=== PATIENT | female | born 1975 | race Two or more races ===

== ENCOUNTER 2020-01-15 12:47 | Outpatient (REF) | payer OTHER, SELFPAY ==
--- NOTE | 2020-01-15 | MM_ITS ---
EXAMINATION: MM SCREENING DIGITAL BREAST TOMOSYNTHESIS, BILATERAL CLINICAL INFORMATION: Screening. Asymptomatic. The lifetime risk of breast cancer based on the Tyrer-Cuzick Model is 7%. COMPARISON: Mammography: 09/22/2018, 09/16/2017 TECHNIQUE: Digital breast tomosynthesis is performed in both the craniocaudal and mediolateral oblique views along with computer-aided detection (CAD). Synthesized 2D images are generated from the tomosynthesis. FINDINGS: There are scattered areas of fibroglandular density (ACR BI-RADS breast composition Category b). There are no significant masses, abnormal calcifications, or other abnormalities. Parenchymal pattern is similar to prior studies. The axilla and skin contours are unremarkable. IMPRESSION: No mammographic evidence of malignancy. ASSESSMENT: BI-RADS 1: Negative RECOMMENDATION: Routine annual mammography screening. This patient's information was entered into a reminder system with a target due date for their next mammogram.
== END 2020-01-15 12:48 | disposition home or self-care (01) ==
LOC: HO.MAMMO 12:47
PROVIDERS: Visit Provider Internal Medicine
DX: Z12.31 Encounter for screening mammogram for malignant neoplasm of breast (principal)
CPT/HCPCS: 77063; 77067; 78014

== ENCOUNTER → 2020-01-19 08:45 | Outpatient (BNVA) | payer OTHER, SELFPAY | PROVIDERS: PCP Internal Medicine; Visit Provider Orthopaedic Surgery | DX: M25.551 Pain in right hip (principal); M54.40 Lumbago with sciatica, unspecified side | CPT/HCPCS: 99213 ==

== ENCOUNTER 2020-04-27 15:41 | Outpatient (REF) | payer OTHER, SELFPAY ==
[2020-04-27 16:11] LABS: MANUAL DIFF FLAG NO
[2020-04-27 16:31] LABS: Basophils Percent Auto 0.2 % (0-2); Eosinophils Absolute Auto 0.1 X10*3/uL (0.0-0.4); Eosinophils Percent Auto 0.7 % (0-4); Hematocrit 34.4 % (37-47); Hemoglobin 11.1 g/dl (12.0-16.0); Imm Gran Abs Auto 0.04 X10*3/uL (0.00-0.03); Imm Gran Pct Auto 0.4 % (0.0-0.4); Lymphocytes Absolute Auto 2.6 X10*3/uL (1.2-4.9); Lymphocytes Percent Auto 25.4 % (20-40); Mean Corpuscular HGB Conc 32.3 g/dl (31.0-35.0); Mean Corpuscular Hemoglobin 30.2 pg (27.0-33.0); Mean Corpuscular Volume 93.5 fL (80-98); Mean Platelet Volume 11.3 fL (9.4-12.3); Monocytes Absolute Auto 0.7 X10*3/uL (0.1-1.2); Monocytes Percent Auto 6.5 % (2-11); Neutrophils Absolute Auto 6.8 X10*3/uL (2.0-8.3); Neutrophils Percent Auto 66.8 % (45-73); Platelet Count 241 X10*3/uL (160-400); Red Blood Count 3.68 X10*6/uL (4.20-5.50); Red Cell Distribution Width 13.3 % (11.0-16.0); White Blood Count 10.1 X10*3/uL (4.8-10.8)
[2020-04-27 16:55] LABS: Alanine Aminotransferase 24 U/L (0-31); Albumin Level 3.8 g/dL (3.5-5.0); Alkaline Phosphatase 72 U/L (39-117); Anion Gap 12 (12-20); Aspartate Amino Transferase 23 U/L (5-31); Bilirubin Total 0.2 mg/dL (0.0-1.0); Blood Urea Nitrogen 12 mg/dL (9-16); Calcium 8.9 mg/dL (8.4-10.2); Carbon Dioxide 28 mmol/L (22-29); Chloride 100 mmol/L (96-108); Estimated Glomerular Filt Rate > 60; Glucose Random 112 mg/dL (60-115); Potassium 4.3 mmol/l (3.3-5.1); Sodium 136 mmol/L (135-145); Total Protein 7.2 g/dL (6.5-8.0)
== END 2020-04-27 15:42 | disposition home or self-care (01) ==
LOC: HO.LAB 15:41
PROVIDERS: PCP Internal Medicine; Visit Provider Internal Medicine
DX: R42 Dizziness and giddiness (principal); R53.83 Other fatigue
CPT/HCPCS: 36415; 80053; 84443; 85025

== ENCOUNTER 2020-08-19 08:28 | Emergency (ER) | payer OTHER, SELFPAY ==
--- NOTE | ~2020-08-19 | US_ITS ---
EXAMINATION: US DIAGNOSTIC ULTRASOUND BREAST, RIGHT US DIAGNOSTIC ULTRASOUND BREAST, LEFT CLINICAL INFORMATION: 45-year-old, emergency room visit for bilateral breast symptoms. Patient status post bilateral mastopexy with fat insertion approximately 3 months ago. COMPARISON: Bilateral digital breast tomosynthesis 01/15/2020, targeted right breast ultrasound 09/19/2017. TECHNIQUE: Ultrasound is performed using grayscale imaging and color Doppler without and with harmonics. Exam is tailored to the areas of patient concern. Exam is performed emergently, at the hospital department. Ultrasound left breast is targeted to the inner breast, ultrasound right breast is targeted to the inferior breast. FINDINGS: Right: There is an oval heterogeneous predominantly hyperechoic mass 6:00 position 2 cm from nipple measuring 2.6 x 1.5 x 1.6 cm. The caudal aspect of the lesion shows some linear internal hypoechogenicity. There is no increased or decreased through transmission of sound. The superficial side shows probable claw sign with the deep dermis. There is no skin thickening or edema tracking in the soft tissue planes There is no local or surrounding or internal hyperemia. There is a smaller lesion mildly hypoechoic with central hypoechogenicity 5:00 position 3 cm from nipple measuring 1.0 x 0.8 x 0.8 cm. There is no associated color flow. No increased or decreased through transmission of sound. Left: There is an oval predominantly hypoechoic lesion superficial 9:00 position 4 cm from nipple measuring 1.7 x 0.9 x 1.5 cm. There is some scattered borderline internal hypoechogenicity. The lesion contacts the deep dermis without corresponding. There are some scattered adjacent color flow. No definite hyperemia. There is a hypoechoic lesion 8:00 position 4 cm from nipple measuring 1.0 x 0.9 x 0.9 cm. There is some mild internal decreased echogenicity No associated color flow. At the 8:00 position 2 cm from nipple, there is a hypoechoic area under 5 mm possibly fat lobule or small intramammary node. US/US breast RT limited IMPRESSION: 1. Bilateral similar appearing predominantly hypoechoic heterogeneous lesions as detailed above likely combination of postoperative change and fat necrosis. 2. No edema tracking in soft tissue planes. No focal abscess. No focal hyperemia. ASSESSMENT: BI-RADS 3: Probably Benign RECOMMENDATION: 1. Patient should be managed based on the clinical impression. 2. Recommend clinical follow-up. If symptoms are persistent, further evaluation of the breasts may be performed with diagnostic digital breast tomosynthesis and follow-up ultrasound if warranted. This patient's information was entered into a reminder system with a target due date for their next mammogram.
[2020-08-19 08:58] VITALS: BP 134/77; PULSE 83; RESP 18; TEMP 36.7; O2SAT 99; BMI 25.7
--- NOTE | 2020-08-19 09:33 | ED_ITS ---
HPI - General Adult General Chief complaint: General Medical Stated complaint: BREAST ISSUE Time Seen by Provider: 08/19/20 08:58 Source: patient Mode of arrival: ambulatory Limitations: no limitations History of Present Illness HPI narrative: 45-year-old female who is status post breast augmentation with the lift with fat insertion no implants approximately in May 2020 in [place] presenting to the ED with complaints of hard lumps to each breast approximately 1 on each side. She said that this has been present since her surgery and has not worsened. She denies any fevers or any drainage. Denies any other symptoms complaints or concerns at this time. She reports she is currently not on any antibiotics or any blood thinners. Related Data Home Medications Medication Instructions Recorded Confirmed baclofen 10 mg tablet 10 mg PO TID 01/13/20 01/16/20 clindamycin HCl 300 mg capsule 300 mg PO Q6H 01/13/20 01/16/20 fluoxetine 20 mg capsule 20 mg PO DAILY 01/13/20 01/16/20 gabapentin 100 mg capsule 100 mg PO TID 01/13/20 01/16/20 midodrine 5 mg tablet 5 mg PO TID 01/13/20 01/16/20 mirtazapine 15 mg tablet 15 mg PO BEDTIME 01/13/20 01/16/20 naproxen 500 mg tablet 500 mg PO BID 01/13/20 01/16/20 tramadol 50 mg tablet 50 mg PO DAILY 01/13/20 01/16/20 Previous Rx's Medication Instructions Recorded lorazepam 1 mg tablet 1 mg PO BEDTIME PRN 30 Days #30 tab 04/20/20 levothyroxine 25 mcg tablet 25 mcg PO QAM #90 tab 05/23/20 Allergies Allergy/AdvReac Type Severity Reaction Status Date / Time Penicillins [PENICILLINS] Allergy Unknown RASH Verified 08/19/20 09:00 Review of Systems Review of Systems: Constitutional : No Fever, No Chills, Cardiovascular : No Chest Pain, No SOB Respiratory : No Dyspnea Gastrointestinal : No abdominal pain Musculoskeletal : No Joint Swelling Skin : Positive lungs to bilateral breasts, no drainage, No skin laceration, No Foreign bodies, No rash, No surrounding erythema Neuro : No Weakness, No Numbness/tingling Psych : No SI/HI/thoughts of self injury Yes all other systems are reviewed and are negative PMFSH Past Medical History Attestation statement: The following information was validated with the patient. Medical History Coccydynia Surgical History History of appendectomy History of arthroplasty of right knee History of bladder suspension procedure History of delivery History of tonsillectomy Family History Family History Father No problems noted. Mother Myocardial infarction CVD (cardiovascular disease) Social History Social History Advance Directives: Yes Advance Directives Information Provided: Yes Advance Directives on File: No Patient : No Current occupation: Unemployed Physical Exam Vital Signs: Vital Signs: Last Vital Signs Temp 98.1 F 08/19/20 08:58 Pulse 83 08/19/20 08:58 Resp 18 08/19/20 08:58 BP 134/77 08/19/20 08:58 Pulse Ox 99 08/19/20 08:58 Body Mass Index 25.7 vital signs have been reviewed as normal and appeared to be correct. Blood pressure normal. Heart rate normal. Respiration rate normal. Temperature normal. Oxygen saturation normal. Appearance: Alert. Oriented X3. No acute distress. Head: Normal external exam. Normocephalic. Eyes: PERRLA. EOMI. Conjunctiva and sclera normal. Eyelids normal. ENT: Pharynx normal. Uvula midline. Moist mucous membranes. Neck: Normal inspection. Neck supple. FROM. No adenopathy. No meningeal signs. CVS: Normal heart rate and rhythm. Heart sound normal. No murmurs noted. Pulses normal throughout. Chest/Breast: To right breast patient has augmentation surgical scars which appear well healing no erythema or signs of infection/fluctuance or drainage noted at this time. At the 06:00 o'clock aspect patient has induration. The left breast augmentations surgical scars appear well healing no erythema/signs of infection/drainage or fluctuance at this time. At the 09:00 o'clock aspect patient has induration. Respiratory: No respiratory distress. Painless inspiration. Breath sounds normal. No wheezes/rales/rhonchi noted. Chest nontender. No accessory muscle usage noted or decreased air movement noted. Back: Full range of motion noted. Skin: Skin warm and dry. Normal skin color. Normal skin turgor. No rashes/lesions/lacerations noted. Extremities: Extremities exhibit normal range of motion. Extremities nontender. Neuro: Oriented X 3. No motor deficit. No sensory deficit. Reflexes normal. Normal steady gait. Course Course Course Narrative: Ultrasound returned at this time and patient with fat necrosis no signs of abscess or infection will print out a copy of her ultrasound results and instructed patient [facility] or her PCP for an outpatient mammogram or further evaluation treatment although no antibiotics indicated at this time. Patient understands agrees with this plan. Medical Decision Making MDM Narrative Medical decision making narrative: 9:10am - 45-year-old female who is status post breast augmentation with the lift with fat insertion no implants approximately in May 2020 in [place] presenting to the ED with complaints of hard lumps to each breast approximately 1 on each side. - on exam patient's breast augmentations surgical scars appear to be well- healing no signs of infection. Although on the right breast at the 06:00 o'clock aspect patient has induration and at the left breast 09:00 o'clock aspect patient has induration. - Concern for Fat necrosis vs abscess vs normal healing - Plan: Limited ultrasound of right and left breast then I will recommend the patient to have an outpatient mammogram. Will re-evaluate. Medical Records Medical records reviewed: Yes I reviewed the patient's medical records. Imaging Data Bilateral breast ultrasound: Attestation: I personally reviewed and interpreted this imaging study as follows: Radiologist's impression: [address] [id number] ReportSigned Patient: Michelle Clarke JMR#: [id number]: [id number]:[id number]/Sex: 45 / FADM Date: 08/19/20Loc: [address]: Ordering Physician: NICHOLAS RODARTE Date of Service: 08/19/20 Procedure(s): US breast LT limited Accession Number(s): [id number] cc: NICHOLAS RODARTE~ EXAMINATION: US DIAGNOSTIC ULTRASOUND BREAST, RIGHT US DIAGNOSTIC ULTRASOUND BREAST, LEFT CLINICAL INFORMATION: 45-year-old, emergency room visit for bilateral breast symptoms. Patient status post bilateral mastopexy with fat insertion approximately 3 months ago. COMPARISON: Bilateral digital breast tomosynthesis 01/15/2020, targeted right breast ultrasound 09/19/2017. TECHNIQUE: Ultrasound is performed using grayscale imaging and color Doppler without and with harmonics. Exam is tailored to the areas of patient concern. Exam is performed emergently, at the hospital department. Ultrasound left breast is targeted to the inner breast, ultrasound right breast is targeted to the inferior breast. FINDINGS: Right: There is an oval heterogeneous predominantly hyperechoic mass 6:00 position 2 cm from nipple measuring 2.6 x 1.5 x 1.6 cm. The caudal aspect of the lesion shows some linear internal hypoechogenicity. There is no increased or decreased through transmission of sound. The superficial side shows probable claw sign with the deep dermis. There is no skin thickening or edema tracking in the soft tissue planes There is no local or surrounding or internal hyperemia. There is a smaller lesion mildly hypoechoic with central hypoechogenicity 5:00 position 3 cm from nipple measuring 1.0 x 0.8 x 0.8 cm. There is no associated color flow. No increased or decreased through transmission of sound. Left: There is an oval predominantly hypoechoic lesion superficial 9:00 position 4 cm from nipple measuring 1.7 x 0.9 x 1.5 cm. There is some scattered borderline internal hypoechogenicity. The lesion contacts the deep dermis without corresponding. There are some scattered adjacent color flow. No definite hyperemia. There is a hypoechoic lesion 8:00 position 4 cm from nipple measuring 1.0 x 0.9 x 0.9 cm. There is some mild internal decreased echogenicity No associated color flow. At the 8:00 position 2 cm from nipple, there is a hypoechoic area under 5 mm possibly fat lobule or small intramammary node. US/US breast LT limited IMPRESSION: 1. Bilateral similar appearing predominantly hypoechoic heterogeneous lesions as detailed above likely combination of postoperative change and fat necrosis. 2. No edema tracking in soft tissue planes. No focal abscess. No focal hyperemia. ASSESSMENT: BI-RADS 3: Probably Benign RECOMMENDATION: 1. Patient should be managed based on the clinical impression. 2. Recommend clinical follow-up. If symptoms are persistent, further evaluation of the breasts may be performed with diagnostic digital breast tomosynthesis and follow-up ultrasound if warranted. This patient's information was entered into a reminder system with a target due date for their next mammogram. Discharge Plan Discharge Clinical Impression: Breast, fat necrosis, H/O breast augmentation Patient Disposition: Home, Self-Care Additional Instructions: You will need a mammogram outpatient. Return if any new or worsening symptoms. Follow up with her primary care provider. Prescriptions: No Action lorazepam 1 mg tablet 1 mg PO BEDTIME PRN (Reason: anxiety) 30 Days Qty: 30 RF: 0 levothyroxine 25 mcg tablet 25 mcg PO QAM Qty: 90 RF: 0 mirtazapine 15 mg tablet 15 mg PO BEDTIME RF: 0 fluoxetine 20 mg capsule 20 mg PO DAILY RF: 0 clindamycin HCl 300 mg capsule 300 mg PO Q6H RF: 0 tramadol 50 mg tablet 50 mg PO DAILY RF: 0 baclofen 10 mg tablet 10 mg PO TID RF: 0 gabapentin 100 mg capsule 100 mg PO TID RF: 0 naproxen [Naprosyn] 500 mg tablet 500 mg PO BID RF: 0 midodrine 5 mg tablet 5 mg PO TID RF: 0 Referrals: Chandu Ruvalcaba MD [Primary Care Provider] - 2 days Print Language: Marshallese
[2020-08-19 12:03] VITALS: PULSE 87; RESP 18
== END 2020-08-19 12:04 | disposition home or self-care (01) ==
PROVIDERS: Emergency Provider Emergency Medicine; PCP Internal Medicine
DX: T85.898A Other specified complication of other internal prosthetic devices, implants and grafts, initial encounter (principal); N64.1 Fat necrosis of breast; Z98.82 Breast implant status; Y92.9 Unspecified place or not applicable
CPT/HCPCS: 76642; 99283; 99284

== ENCOUNTER 2020-09-28 07:54 | Outpatient (REF) | payer OTHER, SELFPAY ==
[2020-09-28 08:32] LABS: MANUAL DIFF FLAG NO
[2020-09-28 08:33] LABS: Basophils Percent Auto 0.5 % (0-2); Eosinophils Absolute Auto 0.1 X10*3/uL (0.0-0.4); Eosinophils Percent Auto 2.4 % (0-4); Hematocrit 34.6 % (37-47); Hemoglobin 11.3 g/dl (12.0-16.0); Imm Gran Abs Auto 0.01 X10*3/uL (0.00-0.03); Imm Gran Pct Auto 0.2 % (0.0-0.4); Lymphocytes Absolute Auto 2.2 X10*3/uL (1.2-4.9); Lymphocytes Percent Auto 36.3 % (20-40); Mean Corpuscular HGB Conc 32.7 g/dl (31.0-35.0); Mean Corpuscular Hemoglobin 30.1 pg (27.0-33.0); Mean Platelet Volume 11.3 fL (9.4-12.3); Monocytes Absolute Auto 0.5 X10*3/uL (0.1-1.2); Monocytes Percent Auto 8.4 % (2-11); Neutrophils Absolute Auto 3.1 X10*3/uL (2.0-8.3); Neutrophils Percent Auto 52.2 % (45-73); Platelet Count 195 X10*3/uL (160-400); Red Blood Count 3.76 X10*6/uL (4.20-5.50); Red Cell Distribution Width 13.8 % (11.0-16.0); White Blood Count 5.9 X10*3/uL (4.8-10.8)
[2020-09-28 08:56] LABS: Alanine Aminotransferase 28 U/L (0-31); Albumin Level 3.8 g/dL (3.5-5.0); Alkaline Phosphatase 83 U/L (39-117); Anion Gap 11 (12-20); Aspartate Amino Transferase 26 U/L (5-31); Bilirubin Total 0.7 mg/dL (0.0-1.0); Blood Urea Nitrogen 16 mg/dL (9-16); Calcium 8.9 mg/dL (8.4-10.2); Carbon Dioxide 26 mmol/L (22-29); Chloride 107 mmol/L (96-108); Cholesterol 153 mg/dL; Estimated Glomerular Filt Rate > 60; Glucose Fasting 90 mg/dL (60-99); HDL Cholesterol 56 mg/dL; LDL Cholesterol Calculated 89 mg/dl; Potassium 4.5 mmol/L (3.3-5.1); Sodium 139 mmol/L (135-145); Total Protein 6.9 g/dL (6.5-8.0); Triglycerides 41 mg/dL
[2020-09-28 09:28] LABS: Folate 19.9 ng/mL (> or = 4.0); Vitamin B12 561 pg/mL (200-900)
[2020-09-28 09:35] LABS: TSH reflex Free T4 1.94 uIU/mL (0.32-4.0); Vitamin D 25-OH Total 22.9 ng/mL (>30)
[2020-09-28 10:01] LABS: Glucose Urine UA NEG (NEG); Leukocyte Esterase Urine NEG (NEG); Nitrite Urine NEG (NEG); PH 6.5 (5.0-8.0); Specific Gravity - Urine <= 1.005 (1.005-1.025); Urine Blood 3+ (NEG); Urine Ketones NEG (NEG); Urine Protein NEG (NEG-TRACE)
[2020-09-28 10:06] LABS: Appearance Urine HAZY; Color Urine YELLOW
[2020-09-28 11:08] LABS: Squamous Epithelial Cell Urine 2+ /LPF; WBC Urine 0 /HPF (0-4)
== END 2020-09-28 07:55 | disposition home or self-care (01) ==
LOC: HO.LAB 07:54
PROVIDERS: PCP Internal Medicine; Visit Provider Internal Medicine
DX: E53.8 Deficiency of other specified B group vitamins (principal); E78.00 Pure hypercholesterolemia, unspecified; E55.9 Vitamin D deficiency, unspecified; I10 Essential (primary) hypertension
CPT/HCPCS: 36415; 80053; 80061; 81001; 81003; 82306; 82607; 82746; 84443; 85025

== ENCOUNTER 2020-11-04 12:29 | Emergency (ER) | payer OTHER, SELFPAY | END 2020-11-04 14:13 | disposition left against medical advice (07) | PROVIDERS: Emergency Provider Emergency Medicine; PCP Internal Medicine | DX: Z04.9 Encounter for examination and observation for unspecified reason (principal) ==

== ENCOUNTER 2021-05-15 08:03 | Outpatient (REF) | payer OTHER, SELFPAY ==
[2021-05-15 08:20] LABS: MANUAL DIFF FLAG NO
[2021-05-15 08:51] LABS: Basophils Percent Auto 0.7 % (0-2); Eosinophils Absolute Auto 0.2 X10*3/uL (0.0-0.4); Eosinophils Percent Auto 2.8 % (0-4); Hematocrit 36.5 % (37.0-47.0); Hemoglobin 11.9 g/dl (12.0-16.0); Imm Gran Abs Auto 0.02 X10*3/uL (0.00-0.03); Imm Gran Pct Auto 0.3 % (0.0-0.4); Lymphocytes Percent Auto 33.4 % (20-40); Mean Corpuscular HGB Conc 32.6 g/dl (31.0-35.0); Mean Corpuscular Hemoglobin 30.5 pg (27.0-33.0); Mean Corpuscular Volume 93.6 fL (80.0-98.0); Mean Platelet Volume 11.6 fL (9.4-12.3); Monocytes Absolute Auto 0.4 X10*3/uL (0.1-1.2); Monocytes Percent Auto 6.8 % (2-11); Neutrophils Absolute Auto 3.4 x10*3/uL (2.0-8.3); Platelet Count 234 X10*3/uL (160-400); Red Cell Distribution Width 13.1 % (11.0-16.0)
[2021-05-15 09:11] LABS: Alanine Aminotransferase 14 U/L (0-31); Albumin Level 3.9 g/dL (3.5-5.0); Alkaline Phosphatase 60 U/L (39-117); Anion Gap 11 (12-20); Aspartate Amino Transferase 18 U/L (5-31); Bilirubin Total 0.5 mg/dL (0.0-1.0); Blood Urea Nitrogen 11 mg/dL (9-16); Calcium 9.3 mg/dL (8.4-10.2); Carbon Dioxide 28 mmol/L (22-29); Chloride 107 mmol/L (96-108); Cholesterol 163 mg/dL; Estimated Glomerular Filt Rate > 60; Glucose Fasting 99 mg/dL (60-99); HDL Cholesterol 52 mg/dL; LDL Cholesterol Calculated 102 mg/dl; Potassium 4.5 mmol/L (3.3-5.1); Sodium 141 mmol/L (135-145); Total Protein 7.3 g/dL (6.5-8.0); Triglycerides 47 mg/dL
[2021-05-15 09:33] LABS: Free T4 (Free Thyroxine) 1.13 ng/dL (0.71-1.85); Thyroid Stimulating Hormone 2.33 uIU/mL (0.32-4.0); Vitamin D 25-OH Total 36.3 ng/mL (>30)
[2021-05-15 09:39] LABS: Appearance Urine CLOUDY; Glucose Urine UA NEG (NEG); Leukocyte Esterase Urine TRACE (NEG); Nitrite Urine NEG (NEG); PH 8.5 (5.0-8.0); Urine Blood 3+ (NEG); Urine Ketones NEG (NEG)
[2021-05-15 09:42] LABS: Urine Protein 2+ MG/DL (NEG-TRACE)
[2021-05-15 09:43] LABS: Color Urine RED
[2021-05-15 09:48] LABS: RBC Urine TNTC /HPF (0); Squamous Epithelial Cell Urine TRACE /LPF; WBC Urine 0-2 /HPF (0-4)
== END 2021-05-15 08:04 | disposition home or self-care (01) ==
LOC: HO.LAB 08:03
PROVIDERS: PCP Internal Medicine; Visit Provider Internal Medicine
DX: Z00.00 Encounter for general adult medical examination without abnormal findings (principal); E55.9 Vitamin D deficiency, unspecified; I10 Essential (primary) hypertension; E03.9 Hypothyroidism, unspecified; E78.00 Pure hypercholesterolemia, unspecified
CPT/HCPCS: 36415; 80053; 80061; 81001; 82306; 84439; 84443; 85025

== ENCOUNTER 2021-11-24 09:24 | Outpatient (REF) | payer OTHER, SELFPAY ==
[2021-11-24 10:33] LABS: Alanine Aminotransferase 12 U/L (0-31); Alkaline Phosphatase 55 U/L (39-117); Anion Gap 13 (12-20); Aspartate Amino Transferase 16 U/L (5-31); Bilirubin Total 0.6 mg/dL (0.0-1.0); Blood Urea Nitrogen 13 mg/dL (9-16); Calcium 8.9 mg/dL (8.4-10.2); Carbon Dioxide 25 mmol/L (22-29); Chloride 106 mmol/L (96-108); Cholesterol 171 mg/dL; Estimated Glomerular Filt Rate > 60; Glucose Fasting 92 mg/dL (60-99); HDL Cholesterol 58 mg/dL; LDL Cholesterol Calculated 105 mg/dl; Potassium 4.3 mmol/L (3.3-5.1); Sodium 140 mmol/L (135-145); Total Protein 7.3 g/dL (6.5-8.0); Triglycerides 43 mg/dL
[2021-11-24 10:56] LABS: Erythrocyte Sedimentation Rate 20 MM/HR (0-20)
[2021-11-24 10:59] LABS: Free T4 (Free Thyroxine) 1.12 ng/dL (0.71-1.85); Thyroid Stimulating Hormone 2.06 uIU/mL (0.32-4.0); Vitamin D 25-OH Total 34.4 ng/mL (>30)
[2021-11-24 11:21] LABS: Appearance Urine HAZY; Color Urine YELLOW; Glucose Urine UA NEG (NEG); Leukocyte Esterase Urine NEG (NEG); Nitrite Urine NEG (NEG); Specific Gravity - Urine 1.015 (1.005-1.025); Urine Blood NEG (NEG); Urine Ketones NEG (NEG); Urine Protein NEG (NEG-TRACE)
== END 2021-11-24 09:25 | disposition home or self-care (01) ==
LOC: HO.LAB 09:24
PROVIDERS: PCP Internal Medicine; Visit Provider Internal Medicine
DX: E78.00 Pure hypercholesterolemia, unspecified (principal); E03.9 Hypothyroidism, unspecified; E55.9 Vitamin D deficiency, unspecified; M79.7 Fibromyalgia; I10 Essential (primary) hypertension
CPT/HCPCS: 36415; 80053; 80061; 81003; 82306; 84439; 84443; 85652

== ENCOUNTER 2021-12-03 12:19 | Emergency (ER) | payer OTHER, SELFPAY | END 2021-12-03 14:30 | disposition left against medical advice (07) | PROVIDERS: Emergency Provider Emergency Medicine; PCP Internal Medicine | DX: M54.50 Low back pain, unspecified (principal) ==

== ENCOUNTER 2022-03-07 15:54 | Emergency (ER) | payer OTHER, SELFPAY ==
--- NOTE | ~2022-03-07 | US_ITS ---
EXAMINATION: US ABDOMEN LIMITED CLINICAL INFORMATION: Gallbladder pain. COMPARISON: None TECHNIQUE: Real-time imaging of the gallbladder. FINDINGS: GALLBLADDER: The gallbladder is physiologically distended without evidence of stones, sludge, polyps, wall thickening or pericholecystic fluid. COMMON BILE DUCT: Normal in caliber measuring 0.4 cm in diameter. US/US abdomen limited IMPRESSION: Normal-appearing gallbladder.
[2022-03-07 15:57] VITALS: BP 134/80; PULSE 88; RESP 20; TEMP 36.5; O2SAT 100; BMI 27.1
--- NOTE | 2022-03-07 18:08 | ED.ABDPAIN ---
HPI - Abdominal Pain General Chief Complaint: Abdominal Pain Stated Complaint: Hemorrhoids, abdominal pain Time Seen by Provider: 03/07/22 16:06 Source: patient Mode of arrival: ambulatory History of Present Illness HPI narrative: 46-year-old female who presents with right upper quadrant pain since yesterday that began after having a ?fatty meal? and is not been associated with any fever, chills, nausea, vomiting and pain has somewhat decreased after taking ibuprofen. Patient states she is never had an ultrasound previously for her gallbladder. Patient also complaint of external hemorrhoids that are itchy and burning in nature. She than provides a picture which shows dilated hemorrhoids. Related Data Previous Rx's Medication Instructions Recorded loratadine 10 mg tablet 10 mg PO DAILY PRN allergy 10/20/21 symptoms 90 days #90 tabs cholecalciferol (vitamin D3) 50 50 mcg PO DAILY 90 days #90 caps 01/05/22 mcg (2,000 unit) capsule albendazole 200 mg tablet 200 mg PO BID 3 days #6 tabs 03/07/22 baclofen 10 mg tablet 10 mg PO TID PRN muscle spasms 30 03/07/22 days #90 tabs fluoxetine 20 mg capsule 20 mg PO DAILY 90 days #90 caps 03/07/22 gabapentin 300 mg capsule 300 mg PO TID 30 days #90 caps 03/07/22 ibuprofen 600 mg tablet 600 mg PO TID PRN pain 30 days #90 03/07/22 tabs levothyroxine 25 mcg tablet 25 mcg PO QAM 90 days #90 tabs 03/07/22 lorazepam 1 mg tablet 1 mg PO BEDTIME PRN anxiety 30 03/07/22 days #30 tabs mecobalamin (vitamin B12) 1,000 1,000 mcg PO DAILY 90 days #90 tabs 03/07/22 mcg chewable tablet midodrine 5 mg tablet 5 mg PO TID 30 days #90 tabs 03/07/22 mirtazapine 30 mg tablet 30 mg PO BEDTIME 90 days #90 tabs 03/07/22 naproxen 500 mg tablet (Naprosyn) 500 mg PO BID PRN pain 30 days #60 03/07/22 tabs pramoxine 1 % topical foam 1 appl CA BID #15 grams 03/07/22 (Proctofoam) tramadol 50 mg tablet 50 mg PO DAILY PRN pain 30 days 03/07/22 #30 tabs Allergies Allergy/AdvReac Type Severity Reaction Status Date / Time Penicillins [PENICILLINS] Allergy Unknown RASH Verified 03/07/22 14:08 Review of Systems Review of Systems Pertinent positives and negatives as stated in HPI 10 point review of systems is otherwise negative. [facility] Past Medical History Source: nursing notes reviewed Medical History Acquired hypothyroidism Allergic rhinitis Anxiety Chronic right sacroiliac joint pain Coccydynia Colonoscopy refused Depression Fibromyalgia Lumbar degenerative disc disease Orthostatic hypotension Overweight (BMI 25.0-29.9) Palpitations Varicose veins of bilateral lower extremities with pain Vitamin D deficiency Surgical History History of appendectomy History of arthroplasty of right knee History of bladder suspension procedure History of delivery History of tonsillectomy Family History Family History Father No problems noted. Mother Myocardial infarction CVD (cardiovascular disease) Social History Social History Housing: House Alcohol intake: never Patient Tobacco Use Status: Never used Tobacco Second Hand Smoke Exposure: No Advance Directives: No Advance Directives Information Provided: Yes service: No Current occupational status: disabled Current occupation: Unemployed Cognitive needs: No Hearing needs: No Vision needs: Yes Physical Exam ED Vital Signs: Vital Signs - 24 hr 03/07/22 15:57 03/07/22 18:10 Temperature 97.7 F 98.4 F Pulse Rate 88 82 Respiratory Rate 20 20 Blood Pressure 134/80 107/61 Pulse Oximetry 100 97 Oxygen Delivery Method Room Air Room Air BMI result Body Mass Index 27.1 VITAL SIGNS: Reviewed. GENERAL: Well developed, well nourished, in no acute distress. HEAD: Normocephalic/atraumatic EYES: PERRLA, EOMI EARS: Ext canals without abnormality OROPHARYNX: no oral lesions noted, posterior pharynx clear LUNGS: Normal breath sounds. No adventitious sounds or accessory muscle use. SpO2<100> CARDIOVASCULAR: Regular rate and rhythm without noted murmurs ABDOMEN: Soft, right upper quadrant pain on palpation without rebound, non-distended with bowel sounds. MARILOU: No tags, no dilated/inflamed external hemorrhoids, irritated appearance with redness and no fissures noted MUSCULOSKELETAL: No tenderness, deformities, or effusions noted on gross inspection. EXTREMITIES: No cyanosis, clubbing or edema. SKIN: Inspection of the skin reveals no rashes NEUROLOGIC: Alert and oriented x 4. Course Course Course Narrative: 46-year-old female with history and clinical presentation consistent with noninflamed external hemorrhoids and suspect patient may be experiencing biliary colic, basic labs and ultrasound ordered. Review of all investigations negative for acute findings and patient was discharged home in stable condition. MDM - Abdominal Pain Lab Data Result diagrams: 03/07/22 18:09 03/07/22 18:09 Labs: Lab Results 03/07/22 03/07/22 Range/Units 18:09 18:09 WBC 9.9 (4.8-10.8) X10*3/uL RBC 3.74 L (4.20-5.50) X10*6/uL Hgb 11.3 L (12.0-16.0) g/dl Hct 34.4 L (37.0-47.0) % MCV 92.0 (80.0-98.0) fL MCH 30.2 (27.0-33.0) pg MCHC 32.8 (31.0-35.0) g/dl RDW 13.1 (11.0-16.0) % Plt Count 235 (160-400) X10*3/uL MPV 10.8 (9.4-12.3) fL Immature Gran % (Auto) 0.3 (0.0-0.4) % Neut % (Auto) 81.2 H (45-73) % Lymph % (Auto) 13.6 L (20-40) % [place] % (Auto) 4.0 (2-11) % Eos % (Auto) 0.4 (0-4) % Baso % (Auto) 0.5 (0-2) % Lymph # (Auto) 1.4 (1.2-4.9) X10*3/uL [place] # (Auto) 0.4 (0.1-1.2) X10*3/uL Eos # (Auto) 0.0 (0.0-0.4) X10*3/uL Baso # (Auto) 0.1 (0.0-0.2) X10*3/uL Abs Immat Gran (auto) 0.03 (0.00-0.03) X10*3/uL Absolute Neuts (auto) 8.1 (2.0-8.3) x10*3/uL Absolute Nucleated RBC 0.000 (0.0-0.012) X10*3/uL Nucleated RBC % (auto) 0.0 (0.0-0.2) /100WBC Sodium 138 (135-145) mmol/L Potassium 4.0 (3.3-5.1) mmol/L Chloride 104 (96-108) mmol/L Carbon Dioxide 25 (22-29) mmol/L Anion Gap 13 (12-20) BUN 9 (9-16) mg/dL Creatinine 0.76 (0.5-1.4) mg/dL Estim Creat Clear Calc 92.1 Estimated GFR > 60 Random Glucose 120 H (60-115) mg/dL Calcium 9.2 (8.4-10.2) mg/dL Total Bilirubin 0.3 (0.0-1.0) mg/dL AST 17 (5-31) U/L ALT 14 (0-31) U/L Alkaline Phosphatase 68 D (39-117) U/L Total Protein 7.2 (6.5-8.0) g/dL Albumin 4.0 (3.5-5.0) g/dL Discharge Plan Discharge Clinical Impression: External hemorrhoids, Gastritis Patient Disposition: Home, Self-Care Instructions: Gastritis (ED), Hemorrhoids (ED), Diet for Stomach Ulcers and Gastritis (ED) Additional Instructions: 1. Resume all home medications as prescribed. 2. Stop taking ibuprofen, it may be contributing to your symptoms. 3. Follow-up with your primary care provider in the next 1-2 days for re-evaluation. 4. You have been provided with a referral to see Gastroenterology, who will further evaluate your hemorrhoids. You will need to call the office when they are next open which may be 03/08. Return to the ER for worsening symptoms. Prescriptions: New pramoxine [Proctofoam] 1 % foam 1 appl CA BID Qty: 15 0RF No Action cholecalciferol (vitamin D3) 50 mcg (2,000 unit) capsule 50 mcg PO DAILY 90 Days Qty: 90 3RF loratadine 10 mg tablet 10 mg PO DAILY PRN (Reason: allergy symptoms) 90 Days Qty: 90 1RF gabapentin 300 mg capsule 300 mg PO TID 30 Days Qty: 90 3RF ibuprofen 600 mg tablet 600 mg PO TID PRN (Reason: pain) 30 Days Qty: 90 2RF Rx Instructions: Take with food mirtazapine 30 mg tablet 30 mg PO BEDTIME 90 Days Qty: 90 1RF naproxen [Naprosyn] 500 mg tablet 500 mg PO BID PRN (Reason: pain) 30 Days Qty: 60 0RF Rx Instructions: Take with food albendazole 200 mg tablet 200 mg PO BID 3 Days Qty: 6 0RF Rx Instructions: must administer with food, preferably a high-fat meal lorazepam 1 mg tablet 1 mg PO BEDTIME PRN (Reason: anxiety) 30 Days Qty: 30 0RF baclofen 10 mg tablet 10 mg PO TID PRN (Reason: muscle spasms) 30 Days Qty: 90 2RF fluoxetine 20 mg capsule 20 mg PO DAILY 90 Days Qty: 90 1RF levothyroxine 25 mcg tablet 25 mcg PO QAM 90 Days Qty: 90 1RF mecobalamin (vitamin B12) 1,000 mcg tablet,chewable 1,000 mcg PO DAILY 90 Days Qty: 90 3RF midodrine 5 mg tablet 5 mg PO TID 30 Days Qty: 90 2RF Rx Instructions: do not give last dose of day after 6PM or within 4 hrs of bedtime tramadol 50 mg tablet 50 mg PO DAILY PRN (Reason: pain) 30 Days Qty: 30 1RF Referrals: Chandu Ruvalcaba MD [Primary Care Provider] - Galen Bunn [Physician] - (Patient has external hemorrhoids, although not inflamed when evaluated in the emergency room patient provides pictures which clearly show significant dilation and inflammation of external hemorrhoids.)
[2022-03-07 18:10] VITALS: BP 107/61; PULSE 82; RESP 20; TEMP 36.9; O2SAT 97
[2022-03-07 18:20] LABS: MANUAL DIFF FLAG NO
[2022-03-07 18:21] LABS: Basophils Absolute Auto 0.1 X10*3/uL (0.0-0.2); Basophils Percent Auto 0.5 % (0-2); Eosinophils Percent Auto 0.4 % (0-4); Hematocrit 34.4 % (37.0-47.0); Hemoglobin 11.3 g/dl (12.0-16.0); Imm Gran Abs Auto 0.03 X10*3/uL (0.00-0.03); Imm Gran Pct Auto 0.3 % (0.0-0.4); Lymphocytes Absolute Auto 1.4 X10*3/uL (1.2-4.9); Lymphocytes Percent Auto 13.6 % (20-40); Mean Corpuscular HGB Conc 32.8 g/dl (31.0-35.0); Mean Corpuscular Hemoglobin 30.2 pg (27.0-33.0); Mean Platelet Volume 10.8 fL (9.4-12.3); Monocytes Absolute Auto 0.4 X10*3/uL (0.1-1.2); Neutrophils Absolute Auto 8.1 x10*3/uL (2.0-8.3); Neutrophils Percent Auto 81.2 % (45-73); Platelet Count 235 X10*3/uL (160-400); Red Blood Count 3.74 X10*6/uL (4.20-5.50); Red Cell Distribution Width 13.1 % (11.0-16.0); White Blood Count 9.9 X10*3/uL (4.8-10.8)
[2022-03-07 18:38] LABS: Alanine Aminotransferase 14 U/L (0-31); Alkaline Phosphatase 68 U/L (39-117); Anion Gap 13 (12-20); Aspartate Amino Transferase 17 U/L (5-31); Bilirubin Total 0.3 mg/dL (0.0-1.0); Blood Urea Nitrogen 9 mg/dL (9-16); Calcium 9.2 mg/dL (8.4-10.2); Carbon Dioxide 25 mmol/L (22-29); Chloride 104 mmol/L (96-108); Creatinine Clr Calc Pharmacy 92.1; Estimated Glomerular Filt Rate > 60; Glucose Random 120 mg/dL (60-115); Sodium 138 mmol/L (135-145); Total Protein 7.2 g/dL (6.5-8.0)
== END 2022-03-07 20:11 | disposition home or self-care (01) ==
PROVIDERS: Emergency Provider Student in an Organized Health Care Education/Training Program; PCP Internal Medicine
DX: K64.4 Residual hemorrhoidal skin tags (principal); K29.70 Gastritis, unspecified, without bleeding; Z79.899 Other long term (current) drug therapy
CPT/HCPCS: 36415; 76705; 80053; 85025; 99283; 99284

== ENCOUNTER 2022-06-12 08:17 | Outpatient (REF) | payer OTHER, SELFPAY ==
[2022-06-12 11:04] LABS: MANUAL DIFF FLAG NO
[2022-06-12 11:11] LABS: Basophils Percent Auto 0.6 % (0-2); Eosinophils Absolute Auto 0.2 X10*3/uL (0.0-0.4); Eosinophils Percent Auto 2.4 % (0-4); Hemoglobin 12.3 g/dl (12.0-16.0); Imm Gran Abs Auto 0.03 X10*3/uL (0.00-0.03); Imm Gran Pct Auto 0.4 % (0.0-0.4); Lymphocytes Absolute Auto 2.1 X10*3/uL (1.2-4.9); Lymphocytes Percent Auto 28.8 % (20-40); Mean Corpuscular HGB Conc 32.4 g/dl (31.0-35.0); Mean Corpuscular Hemoglobin 30.1 pg (27.0-33.0); Mean Corpuscular Volume 92.9 fL (80.0-98.0); Monocytes Absolute Auto 0.6 X10*3/uL (0.1-1.2); Monocytes Percent Auto 7.8 % (2-11); Neutrophils Absolute Auto 4.3 x10*3/uL (2.0-8.3); Platelet Count 249 X10*3/uL (160-400); Red Blood Count 4.09 X10*6/uL (4.20-5.50); Red Cell Distribution Width 13.7 % (11.0-16.0); White Blood Count 7.2 X10*3/uL (4.8-10.8)
[2022-06-12 11:30] LABS: Alanine Aminotransferase 16 U/L (0-31); Albumin Level 3.5 g/dL (3.5-5.0); Alkaline Phosphatase 60 U/L (39-117); Anion Gap 11 (12-20); Appearance Urine Clear; Aspartate Amino Transferase 16 U/L (5-31); Bilirubin Total 0.5 mg/dL (0.0-1.0); Blood Urea Nitrogen 9 mg/dL (9-16); Calcium 8.5 mg/dL (8.4-10.2); Carbon Dioxide 26 mmol/L (22-29); Chloride 105 mmol/L (96-108); Cholesterol 155 mg/dL; Color Urine Yellow; Estimated Glomerular Filt Rate > 60; Glucose Fasting 98 mg/dL (60-99); Glucose Urine UA Negative (Negative); HDL Cholesterol 51 mg/dL; Iron 58 mcg/dL (30-160); LDL Cholesterol Calculated 92 mg/dl; Leukocyte Esterase Urine Negative (Negative); Nitrite Urine Negative (Negative); Percent Iron Saturation 20 % (15-50); Potassium 4.1 mmol/L (3.3-5.1); Sodium 138 mmol/L (135-145); Specific Gravity - Urine 1.015 (1.005-1.025); Total Iron Binding Capacity 284 mcg/dL (228-428); Total Protein 6.5 g/dL (6.5-8.0); Triglycerides 62 mg/dL; Unsaturated Iron Binding 226 ug/dL; Urine Blood Negative (Negative); Urine Ketones Negative (Negative); Urine Protein Negative (Neg-Trace)
[2022-06-12 12:00] LABS: Folate 11.8 ng/mL (> or = 4.0); Free T4 (Free Thyroxine) 0.89 ng/dL (0.71-1.85); Thyroid Stimulating Hormone 2.12 uIU/mL (0.32-4.0); Vitamin B12 576 pg/mL (200-900)
[2022-06-12 12:03] LABS: Erythrocyte Sedimentation Rate 20 MM/HR (0-20)
== END 2022-06-12 08:18 | disposition home or self-care (01) ==
LOC: HO.HMGCLDS 08:17
PROVIDERS: PCP Internal Medicine; Visit Provider Internal Medicine
DX: Z00.00 Encounter for general adult medical examination without abnormal findings (principal); E55.9 Vitamin D deficiency, unspecified; E53.8 Deficiency of other specified B group vitamins; R30.0 Dysuria; E03.9 Hypothyroidism, unspecified; E78.00 Pure hypercholesterolemia, unspecified; D50.9 Iron deficiency anemia, unspecified; M79.7 Fibromyalgia; I10 Essential (primary) hypertension
CPT/HCPCS: 36415; 80053; 80061; 81003; 82306; 82607; 82746; 83540; 84439; 84443; 85025; 85652

== ENCOUNTER 2022-06-17 20:53 | Emergency (ER) | payer OTHER, SELFPAY ==
[2022-06-17 20:59] VITALS: BP 127/76; PULSE 80; RESP 16; TEMP 36.7; O2SAT 98; BMI 27.5
[2022-06-17 21:31] LABS: Hematocrit 36.3 % (37.0-47.0); Mean Corpuscular HGB Conc 33.1 g/dl (31.0-35.0); Mean Corpuscular Hemoglobin 30.2 pg (27.0-33.0); Mean Corpuscular Volume 91.2 fL (80.0-98.0); Platelet Count 240 X10*3/uL (160-400); Red Blood Count 3.98 X10*6/uL (4.20-5.50); Red Cell Distribution Width 13.5 % (11.0-16.0); White Blood Count 6.7 X10*3/uL (4.8-10.8)
[2022-06-17 21:43] LABS: D Dimer High Sensitivity 207 NG/ML
[2022-06-17 21:53] LABS: Alanine Aminotransferase 15 U/L (0-31); Alkaline Phosphatase 63 U/L (39-117); Anion Gap 12 (12-20); Aspartate Amino Transferase 17 U/L (5-31); Bilirubin Total 0.3 mg/dL (0.0-1.0); Blood Urea Nitrogen 13 mg/dL (9-16); Carbon Dioxide 25 mmol/L (22-29); Chloride 105 mmol/L (96-108); Estimated Glomerular Filt Rate > 60; Glucose Random 117 mg/dL (60-115); Potassium 4.2 mmol/L (3.3-5.1); Sodium 138 mmol/L (135-145); Total Protein 7.3 g/dL (6.5-8.0)
--- NOTE | 2022-06-17 23:21 | ED_ITS ---
HPI - General Adult General Chief complaint: General Medical Stated complaint: ear pain, swollen leg DVT, ultrasound Time Seen by Provider: 06/17/22 23:21 Source: patient and family (Daughter) Mode of arrival: ambulatory Limitations: no limitations History of Present Illness HPI narrative: 47-year-old female sent to the emergency department for evaluation possible right lower extremity DVT. The patient had a varicose vein surgery 2 weeks prior to her right lower extremity. Patient also traveled from [facility] [facility] 4 weeks prior by jet which is a 12 hour flight. The patient states that since she had a varicose vein procedure she is having pain in her right upper thigh and in a very localized area and her right medial calf. The patient states that she has been feeling lightheaded, dizzy and been having palpitations. Patient has also been having difficulty with her left ear. The patient was diagnosed with a left ear infection and took a 10 day course of doxycycline. At the urgent care clinic today she was told that she had an external ear infection on the left and was started on ear drops. The family states that the patient stool that she had low blood pressures well and that she should go to the emergency department for evaluation for possible DVT. Patient states that she has been having intermittent palpitations mainly in the morning. She states that her heart races and she feels lightheaded and dizzy. She denied chest pain. Related Data Home Medications Medication Instructions Recorded Confirmed lidocaine 5 % topical ointment 1 appl topical .four time a day 06/05/22 06/05/22 Previous Rx's Medication Instructions Recorded albendazole 200 mg tablet 200 mg PO BID 3 days #6 tabs 03/07/22 naproxen 500 mg tablet (Naprosyn) 500 mg PO BID PRN pain 30 days #60 03/07/22 tabs pramoxine 1 % topical foam 1 appl NM BID #15 grams 03/07/22 (Proctofoam) baclofen 10 mg tablet 10 mg PO TID PRN muscle spasms 30 06/05/22 days #90 tabs cholecalciferol (vitamin D3) 50 50 mcg PO DAILY 90 days #90 caps 06/05/22 mcg (2,000 unit) capsule ferrous sulfate 325 mg (65 mg 325 mg PO DAILY 30 days #30 tabs 06/05/22 iron) tablet (Feosol) fluoxetine 20 mg capsule 20 mg PO DAILY 90 days #90 caps 06/05/22 fluticasone propionate 50 2 spray intranasal DAILY PRN 06/05/22 mcg/actuation nasal allergy symptoms 30 days #16 grams spray,suspension gabapentin 300 mg capsule 300 mg PO TID 30 days #90 caps 06/05/22 ibuprofen 800 mg tablet 800 mg PO TID PRN pain 30 days #90 06/05/22 tabs levothyroxine 25 mcg tablet 25 mcg PO QAM 90 days #90 tabs 06/05/22 loratadine 10 mg tablet 10 mg PO DAILY PRN allergy 06/05/22 symptoms 90 days #90 tabs lorazepam 1 mg tablet 1 mg PO BEDTIME PRN anxiety 30 06/05/22 days #30 tabs mecobalamin (vitamin B12) 1,000 1,000 mcg PO DAILY 90 days #90 tabs 06/05/22 mcg chewable tablet midodrine 5 mg tablet 5 mg PO TID 30 days #90 tabs 06/05/22 mirtazapine 30 mg tablet 30 mg PO BEDTIME 90 days #90 tabs 06/05/22 tramadol 50 mg tablet 50 mg PO DAILY PRN pain 30 days 06/05/22 #30 tabs Allergies Allergy/AdvReac Type Severity Reaction Status Date / Time Penicillins [PENICILLINS] Allergy Unknown RASH Verified 06/05/22 17:12 Review of Systems Review of Systems: Yes all other systems are reviewed and are negative [facility] Past Medical History [facility] Narrative: Social history: The patient denies tobacco, alcohol and drug use. Medical History Acquired hypothyroidism Allergic rhinitis Anxiety Chronic right sacroiliac joint pain Coccydynia Colonoscopy refused Depression Fibromyalgia Lumbar degenerative disc disease Orthostatic hypotension Overweight (BMI 25.0-29.9) Palpitations Varicose veins of bilateral lower extremities with pain Vitamin D deficiency Surgical History History of appendectomy History of arthroplasty of right knee History of bladder suspension procedure History of delivery History of tonsillectomy Family History Family History Father No problems noted. Mother Myocardial infarction CVD (cardiovascular disease) Social History Social History Housing: House Alcohol intake: never Patient Tobacco Use Status: Never used Tobacco Second Hand Smoke Exposure: No Advance Directives: No Advance Directives Information Provided: No service: No Current occupational status: disabled Current occupation: Unemployed Cognitive needs: No Hearing needs: No Vision needs: Yes Physical Exam ED Vital Signs: Vital Signs - 24 hr 06/17/22 20:59 Temperature 98.0 F Pulse Rate 80 Respiratory Rate 16 Blood Pressure 127/76 Pulse Oximetry 98 Oxygen Delivery Method Room Air BMI result Body Mass Index 27.5 Const Other: Awake, alert, female patient, very pleasant cooperative, does not appear to be in distress HENMT Head: Yes normal to inspection, Yes normocephalic and Yes atraumatic Ears: external ears normal, TM's normal bilaterally, EAC's normal and other (No mastoid tenderness) General nose exam: Normal external nose present Face and sinus: Yes normal facial exam Mouth: Normal oral and palatal mucosa present Throat: Yes posterior oropharynx normal Eyes General: appearance normal, both eyes and all related structures Neck Neck: Yes normal visual inspection, Yes no lymphadenopathy, Yes trachea midline and Yes supple Chest Chest palpation & inspection: normal inspection of the chest and normal palpation of entire chest wall Resp Effort & Inspection: normal respiratory effort and able to speak in complete sentences Auscultation: clear to auscultation bilaterally Cardio Rate: regular rate Rhythm: regular rhythm Heart sounds: S1 normal heart sound present, S2 normal heart sound present and no murmurs GI Inspection: Yes normal to inspection Palpation (GI): Soft to palpation, nontender and no guarding Auscultation: normal bowel sounds General: Yes no CVA tenderness Back/Spine/Pelvis Back: no CVA tenderness Neuro Cognition (Neuro): normal cognition Motor exam (neuro): 5/5 motor strength present throughout Extrem Other: Patient has a linear area of ecchymosis to her right medial thigh which is tender to palpation consistent with a varicose vein procedure. She also has a oval circular patch to her right medial which is ecchymotic, slightly rage tender to palpation again consistent with her varicose vein procedure. General: Yes normal to inspection Psych Appearance: grossly normal Speech and movement: Normal speech and movement present Attitude: cooperative Medical Decision Making Medical Decision Making MDM Narrative: 47-year-old female referred to the emergency department from an urgent care clinic for evaluation possible low blood pressure, palpitations, right lower extremity pain after having a varicose vein surgery 2 weeks prior and having tr aveled from [place] 4 weeks prior which was a 12 [address] plane ride. Patient's vital signs were normal with normal blood pressure of 127/76. The patient's right lower extremity exam did reveal an area of linear ecchymosis to the right medial thigh which is consistent with her varicose vein procedure, she also has a circular area on the right medial calf which is slightly ecchymotic slightly raised and tender to palpation, there is no erythema or exudates to this area. 2357: My interpretation of patient's laboratory evaluation is as follows: CBC was normal. CMP was normal. D-dimer was normal at 207. Twelve EKG was unremarkable. At this time I do not see any significant abnormality of the patient's left ear, the patient was started on ear drops by the urgent care clinic and I advised the patient to finish the prescription as prescribed. The patient does have areas of ecchymosis to her right medial thigh and left medial calf which I think are consistent with her varicose vein procedure. Given the normal D-dimer I think DVT is less likely however I will obtain a duplex ultrasound on the patient which will be done tomorrow since we do not have ultrasound at this time. Differential Diagnosis Differential diagnosis includes but is not limited to postsurgical bruising, cellulitis, DVT, otitis externa, otitis media, mastoiditis Lab Data [facility] Lab Attestation statement: I reviewed the patient's lab results. please see [facility] for discussion 06/17/22 21:26 06/17/22 21:26 Labs: Lab Results 06/17/22 06/17/22 06/17/22 Range/Units 21:26 21:26 21:26 WBC 6.7 (4.8-10.8) X10*3/uL RBC 3.98 L (4.20-5.50) X10*6/uL Hgb 12.0 (12.0-16.0) g/dl Hct 36.3 L (37.0-47.0) % MCV 91.2 (80.0-98.0) fL MCH 30.2 (27.0-33.0) pg MCHC 33.1 (31.0-35.0) g/dl RDW 13.5 (11.0-16.0) % Plt Count 240 (160-400) X10*3/uL MPV 11.0 (9.4-12.3) fL Absolute Nucleated RBC 0.000 (0.0-0.012) X10*3/uL Nucleated RBC % (auto) 0.0 (0.0-0.2) /100WBC D-Dimer High Sensitivty 207 NG/ML Sodium 138 (135-145) mmol/L Potassium 4.2 (3.3-5.1) mmol/L Chloride 105 (96-108) mmol/L Carbon Dioxide 25 (22-29) mmol/L Anion Gap 12 (12-20) BUN 13 (9-16) mg/dL Creatinine 0.69 (0.5-1.4) mg/dL Estim Creat Clear Calc 101.0 Estimated GFR > 60 Random Glucose 117 H (60-115) mg/dL Calcium 9.0 (8.4-10.2) mg/dL Total Bilirubin 0.3 (0.0-1.0) mg/dL AST 17 (5-31) U/L ALT 15 (0-31) U/L Alkaline Phosphatase 63 (39-117) U/L Total Protein 7.3 (6.5-8.0) g/dL Albumin 4.0 (3.5-5.0) g/dL Independent Interpretation I performed an independent interpretation of an: EKG Interpretation: My independent interpretation of the patient's 12 EKG done here in the emergency department at 05:19 hours is as follows: Normal sinus rhythm with a rate of 69, normal NM interval, QRS duration QTC interval, no ST segment elevation, no ST segment depression, no PACs, no PVCs. This is a normal EKG. Discharge Plan Discharge Clinical Impression: Acute pain of left ear, Localized swelling of right lower extremity Patient Disposition: Home, Self-Care Additional Instructions: At this time, I do not see any abnormality of your left ear drum ( tympanic membrane) or the external auditory canal. Take the medication as prescribed by the urgent care clinic for your ear pain. Your right leg looks bruise to me and I think that this is expected after you have had a varicose vein laser procedure. Call the ultrasound number at 08:00 o'clock in the morning to see when you can come in tomorrow morning to get the ultrasound of your right lower leg to make sure there was no blood clot in your leg. Your blood work was all normal which is reassuring. Your EKG was normal as well. I think that some of your symptoms that your experiencing in the morning may be caused by anxiety. You should talk to your provider about getting treatment therapy for your anxiety. Prescriptions: No Action pramoxine [Proctofoam] 1 % foam 1 appl NM BID Qty: 15 0RF naproxen [Naprosyn] 500 mg tablet 500 mg PO BID PRN (Reason: pain) 30 Days Qty: 60 0RF Rx Instructions: Take with food albendazole 200 mg tablet 200 mg PO BID 3 Days Qty: 6 0RF Rx Instructions: must administer with food, preferably a high-fat meal lidocaine 5 % ointment 1 appl topical .four time a day Rx Instructions: apply pea size amount 3 to 4 times a day ibuprofen 800 mg tablet 800 mg PO TID PRN (Reason: pain) 30 Days Qty: 90 2RF Rx Instructions: Take with food baclofen 10 mg tablet 10 mg PO TID PRN (Reason: muscle spasms) 30 Days Qty: 90 2RF cholecalciferol (vitamin D3) 50 mcg (2,000 unit) capsule 50 mcg PO DAILY 90 Days Qty: 90 3RF fluoxetine 20 mg capsule 20 mg PO DAILY 90 Days Qty: 90 1RF gabapentin 300 mg capsule 300 mg PO TID 30 Days Qty: 90 3RF levothyroxine 25 mcg tablet 25 mcg PO QAM 90 Days Qty: 90 1RF loratadine 10 mg tablet 10 mg PO DAILY PRN (Reason: allergy symptoms) 90 Days Qty: 90 1RF lorazepam 1 mg tablet 1 mg PO BEDTIME PRN (Reason: anxiety) 30 Days Qty: 30 0RF midodrine 5 mg tablet 5 mg PO TID 30 Days Qty: 90 2RF Rx Instructions: do not give last dose of day after 6PM or within 4 hrs of bedtime mirtazapine 30 mg tablet 30 mg PO BEDTIME 90 Days Qty: 90 1RF tramadol 50 mg tablet 50 mg PO DAILY PRN (Reason: pain) 30 Days Qty: 30 1RF mecobalamin (vitamin B12) 1,000 mcg tablet,chewable 1,000 mcg PO DAILY 90 Days Qty: 90 3RF fluticasone propionate 50 mcg/actuation spray,suspension 2 spray intranasal DAILY PRN (Reason: allergy symptoms) 30 Days Qty: 16 5RF Rx Instructions: administer into each nostril ferrous sulfate [Feosol] 325 mg (65 mg iron) tablet 325 mg PO DAILY 30 Days Qty: 30 5RF
--- NOTE | 2022-06-17 23:49 | ECG_ITS ---
Test Reason : PALPATATIONS Blood Pressure : / mmHG Vent. Rate : 069 BPM Atrial Rate : 069 BPM P-R Int : 118 ms QRS Dur : 078 ms QT Int : 394 ms P-R-T Axes : 040 079 035 degrees QTc Int : 422 ms Normal sinus rhythm Normal ECG When compared with ECG of 30-OCT-2018 19:47, No significant change was found Referred By: Antoine Metcalf Electronically Signed By:JOHN CURTIS
[2022-06-18 00:13] VITALS: BP 103/66; PULSE 64; RESP 17; TEMP 36.4; O2SAT 100
[2022-06-18 00:37] VITALS: BP 107/62; PULSE 63; RESP 16; O2SAT 96
--- NOTE | 2022-06-18 00:41 | PC.NURSE ---
pt daughter at bedside. vss. US order form and discharge packet provided to pt. pt verbalized understanding of discharge plan
== END 2022-06-18 00:46 | disposition home or self-care (01) ==
PROVIDERS: Emergency Provider Emergency Medicine Emergency Medical Services; PCP Internal Medicine
DX: H92.02 Otalgia, left ear (principal); R60.0 Localized edema; R00.2 Palpitations; Z79.899 Other long term (current) drug therapy
CPT/HCPCS: 36415; 80053; 85027; 85379; 93005; 99284

== ENCOUNTER 2022-08-24 17:16 | Emergency (ER) | payer OTHER, SELFPAY ==
--- NOTE | ~2022-08-24 | US_ITS ---
EXAMINATION: US VENOUS ULTRASOUND WITH DOPPLER LOWER EXTREMITY, LEFT CLINICAL INFORMATION: Edema, pain COMPARISON: None available. TECHNIQUE: Ultrasound of the deep veins is performed from the hip to the calf with compression sonography and color and pulse Doppler assessment. Spectral analysis with color-flow imaging is performed. FINDINGS: There is normal venous compression and respiratory variation and augmented flow. The visualized common femoral vein, superficial femoral vein, profunda femoral vein, popliteal vein, and the trifurcation region shows no evidence of deep venous thrombosis. There is no significant popliteal fossa cyst. Additional findings suggest thrombus in the greater saphenous vein in the mid thigh extending to the calf If the patient's symptoms persist, followup ultrasound in 5 days 7 days might be of value to exclude proximal propagation from a non-visualized calf vein. US/US venous duplex LE IMPRESSION: No DVT demonstrated in the left lower extremity. There is however felt to be thrombus within the greater saphenous vein from the mid thigh into the calf region
[2022-08-24 17:25] VITALS: BP 115/71; PULSE 64; RESP 18; TEMP 36.4; O2SAT 100; BMI 27.5
--- NOTE | 2022-08-24 17:30 | ED.GENADULT ---
HPI - General Adult General Chief complaint: General Medical Stated complaint: Post 1 mon sx on thrombus having complicantion Time Seen by Provider: 08/24/22 19:33 Source: patient Mode of arrival: ambulatory Limitations: no limitations History of Present Illness HPI narrative: Prelim patient had varicose surgery the left leg a month ago since then noticed left leg pain for last 5 days no significant shortness of breath saturating 98% room air no chest pain no history of PE or DVT patient has been ambulatory otherwise patient had venous Doppler done prior to my evaluation which showed great saphenous vein thrombosis Related Data Home Medications Medication Instructions Recorded Confirmed lidocaine 5 % topical ointment 1 appl topical .four time a day 06/05/22 12/25/22 Previous Rx's Medication Instructions Recorded baclofen 10 mg tablet 10 mg PO TID PRN muscle spasms 30 06/05/22 days #90 tabs cholecalciferol (vitamin D3) 50 50 mcg PO DAILY 90 days #90 caps 06/05/22 mcg (2,000 unit) capsule fluoxetine 20 mg capsule 20 mg PO DAILY 90 days #90 caps 06/05/22 fluticasone propionate 50 2 spray intranasal DAILY PRN 06/05/22 mcg/actuation nasal allergy symptoms 30 days #16 grams spray,suspension gabapentin 300 mg capsule 300 mg PO TID 30 days #90 caps 06/05/22 loratadine 10 mg tablet 10 mg PO DAILY PRN allergy 06/05/22 symptoms 90 days #90 tabs lorazepam 1 mg tablet 1 mg PO BEDTIME PRN anxiety 30 06/05/22 days #30 tabs mecobalamin (vitamin B12) 1,000 1,000 mcg PO DAILY 90 days #90 tabs 06/05/22 mcg chewable tablet midodrine 5 mg tablet 5 mg PO TID 30 days #90 tabs 06/05/22 mirtazapine 30 mg tablet 30 mg PO BEDTIME 90 days #90 tabs 06/05/22 tramadol 50 mg tablet 50 mg PO DAILY PRN pain 30 days 06/05/22 #30 tabs ferrous sulfate 325 mg (65 mg 325 mg PO DAILY 30 days #30 tabs 09/11/22 iron) tablet (Feosol) ibuprofen 800 mg tablet 800 mg PO TID PRN pain 30 days #90 09/11/22 tabs levothyroxine 25 mcg tablet 25 mcg PO QAM 90 days #90 tabs 09/17/22 meloxicam 15 mg tablet 15 mg PO DAILY #14 tabs 10/02/22 Allergies Allergy/AdvReac Type Severity Reaction Status Date / Time Penicillins [PENICILLINS] Allergy Unknown RASH Verified 12/26/22 17:30 Review of Systems Review of Systems: Yes all other systems are reviewed and are negative [facility] Past Medical History Medical History Palpitations Colonoscopy refused Overweight (BMI 25.0-29.9) Depression Anxiety Chronic right sacroiliac joint pain Lumbar degenerative disc disease Orthostatic hypotension Allergic rhinitis Fibromyalgia Acquired hypothyroidism Vitamin D deficiency Varicose veins of bilateral lower extremities with pain Coccydynia Surgical History History of appendectomy History of arthroplasty of right knee History of tonsillectomy History of bladder suspension procedure History of delivery Family History Family History Father No problems noted. Mother Myocardial infarction CVD (cardiovascular disease) Social History Social History Housing: House Alcohol intake: never Patient Tobacco Use Status: Never used Tobacco Second Hand Smoke Exposure: No Advance Directives: No Advance Directives Information Provided: Yes service: No Current occupational status: disabled Current occupation: Unemployed Cognitive needs: No Hearing needs: No Vision needs: Yes Physical Exam ED Vital Signs: Vital Signs - 24 hr 08/24/22 17:25 08/24/22 17:43 Temperature 97.6 F 98.4 F Pulse Rate 64 67 Respiratory Rate 18 18 Blood Pressure 115/71 110/45 L Pulse Oximetry 100 100 Oxygen Delivery Method Room Air Room Air BMI result Body Mass Index 27.5 Appearance: Alert. Oriented X3. No acute distress. ENT: Pharynx normal. Oral Mucosa moist Neck: Normal inspection. Neck supple. CVS: Normal heart rate and rhythm. Pulses normal. Respiratory: No respiratory distress. Equal air entry bilateral, no wheezing/rales/rhonchi Abdomen: Soft and nontender. Bowel sounds are present, Skin: Skin warm and dry. Normal skin color. Normal skin turgor. Extremities: No lower extremity edema. No calf tenderness mild tenderness left mid thigh Neuro: Oriented X 3. Course Course Course Narrative: RME 47-year-old female with past medical history of palpitations, overweight, depression, anxiety, lumbar degenerative disc disease, fibromyalgia, hypothyroidism, varicose veins of bilateral lower extremity with surgery to left lower extremity month ago is here today for increased pain and swelling to her left lower extremity. Patient reports that she had varicose vein surgery at [facility] in [place]. Patient has positive pedal pulses, there is no actual swelling to her left lower extremity that was noted. However patient reports pain. States that the pain is from her knee to her toes. Patient will be sent for ultrasound to rule out DVT. Patient is hemodynamically stable and can go back to the waiting room Medications Administered Discontinued Medications Generic Name Dose Route Start Last Admin Trade Name Freq PRN Reason Stop Dose Admin Apixaban 10 mg 08/24/22 20:02 08/24/22 20:10 Apixaban 5 Mg Tablet PO 08/24/22 20:03 10 mg ONCE ONE Administration Medical Decision Making Medical Decision Making [facility] Narrative: Patient with left leg great saphenous vein thrombosis extending from mid thigh to calf region which is significant amount and is in a bigger vein although not DVT will start patient on Eliquis advised to follow with hematology patient denies significant shortness of breath saturating 98% at room air Radiology Impression Discussion of test interpretation with radiology: I have reviewed the radiologist's reading. Radiologist Impression: [address] [id number] ReportSigned Patient: Michelle Clarke JMR#: [id number]: 1975Acct:[id number]/Sex: 47 / FADM Date: 08/24/22Loc: [email or web address] Dr: Ordering Physician: Leena Nicole Date of Service: 08/24/22 Procedure(s): US venous duplex LE Accession Number(s): [id number] cc: Leena Nicole~ EXAMINATION: US VENOUS ULTRASOUND WITH DOPPLER LOWER EXTREMITY, LEFT CLINICAL INFORMATION: Edema, pain COMPARISON: None available. TECHNIQUE: Ultrasound of the deep veins is performed from the hip to the calf with compression sonography and color and pulse Doppler assessment. Spectral analysis with color-flow imaging is performed. FINDINGS: There is normal venous compression and respiratory variation and augmented flow. The visualized common femoral vein, superficial femoral vein, profunda femoral vein, popliteal vein, and the trifurcation region shows no evidence of deep venous thrombosis. There is no significant popliteal fossa cyst. Additional findings suggest thrombus in the greater saphenous vein in the mid thigh extending to the calf If the patient's symptoms persist, followup ultrasound in 5 days 7 days might be of value to exclude proximal propagation from a non-visualized calf vein. US/US venous duplex LE LT IMPRESSION: No DVT demonstrated in the left lower extremity. There is however felt to be thrombus within the greater saphenous vein from the mid thigh into the calf region Discharge Plan Discharge Clinical Impression: Venous thrombosis of leg Patient Disposition: Home, Self-Care Instructions: Deep Vein Thrombosis (ED) Additional Instructions: Take medication as prescribed Rest, avoid exertion Report to the ER if increased shortness of breath or worsening of pain in the L leg Prescriptions: No Action ibuprofen 800 mg tablet 800 mg PO TID PRN (Reason: pain) 30 Days Qty: 90 2RF Rx Instructions: Take with food ferrous sulfate [Feosol] 325 mg (65 mg iron) tablet 325 mg PO DAILY 30 Days Qty: 30 5RF meloxicam 15 mg tablet 15 mg PO DAILY Qty: 14 0RF lidocaine 5 % ointment 1 appl topical .four time a day Rx Instructions: apply pea size amount 3 to 4 times a day baclofen 10 mg tablet 10 mg PO TID PRN (Reason: muscle spasms) 30 Days Qty: 90 2RF cholecalciferol (vitamin D3) 50 mcg (2,000 unit) capsule 50 mcg PO DAILY 90 Days Qty: 90 3RF fluoxetine 20 mg capsule 20 mg PO DAILY 90 Days Qty: 90 1RF gabapentin 300 mg capsule 300 mg PO TID 30 Days Qty: 90 3RF loratadine 10 mg tablet 10 mg PO DAILY PRN (Reason: allergy symptoms) 90 Days Qty: 90 1RF lorazepam 1 mg tablet 1 mg PO BEDTIME PRN (Reason: anxiety) 30 Days Qty: 30 0RF midodrine 5 mg tablet 5 mg PO TID 30 Days Qty: 90 2RF Rx Instructions: do not give last dose of day after 6PM or within 4 hrs of bedtime mirtazapine 30 mg tablet 30 mg PO BEDTIME 90 Days Qty: 90 1RF tramadol 50 mg tablet 50 mg PO DAILY PRN (Reason: pain) 30 Days Qty: 30 1RF mecobalamin (vitamin B12) 1,000 mcg tablet,chewable 1,000 mcg PO DAILY 90 Days Qty: 90 3RF fluticasone propionate 50 mcg/actuation spray,suspension 2 spray intranasal DAILY PRN (Reason: allergy symptoms) 30 Days Qty: 16 5RF Rx Instructions: administer into each nostril levothyroxine 25 mcg tablet 25 mcg PO QAM 90 Days Qty: 90 1RF Interventions: ED Discharge Assessment Last Done: 08/24/22 20:19 Discharge Date/Time: 08/24/22 20:20
[2022-08-24 17:43] VITALS: BP 110/45; PULSE 67; RESP 18; TEMP 36.9; O2SAT 100
--- NOTE | 2022-08-24 17:46 | PC.NURSE ---
Pt reporting she had varicose vein surgery one month ago, pt reporting Left leg swelling and pain when walking. U/S at bedside currently
[2022-08-24] MEDS: Apixaban 5 MG TABLET 10 MG PO (20:10)
--- NOTE | 2022-08-24 20:12 | PC.NURSE ---
Medicated pt per Jun, Notified J CARLOS Ross
== END 2022-08-24 20:20 | disposition home or self-care (01) ==
PROVIDERS: Emergency Provider Internal Medicine; PCP Internal Medicine
DX: I82.812 Embolism and thrombosis of superficial veins of left lower extremity (principal); Z79.899 Other long term (current) drug therapy; Z79.01 Long term (current) use of anticoagulants
CPT/HCPCS: 93971; 99284

== ENCOUNTER 2022-09-17 15:16 | Outpatient (AMB) | payer OTHER, SELFPAY ==
--- NOTE | 2022-09-17 15:16 | MHC.PC.OV ---
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: No Allergies Penicillins [PENICILLINS] Allergy (Unknown, Verified 02/01/23 17:13) RASH Medication List - Last Reconciled 09/17/22 by Chandu Ruvalcaba MD albendazole 200 mg PO BID 3 days apixaban (Eliquis DVT-PE Treat 30D Start) 5 mg PO BID baclofen 10 mg PO TID PRN 30 days cholecalciferol (vitamin D3) 50 mcg PO DAILY 90 days ferrous sulfate (Feosol) 325 mg PO DAILY 30 days fluoxetine 20 mg PO DAILY 90 days fluticasone propionate 50 mcg/actuation 2 sprays intranasal DAILY PRN 30 days gabapentin 300 mg PO TID 30 days ibuprofen 800 mg PO TID PRN 30 days levothyroxine 25 mcg PO QAM 90 days lidocaine 5% 1 appl topical .four time a day loratadine 10 mg PO DAILY PRN 90 days lorazepam 1 mg PO BEDTIME PRN 30 days mecobalamin (vitamin B12) 1,000 mcg PO DAILY 90 days midodrine 5 mg PO TID 30 days mirtazapine 30 mg PO BEDTIME 90 days naproxen (Naprosyn) 500 mg PO BID PRN 30 days pramoxine 1% (Proctofoam) 1 appl [place] BID tramadol 50 mg PO DAILY PRN 30 days Tobacco use date assessed: 09/17/22 HPI 2M f/u fibromyalgia, hypothyroidism and anemia HPI Details Patient's follow up visit / consultation today is done over video conference (iPhone/iPad/Google Meets/Doximity) - this is a TELEHEALTH visit Patient's current medications have been reviewed and verified with patient and/or caregiver/proxy and have been updated accordingly in the medication list Patient states that she went to the ER a few weeks ago on 08/24/22 for increasing left leg pain following her recent varicose vein surgery / procedure on her leg by vascular surgeon (Dr. Peter) about a month ago She had a venous doppler done which came out as NO DVT demonstrated in the left lower extremity; however, radiology felt that there is a thrombus within the greater saphenous vein from the mid thigh into the calf region, and she was started on Eliquis She had a follow up appt with Dr. Peter a week later on 08/31/22 and had a venous doppler redone in the office, which showed NO DVT She was then advised by Dr. Peter to stop taking her Eliquis - recalls that she was on the Rx for only about 3 days total States that her left leg still feels sore and is still somewhat swollen but her symptoms are slowly subsiding States that she currently feels okay otherwise She denies any fever, headaches or dizziness Denies any chest pains, no increased SOB No nausea/vomiting, no abdominal pain No change in bowel habits noted Needs her Levothyroxine Rx refilled Would also like to know how she did on her labs done back in May 2022 [facility] Medical History Palpitations Colonoscopy refused Overweight (BMI 25.0-29.9) Depression Anxiety Chronic right sacroiliac joint pain Lumbar degenerative disc disease Orthostatic hypotension Allergic rhinitis Fibromyalgia Acquired hypothyroidism Vitamin D deficiency Varicose veins of bilateral lower extremities with pain Coccydynia Surgical History History of appendectomy History of arthroplasty of right knee History of tonsillectomy History of bladder suspension procedure History of delivery Family History Father No problems noted. Mother Myocardial infarction CVD (cardiovascular disease) Social History Housing: House Alcohol intake: never Patient Tobacco Use Status: Never used Tobacco Second Hand Smoke Exposure: No service: No Current occupational status: disabled Current occupation: Unemployed Cognitive needs: No Hearing needs: No Vision needs: Yes Questionnaire Thrive Questionnaire Date Thrive assessed: 06/05/22 AUDIT C Alcohol Use Questionnaire (AUDIT-C) 1. How often do you have a drink containing alcohol?: Never 3. How often do you have six or more drinks on one occasion?: Never Total Score: 0 Score Reviewed/Action Taken: Yes HERLINDA-7 AMB Questionnaire HERLINDA-7 Date HERLINDA - 7 assessed: 06/05/22 Source: Developed by Drs. Burt Martines, Lili Peguero, Mike Khan and colleagues, with an educational claudine from [employer] Review of Systems Const Reports body aches (diffuse), Reports fatigue, Denies fever(s) and Denies headache(s) ENT Denies dysphagia, Denies dizziness, Denies headache(s), Reports neck pain and Denies sore throat Card Denies chest pain, Denies palpitations and Reports dyspnea on exertion (mild) Resp Denies chest congestion, Denies cough and Reports dyspnea on exertion (mild) GI Denies abdominal pain, Denies constipation, Denies dysphagia, Denies diarrhea, Denies nausea and Denies vomiting Denies difficulty voiding and Denies dysuria Musc Reports back pain (over the right lower back), Reports myalgias (diffuse), Reports arthralgias (multiple joints), Reports neck pain and Reports stiffness Neuro Denies dizziness and Denies headache(s) Psych Denies anxiety and Denies depression Endo Reports fatigue and Denies palpitations Neal/Lymph Denies easy bruising Aller/Immun Reports seasonal rhinorrhea Physical exam (Primary Care) Vital Signs: Physical examination is not performed as visit / consultation today is done over videoconference - Telehealth visit All physical findings indicated here, if present, are as per patient's and / or caregivers / proxy's report and visual inspection over videoconference, if appropriate or applicable Tobacco/Smoking Status: Tobacco use Status Tobacco use date assessed 09/17/22 09/17/22 15:19 Patient Tobacco Use Status Never used Tobacco 09/17/22 15:19 Thrive Assessment: Date of Thrive Assessment Date Thrive assessed 06/05/22 09/17/22 15:19 Telehealth Telehealth Location of provider rendering services: practice address Location of patient: address on file Patient Identification confirmed using: Name, : Yes Telehealth method: video ([employer]//[phone] ([employer])) Patient verbally consented to treatment: Yes Patient verbally consented to billing insurance company: Yes Patient informed of any privacy concerns related to visit: Yes Minutes spent on Phone/Video with Pt.: 22 Results Reviewed Results Reviewed: Laboratory Tests 06/12/22 08:25 WBC 7.2 Hgb 12.3 Hct 38.0 Plt Count 249 Sodium 138 Potassium 4.1 Creatinine 0.71 Estimated GFR > 60 Fasting Glucose 98 Calcium 8.5 D Iron 58 TIBC 284 % Saturation 20 Unsat Iron Binding 226 Total Bilirubin 0.5 AST 16 ALT 16 Triglycerides 62 Cholesterol 155 LDL Cholesterol, Calc 92 HDL Cholesterol 51 Vitamin B12 576 25-OH Vitamin D Total 30.0 TSH 2.12 Free T4 0.89 Ur Specific Justice 1.015 Urine Protein Negative Urine Glucose (UA) Negative Urine Blood Negative Assessment and Plan Assessment & Plan (1) Varicose veins of bilateral lower extremities with pain: Code(s): I83.813 - Varicose veins of bilateral lower extremities with pain Plan: S/P EVLT and sclerotherapy with Dr. Imani Peter last month Currently still has some pain and swelling in the left lower extremity but states that her symptoms are gradually subsiding Follow up with vascular surgery as scheduled (2) Acquired hypothyroidism: Code(s): E03.9 - Hypothyroidism, unspecified Plan: Results of her labs done back in May 2022 reviewed and discussed with patient Continue Levothyroxine 25 mcg QD - Rx refilled Will recheck her TFTs in 4 months for follow up (3) Palpitations: Code(s): R00.2 - Palpitations Plan: Stable lately; were most likely related to her anxiety Echocardiogram done in November 2017 came out completely normal; Holter monitor done in September 2018 also came back normal with normal sinus rhythm, no significant arrhythmia noted and patient's symptom diary showed no associations of her symptoms with arrhythmia (4) Vitamin D deficiency: Code(s): E55.9 - Vitamin D deficiency, unspecified Plan: Continue Vitamin D3 2000 units QD (5) Fibromyalgia: Code(s): M79.7 - Fibromyalgia Plan: Patient is again encouraged on regular exercise and physical activity to help manage her fibromyalgia symptoms Patient is mostly sedentary and has orthostatic hypotension, which makes it difficult to motivate her to increase her physical activity Have advised her to try gradually increasing her daily activity level as tolerated Because of her physical symptoms, she continues to require assistance with ADLs that involve increased exertion 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 but she is somewhat independent with some routine ADLs including those that involve self hygiene and toileting Continue Baclofen 10 mg TID PRN and Gabapentin 300 mg TID - symptoms appear better controlled since her dose was raised to 300 mg 3 times a day a while back (6) Orthostatic hypotension: Code(s): I95.1 - Orthostatic hypotension Plan: Continue Midodrine 5 mg TID (7) Allergic rhinitis: Code(s): J30.9 - Allergic rhinitis, unspecified Qualifiers: Allergic rhinitis trigger: unspecified Allergic rhinitis seasonality: unspecified Qualified Code(s): J30.9 - Allergic rhinitis, unspecified Plan: Continue Loratadine 10 mg QD PRN (8) Anemia: Code(s): D64.9 - Anemia, unspecified Qualifiers: Anemia type: unspecified type Qualified Code(s): D64.9 - Anemia, unspecified Plan: Improved on her recent labs done a few months ago Iron studies done back in May 2022 all came out normal Continue Ferrous Sulfate 325 mg QD (9) Lumbar degenerative disc disease: Code(s): M51.36 - Other intervertebral disc degeneration, lumbar region Plan: Reinforced activity and weight lifting restrictions Lumbar spine MRI done in January 2020 revealed degenerative changes and facet arthritis with an L4-L5 disc bulge with small lateral recess stenosis Was evaluated by Neurosurgery and was referred for physical therapy and to pain management - advised that she had no surgical indication then Follow up with [facility] as scheduled (10) Chronic right sacroiliac joint pain: Code(s): M53.3 - Sacrococcygeal disorders, not elsewhere classified; G89.29 - Other chronic pain Plan: Patient states that her low back pain and right sacroiliac pain has improved significantly with physical therapy and injection treatment from pain management Continue Naproxen 500 mg BID PRN and Tramadol 50 mg PRN Follow-up with [facility] as scheduled (11) Anxiety: Code(s): F41.9 - Anxiety disorder, unspecified Plan: Continue Lorazepam 1 mg Q HS PRN (12) Depression: Code(s): F32.9 - Major depressive disorder, single episode, unspecified Qualifiers: Depression Type: major depressive disorder Major depression recurrence: recurrent Active/Remission status: currently active Major depression episode severity: unspecified Qualified Code(s): F33.9 - Major depressive disorder, recurrent, unspecified Plan: Continue Fluoxetine 20 mg QD and Mirtazapine 15 mg Q HS Follow-up with Psychiatry as scheduled (13) Overweight (BMI 25.0-29.9): Code(s): E66.3 - Overweight Plan: Reinforced diet; exercise and weight are not realistic given patient's multiple comorbidities Plan Follow up in 4 months Orders: Orders Comprehensive Carmen. Panel Fast 4 Months E78.00 - Pure hypercholesterolemia, unspecified Free T4 (Free Thyroxine) 4 Months E03.9 - Hypothyroidism, unspecified Thyroid Stimulating Hormone 4 Months E03.9 - Hypothyroidism, unspecified Complete Blood Count Auto Diff 4 Months I10 - Essential (primary) hypertension Erythrocyte Sedimentation Rate 4 Months M79.7 - Fibromyalgia Lipid Panel 4 Months E78.00 - Pure hypercholesterolemia, unspecified Vitamin D 25-OH Total 4 Months E55.9 - Vitamin D deficiency, unspecified Medications: Refilled levothyroxine 25 mcg PO QAM 90 tabs 1RF 90 days Coding Level of Care Code Tele Est Pt Level 4 (09639) Diagnoses Varicose veins of bilateral lower extremities with pain I83.813 Acquired hypothyroidism E03.9 Palpitations R00.2 Vitamin D deficiency E55.9 Fibromyalgia M79.7 Orthostatic hypotension I95.1 Allergic rhinitis, unspecified seasonality, unspecified trigger J30.9 Allergic rhinitis trigger: unspecified Allergic rhinitis seasonality: unspecified Anemia, unspecified type D64.9 Anemia type: unspecified type Lumbar degenerative disc disease M51.36 Chronic right sacroiliac joint pain M53.3; G89.29 Anxiety F41.9 Episode of recurrent major depressive disorder, unspecified depression episode severity F33.9 Depression Type: major depressive disorder Major depression recurrence: recurrent Active/Remission status: currently active Major depression episode severity: unspecified Overweight (BMI 25.0-29.9) E66.3
== END 2022-09-17 18:16 | disposition home or self-care (01) ==
LOC: HO.HMGH 15:16
PROVIDERS: PCP Internal Medicine; Visit Provider Internal Medicine
DX: E03.9 Hypothyroidism, unspecified (principal); F33.9 Major depressive disorder, recurrent, unspecified; I83.813 Varicose veins of bilateral lower extremities with pain; R00.2 Palpitations; E55.9 Vitamin D deficiency, unspecified; M79.7 Fibromyalgia; I95.1 Orthostatic hypotension; J30.9 Allergic rhinitis, unspecified; D64.9 Anemia, unspecified; M51.36 Other intervertebral disc degeneration, lumbar region; M53.3 Sacrococcygeal disorders, not elsewhere classified; I10 Essential (primary) hypertension
CPT/HCPCS: 99214

== ENCOUNTER 2022-12-25 13:47 | Outpatient (AMB) | payer OTHER, SELFPAY ==
--- NOTE | 2022-12-25 13:53 | MHC.PC.OV ---
Vital Signs 12/25/22 13:54 Height 5 ft 5 in Weight 171 lb BMI 28.5 BP 110/70 Blood Pressure Location Lt brachial Position Sitting Intake Visit Reasons: left leg swelling and pain s/p surgery Intake Note: Patient here c/o left leg pain, swelling s/p surgery [employer] Required: No Accompanied by: Self / Same As Patient Allergies Penicillins [PENICILLINS] Allergy (Unknown, Verified 02/01/23 17:13) RASH Medication List - Last Reconciled 12/25/22 by Chandu Ruvalcaba MD baclofen 10 mg PO TID PRN 30 days cholecalciferol (vitamin D3) 50 mcg PO DAILY 90 days ferrous sulfate (Feosol) 325 mg PO DAILY 30 days fluoxetine 20 mg PO DAILY 90 days fluticasone propionate 50 mcg/actuation 2 sprays intranasal DAILY PRN 30 days gabapentin 300 mg PO TID 30 days ibuprofen 800 mg PO TID PRN 30 days levothyroxine 25 mcg PO QAM 90 days lidocaine 5% 1 appl topical .four time a day loratadine 10 mg PO DAILY PRN 90 days lorazepam 1 mg PO BEDTIME PRN 30 days mecobalamin (vitamin B12) 1,000 mcg PO DAILY 90 days meloxicam 15 mg PO DAILY midodrine 5 mg PO TID 30 days mirtazapine 30 mg PO BEDTIME 90 days tramadol 50 mg PO DAILY PRN 30 days Tobacco use date assessed: 09/17/22 Dental Screening Dental Screen Date: 12/25/22 Did you have a dental visit in the last 12 months?: Yes Did you have a dental problem in the last 6 months where you did not have access to dental care?: No Was dental information given to patient?: Patient has dentist HPI left leg swelling and pain s/p surgery HPI Details Patient comes in today complaining of recurrent pain and swelling of her left foot States that her problem started after she had vascular surgery of both her legs with Dr. Peter a few months ago (sometime in July 2022) States that her right leg came out okay after her surgery with no problems but she has noticed a recurrent painful and swollen lump that appears on top of her left foot since her vascular surgery Notes that the lesion would gradually clear up/disappear after 7 to 10 days and would reappear again a week to two later States that the lesion is very painful when it is present but she has no pain or symptoms at all when it is gone Recalls that she was prescribed some blood thinner (Eliquis) back in early August 2022 for some blood clots when she had a venous doppler done there that showed a possible thrombus within the greater saphenous vein from the mid thigh into the calf region and was on it for about [address] Peter told her to stop taking it as her symptoms were supposedly typical for patients who underwent vascular surgery recently Is not sure if her taking Eliquis then has something to do with her current symptoms Relates that she had x-rays of her left foot done in [place] last month when she was experiencing a lot of pain while she was down there - was reportedly told that her x-rays came out normal Relates that she has been experiencing increased fatigue lately and would like to get some labs done to check into this She denies any fever, headaches or dizziness Denies any chest pains, no SOB No nausea/vomiting, no abdominal pain No change in bowel habits noted PFSH Medical History Palpitations Colonoscopy refused Overweight (BMI 25.0-29.9) Depression Anxiety Chronic right sacroiliac joint pain Lumbar degenerative disc disease Orthostatic hypotension Allergic rhinitis Fibromyalgia Acquired hypothyroidism Vitamin D deficiency Varicose veins of bilateral lower extremities with pain Coccydynia Surgical History History of appendectomy History of arthroplasty of right knee History of tonsillectomy History of bladder suspension procedure History of delivery Family History Father No problems noted. Mother Myocardial infarction CVD (cardiovascular disease) Social History Housing: House Alcohol intake: never Patient Tobacco Use Status: Never used Tobacco Second Hand Smoke Exposure: No service: No Current occupational status: disabled Current occupation: Unemployed Cognitive needs: No Hearing needs: No Vision needs: Yes Questionnaire Thrive Questionnaire Date Thrive assessed: 06/05/22 HERLINDA-7 AMB Questionnaire HERLINDA-7 Date HERLINDA - 7 assessed: 06/05/22 Source: Developed by Drs. Burt Martines, Lili B.W. Mike Peguero and colleagues, with an educational claudine from [employer]. Review of Systems Const Denies difficulty sleeping, Reports fatigue (increased), Denies fever(s) and Denies headache(s) ENT Denies dysphagia, Denies dizziness, Denies otalgia, Denies headache(s), Reports neck pain, Denies odynophagia and Denies sore throat Card Denies chest pain, Denies palpitations and Denies dyspnea Resp Denies cough and Denies dyspnea GI Denies abdominal pain, Denies constipation, Denies dysphagia, Denies diarrhea, Denies nausea, Denies odynophagia and Denies vomiting Denies difficulty voiding, Denies dysuria and Denies urinary urgency Musc Details: recurrent pain and swelling over the dorsum of the left foot - see HPI Reports back pain (over the right lower back), Reports myalgias (diffuse), Reports arthralgias (involving multiple joints) and Reports neck pain Neuro Denies dizziness and Denies headache(s) Psych Denies anxiety and Denies depression Endo Reports fatigue (increased) and Denies palpitations Neal/Lymph Denies easy bruising Aller/Immun Reports seasonal rhinorrhea Physical exam (Primary Care) Vital Signs: Last Vital Signs BP 110/70 12/25/22 13:54 BMI result Body Mass Index 28.5 Tobacco/Smoking Status: Tobacco use Status Tobacco use date assessed 09/17/22 12/25/22 14:00 Patient Tobacco Use Status Never used Tobacco 12/25/22 14:00 Thrive Assessment: Date of Thrive Assessment Date Thrive assessed 06/05/22 12/25/22 14:00 Const General: no acute distress and alert HENMT Ears: TM's normal bilaterally and EAC's normal Throat: Yes posterior oropharynx normal and Yes tonsils normal (no TP congestion noted) Neck Neck: Yes no lymphadenopathy and Yes tender (over the cervical spine and paraspinal areas bilaterally) Thyroid: Thyroid normal Lymphatic: no lymphadenopathy noted Resp Auscultation: clear to auscultation bilaterally, no rales and no wheezes Cardio Rate: regular rate Rhythm: regular rhythm Heart sounds: no murmurs GI Palpation (GI): Soft to palpation and nontender Auscultation: normal bowel sounds General: Yes no CVA tenderness Back/Spine/Pelvis Back: no CVA tenderness Thoracic/Lumbar Spine: lumbar spinal tenderness Skin Rashes: no rashes Extrem Other: no tenderness noted on exam of the left calf muscles and left lower leg; (+) mild edema of the left foot, with increased tenderness noted on palpation over the dorsum of the foot; right lower extremity exam was normal General: No clubbing, No cyanosis and Yes edema (mild edema noted over the dorsum of the left foot) Right upper extremity: shoulder/upper arm Details: tenderness (diffusely over the scapular area) Left upper extremity: shoulder/upper arm Details: tenderness (diffusely over the scapular areas) Left lower extremity: foot Details: tenderness Location: of the dorsal foot and edema (mild) Location: of the dorsal foot Assessment and Plan Assessment & Plan (1) Left foot pain: Code(s): M79.672 - Pain in left foot Plan: States that she had left foot x-rays done last month when she was down in [place] - was reportedly told that her x-rays came out normal/negative She continues to complain of increased pain and on and off mild swelling over the dorsum of her foot and feels that her issues started after her vascular procedure with Dr. Gigi Peter a few months ago in July 2022 Will send her for CT of the left foot for further evaluation and to r/o any potential bony involvement (2) Fatigue: Code(s): R53.83 - Other fatigue Qualifiers: Fatigue type: unspecified Qualified Code(s): R53.83 - Other fatigue Plan: Patient reports experiencing increasing fatigue lately and is requesting for some labs to evaluate her symptoms further Will send her for some labs KISHOR for further evaluation (3) Acquired hypothyroidism: Code(s): E03.9 - Hypothyroidism, unspecified Plan: Continue Levothyroxine 25 mcg QD Will recheck her TFTs for follow up (4) Anemia: Code(s): D64.9 - Anemia, unspecified Qualifiers: Anemia type: unspecified type Qualified Code(s): D64.9 - Anemia, unspecified Plan: Continue Ferrous Sulfate 325 mg QD Will recheck her CBC for follow up (5) Fibromyalgia: Code(s): M79.7 - Fibromyalgia Plan: Patient is again encouraged on regular exercise and physical activity to help manage her fibromyalgia symptoms Patient is mostly sedentary and has orthostatic hypotension, which makes it difficult to motivate her to increase her physical activity Have advised her to try gradually increasing her daily activity level as tolerated Because of her physical symptoms, she continues to require assistance with ADLs that involve increased exertion 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 Imani Peter Follow up with vascular surgery as scheduled (8) Palpitations: Code(s): R00.2 - Palpitations Plan: Stable lately; were most likely related to her anxiety Echocardiogram done in November 2017 came out completely normal; Holter monitor done in September 2018 also came back normal with normal sinus rhythm, no significant arrhythmia noted and patient's symptom diary showed no associations of her symptoms with arrhythmia (9) Vitamin D deficiency: Code(s): E55.9 - Vitamin D deficiency, unspecified Plan: Continue Vitamin D3 2000 units QD (10) Allergic rhinitis: Code(s): J30.9 - Allergic rhinitis, unspecified Qualifiers: Allergic rhinitis trigger: unspecified Allergic rhinitis seasonality: unspecified Qualified Code(s): J30.9 - Allergic rhinitis, unspecified Plan: Continue Loratadine 10 mg QD PRN and Fluticasone 50 mcg nasal spray QD PRN (11) Lumbar degenerative disc disease: Code(s): M51.36 - Other intervertebral disc degeneration, lumbar region Plan: Reinforced activity and weight lifting restrictions Lumbar spine MRI done in January 2020 revealed degenerative changes and facet arthritis with an L4-L5 disc bulge with small lateral recess stenosis Was evaluated by Neurosurgery and was referred for physical therapy and to pain management - advised that she had no surgical indication then Follow up with [facility] as scheduled (12) Chronic right sacroiliac joint pain: Code(s): M53.3 - Sacrococcygeal disorders, not elsewhere classified; G89.29 - Other chronic pain Plan: Patient states that her low back pain and right sacroiliac pain has improved significantly with physical therapy and injection treatment from pain management Continue Naproxen 500 mg BID PRN and Tramadol 50 mg PRN Follow-up with [facility] as scheduled (13) Anxiety: Code(s): F41.9 - Anxiety disorder, unspecified Plan: Continue Lorazepam 1 mg Q HS PRN (14) Depression: Code(s): F32.9 - Major depressive disorder, single episode, unspecified Qualifiers: Depression Type: major depressive disorder Major depression recurrence: recurrent Active/Remission status: currently active Major depression episode severity: unspecified Qualified Code(s): F33.9 - Major depressive disorder, recurrent, unspecified Plan: Continue Fluoxetine 20 mg QD and Mirtazapine 30 mg Q HS Follow-up with Psychiatry as scheduled (15) Overweight (BMI 25.0-29.9): Code(s): E66.3 - Overweight Plan: Reinforced diet/exercise as tolerated/lose weight Plan Follow up as scheduled next month Orders: Orders CT foot LT wo IV con 12/25/22 M79.672 - Pain in left foot, R22.42 - Localized swelling, mass and lump, left lower limb Free T4 (Free Thyroxine) 12/25/22 E03.9 - Hypothyroidism, unspecified, R53.83 - Other fatigue, M79.672 - Pain in left foot, R22.42 - Localized swelling, mass and lump, left lower limb Comprehensive Met. Panel 12/25/22 R53.83 - Other fatigue, M79.672 - Pain in left foot, R22.42 - Localized swelling, mass and lump, left lower limb Complete Blood Count Auto Diff 12/25/22 I10 - Essential (primary) hypertension, R53.83 - Other fatigue, M79.672 - Pain in left foot, R22.42 - Localized swelling, mass and lump, left lower limb Thyroid Stimulating Hormone 12/25/22 E03.9 - Hypothyroidism, unspecified, R53.83 - Other fatigue, M79.672 - Pain in left foot, R22.42 - Localized swelling, mass and lump, left lower limb Erythrocyte Sedimentation Rate 12/25/22 R53.83 - Other fatigue, M79.672 - Pain in left foot, R22.42 - Localized swelling, mass and lump, left lower limb C Reactive Protein 12/25/22 R53.83 - Other fatigue, M79.672 - Pain in left foot, R22.42 - Localized swelling, mass and lump, left lower limb Coding Level of Care Code Est Pt Level 4 (72192) Diagnoses Left foot pain M79.672 Fatigue, unspecified type R53.83 Fatigue type: unspecified Acquired hypothyroidism E03.9 Anemia, unspecified type D64.9 Anemia type: unspecified type Fibromyalgia M79.7 Orthostatic hypotension I95.1 Varicose veins of bilateral lower extremities with pain I83.813 Palpitations R00.2 Vitamin D deficiency E55.9 Allergic rhinitis, unspecified seasonality, unspecified trigger J30.9 Allergic rhinitis trigger: unspecified Allergic rhinitis seasonality: unspecified Lumbar degenerative disc disease M51.36 Chronic right sacroiliac joint pain M53.3; G89.29 Anxiety F41.9 Episode of recurrent major depressive disorder, unspecified depression episode severity F33.9 Depression Type: major depressive disorder Major depression recurrence: recurrent Active/Remission status: currently active Major depression episode severity: unspecified Overweight (BMI 25.0-29.9) E66.3
[2022-12-25 13:54] VITALS: BP 110/70; BMI 28.5
== END 2022-12-25 14:25 | disposition home or self-care (01) ==
PROVIDERS: PCP Internal Medicine; Visit Provider Internal Medicine
DX: R53.83 Other fatigue (principal); M79.672 Pain in left foot; F33.9 Major depressive disorder, recurrent, unspecified; E03.9 Hypothyroidism, unspecified; D64.9 Anemia, unspecified; M79.7 Fibromyalgia; I95.1 Orthostatic hypotension; I83.813 Varicose veins of bilateral lower extremities with pain; R00.2 Palpitations; E55.9 Vitamin D deficiency, unspecified; J30.9 Allergic rhinitis, unspecified
CPT/HCPCS: 99214

== ENCOUNTER 2022-12-25 14:36 | Outpatient (REF) | payer OTHER, SELFPAY ==
[2022-12-25 14:57] LABS: MANUAL DIFF FLAG NO
[2022-12-25 15:14] LABS: Basophils Percent Auto 0.6 % (0-2); Eosinophils Absolute Auto 0.1 X10*3/uL (0.0-0.4); Eosinophils Percent Auto 1.7 % (0-4); Hematocrit 36.4 % (37.0-47.0); Hemoglobin 12.1 g/dl (12.0-16.0); Imm Gran Abs Auto 0.03 X10*3/uL (0.00-0.03); Imm Gran Pct Auto 0.4 % (0.0-0.4); Lymphocytes Absolute Auto 2.1 X10*3/uL (1.2-4.9); Lymphocytes Percent Auto 28.8 % (20-40); Mean Corpuscular HGB Conc 33.2 g/dl (31.0-35.0); Mean Corpuscular Hemoglobin 31.2 pg (27.0-33.0); Mean Corpuscular Volume 93.8 fL (80.0-98.0); Mean Platelet Volume 10.9 fL (9.4-12.3); Monocytes Absolute Auto 0.5 X10*3/uL (0.1-1.2); Monocytes Percent Auto 6.7 % (2-11); Neutrophils Absolute Auto 4.5 x10*3/uL (2.0-8.3); Neutrophils Percent Auto 61.8 % (45-73); Platelet Count 258 X10*3/uL (160-400); Red Blood Count 3.88 X10*6/uL (4.20-5.50); White Blood Count 7.2 X10*3/uL (4.8-10.8)
[2022-12-25 15:47] LABS: Alanine Aminotransferase 14 U/L (0-31); Alkaline Phosphatase 77 U/L (39-117); Anion Gap 9 (12-20); Aspartate Amino Transferase 19 U/L (5-31); Bilirubin Total 0.2 mg/dL (0.0-1.0); Blood Urea Nitrogen 12 mg/dL (9-16); C Reactive Protein 1.66 mg/dL (< or = 0.50); Calcium 9.8 mg/dL (8.4-10.2); Carbon Dioxide 28 mmol/L (22-29); Chloride 107 mmol/L (96-108); Estimated Glomerular Filt Rate > 60; Glucose Random 98 mg/dL (60-115); Potassium 4.2 mmol/L (3.3-5.1); Sodium 140 mmol/L (135-145); Total Protein 7.7 g/dL (6.5-8.0)
[2022-12-25 16:01] LABS: Erythrocyte Sedimentation Rate 37 MM/HR (0-20)
[2022-12-25 16:03] LABS: Thyroid Stimulating Hormone 2.88 uIU/mL (0.32-4.0)
== END 2022-12-25 14:37 | disposition home or self-care (01) ==
LOC: HO.LAB 14:36
PROVIDERS: PCP Internal Medicine; Visit Provider Internal Medicine
DX: I10 Essential (primary) hypertension (principal); M79.672 Pain in left foot; R22.42 Localized swelling, mass and lump, left lower limb; R53.83 Other fatigue; E03.9 Hypothyroidism, unspecified
CPT/HCPCS: 36415; 80053; 84439; 84443; 85025; 85652; 86140

== ENCOUNTER 2022-12-26 17:04 | Emergency (ER) | payer OTHER, SELFPAY ==
[2022-12-26 17:24] VITALS: BP 109/71; PULSE 77; RESP 16; TEMP 37; O2SAT 99; BMI 28.8
--- NOTE | 2022-12-26 18:04 | ED.EXTPRO ---
HPI - Extremity Problem General Chief complaint: Extremity Problem Stated complaint: L Leg swollen since september. Dr tomlin here for MRI Time Seen by Provider: 12/26/22 17:39 Source: patient Mode of arrival: ambulatory Limitations: no limitations History of Present Illness HPI Narrative: 47 yo female history of fibromyalgia, anxiety, depression, peripheral vascular disease, varicose veins in bilateral extremities s/p vascular surgery in July of [address] Peter who presents to the ER for evaluation of acute on chronic left foot pain. Reports that the pain came on 10 days after surgery on both legs 3 months ago. She states that the pain is sharp, localized to her dorsal medial foot, pulsating in character, intermittent, worse at night and with walking. Describes numbness and tingling that extends from dorsal foot to knee. Describes intermittent swelling and cyanosis of bilateral lower extremities. Reports she has tried ice, heat, Tylenol, elevation at night but does not have relief. Reports previously taking Eliquis, however Dr. Peter instructed her to stop a few months ago as her symptoms were consistent with somebody who had just undergone vascular surgery. Denies any chest pain, shortness of breath. Denies any smoking or hormone use. Traveled to [place] last week and was given X-ray and ultrasound of leg which she was told are unremarkable. Seen by Dr. Peter this morning who recommended MRI of leg. Complaint: extremity pain and extremity swelling Onset (ago): month(s) Pain Consistency: intermittent and now resolved Location: left Severity scale (1-10): 10 Quality: sharp and other (Pulsating, point tenderness) Radiation: none Relieving factors: elevation, medication and rest Exacerbating factors: weight bearing, walking and palpation Associated symptoms: other (Numbness and tingling in LLE extending up to knee.) Context: recent travel (Recently traveled to [place]. ), recent surgery/procedure and history of peripheral vascular disease Related Data Home Medications Medication Instructions Recorded Confirmed lidocaine 5 % topical ointment 1 appl topical .four time a day 06/05/22 12/25/22 Previous Rx's Medication Instructions Recorded baclofen 10 mg tablet 10 mg PO TID PRN muscle spasms 30 06/05/22 days #90 tabs cholecalciferol (vitamin D3) 50 50 mcg PO DAILY 90 days #90 caps 06/05/22 mcg (2,000 unit) capsule fluoxetine 20 mg capsule 20 mg PO DAILY 90 days #90 caps 06/05/22 fluticasone propionate 50 2 spray intranasal DAILY PRN 06/05/22 mcg/actuation nasal allergy symptoms 30 days #16 grams spray,suspension gabapentin 300 mg capsule 300 mg PO TID 30 days #90 caps 06/05/22 loratadine 10 mg tablet 10 mg PO DAILY PRN allergy 06/05/22 symptoms 90 days #90 tabs lorazepam 1 mg tablet 1 mg PO BEDTIME PRN anxiety 30 06/05/22 days #30 tabs mecobalamin (vitamin B12) 1,000 1,000 mcg PO DAILY 90 days #90 tabs 06/05/22 mcg chewable tablet midodrine 5 mg tablet 5 mg PO TID 30 days #90 tabs 06/05/22 mirtazapine 30 mg tablet 30 mg PO BEDTIME 90 days #90 tabs 06/05/22 tramadol 50 mg tablet 50 mg PO DAILY PRN pain 30 days 06/05/22 #30 tabs ferrous sulfate 325 mg (65 mg 325 mg PO DAILY 30 days #30 tabs 09/11/22 iron) tablet (Feosol) ibuprofen 800 mg tablet 800 mg PO TID PRN pain 30 days #90 09/11/22 tabs levothyroxine 25 mcg tablet 25 mcg PO QAM 90 days #90 tabs 09/17/22 meloxicam 15 mg tablet 15 mg PO DAILY #14 tabs 10/02/22 Allergies Allergy/AdvReac Type Severity Reaction Status Date / Time Penicillins [PENICILLINS] Allergy Unknown RASH Verified 12/26/22 17:30 Review of Systems Review of Systems: Yes all other systems are reviewed and are negative [facility] Past Medical History Medical History Palpitations Colonoscopy refused Overweight (BMI 25.0-29.9) Depression Anxiety Chronic right sacroiliac joint pain Lumbar degenerative disc disease Orthostatic hypotension Allergic rhinitis Fibromyalgia Acquired hypothyroidism Vitamin D deficiency Varicose veins of bilateral lower extremities with pain Coccydynia Surgical History History of appendectomy History of arthroplasty of right knee History of tonsillectomy History of bladder suspension procedure History of delivery Family History Family History Father No problems noted. Mother Myocardial infarction CVD (cardiovascular disease) Social History Social History Housing: House Alcohol intake: never Patient Tobacco Use Status: Never used Tobacco Second Hand Smoke Exposure: No Advance Directives: No Advance Directives Information Provided: Yes service: No Current occupational status: disabled Current occupation: Unemployed Cognitive needs: No Hearing needs: No Vision needs: Yes Physical Exam Vital Signs: Vital Signs: Last Vital Signs Temp 98.6 F 12/26/22 17:24 Pulse 77 12/26/22 17:24 Resp 16 12/26/22 17:24 BP 109/71 12/26/22 17:24 Pulse Ox 99 12/26/22 17:24 O2 Del Method Room Air 12/26/22 17:24 BMI result Body Mass Index 28.8 Const: General: cooperative, healthy appearing, comfortable and no acute distress Nutritional Appearance: average body habitus Orientation/consciousness: patient oriented x3 Limitations: no limitations Resp: Effort & Inspection: normal respiratory effort and able to speak in complete sentences Auscultation: clear to auscultation bilaterally Cardio: Rate: regular rate Rhythm: regular rhythm Neuro: General: patient oriented x3 Extrem: Left lower extremity: normal to inspection, full ROM and foot (Normal to inspection. Capillary refill intact. Pedal pulse intact.) Details: tenderness (Point tenderness to palpation.) Location: of the dorsal foot Location: proximally; no cyanosis and no edema (No unilateral leg edema.) Medical Decision Making Medical Decision Making MDM Narrative: 47-year-old female with history of varicose veins status post vascular surgery 3 months ago presenting for 3 months history of point tenderness to left dorsal foot, with associated numbness and tingling in the left leg, intermittent swelling and cyanosis of both legs. Physical exam reveals no unilateral lower extremity edema, no cyanosis, no cool extremities. Pedal pulse intact, sensation intact, proximal dorsum of foot severely tender to palpation. Lungs are clear to auscultation bilaterally. Vital signs stable. Patient is talking in full sentences and does not appear in respiratory distress. Plan: Will defer to vascular surgeon and PCP for MRI ordering, no emergent need for this test today. foot is warm and well perfused with negative DVT study last week. Differential Diagnosis Differential Diagnoses: The differential diagnosis associated with the presentation includes DVT, PAD, venous insufficiency, arterial insufficiency, varicose veins Admission/Observation Consideration of admission/observation: Escalation of care including admission/observation considered External Record Review External record reviewed: Office record, Outpatient record, Prior outpatient labs and Prior outpatient radiology Prescription Management I considered prescription management with: Pain Medication Chronic Conditions Patient?s care impacted by: Other (PVD) Critical Care Time Critical Care Time Critical Care Time: No Discharge Plan Discharge Clinical Impression: Chronic foot pain Qualifiers: Laterality: left Qualified Code(s): M79.672 - Pain in left foot Patient Disposition: Home, Self-Care Instructions: Metatarsalgia (DC) Prescriptions: No Action ibuprofen 800 mg tablet 800 mg PO TID PRN (Reason: pain) 30 Days Qty: 90 2RF Rx Instructions: Take with food ferrous sulfate [Feosol] 325 mg (65 mg iron) tablet 325 mg PO DAILY 30 Days Qty: 30 5RF meloxicam 15 mg tablet 15 mg PO DAILY Qty: 14 0RF lidocaine 5 % ointment 1 appl topical .four time a day Rx Instructions: apply pea size amount 3 to 4 times a day baclofen 10 mg tablet 10 mg PO TID PRN (Reason: muscle spasms) 30 Days Qty: 90 2RF cholecalciferol (vitamin D3) 50 mcg (2,000 unit) capsule 50 mcg PO DAILY 90 Days Qty: 90 3RF fluoxetine 20 mg capsule 20 mg PO DAILY 90 Days Qty: 90 1RF gabapentin 300 mg capsule 300 mg PO TID 30 Days Qty: 90 3RF loratadine 10 mg tablet 10 mg PO DAILY PRN (Reason: allergy symptoms) 90 Days Qty: 90 1RF lorazepam 1 mg tablet 1 mg PO BEDTIME PRN (Reason: anxiety) 30 Days Qty: 30 0RF midodrine 5 mg tablet 5 mg PO TID 30 Days Qty: 90 2RF Rx Instructions: do not give last dose of day after 6PM or within 4 hrs of bedtime mirtazapine 30 mg tablet 30 mg PO BEDTIME 90 Days Qty: 90 1RF tramadol 50 mg tablet 50 mg PO DAILY PRN (Reason: pain) 30 Days Qty: 30 1RF mecobalamin (vitamin B12) 1,000 mcg tablet,chewable 1,000 mcg PO DAILY 90 Days Qty: 90 3RF fluticasone propionate 50 mcg/actuation spray,suspension 2 spray intranasal DAILY PRN (Reason: allergy symptoms) 30 Days Qty: 16 5RF Rx Instructions: administer into each nostril levothyroxine 25 mcg tablet 25 mcg PO QAM 90 Days Qty: 90 1RF Referrals: Chandu Ruvalcaba MD [Primary Care Provider] - Stand Alone Forms: Work/School Release
== END 2022-12-26 18:55 | disposition home or self-care (01) ==
PROVIDERS: Emergency Provider Internal Medicine; PCP Internal Medicine
DX: M79.672 Pain in left foot (principal); R60.0 Localized edema; Z79.899 Other long term (current) drug therapy
CPT/HCPCS: 99282

== ENCOUNTER 2023-02-01 15:52 | Outpatient (AMB) | payer OTHER, SELFPAY ==
[2023-02-01 16:00] VITALS: BP 124/80; PULSE 74; O2SAT 98; BMI 29.8
--- NOTE | 2023-02-01 16:00 | MHC.PC.OV ---
Vital Signs 02/01/23 16:00 Height 5 ft 5 in Weight 179 lb 2 oz BMI 29.8 BP 124/80 Blood Pressure Location Lt brachial Position Sitting Pulse 74 Pulse Source Pulse Oximeter Pulse Oximetry (%) 98 Oxygen Delivery Method Room Air Intake Visit Reasons: hyperlipidemia Cigar Making Supervisor Required: No Accompanied by: Self / Same As Patient Allergies Penicillins [PENICILLINS] Allergy (Unknown, Verified 02/01/23 17:13) RASH Medication List - Last Reconciled 02/01/23 by Chandu Ruvalcaba MD baclofen 10 mg PO TID PRN 30 days cholecalciferol (vitamin D3) 50 mcg PO DAILY 90 days ferrous sulfate (Feosol) 325 mg PO DAILY 30 days fluoxetine 20 mg PO DAILY 90 days fluticasone propionate 50 mcg/actuation 2 sprays intranasal DAILY PRN 30 days gabapentin 300 mg PO TID 30 days ibuprofen 800 mg PO TID PRN 30 days levothyroxine 25 mcg PO QAM 90 days lidocaine 5% 1 appl topical .four time a day PRN loratadine 10 mg PO DAILY PRN 90 days lorazepam 1 mg PO BEDTIME PRN 30 days mecobalamin (vitamin B12) 1,000 mcg PO DAILY 90 days meloxicam 15 mg PO DAILY midodrine 5 mg PO TID 30 days mirtazapine 30 mg PO BEDTIME 90 days tramadol 50 mg PO DAILY PRN 30 days Tobacco use date assessed: 02/01/23 Dental Screening Dental Screen Date: 02/01/23 Did you have a dental visit in the last 12 months?: No Did you have a dental problem in the last 6 months where you did not have access to dental care?: No Was dental information given to patient?: No HPI hyperlipidemia HPI Details Patient comes in today for a follow up visit, especially for her ongoing left foot issues States that she is still experiencing increased pain over the dorsum of the left foot often and today there is some noticeable swelling actually over one of the visible veins on the top of her foot as well as increased pain around the area of the swelling, which she feels started after her vascular procedure on the left lower extremity with Dr. Peter in July 2022 She denies any recent injury or trauma to her foot Was sent for CT of the left foot last month for further evaluation but insurance is denying coverage of CT Patient comes in today to request an appeal to her CT as she would really like to find out what is wrong with her foot Adds that she has been experiencing increasing dryness inside her nasal areas lately, especially on the left side - states that this started recently when they turned on the heat at home Reports experiencing some discomfort over her left frontal sinus areas but denies any significant nasal or sinus congestion She denies any fever, sore throat or cough Would also like to know how her labs done last month came out No other acute complaints or symptoms are noted [facility] Medical History Palpitations Colonoscopy refused Overweight (BMI 25.0-29.9) Depression Anxiety Chronic right sacroiliac joint pain Lumbar degenerative disc disease Orthostatic hypotension Allergic rhinitis Fibromyalgia Acquired hypothyroidism Vitamin D deficiency Varicose veins of bilateral lower extremities with pain Coccydynia Surgical History History of appendectomy History of arthroplasty of right knee History of tonsillectomy History of bladder suspension procedure History of delivery Family History Father No problems noted. Mother Myocardial infarction CVD (cardiovascular disease) Social History Housing: House Alcohol intake: never Patient Tobacco Use Status: Never used Tobacco Second Hand Smoke Exposure: No service: No Current occupational status: disabled Current occupation: Unemployed Cognitive needs: No Hearing needs: No Vision needs: Yes Questionnaire PHQ-9 Over the last 2 weeks, how often have you been bothered by any of the following problems? 1. Little interest or pleasure in doing things: not at all 2. Feeling down, depressed, or hopeless: nearly every day 3. Trouble falling or staying asleep, or sleeping too much: more than half the days 4. Feeling tired or having little energy: more than half the days 5. Poor appetite or overeating: not at all 6. Feeling bad about yourself - or that you are a failure or have let yourself or your family down: nearly every day 7. Trouble concentrating on things, such as reading the newspaper or watching television: nearly every day 8. Moving or speaking so slowly that other people could have noticed. Or the opposite - being so fidgety or restless that you have been moving around a lot more than usual: nearly every day 9. Thoughts that you would be better off or of hurting yourself in some way: not at all Total score: 16 Depression Screening Interpretation: Positive Depression Screening Follow-up: Existing condition and In treatment Depression Screening Done: Yes 47222 - PHQ-9 Billing: Yes Source: Developed by Drs. Burt Martines, Lili Peguero, Mike Khan and colleagues, with an educational claudine from [employer]. Thrive Questionnaire Date Thrive assessed: 02/01/23 I am a: Patient What is your living situation today?: I have a steady place to live Within the past 12 months, did the food you bought not last and you didn't have the money to get more?: Never true Within the past 12 months, did you worry whether your food would run out before you got money to buy more?: Never true Do you have trouble paying for medicines?: No Do you have trouble getting transportation to medical appointments?: No Do you have trouble paying your heating and electricity bill?: No Do you have trouble taking care of your child, family member or friend?: No Do you have trouble with day-to-day activities such as bathing, preparing meals, shopping, managing finances, etc.?: No Are you currently unemployed and looking for a job?: No Are you interested in more education?: No Please select the resources that you would like help with: None Currently or been in a relationship where the following occur: no concerns reported AUDIT C Alcohol Use Questionnaire (AUDIT-C) 1. How often do you have a drink containing alcohol?: Never 3. How often do you have six or more drinks on one occasion?: Never Total Score: 0 Score Reviewed/Action Taken: Yes HERLINDA-7 AMB Questionnaire HERLINDA-7 Date HERLINDA - 7 assessed: 02/01/23 Feeling nervous, anxious, or on edge: 0 = Not at all Not being able to stop or control worryin = Not at all Worrying too much about different things: 0 = Not at all Trouble relaxin = Not at all Being so restless that it is hard to sit still: 0 = Not at all Becoming easily annoyed or irritable: 0 = Not at all Feeling afraid as if something awful might happen: 0 = Not at all Total HERLINDA-7 score (0-4 normal; 5-9 mild; 10-14 moderate; 15-21 severe): 0 Source: Developed by Drs. Burt Martines, Lili Peguero, Mike Khan and colleagues, with an educational claudine from [employer]. Review of Systems Const Reports fatigue (increased), Denies fever(s) and Denies headache(s) ENT Details: increased dryness and discomfort in the nasal areas, especially on the left side Denies dysphagia, Denies dizziness, Denies headache(s), Denies nasal discharge, Reports neck pain, Denies nose pain, Denies odynophagia, Denies sinus pain and Denies sore throat Card Denies chest pain, Denies palpitations and Denies dyspnea Resp Denies cough and Denies dyspnea GI Denies abdominal pain, Denies change in bowel habits, Denies dysphagia, Denies nausea, Denies odynophagia and Denies vomiting Musc Details: recurrent pain and swelling over the dorsum of the left foot - see HPI Reports back pain (over the right lower back), Reports myalgias (diffuse), Reports arthralgias (involving multiple joints) and Reports neck pain Skin/Breast Denies rash Neuro Denies dizziness and Denies headache(s) Endo Reports fatigue (increased) and Denies palpitations Physical exam (Primary Care) Vital Signs: Last Vital Signs Pulse 74 02/01/23 16:00 BP 124/80 02/01/23 16:00 Pulse Ox 98 02/01/23 16:00 Oxygen Delivery Method Room Air 02/01/23 16:00 BMI result Body Mass Index 29.8 Tobacco/Smoking Status: Tobacco use Status Tobacco use date assessed 02/01/23 02/01/23 16:12 Patient Tobacco Use Status Never used Tobacco 02/01/23 16:12 PHQ-9: PHQ-9 Score PHQ-9: Total score 16 02/01/23 17:00 Depression Screening Interpretation: Positive Depression Screening Follow-up: Existing condition and In treatment Thrive Assessment: Date of Thrive Assessment Date Thrive assessed 02/01/23 02/01/23 16:12 Currently or been in a relationship where the following occur: no concerns reported Const General: no acute distress and alert HENMT Ears: TM's normal bilaterally and EAC's normal General nose exam: No nasal discharge present Face and sinus: No sinus tenderness Throat: Yes posterior oropharynx normal and Yes tonsils normal (no TP congestion noted) Neck Neck: Yes no lymphadenopathy and Yes tender (over the cervical spine and paraspinal areas bilaterally) Thyroid: Thyroid normal Lymphatic: no lymphadenopathy noted Resp Auscultation: clear to auscultation bilaterally, no rales and no wheezes Cardio Rate: regular rate Rhythm: regular rhythm Heart sounds: no murmurs GI Palpation (GI): Soft to palpation and nontender Auscultation: normal bowel sounds General: Yes no CVA tenderness Back/Spine/Pelvis Back: no CVA tenderness Thoracic/Lumbar Spine: lumbar spinal tenderness Extrem Other: no tenderness noted on exam of the left calf muscles and left lower leg; (+) mild edema of the left foot, with increased tenderness noted on palpation over the dorsum of the foot; right lower extremity exam was normal General: No clubbing, No cyanosis and Yes edema (mild edema noted over the dorsum of the left foot) Right upper extremity: shoulder/upper arm Details: tenderness (diffusely over the scapular area) Left upper extremity: shoulder/upper arm Details: tenderness (diffusely over the scapular areas) Left lower extremity: foot Details: tenderness Location: of the dorsal foot and edema (mild) Location: of the dorsal foot Results Reviewed Results Reviewed: Laboratory Tests 12/25/22 14:55 WBC 7.2 Hgb 12.1 Hct 36.4 L Plt Count 258 ESR 37 H Sodium 140 Potassium 4.2 Creatinine 0.77 Estimated GFR > 60 Random Glucose 98 Calcium 9.8 D AST 19 ALT 14 C-Reactive Protein 1.66 H TSH 2.88 Free T4 1.10 Assessment and Plan Assessment & Plan (1) Left foot pain: Code(s): M79.672 - Pain in left foot Plan: Patient is advised that we will try to submit an appeal for her left foot CT but if insurance will not budge on their decision to deny coverage, advised that an alternative option would be to refer her to podiatry for further evaluation and management and if podiatry also agrees with getting a CT of the foot, they may have better luck in getting this through insurance approval Results of her labs done last month reviewed and discussed with patient - advised that her labs are mostly normal except for elevated ESR and CRP, which are non-specific inflammatory markers and are not unexpected (2) Nasal dryness: Code(s): J34.89 - Other specified disorders of nose and nasal sinuses Plan: Have advised patient to get some OTC Saline nasal spray and to use it liberally as many times a day as needed into both nostrils Plan To return in 3 months for her annual physical examination Coding Level of Care Code Est Pt Level 3 (81013) Diagnoses Left foot pain M79.672 Nasal dryness J34.89
== END 2023-02-01 17:05 | disposition home or self-care (01) ==
PROVIDERS: PCP Internal Medicine; Visit Provider Internal Medicine
DX: M79.672 Pain in left foot (principal); J34.89 Other specified disorders of nose and nasal sinuses
CPT/HCPCS: 99213

== ENCOUNTER 2023-02-17 03:03 | Emergency (ER) | payer OTHER, SELFPAY ==
--- NOTE | ~2023-02-17 | XR_ITS ---
EXAMINATION: XR FOOT, LEFT CLINICAL INFORMATION: Pain. COMPARISON: None available. TECHNIQUE: AP, lateral, and oblique views of the left foot. FINDINGS: The bones and soft tissues are normal. No fracture. Alignment is anatomic. Joint spaces are maintained. XR/XR foot LT min 3V IMPRESSION: No significant abnormality identified.
--- NOTE | ~2023-02-17 | XR_ITS ---
EXAMINATION: XR ANKLE, LEFT CLINICAL INFORMATION: Pain. COMPARISON: None available. TECHNIQUE: Two views of the left ankle. FINDINGS: No fracture. Alignment is anatomic. No erosions. Joint spaces are maintained. Soft tissues are normal. XR/XR ankle LT 2V IMPRESSION: No significant abnormality.
[2023-02-17 03:10] VITALS: BP 120/67; PULSE 69; RESP 18; TEMP 36.6; O2SAT 99; BMI 33.3
--- NOTE | 2023-02-17 04:08 | ED.LOWEXIN ---
HPI - Extremity Injury (Lower) General Chief Complaint: Extremity Injury, Lower Stated Complaint: leg pain Time Seen by Provider: 02/17/23 03:57 Source: patient Mode of arrival: ambulatory Limitations: no limitations History of Present Illness HPI Narrative: Patient with small cystic structure on the left dorsum of the foot for few months getting painful now Related Data Previous Rx's Medication Instructions Recorded baclofen 10 mg tablet 10 mg PO TID PRN muscle spasms 30 12/31/22 days #90 tabs cholecalciferol (vitamin D3) 50 50 mcg PO DAILY 90 days #90 caps 12/31/22 mcg (2,000 unit) capsule ferrous sulfate 325 mg (65 mg 325 mg PO DAILY 30 days #30 tabs 12/31/22 iron) tablet (Feosol) fluoxetine 20 mg capsule 20 mg PO DAILY 90 days #90 caps 12/31/22 fluticasone propionate 50 2 spray intranasal DAILY PRN 12/31/22 mcg/actuation nasal allergy symptoms 30 days #16 grams spray,suspension gabapentin 300 mg capsule 300 mg PO TID 30 days #90 caps 12/31/22 ibuprofen 800 mg tablet 800 mg PO TID PRN pain 30 days #90 12/31/22 tabs levothyroxine 25 mcg tablet 25 mcg PO QAM 90 days #90 tabs 12/31/22 lidocaine 5 % topical ointment 1 appl topical .four time a day 12/31/22 PRN pain #50 grams loratadine 10 mg tablet 10 mg PO DAILY PRN allergy 12/31/22 symptoms 90 days #90 tabs lorazepam 1 mg tablet 1 mg PO BEDTIME PRN anxiety 30 12/31/22 days #30 tabs mecobalamin (vitamin B12) 1,000 1,000 mcg PO DAILY 90 days #90 tabs 12/31/22 mcg chewable tablet meloxicam 15 mg tablet 15 mg PO DAILY #14 tabs 12/31/22 midodrine 5 mg tablet 5 mg PO TID 30 days #90 tabs 12/31/22 mirtazapine 30 mg tablet 30 mg PO BEDTIME 90 days #90 tabs 12/31/22 tramadol 50 mg tablet 50 mg PO DAILY PRN pain 30 days 12/31/22 #30 tabs ibuprofen 600 mg tablet 600 mg PO Q6H PRN fever or pain 02/17/23 #30 tabs Allergies Allergy/AdvReac Type Severity Reaction Status Date / Time Penicillins [PENICILLINS] Allergy Unknown RASH Verified 02/17/23 03:14 Review of Systems Review of Systems: Yes all other systems are reviewed and are negative [facility] Past Medical History Medical History Palpitations Colonoscopy refused Overweight (BMI 25.0-29.9) Depression Anxiety Chronic right sacroiliac joint pain Lumbar degenerative disc disease Orthostatic hypotension Allergic rhinitis Fibromyalgia Acquired hypothyroidism Vitamin D deficiency Varicose veins of bilateral lower extremities with pain Coccydynia Surgical History History of appendectomy History of arthroplasty of right knee History of tonsillectomy History of bladder suspension procedure History of delivery Family History Family History Father No problems noted. Mother Myocardial infarction CVD (cardiovascular disease) Social History Social History Housing: House Alcohol intake: never Patient Tobacco Use Status: Never used Tobacco Smoked in Last 30 Days: No Second Hand Smoke Exposure: No Use of substances other than those prescribed or required for medical reasons: No Advance Directives: No Advance Directives Information Provided: No service: No Current occupational status: disabled Current occupation: Unemployed Cognitive needs: No Hearing needs: No Vision needs: Yes Physical Exam Vital Signs: Vital Signs: Last Vital Signs Temp 97.9 F 02/17/23 03:10 Pulse 69 02/17/23 03:10 Resp 18 02/17/23 03:10 BP 120/67 02/17/23 03:10 Pulse Ox 99 02/17/23 03:10 O2 Del Method Room Air 02/17/23 03:10 BMI result Body Mass Index 33.3 Extrem: Ankle/foot/toe images: 1. 0.5 cm cystic ganglion on left extensor hallucis longer tendon, tender to touch Medications Administered Discontinued Medications Generic Name Dose Route Start Last Admin Trade Name Freq PRN Reason Stop Dose Admin Lidocaine HCl 2 ml 02/17/23 04:23 02/17/23 05:00 Lidocaine Hcl 1 % Mpf 2 Ml Vial INFILTRATI 02/17/23 04:24 2 ml ONCE ONE Administration Medical Decision Making Medical Decision Making MDM Narrative: Patient with painful left foot ganglion cyst aspiration was tried without any fluid drained lidocaine was injected around the cyst patient feels better now pain-free will discharge patient home Differential Diagnosis Differential Diagnoses: The differential diagnosis associated with the presentation includes Ganglionic cyst/lipoma Discharge Plan Discharge Clinical Impression: Ganglion cyst of foot Patient Disposition: Home, Self-Care Instructions: Ganglion Cysts (ED) Additional Instructions: Local care as advised Do not wear tight shoes and to not touch the cyst Take ibuprofen for pain Prescriptions: New ibuprofen 600 mg tablet 600 mg PO Q6H PRN (Reason: fever or pain) Qty: 30 0RF No Action baclofen 10 mg tablet 10 mg PO TID PRN (Reason: muscle spasms) 30 Days Qty: 90 2RF cholecalciferol (vitamin D3) 50 mcg (2,000 unit) capsule 50 mcg PO DAILY 90 Days Qty: 90 3RF ferrous sulfate [Feosol] 325 mg (65 mg iron) tablet 325 mg PO DAILY 30 Days Qty: 30 5RF fluoxetine 20 mg capsule 20 mg PO DAILY 90 Days Qty: 90 1RF fluticasone propionate 50 mcg/actuation spray,suspension 2 spray intranasal DAILY PRN (Reason: allergy symptoms) 30 Days Qty: 16 5RF Rx Instructions: administer into each nostril gabapentin 300 mg capsule 300 mg PO TID 30 Days Qty: 90 3RF ibuprofen 800 mg tablet 800 mg PO TID PRN (Reason: pain) 30 Days Qty: 90 2RF Rx Instructions: Take with food levothyroxine 25 mcg tablet 25 mcg PO QAM 90 Days Qty: 90 1RF lidocaine 5 % ointment 1 appl topical .four time a day PRN (Reason: pain) Qty: 50 5RF Rx Instructions: apply pea size amount 3 to 4 times a day loratadine 10 mg tablet 10 mg PO DAILY PRN (Reason: allergy symptoms) 90 Days Qty: 90 1RF mecobalamin (vitamin B12) 1,000 mcg tablet,chewable 1,000 mcg PO DAILY 90 Days Qty: 90 3RF meloxicam 15 mg tablet 15 mg PO DAILY Qty: 14 0RF midodrine 5 mg tablet 5 mg PO TID 30 Days Qty: 90 2RF Rx Instructions: do not give last dose of day after 6PM or within 4 hrs of bedtime mirtazapine 30 mg tablet 30 mg PO BEDTIME 90 Days Qty: 90 1RF tramadol 50 mg tablet 50 mg PO DAILY PRN (Reason: pain) 30 Days Qty: 30 1RF lorazepam 1 mg tablet 1 mg PO BEDTIME PRN (Reason: anxiety) 30 Days Qty: 30 0RF Interventions: ED Discharge Assessment Last Done: 02/17/23 05:12 Discharge Date/Time: 02/17/23 05:13
[2023-02-17] MEDS: Lidocaine HCl 1 % MPF 2 ML VIAL INFILTRATI (05:00)
== END 2023-02-17 05:13 | disposition home or self-care (01) ==
PROVIDERS: Emergency Provider Internal Medicine; PCP Internal Medicine
DX: M67.472 Ganglion, left ankle and foot (principal); M79.672 Pain in left foot
CPT/HCPCS: 73600; 73630; 99284

== ENCOUNTER 2023-03-09 17:38 | Emergency (ER) | payer OTHER, SELFPAY ==
[2023-03-09 18:14] VITALS: BP 111/70; PULSE 72; RESP 16; TEMP 36.9; O2SAT 97; BMI 28.4
--- NOTE | 2023-03-09 18:15 | ED_ITS ---
HPI - General Adult General Chief complaint: Urogenital-Female Stated complaint: ?uti Time Seen by Provider: 03/09/23 18:54 Source: patient Mode of arrival: ambulatory Limitations: no limitations History of Present Illness HPI narrative: 47 year old female pmhx significant for anemia, anxiety, depression, hypothyroidism, fibromyalgia presents to the ED today for evaluation of dysuria, malodorous urine and lower back pain x3 days. Lower back pain is bilateral. No radiation. Denies fever, chills, flank pain, hematuria, vaginal discharge, nausea or vomiting, abdominal pain, diarrhea, constipation. Denies concern for or STDs. Related Data Previous Rx's Medication Instructions Recorded baclofen 10 mg tablet 10 mg PO TID PRN muscle spasms 30 12/31/22 days #90 tabs cholecalciferol (vitamin D3) 50 50 mcg PO DAILY 90 days #90 caps 12/31/22 mcg (2,000 unit) capsule ferrous sulfate 325 mg (65 mg 325 mg PO DAILY 30 days #30 tabs 12/31/22 iron) tablet (Feosol) fluoxetine 20 mg capsule 20 mg PO DAILY 90 days #90 caps 12/31/22 fluticasone propionate 50 2 spray intranasal DAILY PRN 12/31/22 mcg/actuation nasal allergy symptoms 30 days #16 grams spray,suspension gabapentin 300 mg capsule 300 mg PO TID 30 days #90 caps 12/31/22 ibuprofen 800 mg tablet 800 mg PO TID PRN pain 30 days #90 12/31/22 tabs levothyroxine 25 mcg tablet 25 mcg PO QAM 90 days #90 tabs 12/31/22 lidocaine 5 % topical ointment 1 appl topical .four time a day 12/31/22 PRN pain #50 grams loratadine 10 mg tablet 10 mg PO DAILY PRN allergy 12/31/22 symptoms 90 days #90 tabs lorazepam 1 mg tablet 1 mg PO BEDTIME PRN anxiety 30 12/31/22 days #30 tabs mecobalamin (vitamin B12) 1,000 1,000 mcg PO DAILY 90 days #90 tabs 12/31/22 mcg chewable tablet meloxicam 15 mg tablet 15 mg PO DAILY #14 tabs 12/31/22 midodrine 5 mg tablet 5 mg PO TID 30 days #90 tabs 12/31/22 mirtazapine 30 mg tablet 30 mg PO BEDTIME 90 days #90 tabs 12/31/22 tramadol 50 mg tablet 50 mg PO DAILY PRN pain 30 days 12/31/22 #30 tabs ibuprofen 600 mg tablet 600 mg PO Q6H PRN fever or pain 02/17/23 #30 tabs nitrofurantoin 100 mg PO BID 5 days #10 caps 03/09/23 monohydrate/macrocrystals 100 mg capsule (Macrobid) phenazopyridine 100 mg tablet 100 mg PO Q8H 6 doses #10 tabs 03/09/23 (Pyridium) Allergies Allergy/AdvReac Type Severity Reaction Status Date / Time Penicillins [PENICILLINS] Allergy Unknown RASH Verified 03/09/23 18:14 Review of Systems Review of Systems: Constitutional: No fever, chills, fatigue, night sweats, weight changes ENT/Mouth: No ear pain, hearing loss, nasal congestion, sinus pain, rhinorrhea, sore throat Eyes: No eye pain, swelling, redness, vision changes, discharge Cardio: No chest pain, palpitations, [place], orthopnea, peripheral edema Pulm: No SOB, cough, sputum, wheezing, dyspnea, hemoptysis GI: No nausea, vomiting, hematemesis, abdominal pain, diarrhea, constipation, hematochezia, melena : No irregular bleeding, +dysuria, No frequency, urgency, hesitancy, hematuria, flank pain, urinary flow changes, urinary incontinence or retention MSK: +low back pain, No neck pain, joint pain, myalgias Skin: No lesions, rashes Neuro: No weakness, numbness, paresthesias, LOC, dizziness, headache All other systems reviewed and are negative. [facility] Past Medical History Attestation statement: The following information was validated with the patient. Source: old records reviewed and nursing notes reviewed Medical History Palpitations Colonoscopy refused Overweight (BMI 25.0-29.9) Depression Anxiety Chronic right sacroiliac joint pain Lumbar degenerative disc disease Orthostatic hypotension Allergic rhinitis Fibromyalgia Acquired hypothyroidism Vitamin D deficiency Varicose veins of bilateral lower extremities with pain Coccydynia Surgical History History of appendectomy History of arthroplasty of right knee History of tonsillectomy History of bladder suspension procedure History of delivery Family History Family History Father No problems noted. Mother Myocardial infarction CVD (cardiovascular disease) Social History Housing: House Alcohol intake: never Patient Tobacco Use Status: Never used Tobacco Second Hand Smoke Exposure: No Advance Directives: No Advance Directives Information Provided: No service: No Current occupational status: disabled Current occupation: Unemployed Cognitive needs: No Hearing needs: No Vision needs: Yes Physical Exam ED Vital Signs: Vital Signs - 24 hr 03/09/23 18:14 Temperature 98.4 F Pulse Rate 72 Respiratory Rate 16 Blood Pressure 111/70 Pulse Oximetry 97 Oxygen Delivery Method Room Air BMI result Body Mass Index 28.4 vital signs stable, afebrile Const General: cooperative, healthy appearing, comfortable, no acute distress, alert and awake Orientation/consciousness: patient oriented x3 Limitations: no limitations Eyes General: appearance normal, both eyes and all related structures Conjunctivae: conjunctivae normal Sclerae: sclerae normal Pupils: Equal, round and reactive pupils present Resp Effort & Inspection: normal respiratory effort Auscultation: clear to auscultation bilaterally Cardio Rate: regular rate Rhythm: regular rhythm Peripheral pulses: radial pulses present GI Other: + abdomen soft, nontender to palpation, nondistended, no rebound tenderness or guarding. Normoactive bowel sounds x4. No CVAT bilaterally. General: Yes no CVA tenderness Back/Spine/Pelvis Other: No midline spinous tenderness. No paraspinal muscle tenderness bilaterally. No step-off deformity. Back: no CVA tenderness Skin General skin exam: no rashes or lesions noted Neuro General: patient oriented x3, gait normal and moves all extremities Cranial nerves: Yes Equal, round and reactive pupils present Extrem General: Yes normal to inspection Course Reevaluation(s) Reevaluation #1: Urinalysis is negative for and positive for infection. There is trace blood which is likely due to UTI. I do not suspect nephrolithiasis. Will send patient home on 5 days of Macrobid and pyridium for bladder pain. Informed her of urine results and plan. Discussed strict return precautions. All questions answered at this time. Patient is agreeable with disposition and stable for discharge. Medications Administered Discontinued Medications Generic Name Dose Route Start Last Admin Trade Name Judy PRN Reason Stop Dose Admin Acetaminophen 975 mg 03/09/23 19:11 03/09/23 19:27 Acetaminophen 325 Mg Tablet PO 03/09/23 19:12 975 mg ONCE ONE Administration Nitrofurantoin Macrocrystals 100 mg 03/09/23 19:30 03/09/23 19:27 Nitrofurantoin Monohyd/M-Cryst 100 Mg Capsule PO 03/09/23 19:31 100 mg ONCE ONE Administration Medical Decision Making Medical Decision Making [facility] Narrative: 47 year old female pmhx significant for anemia, anxiety, depression, hypothyroidism, fibromyalgia presents to the ED today for evaluation of dysuria, malodorous urine and lower back pain x3 days. Vital signs stable, afebrile. Patient is nontoxic appearing and in no acute distress. Abdomen is soft, nontender, nondistended, no rebound tenderness or guarding. Normoactive bowel sounds x4. No CVAT bilaterally. No midline spinous tenderness. No paraspinal muscle tenderness bilaterally. No step-off deformity. Clinical concern for urinary tract infection, candidal infection. Lower suspicion for STD, , nephrolithiasis, pyelonephritis. Urinalysis and urine obtained in triage. Plan to review in re-evaluate patient. Differential Diagnosis Differential Diagnoses: The differential diagnosis associated with the pres entation includes As above. Admission/Observation Not indicated. Lab Data [facility] Lab Attestation statement: I reviewed the patient's lab results. As above. Labs: Lab Results 03/09/23 Range/Units 18:36 Urine Color Yellow Urine Appearance Cloudy Urine pH 7.0 (5.0-9.0) Ur Specific Chana 1.020 (1.005-1.025) Urine Protein Negative (Neg-Trace) mg/dL Urine Glucose (UA) Negative (Negative) mg/dL Urine Ketones Trace (Negative) mg/dL Urine Blood Trace H (Negative) Urine Nitrite Negative (Negative) Ur Leukocyte Esterase Large (3+) H (Negative) Urine RBC 6-10 H (0-2) /HPF Urine WBC >50 H (0-5) /HPF Ur Squamous Epith Cells 3-5 (0-2) /HPF Urine Bacteria None Seen (None Seen) Hyaline Casts 0-2 (0-2) /LPF Urine Test NEGATIVE (NEGATIVE) External Record Review External record reviewed: Inpatient record Prescription Management I considered prescription management with: Pain Medication and Antibiotic Critical Care Time Critical Care Time Critical Care Time: No Discharge Plan Discharge Clinical Impression: Urinary tract infection Patient Disposition: Home, Self-Care Instructions: Urinary Tract Infection in Women (ED) Additional Instructions: Your urine today was positive for infection. Nitrofurantoin is an antibiotic that has been sent to your pharmacy. Take this as prescribed and do not miss any doses. You must complete the entire course of antibiotics. If you do not, there is a risk of the infection coming back or worsening. Pyridium is an analgesic that can relieve the pain, burning, and discomfort caused by infection or irritation of the urinary tract. It is not an antibiotic and will not cure the infection itself. This has been sent to your pharmacy. Take this as needed for discomfort. Pyridium can cause your urine to turn a reddish orange color.? Follow up with your primary care provider as needed. If you develop a fever or new/ worsening symptoms call 911 or come back to the ER for further evaluation. Prescriptions: New phenazopyridine [Pyridium] 100 mg tablet 100 mg PO Q8H Qty: 10 0RF nitrofurantoin monohyd/m-cryst [Macrobid] 100 mg capsule 100 mg PO BID 5 Days Qty: 10 0RF Rx Instructions: must administer with a meal/food No Action baclofen 10 mg tablet 10 mg PO TID PRN (Reason: muscle spasms) 30 Days Qty: 90 2RF cholecalciferol (vitamin D3) 50 mcg (2,000 unit) capsule 50 mcg PO DAILY 90 Days Qty: 90 3RF ferrous sulfate [Feosol] 325 mg (65 mg iron) tablet 325 mg PO DAILY 30 Days Qty: 30 5RF fluoxetine 20 mg capsule 20 mg PO DAILY 90 Days Qty: 90 1RF fluticasone propionate 50 mcg/actuation spray,suspension 2 spray intranasal DAILY PRN (Reason: allergy symptoms) 30 Days Qty: 16 5RF Rx Instructions: administer into each nostril gabapentin 300 mg capsule 300 mg PO TID 30 Days Qty: 90 3RF ibuprofen 800 mg tablet 800 mg PO TID PRN (Reason: pain) 30 Days Qty: 90 2RF Rx Instructions: Take with food levothyroxine 25 mcg tablet 25 mcg PO QAM 90 Days Qty: 90 1RF lidocaine 5 % ointment 1 appl topical .four time a day PRN (Reason: pain) Qty: 50 5RF Rx Instructions: apply pea size amount 3 to 4 times a day loratadine 10 mg tablet 10 mg PO DAILY PRN (Reason: allergy symptoms) 90 Days Qty: 90 1RF mecobalamin (vitamin B12) 1,000 mcg tablet,chewable 1,000 mcg PO DAILY 90 Days Qty: 90 3RF meloxicam 15 mg tablet 15 mg PO DAILY Qty: 14 0RF midodrine 5 mg tablet 5 mg PO TID 30 Days Qty: 90 2RF Rx Instructions: do not give last dose of day after 6PM or within 4 hrs of bedtime mirtazapine 30 mg tablet 30 mg PO BEDTIME 90 Days Qty: 90 1RF tramadol 50 mg tablet 50 mg PO DAILY PRN (Reason: pain) 30 Days Qty: 30 1RF lorazepam 1 mg tablet 1 mg PO BEDTIME PRN (Reason: anxiety) 30 Days Qty: 30 0RF ibuprofen 600 mg tablet 600 mg PO Q6H PRN (Reason: fever or pain) Qty: 30 0RF Interventions: ED Discharge Assessment Last Done: 03/09/23 19:30 Discharge Date/Time: 03/09/23 19:31
[2023-03-09 18:45] LABS: Appearance Urine Cloudy; Color Urine Yellow; Glucose Urine UA Negative (Negative); Leukocyte Esterase Urine Large (3+) (Negative); Nitrite Urine Negative (Negative); UMIC TRIGGER UACC YES; UPreg QC Valid YES; Urine Blood Trace (Negative); Urine Ketones Trace mg/dL (Negative); Urine Pregnancy NEGATIVE (NEGATIVE); Urine Protein Negative (Neg-Trace)
[2023-03-09 18:50] LABS: Bacteria Urine None Seen (None Seen); Hyaline Casts Urine 0-2 /LPF (0-2); UACC Culture Trigger YES; WBC Urine >50 /HPF (0-5)
[2023-03-09] MEDS: Acetaminophen 325 MG TABLET 975 MG PO (19:27)
[2023-03-09] MEDS: Nitrofurantoin Monohyd/M-Cryst 100 MG CAPSULE PO (19:27)
== END 2023-03-09 19:31 | disposition home or self-care (01) ==
PROVIDERS: Physician Assistant Medical; Emergency Provider Emergency Medicine Emergency Medical Services; PCP Internal Medicine
DX: N39.0 Urinary tract infection, site not specified (principal)
CPT/HCPCS: 81001; 81025; 87086; 87088; 87186; 99283

== ENCOUNTER 2023-03-11 05:13 | Emergency (ER) | payer OTHER, SELFPAY ==
--- NOTE | ~2023-03-11 | CT_ITS ---
EXAMINATION: CT ABDOMEN AND PELVIS WITH CONTRAST CLINICAL INFORMATION: Abdominal pain. COMPARISON: Abdominal ultrasound 03/07/2022. CT abdomen/pelvis 06/12/2017. TECHNIQUE: Multidetector volumetric images were obtained from the superior aspect of the liver through the pubic symphysis following administration 85 mL of Omnipaque 350 intravenous contrast. Sagittal and coronal reformatted images were obtained on the technologist's workstation. Oral contrast: No This CT examination was performed using dose optimization techniques as appropriate, variously including the following: *Automated exposure control *Adjustment of mA and/or kV according to patient size (this includes techniques or standardized protocols for targeted exams where dose is matched to indication/reason for exam; i.e. extremities or head) *Use of iterative reconstruction technique DLP: 597 mGy-cm FINDINGS: LUNG BASES: The visualized lung bases are unremarkable. LIVER, GALLBLADDER, AND BILIARY TREE: The liver is normal in size, shape, and attenuation. No focal hepatic lesion or biliary ductal dilatation is present. The gallbladder is unremarkable with no evidence of radiopaque gallstones, gallbladder wall thickening, or obvious pericholecystic inflammatory changes. PANCREAS: Unremarkable. SPLEEN: Unremarkable. ADRENAL GLANDS: Unremarkable. KIDNEYS AND URETERS: The kidneys are normal in size, shape, and attenuation. No hydronephrosis, hydroureter, or calculi seen. No perinephric stranding. BLADDER: Unremarkable. GASTROINTESTINAL TRACT: The stomach and the small bowel are nondilated. Postsurgical changes from prior appendectomy. No pericolonic fat stranding or free fluid. No evidence of bowel obstruction. Moderate to large amount of stool in the rectum. ABDOMINAL WALL: Postsurgical changes in the anterior and posterior abdominal wall most likely related with cosmetic surgery. No organized collection or significant hematoma. No hernia. LYMPH NODES: Normal. VASCULAR: Unremarkable. PELVIC VISCERA: Stable distortion along the anteroinferior uterus and upper urinary bladder, most likely sequela of prior . Endometrium measures up to 1.7 cm in thickness. Simple fluid attenuating septated cyst versus closely apposed individual cysts in the left ovary measuring in conjunction 3 x 2 cm (image 67, series 2). No free fluid. OSSEOUS STRUCTURES: No acute or aggressive appearing osseous findings. CT/CT abdomen pelvis w IV con IMPRESSION: 1. Moderate to large amount of stool in the rectum, correlate clinically for constipation. 2. Simple fluid attenuating septated cyst versus closely apposed individual cysts in the left ovary measuring up to 3 cm. Recommend further characterization with pelvic ultrasound. 3. The endometrium measures up to 1.7 cm in thickness which is within the normal limits for a premenopausal patient. LMP is unknown, recommend correlation with menstrual history. In a postmenopausal patient this is considered abnormal thickening, for which [employer] PROFESSOR referral is recommended.
[2023-03-11 05:17] VITALS: BP 118/74; PULSE 74; RESP 18; TEMP 36.4; O2SAT 98; BMI 27.5
[2023-03-11 06:16] VITALS: BP 115/73; PULSE 70; RESP 15; TEMP 36.4; O2SAT 97
[2023-03-11 06:23] LABS: Appearance Urine Cloudy; Color Urine Dark Yellow; Glucose Urine UA Negative (Negative); Leukocyte Esterase Urine Negative (Negative); Nitrite Urine Negative (Negative); Specific Gravity - Urine <= 1.005 (1.005-1.025); Urine Blood Negative (Negative); Urine Ketones Negative (Negative); Urine Protein Negative (Neg-Trace)
--- NOTE | 2023-03-11 06:38 | ED_ITS ---
HPI - Female Genitourinary General Chief complaint: Urogenital-Female Stated complaint: de la o to pee Time Seen by Provider: 03/11/23 06:37 Source: patient Mode of arrival: ambulatory Limitations: no limitations History of Present Illness HPI Narrative: Patient is a 47 year old assigned female at with a history of anxiety, depression, and fibromyalgia presenting to the emergency department today with lower abdominal pain and pain after urination. Patient states that she was seen on 03/09/2023 for similar symptoms and diagnosed with a UTI. Patient states that she was given macrobid and pyridium which did not help her symptoms. Patient states that she is not sexually active as her is away and has been for almost a year. Patient denies any dizziness, lightheadedness, nausea, vomiting, fever, chills, blurry vision, double vision, loss of vision, chest pain, difficulty breathing, shortness of breath, back pain, night sweats, blood in her urine or stool, syncope or a near syncopal episode, recent trauma or falls, bowel incontinence, bladder incontinence, bowel retention, bladder retention, or any other complaints at this time. MD elicited complaint: dysuria Onset (ago): day(s) Severity: mild Severity scale (1-10): 3 Related Data Previous Rx's Medication Instructions Recorded baclofen 10 mg tablet 10 mg PO TID PRN muscle spasms 30 12/31/22 days #90 tabs cholecalciferol (vitamin D3) 50 50 mcg PO DAILY 90 days #90 caps 12/31/22 mcg (2,000 unit) capsule ferrous sulfate 325 mg (65 mg 325 mg PO DAILY 30 days #30 tabs 12/31/22 iron) tablet (Feosol) fluoxetine 20 mg capsule 20 mg PO DAILY 90 days #90 caps 12/31/22 fluticasone propionate 50 2 spray intranasal DAILY PRN 12/31/22 mcg/actuation nasal allergy symptoms 30 days #16 grams spray,suspension gabapentin 300 mg capsule 300 mg PO TID 30 days #90 caps 12/31/22 ibuprofen 800 mg tablet 800 mg PO TID PRN pain 30 days #90 12/31/22 tabs levothyroxine 25 mcg tablet 25 mcg PO QAM 90 days #90 tabs 12/31/22 lidocaine 5 % topical ointment 1 appl topical .four time a day 12/31/22 PRN pain #50 grams loratadine 10 mg tablet 10 mg PO DAILY PRN allergy 12/31/22 symptoms 90 days #90 tabs lorazepam 1 mg tablet 1 mg PO BEDTIME PRN anxiety 30 12/31/22 days #30 tabs mecobalamin (vitamin B12) 1,000 1,000 mcg PO DAILY 90 days #90 tabs 12/31/22 mcg chewable tablet meloxicam 15 mg tablet 15 mg PO DAILY #14 tabs 12/31/22 midodrine 5 mg tablet 5 mg PO TID 30 days #90 tabs 12/31/22 mirtazapine 30 mg tablet 30 mg PO BEDTIME 90 days #90 tabs 12/31/22 tramadol 50 mg tablet 50 mg PO DAILY PRN pain 30 days 12/31/22 #30 tabs ibuprofen 600 mg tablet 600 mg PO Q6H PRN fever or pain 02/17/23 #30 tabs nitrofurantoin 100 mg PO BID 5 days #10 caps 03/09/23 monohydrate/macrocrystals 100 mg capsule (Macrobid) phenazopyridine 100 mg tablet 100 mg PO Q8H 6 doses #10 tabs 03/09/23 (Pyridium) Allergies Allergy/AdvReac Type Severity Reaction Status Date / Time Penicillins [PENICILLINS] Allergy Unknown RASH Verified 03/11/23 05:21 Review of Systems 2 Constitutional: Constitutional: Reports no additional constitutional complaints, Denies chills, Denies fever(s) and Denies night sweats Eyes: Eyes: Reports no additional eye complaints, Denies blurry vision, Denies change in vision, Denies diplopia, Denies eye discharge, Denies loss of vision and Denies eye pain ENT: Denies dizziness Cardiovascular: Cardiovascular: Reports no additional cardiovascular complaints, Denies chest pain, Denies lightheadedness, Denies Loss of Consciousness and Denies dyspnea Respiratory: Respiratory: Reports no additional respiratory complaints and Denies dyspnea Gastrointestinal: Gastrointestinal: Reports no additional gastrointestinal complaints, Reports abdominal pain, Denies melena, Denies hematochezia, Denies change in bowel habits and Denies change in stool character Genitourinary: Genitourinary: Denies hematuria, Denies urinary frequency, Reports dysuria, Denies urinary incontinence, Denies urinary hesitancy and Reports urinary urgency Comments: increased urination frequency Musculoskeletal: Musculoskeletal: Reports no additional musculoskeletal complaints, Denies numbness and Denies tingling Neurologic: Denies dizziness, Denies loss of vision, Denies numbness and Denies tingling Psychiatric: Psychiatric: Reports no additional psychiatric complaints Endocrine: Endocrine: Reports no additional endocrine complaints Hematologic/Lymphatic: Hematologic/Lymphatic: Reports no additional hematologic/lymphatic complaints Allergic/Immunologic: Allergic/Immunologic: Reports no additional allergic/immunologic complaints PMFSH Past Medical History Attestation statement: The following information was validated with the patient. Source: old records reviewed and nursing notes reviewed Medical History Fatigue Nasal dryness Localized swelling of left foot Left foot pain Upper respiratory tract infection Intestinal parasitism, unspecified Left ear pain Sty, external Annual physical exam Palpitations Colonoscopy refused Overweight (BMI 25.0-29.9) Depression Anxiety Chronic right sacroiliac joint pain Lumbar degenerative disc disease Orthostatic hypotension Allergic rhinitis Fibromyalgia Acquired hypothyroidism Vitamin D deficiency Varicose veins of bilateral lower extremities with pain Coccydynia Surgical History H/O breast augmentation History of appendectomy History of arthroplasty of right knee History of tonsillectomy History of bladder suspension procedure History of delivery Family History Family History Father No problems noted. Mother Myocardial infarction CVD (cardiovascular disease) Social History Housing: House Alcohol intake: never Patient Tobacco Use Status: Never used Tobacco Smoked in Last 30 Days: No Second Hand Smoke Exposure: No Use of substances other than those prescribed or required for medical reasons: No Advance Directives: No Patient : No service: No Current occupational status: disabled Current occupation: Unemployed Cognitive needs: No Hearing needs: No Vision needs: Yes Physical Exam 2 Vital Signs: Vital Signs: Last Vital Signs Temp 97.8 F 03/11/23 07:59 Pulse 71 03/11/23 08:38 Resp 18 03/11/23 08:38 BP 119/68 03/11/23 08:38 Pulse Ox 99 03/11/23 08:38 O2 Del Method Room Air 03/11/23 08:38 BMI result Body Mass Index 27.5 Const: General: cooperative, no acute distress, alert and awake Nutritional Appearance: well nourished Orientation/consciousness: patient oriented x3 Limitations: no limitations HEENT: Head: Yes normal to inspection and Yes atraumatic Ears: hearing grossly normal bilaterally and external ears normal General nose exam: Normal external nose present, no nasal discharge noted and no epistaxis Face and sinus: Yes normal facial exam, No abrasion and No laceration Mouth: Normal oral and palatal mucosa present, no drooling and no muffled voice Eyes: General: appearance normal, both eyes and all related structures P eriorbital: periorbital findings normal Eyelids: Yes eyelids normal C onjunctivae: conjunctivae normal Pupils: Equal, round and reactive pupils present EOM: EOMs intact bilaterally Neck: Neck: Yes normal visual inspection, Yes full ROM and Yes no lymphadenopathy Chest: Chest palpation & inspection: normal inspection of the chest Resp: Effort & Inspection: normal respiratory effort and able to speak in complete sentences GI: Inspection: Yes normal to inspection Palpation (GI): Soft to palpation, not firm, nontender, no guarding and not rigid Neuro: General: patient oriented x3 and moves all extremities Cranial nerves: Yes Equal, round and reactive pupils present Cognition (Neuro): n ormal cognition Motor exam (neuro): 5/5 motor strength present throughout Sensory Exam: Normal double simultaneous stimulation for sensation C oordination: [id number] test normal Extrem: General: Yes normal to inspection, Yes full ROM and Yes capillary refill normal Psych: Appearance: grossly normal Mental Status: mental status grossly normal Affect: normal affect Attitude: cooperative Thought process: N ormal thought process present Thought content: Normal thought content present Insight: Good insight present (Psych) Medications Administered Discontinued Medications Generic Name Dose Route Start Last Admin Trade Name Freq PRN Reason Stop Dose Admin Iohexol 100 ml 03/11/23 09:10 03/11/23 09:10 Iohexol 350 Mg/Ml 100 Ml Infus..Btl IV 03/11/23 09:11 85 ml ONCE ONE Administration Medical Decision Making Medical Decision Making MDM Narrative: Patient is a 47 year old assigned female at with a history of anxiety, fibromyalgia, and recent diagnosis of UTI presenting to the emergency department today with continued abdominal pain. Patient's physical exam was unremarkable. Patient's blood work was unremarkable. Patient's urine shows a resolving UTI. Patient's abdomen/pelvis CT showed constipation and an ovarian cyst. I explained my physical exam findings as well as all test results to the patient and the patient's daughter. I answered all questions asked by the patient and the patient's daughter. Patient's daughter confirms the patient already knows about the ovarian cyst and follows with OBGYN about it. I stressed the importance of the patient taking her medication as prescribed. I stressed the importance of the patient following up with her primary care provider and her OBGYN. I stressed the importance of the patient returning to the emergency department immediately if her symptoms were to worsen or if she were to develop any dizziness, shortness of breath, difficulty breathing, chest pain, blurry vision, loss of vision, nausea, vomiting, abdominal pain, fever, chills, back pain, or any other complaints. Patient and the patient's daughter verbalized agreement and understanding with this treatment plan and discharge. Differential Diagnosis Differential Diagnoses: The differential diagnosis associated with the presentation includes Abdominal pain Kidney stone Constipation UTI Pyelonephritis Admission/Observation Consideration of admission/observation: Escalation of care including admission/observation considered Patient would have been admitted to the hospital had her work up had any findings where hospital admission was appropriate and her clinical presentation warranted hospital admission. Lab Data MDM Lab Attestation statement: I reviewed the patient's lab results. My interpretation of these studies and their corresponding values is that they are grossly normal. 03/11/23 07:10 03/11/23 07:10 Labs: Lab Results 03/11/23 03/11/23 03/11/23 Range/Units 06:14 07:10 07:27 WBC 7.4 (4.8-10.8) X10*3/uL RBC 4.20 (4.20-5.50) X10*6/uL Hgb 13.0 (12.0-16.0) g/dl Hct 39.3 (37.0-47.0) % MCV 93.6 (80.0-98.0) fL MCH 31.0 (27.0-33.0) pg MCHC 33.1 (31.0-35.0) g/dl RDW 13.0 (11.0-16.0) % Plt Count 186 D (160-400) X10*3/uL MPV 11.0 (9.4-12.3) fL Immature Gran % (Auto) 0.5 H (0.0-0.4) % Neut % (Auto) 70.2 (45-73) % Lymph % (Auto) 19.5 L (20-40) % [place] % (Auto) 7.5 (2-11) % Eos % (Auto) 1.9 (0-4) % Baso % (Auto) 0.4 (0-2) % Lymph # (Auto) 1.4 (1.2-4.9) X10*3/uL [place] # (Auto) 0.6 (0.1-1.2) X10*3/uL Eos # (Auto) 0.1 (0.0-0.4) X10*3/uL Baso # (Auto) 0.0 (0.0-0.2) X10*3/uL Abs Immat Gran (auto) 0.04 H (0.00-0.03) X10*3/uL Absolute Neuts (auto) 5.2 (2.0-8.3) x10*3/uL Absolute Nucleated RBC 0.000 (0.0-0.012) X10*3/uL Nucleated RBC % (auto) 0.0 (0.0-0.2) /100WBC Sodium 139 (135-145) mmol/L Potassium 4.1 (3.3-5.1) mmol/L Chloride 107 (96-108) mmol/L Carbon Dioxide 27 (22-29) mmol/L Anion Gap 9 L (12-20) BUN 6 L (9-16) mg/dL Creatinine 0.71 (0.5-1.4) mg/dL Estim Creat Clear Calc 98.2 Estimated GFR > 60 Random Glucose 101 (60-115) mg/dL Calcium 8.9 D (8.4-10.2) mg/dL Total Bilirubin 0.3 (0.0-1.0) mg/dL AST 27 (5-31) U/L ALT 26 (0-31) U/L Alkaline Phosphatase 54 (39-117) U/L Total Protein 7.0 (6.5-8.0) g/dL Albumin 3.7 (3.5-5.0) g/dL Lipase 33 (8-78) U/L Beta HCG, Quant < 2 mIU/mL Urine Color Dark Yellow Urine Appearance Cloudy Urine pH 6.0 (5.0-9.0) Ur Specific [place] <= 1.005 (1.005-1.025) Urine Protein Negative (Neg-Trace) mg/dL Urine Glucose (UA) Negative (Negative) mg/dL Urine Ketones Negative (Negative) mg/dL Urine Blood Negative (Negative) Urine Nitrite Negative (Negative) Ur Leukocyte Esterase Negative (Negative) Chlam trachomat DNA PCR NOT DETECTED (Not Detect.) N.gonorrhoeae DNA (PCR) NOT DETECTED (Not Detect.) Independent Interpretation I performed an independent interpretation of an: CT Scan Interpretation: My interpretation is in agreement with the radiologist's impression of this imaging study. - EXAMINATION: CT ABDOMEN AND PELVIS WITH CONTRAST CLINICAL INFORMATION: Abdominal pain. COMPARISON: Abdominal ultrasound 03/07/2022. CT abdomen/pelvis 06/12/2017. TECHNIQUE: Multidetector volumetric images were obtained from the superior aspect of the liver through the pubic symphysis following administration 85 mL of Omnipaque 350 intravenous contrast. Sagittal and coronal reformatted images were obtained on the technologist's workstation. Oral contrast: No This CT examination was performed using dose optimization techniques as appropriate, variously including the following: *Automated exposure control *Adjustment of mA and/or kV according to patient size (this includes techniques or standardized protocols for targeted exams where dose is matched to indication/reason for exam; i.e. extremities or head) *Use of iterative reconstruction technique DLP: 597 mGy-cm FINDINGS: LUNG BASES: The visualized lung bases are unremarkable. LIVER, GALLBLADDER, AND BILIARY TREE: The liver is normal in size, shape, and attenuation. No focal hepatic lesion or biliary ductal dilatation is present. The gallbladder is unremarkable with no evidence of radiopaque gallstones, gallbladder wall thickening, or obvious pericholecystic inflammatory changes. PANCREAS: Unremarkable. SPLEEN: Unremarkable. ADRENAL GLANDS: Unremarkable. KIDNEYS AND URETERS: The kidneys are normal in size, shape, and attenuation. No hydronephrosis, hydroureter, or calculi seen. No perinephric stranding. BLADDER: Unremarkable. GASTROINTESTINAL TRACT: The stomach and the small bowel are nondilated. Postsurgical changes from prior appendectomy. No pericolonic fat stranding or free fluid. No evidence of bowel obstruction. Moderate to large amount of stool in the rectum. ABDOMINAL WALL: Postsurgical changes in the anterior and posterior abdominal wall most likely related with cosmetic surgery. No organized collection or significant hematoma. No hernia. LYMPH NODES: Normal. VASCULAR: Unremarkable. PELVIC VISCERA: Stable distortion along the anteroinferior uterus and upper urinary bladder, most likely sequela of prior . Endometrium measures up to 1.7 cm in thickness. Simple fluid attenuating septated cyst versus closely apposed individual cysts in the left ovary measuring in conjunction 3 x 2 cm (image 67, series 2). No free fluid. OSSEOUS STRUCTURES: No acute or aggressive appearing osseous findings. CT/CT abdomen pelvis w IV con IMPRESSION: 1. Moderate to large amount of stool in the rectum, correlate clinically for constipation. 2. Simple fluid attenuating septated cyst versus closely apposed individual cysts in the left ovary measuring up to 3 cm. Recommend further characterization with pelvic ultrasound. 3. The endometrium measures up to 1.7 cm in thickness which is within the normal limits for a premenopausal patient. LMP is unknown, recommend correlation with menstrual history. In a postmenopausal patient this is considered abnormal thickening, for which [employer] referral is recommended. Dictated By: Ellen Browne Signed By: Electronically signed by Ellen Browne 03/11/23 9090 Radiology Impression Discussion of test interpretation with radiology: I have reviewed the radiologist's reading. Independent Historian Clinical information obtained from an independent historian. History obtained from or confirmed by: Other (patient's daughter provider additional history and confirmed the history provided by the patient.) Discharge Plan Discharge Clinical Impression: Constipation, Ovarian cyst Patient Disposition: Home, Self-Care Instructions: Ovarian Cyst (ED), Constipation (DC) Additional Instructions: Take over the counter constipation medication. Finish the antibiotics you were previously prescribed for your resolving UTI. Follow up with your primary care provider. Your CT scan of the abdomen/pelvis showed evidence of constipation and a 3cm ovarian cyst for which they recommend an outpatient pelvic ultrasound. Return to the emergency department immediately if your symptoms worsen or if you develop any dizziness, shortness of breath, difficulty breathing, chest pain, blurry vision, loss of vision, nausea, vomiting, abdominal pain, fever, chills, back pain, or any other complaints. Prescriptions: No Action baclofen 10 mg tablet 10 mg PO TID PRN (Reason: muscle spasms) 30 Days Qty: 90 2RF cholecalciferol (vitamin D3) 50 mcg (2,000 unit) capsule 50 mcg PO DAILY 90 Days Qty: 90 3RF ferrous sulfate [Feosol] 325 mg (65 mg iron) tablet 325 mg PO DAILY 30 Days Qty: 30 5RF fluoxetine 20 mg capsule 20 mg PO DAILY 90 Days Qty: 90 1RF fluticasone propionate 50 mcg/actuation spray,suspension 2 spray intranasal DAILY PRN (Reason: allergy symptoms) 30 Days Qty: 16 5RF Rx Instructions: administer into each nostril gabapentin 300 mg capsule 300 mg PO TID 30 Days Qty: 90 3RF ibuprofen 800 mg tablet 800 mg PO TID PRN (Reason: pain) 30 Days Qty: 90 2RF Rx Instructions: Take with food levothyroxine 25 mcg tablet 25 mcg PO QAM 90 Days Qty: 90 1RF lidocaine 5 % ointment 1 appl topical .four time a day PRN (Reason: pain) Qty: 50 5RF Rx Instructions: apply pea size amount 3 to 4 times a day loratadine 10 mg tablet 10 mg PO DAILY PRN (Reason: allergy symptoms) 90 Days Qty: 90 1RF mecobalamin (vitamin B12) 1,000 mcg tablet,chewable 1,000 mcg PO DAILY 90 Days Qty: 90 3RF meloxicam 15 mg tablet 15 mg PO DAILY Qty: 14 0RF midodrine 5 mg tablet 5 mg PO TID 30 Days Qty: 90 2RF Rx Instructions: do not give last dose of day after 6PM or within 4 hrs of bedtime mirtazapine 30 mg tablet 30 mg PO BEDTIME 90 Days Qty: 90 1RF tramadol 50 mg tablet 50 mg PO DAILY PRN (Reason: pain) 30 Days Qty: 30 1RF lorazepam 1 mg tablet 1 mg PO BEDTIME PRN (Reason: anxiety) 30 Days Qty: 30 0RF ibuprofen 600 mg tablet 600 mg PO Q6H PRN (Reason: fever or pain) Qty: 30 0RF phenazopyridine [Pyridium] 100 mg tablet 100 mg PO Q8H Qty: 10 0RF nitrofurantoin monohyd/m-cryst [Macrobid] 100 mg capsule 100 mg PO BID 5 Days Qty: 10 0RF Rx Instructions: must administer with a meal/food Referrals: Chandu Ruvalcaba MD [Primary Care Provider] - Jimmy Agustin MD [Physician] - (Call to establish and follow up with an OBGYN. If you already have an OBGYN, please follow up with them. Be sure to mention the 3cm ovarian cyst and it's need for further evaluation.) Print Language: [place] Citizen
[2023-03-11 07:15] LABS: MANUAL DIFF FLAG NO
[2023-03-11 07:25] LABS: Basophils Percent Auto 0.4 % (0-2); Eosinophils Absolute Auto 0.1 X10*3/uL (0.0-0.4); Eosinophils Percent Auto 1.9 % (0-4); Hematocrit 39.3 % (37.0-47.0); Imm Gran Abs Auto 0.04 X10*3/uL (0.00-0.03); Imm Gran Pct Auto 0.5 % (0.0-0.4); Lymphocytes Absolute Auto 1.4 X10*3/uL (1.2-4.9); Lymphocytes Percent Auto 19.5 % (20-40); Mean Corpuscular HGB Conc 33.1 g/dl (31.0-35.0); Mean Corpuscular Volume 93.6 fL (80.0-98.0); Monocytes Absolute Auto 0.6 X10*3/uL (0.1-1.2); Monocytes Percent Auto 7.5 % (2-11); Neutrophils Absolute Auto 5.2 x10*3/uL (2.0-8.3); Neutrophils Percent Auto 70.2 % (45-73); Platelet Count 186 X10*3/uL (160-400); White Blood Count 7.4 X10*3/uL (4.8-10.8)
[2023-03-11 07:36] LABS: Alanine Aminotransferase 26 U/L (0-31); Albumin Level 3.7 g/dL (3.5-5.0); Alkaline Phosphatase 54 U/L (39-117); Anion Gap 9 (12-20); Aspartate Amino Transferase 27 U/L (5-31); Bilirubin Total 0.3 mg/dL (0.0-1.0); Blood Urea Nitrogen 6 mg/dL (9-16); Calcium 8.9 mg/dL (8.4-10.2); Carbon Dioxide 27 mmol/L (22-29); Chloride 107 mmol/L (96-108); Creatinine Clr Calc Pharmacy 98.2; Estimated Glomerular Filt Rate > 60; Glucose Random 101 mg/dL (60-115); Lipase 33 U/L (8-78); Potassium 4.1 mmol/L (3.3-5.1); Sodium 139 mmol/L (135-145)
[2023-03-11 07:43] LABS: HCG Quantitative < 2 mIU/mL
[2023-03-11 07:59] VITALS: BP 106/59; PULSE 78; RESP 18; TEMP 36.6; O2SAT 98
[2023-03-11 08:38] VITALS: BP 119/68; PULSE 71; RESP 18; O2SAT 99
[2023-03-11 09:09] LABS: CT PCR NOT DETECTED (Not Detect.); NG PCR NOT DETECTED (Not Detect.)
[2023-03-11] MEDS: iohexoL 350 MG/ML 100 ML INFUS..BTL IV (09:10)
== END 2023-03-11 11:36 | disposition home or self-care (01) ==
PROVIDERS: Physician Assistant Medical; Emergency Provider Emergency Medicine; PCP Internal Medicine
DX: K59.00 Constipation, unspecified (principal); N83.202 Unspecified ovarian cyst, left side
CPT/HCPCS: 0353U; 36415; 51798; 74177; 80053; 81003; 83690; 84702; 85025; 99284; Q9967

== ENCOUNTER 2023-04-03 15:26 | Emergency (ER) | payer OTHER, SELFPAY ==
--- NOTE | ~2023-04-03 | US_ITS ---
EXAMINATION:US pelvic and transvaginal CLINICAL INFORMATION: Reason for Exam right pelvic pain COMPARISON: No priors available. LMP: 6 week ago FINDINGS: UTERUS: The uterus is anteverted. Size: 10.7 x 4 x 4.7 cm. Uterine mass: There is no uterine mass. Cervix: Grossly unremarkable. Endometrium: Endometrial echogenic structure possibly a polyp measure 1.1 x 0.3 x 0.7 cm endometrial thickness measures 0.8 to 1.2 cm. ADNEXA: Normal Right ovary: Normal in size. Left ovary: Normal in size. Cystic structure likely dominant follicle measure 3.2 cm. Doppler exam: Normal Doppler flow identified in both ovaries. FREE FLUID: Trace amount of free fluid. OTHER FINDINGS: None US/US pelvic and transvaginal IMPRESSION: * Echogenic structure within the endometrium could be a polyp 1.1 cm. Attention to follow-up outpatient ultrasound in 6 week and all referral for REST RO[facility] ATTENDANT for HSG or tissue sampling is recommended. * Cystic structure in the left ovary 3.2 cm likely dominant follicle. * Exam otherwise normal.
[2023-04-03 16:17] VITALS: BP 119/60; PULSE 71; RESP 20; TEMP 36.1; O2SAT 100; BMI 30.3
--- NOTE | 2023-04-03 16:35 | ED.FEMALEGU ---
HPI - Female Genitourinary General Chief complaint: Urogenital-Female Stated complaint: Lower R abdominal pain Time Seen by Provider: 04/03/23 17:20 Source: patient, RN notes reviewed and old records reviewed Mode of arrival: ambulatory Limitations: no limitations History of Present Illness HPI Narrative: 47-year-old female presents for evaluation of right lower abdominal/pelvic pain. Her pain started 3 days ago. She also reports burning with urination She was seen here a little less than 1 month ago for similar symptoms. She had a workup that included blood work and a urine sample any CT scan the abdomen pelvis which showed moderate constipation and complex cyst in the pelvis Patient reports that she has been having normal bowel movements and does not feel constipated Related Data Previous Rx's Medication Instructions Recorded baclofen 10 mg tablet 10 mg PO TID PRN muscle spasms 30 12/31/22 days #90 tabs cholecalciferol (vitamin D3) 50 50 mcg PO DAILY 90 days #90 caps 12/31/22 mcg (2,000 unit) capsule ferrous sulfate 325 mg (65 mg 325 mg PO DAILY 30 days #30 tabs 12/31/22 iron) tablet (Feosol) fluoxetine 20 mg capsule 20 mg PO DAILY 90 days #90 caps 12/31/22 fluticasone propionate 50 2 spray intranasal DAILY PRN 12/31/22 mcg/actuation nasal allergy symptoms 30 days #16 grams spray,suspension gabapentin 300 mg capsule 300 mg PO TID 30 days #90 caps 12/31/22 ibuprofen 800 mg tablet 800 mg PO TID PRN pain 30 days #90 12/31/22 tabs levothyroxine 25 mcg tablet 25 mcg PO QAM 90 days #90 tabs 12/31/22 lidocaine 5 % topical ointment 1 appl topical .four time a day 12/31/22 PRN pain #50 grams loratadine 10 mg tablet 10 mg PO DAILY PRN allergy 12/31/22 symptoms 90 days #90 tabs lorazepam 1 mg tablet 1 mg PO BEDTIME PRN anxiety 30 12/31/22 days #30 tabs mecobalamin (vitamin B12) 1,000 1,000 mcg PO DAILY 90 days #90 tabs 12/31/22 mcg chewable tablet meloxicam 15 mg tablet 15 mg PO DAILY #14 tabs 12/31/22 midodrine 5 mg tablet 5 mg PO TID 30 days #90 tabs 12/31/22 mirtazapine 30 mg tablet 30 mg PO BEDTIME 90 days #90 tabs 12/31/22 tramadol 50 mg tablet 50 mg PO DAILY PRN pain 30 days 12/31/22 #30 tabs ibuprofen 600 mg tablet 600 mg PO Q6H PRN fever or pain 02/17/23 #30 tabs nitrofurantoin 100 mg PO BID 5 days #10 caps 03/09/23 monohydrate/macrocrystals 100 mg capsule (Macrobid) phenazopyridine 100 mg tablet 100 mg PO Q8H 6 doses #10 tabs 03/09/23 (Pyridium) Allergies Allergy/AdvReac Type Severity Reaction Status Date / Time Penicillins [PENICILLINS] Allergy Unknown RASH Verified 03/11/23 05:21 Review of Systems Constitutional: Constitutional: Denies chills and Denies fever(s) Eyes: Eyes: Denies blurry vision Cardiovascular: Cardiovascular: Denies chest pain and Denies dyspnea Respiratory: Respiratory: Denies cough and Denies dyspnea Gastrointestinal: Gastrointestinal: Reports abdominal pain, Denies hematochezia, Denies constipation, Denies GI cramping, Denies diarrhea, Denies nausea and Denies vomiting Genitourinary: Genitourinary: Denies difficulty voiding and Reports dysuria Integumentary/Breasts: Skin/Breast: Denies rash FOR[facility]LY [facility], [facility] Past Medical History Medical History Fatigue Nasal dryness Localized swelling of left foot Left foot pain Upper respiratory tract infection Intestinal parasitism, unspecified Left ear pain Sty, external Annual physical exam Palpitations Colonoscopy refused Overweight (BMI 25.0-29.9) Depression Anxiety Chronic right sacroiliac joint pain Lumbar degenerative disc disease Orthostatic hypotension Allergic rhinitis Fibromyalgia Acquired hypothyroidism Vitamin D deficiency Varicose veins of bilateral lower extremities with pain Coccydynia Surgical History H/O breast augmentation History of appendectomy History of arthroplasty of right knee History of tonsillectomy History of bladder suspension procedure History of delivery Family History Family History Father No problems noted. Mother Myocardial infarction CVD (cardiovascular disease) Social History Social History Housing: House Alcohol intake: never Patient Tobacco Use Status: Never used Tobacco Second Hand Smoke Exposure: No Advance Directives: No Advance Directives Information Provided: No service: No Current occupational status: disabled Current occupation: Unemployed Cognitive needs: No Hearing needs: No Vision needs: Yes Physical Exam Vital Signs: Vital Signs: Last Vital Signs Temp 97.0 F 04/03/23 16:17 Pulse 65 04/03/23 17:07 Resp 14 04/03/23 17:07 BP 114/49 L 04/03/23 17:07 Pulse Ox 98 04/03/23 17:07 O2 Del Method Room Air 04/03/23 17:07 BMI result Body Mass Index 30.3 Const: General: healthy appearing, comfortable, no acute distress, alert and awake Nutritional Appearance: well nourished Orientation/consciousness: patient oriented x3 HEENT: Head: Yes normocephalic and Yes atraumatic Eyes: Eyelids: Yes eyelids normal Conjunctivae: conjunctivae normal Sclerae: sclerae normal Corneas: corneas normal Pupils: Equal, round and reactive pupils present EOM: EOMs intact bilaterally Neck: Neck: Yes full ROM Resp: Effort & Inspection: normal respiratory effort, able to speak in complete sentences and not labored GI: Inspection: No distended Palpation (GI): Soft to palpation, not firm, Tenderness to palpation present (GI) suprapubicly (Slightly right of center, no guarding), no guarding and not rigid Auscultation: normoactive bowel sounds Skin: General skin exam: elasticity normal Neuro: General: patient oriented x3 Cranial nerves: Yes Equal, round and reactive pupils present and Yes Bilaterally intact EOM present Cognition (Neuro): normal cognition Course Course Course Narrative: RME: 47-year-old female presents to ED for dysuria and pelvic pain, and increased urinary frequency. Patient any distress. Vital signs stable. UA ordered Reevaluation(s) Reevaluation #1: Patient's ultrasound shows a 1.1 cm endometrial polyp as well as cystic structure in left ovary. I discussed both these results with the patient as well as her daughter. I encouraged OBGYN follow-up and she will be referred to OBGYN Time: 19:31 Medical Decision Making Medical Decision Making MDM Narrative: 47-year-old female presents for evaluation of right-sided lower abdominal/pelvic pain. Denies any GI symptoms. She reports some burning with urination. Her UA is clear without any sign of infection or hematuria. Plan for ultrasound of the pelvis as this would recommend after last CT scan she has not yet followed up for the ultrasound. Denies any vaginal bleeding or discharge most likely be PID. Her pain is most likely related to an ovarian cyst, less likely to be ovarian torsion Differential Diagnosis Differential Diagnoses: The differential diagnosis associated with the presentation includes Ovarian cyst Ovarian torsion Uterine fibroids UTI Cystitis Obstructive uropathy Lab Data MDM Lab Attestation statement: I reviewed the patient's lab results. UA is clear without any signs of infection or hematuria Labs: Lab Results 04/03/23 Range/Units 16:25 Urine Color Yellow Urine Appearance Clear Urine pH 6.0 (5.0-9.0) Ur Specific [place] 1.010 (1.005-1.025) Urine Protein Negative (Neg-Trace) mg/dL Urine Glucose (UA) Negative (Negative) mg/dL Urine Ketones Negative (Negative) mg/dL Urine Blood Negative (Negative) Urine Nitrite Negative (Negative) Ur Leukocyte Esterase Negative (Negative) Urine Test NEGATIVE (NEGATIVE) Radiology Impression Discussion of test interpretation with radiology: I have reviewed the radiologist's reading. Discharge Plan Discharge Clinical Impression: Endometrial polyp, Ovarian cyst Patient Disposition: Home, Self-Care Instructions: Ovarian Cyst (ED), Endometrial Polyps (DC) Additional Instructions: Your ultrasound showed a left ovarian cyst as well as an endometrial polyp. The endometrial polyp requires follow-up imaging within 6 weeks and or tissue biopsy Call OBGYN at the number provided to schedule follow-up Your urine sample did not show any signs of infection Prescriptions: No Action baclofen 10 mg tablet 10 mg PO TID PRN (Reason: muscle spasms) 30 Days Qty: 90 2RF cholecalciferol (vitamin D3) 50 mcg (2,000 unit) capsule 50 mcg PO DAILY 90 Days Qty: 90 3RF ferrous sulfate [Feosol] 325 mg (65 mg iron) tablet 325 mg PO DAILY 30 Days Qty: 30 5RF fluoxetine 20 mg capsule 20 mg PO DAILY 90 Days Qty: 90 1RF fluticasone propionate 50 mcg/actuation spray,suspension 2 spray intranasal DAILY PRN (Reason: allergy symptoms) 30 Days Qty: 16 5RF Rx Instructions: administer into each nostril gabapentin 300 mg capsule 300 mg PO TID 30 Days Qty: 90 3RF ibuprofen 800 mg tablet 800 mg PO TID PRN (Reason: pain) 30 Days Qty: 90 2RF Rx Instructions: Take with food levothyroxine 25 mcg tablet 25 mcg PO QAM 90 Days Qty: 90 1RF lidocaine 5 % ointment 1 appl topical .four time a day PRN (Reason: pain) Qty: 50 5RF Rx Instructions: apply pea size amount 3 to 4 times a day loratadine 10 mg tablet 10 mg PO DAILY PRN (Reason: allergy symptoms) 90 Days Qty: 90 1RF mecobalamin (vitamin B12) 1,000 mcg tablet,chewable 1,000 mcg PO DAILY 90 Days Qty: 90 3RF meloxicam 15 mg tablet 15 mg PO DAILY Qty: 14 0RF midodrine 5 mg tablet 5 mg PO TID 30 Days Qty: 90 2RF Rx Instructions: do not give last dose of day after 6PM or within 4 hrs of bedtime mirtazapine 30 mg tablet 30 mg PO BEDTIME 90 Days Qty: 90 1RF tramadol 50 mg tablet 50 mg PO DAILY PRN (Reason: pain) 30 Days Qty: 30 1RF lorazepam 1 mg tablet 1 mg PO BEDTIME PRN (Reason: anxiety) 30 Days Qty: 30 0RF ibuprofen 600 mg tablet 600 mg PO Q6H PRN (Reason: fever or pain) Qty: 30 0RF phenazopyridine [Pyridium] 100 mg tablet 100 mg PO Q8H Qty: 10 0RF nitrofurantoin monohyd/m-cryst [Macrobid] 100 mg capsule 100 mg PO BID 5 Days Qty: 10 0RF Rx Instructions: must administer with a meal/food Referrals: Jimmy Agustin MD [Physician] - (endometrial polyp) Interventions: ED Discharge Assessment Last Done: 04/03/23 19:39 Discharge Date/Time: 04/03/23 19:49
[2023-04-03 16:36] LABS: Appearance Urine Clear; Color Urine Yellow; Glucose Urine UA Negative (Negative); Leukocyte Esterase Urine Negative (Negative); Nitrite Urine Negative (Negative); Urine Blood Negative (Negative); Urine Ketones Negative (Negative); Urine Protein Negative (Neg-Trace)
[2023-04-03 17:07] VITALS: BP 114/49; PULSE 65; RESP 14; O2SAT 98
[2023-04-03 17:59] LABS: UPreg QC Valid YES; Urine Pregnancy NEGATIVE (NEGATIVE)
== END 2023-04-03 19:49 | disposition home or self-care (01) ==
PROVIDERS: Physician Assistant; Emergency Provider Student in an Organized Health Care Education/Training Program; PCP Internal Medicine
DX: R10.31 Right lower quadrant pain (principal); N83.201 Unspecified ovarian cyst, right side; N84.0 Polyp of corpus uteri; R10.2 Pelvic and perineal pain; Z79.899 Other long term (current) drug therapy
CPT/HCPCS: 76830; 76856; 81003; 81025; 99283; 99284

== ENCOUNTER 2023-07-05 10:51 | Outpatient (AMB) | payer OTHER, SELFPAY ==
[2023-07-05 11:18] VITALS: BP 140/80; PULSE 81; TEMP 37.1; O2SAT 98; BMI 28.1
--- NOTE | 2023-07-05 11:18 | AM.OFFWIN_ITS ---
Intake Vital Signs 07/05/23 11:18 Height 5 ft 4 in Weight 164 lb BMI 28.1 BP 140/80 H Blood Pressure Location Lt brachial Position Sitting Pulse 81 Pulse Source Pulse Oximeter Temp 98.7 F Temp Source Temporal Artery Scan Pulse Oximetry (%) 98 Oxygen Delivery Method Room Air Intake Visit Reasons: EP AB pain Intake Note: pt is here today for AB pain started 2 months Patient Tobacco Use Status: Never used Tobacco Allergies Penicillins [PENICILLINS] Allergy (Unknown, Verified 07/05/23 11:28) RASH Do you need a note to return to daycare/school/sports/work: No HPI EP AB pain HPI Details This is a 48 year old female patient who reports to the [place] clinic today with a two month history of abdominal muscle spasms on sides of abs. She denies any injury, heavy lifting, or injury. Had an abdominoplasty 8 years ago without any complications. States these spasms occur throughout the day and night, and are worse with walking. They are also occasionally associated with pins and needles sensations. Denies any rashes. She reports that several months ago she began using a castor oil mixture and massaging in onto abdomen for cosmetic purposes. She thinks symptoms may have started around the time she started with this routine. She stopped doing this about one month ago however the spasms persist. She has tried muscle relaxers for this without any benefit. Denies any abdominal pain, nausea, vomiting, fever, diarrhea, constipation. Reports normal voiding and bowel movements. Denies any changes in diets however is fasting for Ramadan this month. She does feel her anxiety worsens symptoms. She uses Lorazepam 1mg PO at bedtime prn, however has not had a refill of this since March. She has reached out to PCP's office without success for refill at this time. FORMERLY [facility] Medical History Fatigue Nasal dryness Localized swelling of left foot Left foot pain Upper respiratory tract infection Intestinal parasitism, unspecified Left ear pain Sty, external Annual physical exam Palpitations Colonoscopy refused Overweight (BMI 25.0-29.9) Depression Anxiety Chronic right sacroiliac joint pain Lumbar degenerative disc disease Orthostatic hypotension Allergic rhinitis Fibromyalgia Acquired hypothyroidism Vitamin D deficiency Varicose veins of bilateral lower extremities with pain Coccydynia Surgical History H/O breast augmentation History of appendectomy History of arthroplasty of right knee History of tonsillectomy History of bladder suspension procedure History of delivery Family History Father No problems noted. Mother Myocardial infarction CVD (cardiovascular disease) Social History Housing: House Alcohol intake: never Patient Tobacco Use Status: Never used Tobacco Second Hand Smoke Exposure: No service: No Current occupational status: disabled Current occupation: Unemployed Cognitive needs: No Hearing needs: No Vision needs: Yes Review of Systems Const All systems reviewed & are unremarkable except as noted in HPI and below Physical Exam Vital Signs: Last Vital Signs Temp 98.7 F 07/05/23 11:18 Pulse 81 07/05/23 11:18 BP 140/80 H 07/05/23 11:18 Pulse Ox 98 07/05/23 11:18 Oxygen Delivery Method Room Air 07/05/23 11:18 BMI result Body Mass Index 28.1 Const General: cooperative and no acute distress Nutritional Appearance: average body habitus Neck Neck: Yes no lymphadenopathy Resp Effort & Inspection: normal respiratory effort Auscultation: clear to auscultation bilaterally Cardio Palpation: normal PMI Rate: regular rate Rhythm: regular rhythm GI Inspection: Yes normal to inspection Palpation (GI): Soft to palpation (nontender. scars from abd/breast surgery) and No hepatosplenomegaly present Auscultation: normal bowel sounds General: Yes no CVA tenderness Back/Spine/Pelvis Back: no CVA tenderness Skin General skin exam: no rashes or lesions noted Neuro General: gait normal, tone normal, no focal motor deficits and deep tendon reflexes 2+ bilaterally Extrem General: Yes capillary refill normal and Yes no clubbing, cyanosis or edema Psych Appearance: grossly normal Mental Status: mental status grossly normal Speech and movement: Normal speech and movement present Assessment & Plan Assessment & Plan (1) Abdominal muscle strain: Code(s): S39.011A - Strain of muscle, fascia and tendon of abdomen, initial encounter Qualifiers: Encounter type: initial encounter Qualified Code(s): S39.011A - Strain of muscle, fascia and tendon of abdomen, initial encounter Plan: This appears to be a strain of her bilateral external obliques without any obvious injury. I do not feel she has any acute abdominal process going on. She is having spasms and paresthesias bilaterally throughout the day for the last 2 months. This has not been improved with muscle relaxers or NSAIDs. She had abdominoplasty 8 years ago and did not have any issues post-op. She does feel symptoms are worsened with increased stress and has been without Lorazepam rx refill since March. She has reached out to PCP office and is awaiting refill. I have recommended at this time that patient have evaluation by physical therapy and also by Dr. Lopez in pain management to see if there is perhaps an interventioal approach to her symptoms. She is not scheduled to see PCP until August. She agrees with this plan. (2) Blepharitis of right lower eyelid: Code(s): H01.002 - Unspecified blepharitis right lower eyelid Qualifiers: Blepharitis type: unspecified type Qualified Code(s): H01.002 - Unspecified blepharitis right lower eyelid Plan: Stye with some lower lid swelling. Erythromycin ointment sent. Advised good hand/eye hygiene and warm compresses. Will rtc if no improvement with medication. Orders: Orders PT Evaluation and Treatment Today S39.011A - Strain of muscle, fascia and tendon of abdomen, initial encounter Referrals Pain Management Referral S39.011A - Strain of muscle, fascia and tendon of abdomen, initial encounter Medications: New erythromycin Apply 0.5 inch to lower lid of left eye 4 times daily for 5 days 1 appl ophthalmic (eye) BID 3.5 grams 1RF 5 days H01.002 - Unspecified blepharitis right lower eyelid Coding Level of Care Code Est Pt Level 4 (35485) Diagnoses Strain of abdominal muscle, initial encounter S39.011A Encounter type: initial encounter Blepharitis of right lower eyelid, unspecified type H01.002 Blepharitis type: unspecified type
== END 2023-07-05 12:47 | disposition home or self-care (01) ==
PROVIDERS: PCP Internal Medicine; Visit Provider Nurse Practitioner Family
DX: S39.011A Strain of muscle, fascia and tendon of abdomen, initial encounter (principal); H01.002 Unspecified blepharitis right lower eyelid
CPT/HCPCS: 99214

== ENCOUNTER 2023-07-09 10:13 | Emergency (ER) | payer OTHER, SELFPAY ==
--- NOTE | ~2023-07-09 | US_ITS ---
EXAMINATION: US ABDOMEN COMPLETE CLINICAL INFORMATION: Right flank, diffuse abdominal pain.. COMPARISON: CT abdomen dated 03/11/2023. TECHNIQUE: Real-time imaging of the abdominal viscera. FINDINGS: PANCREAS: Normal. ABDOMINAL AORTA: The proximal, mid, and distal segments are normal in caliber. INFERIOR VENA CAVA: Visualized portions are normal. LIVER: Normal. The liver is normal in size. The liver contour is normal. Parenchymal echogenicity is normal. No focal hepatic lesion. There is no intrahepatic biliary duct dilatation seen. GALLBLADDER: Normal. The gallbladder is physiologically distended without evidence of stones, sludge, polyps, wall thickening or pericholecystic fluid. COMMON BILE DUCT: Normal in caliber measuring 0.4 cm in diameter. RIGHT KIDNEY: Normal. No hydronephrosis. No renal calculi or focal parenchymal lesions. The kidney measures 9.9 cm in maximum dimension. LEFT KIDNEY: Normal. No hydronephrosis. No renal calculi or focal parenchymal lesions. The kidney measures 9.2 cm in maximum dimension. SPLEEN: Normal. The spleen measures 6.8 cm in maximum dimension. FREE FLUID: None. US/US abdomen complete IMPRESSION: Normal abdominal ultrasound.
[2023-07-09 10:23] VITALS: BP 130/76; PULSE 88; RESP 18; TEMP 36.8; O2SAT 100; BMI 27.8
[2023-07-09 11:18] LABS: MANUAL DIFF FLAG NO
[2023-07-09 11:19] LABS: Basophils Percent Auto 0.6 % (0-2); Eosinophils Absolute Auto 0.1 X10*3/uL (0.0-0.4); Hematocrit 39.7 % (37.0-47.0); Imm Gran Abs Auto 0.01 X10*3/uL (0.00-0.03); Imm Gran Pct Auto 0.1 % (0.0-0.4); Lymphocytes Absolute Auto 2.4 X10*3/uL (1.2-4.9); Lymphocytes Percent Auto 34.8 % (20-40); Mean Corpuscular HGB Conc 32.7 g/dl (31.0-35.0); Mean Corpuscular Hemoglobin 30.2 pg (27.0-33.0); Mean Corpuscular Volume 92.1 fL (80.0-98.0); Mean Platelet Volume 10.9 fL (9.4-12.3); Monocytes Absolute Auto 0.4 X10*3/uL (0.1-1.2); Monocytes Percent Auto 5.9 % (2-11); Neutrophils Absolute Auto 3.9 x10*3/uL (2.0-8.3); Neutrophils Percent Auto 56.6 % (45-73); Platelet Count 221 X10*3/uL (160-400); Red Blood Count 4.31 X10*6/uL (4.20-5.50); Red Cell Distribution Width 12.3 % (11.0-16.0); White Blood Count 6.8 X10*3/uL (4.8-10.8)
[2023-07-09 11:24] LABS: Appearance Urine Clear; Color Urine Yellow; Glucose Urine UA Negative (Negative); Leukocyte Esterase Urine Negative (Negative); Nitrite Urine Negative (Negative); Specific Gravity - Urine 1.015 (1.005-1.025); Urine Blood Negative (Negative); Urine Ketones Negative (Negative); Urine Protein Negative (Neg-Trace)
[2023-07-09 11:29] LABS: UPreg QC Valid YES; Urine Pregnancy NEGATIVE (NEGATIVE)
[2023-07-09 11:37] LABS: Chloride 107 mmol/L (96-108); Potassium 4.7 mmol/L (3.3-5.1); Sodium 140 mmol/L (135-145)
[2023-07-09 11:42] LABS: Alanine Aminotransferase 11 U/L (0-31); Alkaline Phosphatase 63 U/L (39-117); Aspartate Amino Transferase 16 U/L (5-31); Bilirubin Direct 0.1 mg/dL (0.0-0.5); Bilirubin Total 0.3 mg/dL (0.0-1.0); Blood Urea Nitrogen 13 mg/dL (9-16); Calcium 9.4 mg/dL (8.4-10.2); Carbon Dioxide 24 mmol/L (22-29); Creatinine Clr Calc Pharmacy 76.8; Estimated Glomerular Filt Rate > 60; Glucose Random 125 mg/dL (60-115); Total Protein 7.8 g/dL (6.5-8.0)
[2023-07-09 12:08] LABS: Anion Gap 14 (12-20)
--- NOTE | 2023-07-09 13:11 | ED.ABDPAIN ---
HPI - Abdominal Pain General Chief Complaint: Abdominal Pain Stated Complaint: Abd pain sent by urgent care Time Seen by Provider: 07/09/23 13:09 Source: patient and RN notes reviewed Mode of arrival: ambulatory Limitations: no limitations History of Present Illness HPI narrative: This is a 48-year-old female, with no known medical problems, presenting to the emergency department with ongoing abdominal ?tightness? x1 month. Patient states that over the course of this last month she has had occasional tightening into her bilateral flank. She has been using castor oil for abdominal massage without any relief. She has been taking Motrin which has provided her with some relief.Patient denies any fevers, chills, chest pain, shortness of breath, abdominal pain, nausea, vomiting or diarrhea. She is urinating without difficulty. No hematuria, urinary frequency or urgency. Denies history of similar symptoms in the past. Denies trauma to her abdomen. She does endorse that she has been passing gas more often. No other complaints or concerns at this time. MD elicited complaint: other (Abdominal tightness /spasm) Pertinent past history: none Pain Consistency: constant Location: none Severity: moderate Quality: cramping Radiation: none Migration to: no migration Exacerbating factors: nothing Relieving factors: nothing Associated symptoms: denies other symptoms Related Data Home Medications Medication Instructions Recorded Confirmed cholecalciferol (vitamin D3) 50 50 mcg PO DAILY 07/05/23 mcg/drop (2,000 unit/drop) oral drops pantoprazole 40 mg tablet,delayed 40 mg PO BID 07/05/23 release Previous Rx's Medication Instructions Recorded baclofen 10 mg tablet 10 mg PO TID PRN muscle spasms 30 12/31/22 days #90 tabs cholecalciferol (vitamin D3) 50 50 mcg PO DAILY 90 days #90 caps 12/31/22 mcg (2,000 unit) capsule ferrous sulfate 325 mg (65 mg 325 mg PO DAILY 30 days #30 tabs 12/31/22 iron) tablet (Feosol) fluoxetine 20 mg capsule 20 mg PO DAILY 90 days #90 caps 12/31/22 fluticasone propionate 50 2 spray intranasal DAILY PRN 12/31/22 mcg/actuation nasal allergy symptoms 30 days #16 grams spray,suspension gabapentin 300 mg capsule 300 mg PO TID 30 days #90 caps 12/31/22 lidocaine 5 % topical ointment 1 appl topical .four time a day 12/31/22 PRN pain #50 grams mecobalamin (vitamin B12) 1,000 1,000 mcg PO DAILY 90 days #90 tabs 12/31/22 mcg chewable tablet meloxicam 15 mg tablet 15 mg PO DAILY #14 tabs 12/31/22 midodrine 5 mg tablet 5 mg PO TID 30 days #90 tabs 12/31/22 mirtazapine 30 mg tablet 30 mg PO BEDTIME 90 days #90 tabs 12/31/22 tramadol 50 mg tablet 50 mg PO DAILY PRN pain 30 days 12/31/22 #30 tabs ibuprofen 600 mg tablet 600 mg PO Q6H PRN fever or pain 02/17/23 #30 tabs nitrofurantoin 100 mg PO BID 5 days #10 caps 03/09/23 monohydrate/macrocrystals 100 mg capsule (Macrobid) phenazopyridine 100 mg tablet 100 mg PO Q8H 6 doses #10 tabs 03/09/23 (Pyridium) levothyroxine 25 mcg tablet 25 mcg PO QAM 90 days #90 tabs 04/10/23 loratadine 10 mg tablet 10 mg PO DAILY PRN allergy 06/04/23 symptoms 90 days #90 tabs erythromycin 5 mg/gram (0.5 %) eye 1 appl ophthalmic (eye) BID 5 days 07/05/23 ointment #3.5 grams lorazepam 1 mg tablet 1 mg PO BEDTIME PRN anxiety 30 07/05/23 days #30 tabs erythromycin 5 mg/gram (0.5 %) eye 1 appl ophthalmic (eye) DAILY #3.5 07/09/23 ointment grams simethicone 125 mg capsule (Gas-X 125 mg PO DAILY PRN abdominal 07/09/23 Extra Strength) distention #20 caps Allergies Allergy/AdvReac Type Severity Reaction Status Date / Time Penicillins [PENICILLINS] Allergy Unknown RASH Verified 07/05/23 11:28 Review of Systems Review of Systems Yes all other systems are reviewed and are negative Constitutional: Reports as per [facility] Past Medical History Attestation statement: The following information was validated with the patient. Medical History Fatigue Nasal dryness Localized swelling of left foot Left foot pain Upper respiratory tract infection Intestinal parasitism, unspecified Left ear pain Sty, external Annual physical exam Palpitations Colonoscopy refused Overweight (BMI 25.0-29.9) Depression Anxiety Chronic right sacroiliac joint pain Lumbar degenerative disc disease Orthostatic hypotension Allergic rhinitis Fibromyalgia Acquired hypothyroidism Vitamin D deficiency Varicose veins of bilateral lower extremities with pain Coccydynia Surgical History H/O breast augmentation History of appendectomy History of arthroplasty of right knee History of tonsillectomy History of bladder suspension procedure History of delivery Family History Family History Father No problems noted. Mother Myocardial infarction CVD (cardiovascular disease) Social History Social History Housing: House Alcohol intake: never Patient Tobacco Use Status: Never used Tobacco Smoked in Last 30 Days: No Second Hand Smoke Exposure: No Use of substances other than those prescribed or required for medical reasons: No Advance Directives: No service: No Current occupational status: disabled Current occupation: Unemployed Cognitive needs: No Hearing needs: No Vision needs: Yes Physical Exam ED Vital Signs: Vital Signs - 24 hr 07/09/23 10:23 07/09/23 16:11 Temperature 98.2 F 98.2 F Pulse Rate 88 88 Respiratory Rate 18 18 Blood Pressure 130/76 130/76 Pulse Oximetry 100 100 Oxygen Delivery Method Room Air Room Air BMI result Body Mass Index 27.8 Const General: cooperative, comfortable and no acute distress Orientation/consciousness: patient oriented x3 Limitations: no limitations [facility] Head: Yes normal to inspection, Yes normocephalic and Yes atraumatic Ears: hearing grossly normal bilaterally General nose exam: Normal external nose present Face and sinus: Yes normal facial exam Mouth: Normal oral and palatal mucosa present, oropharynx normal and moist mucous membranes Throat: Yes posterior oropharynx normal Eyes Other: Right lower eyelid with slight erythema in edema noted, no drainage, conjunctiva is not injected, no crusting to the eyelid. General: appearance normal, both eyes and all related structures Eyelids: Yes eyelids normal Conjunctivae: conjunctivae normal Sclerae: sclerae normal Pupils: Equal, round and reactive pupils present EOM: EOMs intact bilaterally Neck Neck: Yes normal visual inspection, Yes full ROM and Yes no lymphadenopathy Lymphatic: no lymphadenopathy noted Chest Chest palpation & inspection: normal inspection of the chest Resp Effort & Inspection: normal respiratory effort and able to speak in complete sentences Auscultation: clear to auscultation bilaterally, no crackles, no rales, no rhonchi and no wheezes Cardio Rate: regular rate Rhythm: regular rhythm Heart sounds: S1 normal heart sound present and S2 normal heart sound present GI Other: Abdomen is soft, nontender, nondistended. Normoactive bowel sounds present in all 4 quadrants. Inspection: Yes normal to inspection General: Yes no CVA tenderness Back/Spine/Pelvis Back: no CVA tenderness Skin General skin exam: no rashes or lesions noted Trauma: no lacerations or abrasions Wounds: no wounds Neuro General: patient oriented x3 and moves all extremities Cranial nerves: Yes Equal, round and reactive pupils present Extrem General: Yes normal to inspection Right upper extremity: normal to inspection Left upper extremity: normal to inspection Right lower extremity: normal to inspection Left lower extremity: normal to inspection Course Reevaluation(s) Reevaluation #1: Ultrasound returns, no abnormality seen. Unclear what is causing her to have the symptoms however reassuring with normal blood work, normal urine, and normal ultrasound. Discussed findings with patient. She is requesting medication for excessive gas. She also is now reporting that she has had problems with a stye in her right eye. There is slight redness and edema to her lower lid. Will treat with erythromycin ointment. Patient given strict return precautions. She understands agrees with plan. She was follow-up with her primary care physician regarding this visit. Patient stable for discharge. Medical Decision Making Medical Decision Making [facility] Narrative: This is a 48 year old female, with no known medical problems, presenting to the emergency department for evaluation abdominal spasms for the last month. On arrival, vital signs within normal limits. Abdomen is soft and nontender. She is alert without any evidence of acute distress at this point. Differential diagnoses include gastroenteritis, gastritis, renal colic, obstructive uropathy, urinary tract infection, muscle spasms. Plan: Labs, UA, abdominal ultrasound Differential Diagnosis Differential Diagnoses: The differential diagnosis associated with the presentation includes See above Admission/Observation Consideration of admission/observation: Escalation of care including admission/observation considered Escalation of care including admission/observation considered however given workup today not warranted at this time. Lab Data [facility] Lab Attestation statement: I reviewed the patient's lab results. 07/09/23 11:11 07/09/23 11:11 Labs: Lab Results 07/09/23 Range/Units 11:11 WBC 6.8 (4.8-10.8) X10*3/uL RBC 4.31 (4.20-5.50) X10*6/uL Hgb 13.0 (12.0-16.0) g/dl Hct 39.7 (37.0-47.0) % MCV 92.1 (80.0-98.0) fL MCH 30.2 (27.0-33.0) pg MCHC 32.7 (31.0-35.0) g/dl RDW 12.3 (11.0-16.0) % Plt Count 221 (160-400) X10*3/uL MPV 10.9 (9.4-12.3) fL Immature Gran % (Auto) 0.1 (0.0-0.4) % Neut % (Auto) 56.6 (45-73) % Lymph % (Auto) 34.8 (20-40) % [place] % (Auto) 5.9 (2-11) % Eos % (Auto) 2.0 (0-4) % Baso % (Auto) 0.6 (0-2) % Lymph # (Auto) 2.4 (1.2-4.9) X10*3/uL [place] # (Auto) 0.4 (0.1-1.2) X10*3/uL Eos # (Auto) 0.1 (0.0-0.4) X10*3/uL Baso # (Auto) 0.0 (0.0-0.2) X10*3/uL Abs Immat Gran (auto) 0.01 (0.00-0.03) X10*3/uL Absolute Neuts (auto) 3.9 (2.0-8.3) x10*3/uL Absolute Nucleated RBC 0.000 (0.0-0.012) X10*3/uL Nucleated RBC % (auto) 0.0 (0.0-0.2) /100WBC Sodium 140 (135-145) mmol/L Potassium 4.7 (3.3-5.1) mmol/L Chloride 107 (96-108) mmol/L Carbon Dioxide 24 (22-29) mmol/L Anion Gap 14 (12-20) BUN 13 (9-16) mg/dL Creatinine 0.87 (0.5-1.4) mg/dL Estim Creat Clear Calc 76.8 Estimated GFR > 60 Random Glucose 125 H (60-115) mg/dL Calcium 9.4 (8.4-10.2) mg/dL Total Bilirubin 0.3 (0.0-1.0) mg/dL Direct Bilirubin 0.1 (0.0-0.5) mg/dL AST 16 (5-31) U/L ALT 11 (0-31) U/L Alkaline Phosphatase 63 (39-117) U/L Total Protein 7.8 (6.5-8.0) g/dL Albumin 4.0 (3.5-5.0) g/dL Urine Color Yellow Urine Appearance Clear Urine pH 7.0 (5.0-9.0) Ur Specific [place] 1.015 (1.005-1.025) Urine Protein Negative (Neg-Trace) mg/dL Urine Glucose (UA) Negative (Negative) mg/dL Urine Ketones Negative (Negative) mg/dL Urine Blood Negative (Negative) Urine Nitrite Negative (Negative) Ur Leukocyte Esterase Negative (Negative) Urine Test NEGATIVE (NEGATIVE) Radiology Impression Discussion of test interpretation with radiology: I have reviewed the radiologist's reading. External Record Review External record reviewed: Inpatient record, Office record, Outpatient record, Prior outpatient labs, Prior outpatient radiology, Primary care record and Outside ED record Discharge Plan Discharge Clinical Impression: Abdominal pain, External hordeolum Patient Disposition: Home, Self-Care Instructions: Abdominal Pain (ED) Additional Instructions: You were seen in the emergency department due to abdominal pain. Your labs are reassuring. Your ultrasound was normal. Drink plenty of fluids get plenty of rest. I am prescribing you a medication to help treat gas. I am also prescribing you a medication to help with the stye that you have on your right lower eyelid. Use antibiotic cream as directed. If any new or worsening symptoms occur including but not limited to worsening pain, chest pain, shortness of breath, vomiting or diarrhea. Prescriptions: New erythromycin 5 mg/gram (0.5 %) ointment 1 appl ophthalmic (eye) DAILY Qty: 3.5 0RF simethicone [Gas-X Extra Strength] 125 mg capsule 125 mg PO DAILY PRN (Reason: abdominal distention) Qty: 20 0RF No Action baclofen 10 mg tablet 10 mg PO TID PRN (Reason: muscle spasms) 30 Days Qty: 90 2RF cholecalciferol (vitamin D3) 50 mcg (2,000 unit) capsule 50 mcg PO DAILY 90 Days Qty: 90 3RF ferrous sulfate [Feosol] 325 mg (65 mg iron) tablet 325 mg PO DAILY 30 Days Qty: 30 5RF fluoxetine 20 mg capsule 20 mg PO DAILY 90 Days Qty: 90 1RF fluticasone propionate 50 mcg/actuation spray,suspension 2 spray intranasal DAILY PRN (Reason: allergy symptoms) 30 Days Qty: 16 5RF Rx Instructions: administer into each nostril gabapentin 300 mg capsule 300 mg PO TID 30 Days Qty: 90 3RF lidocaine 5 % ointment 1 appl topical .four time a day PRN (Reason: pain) Qty: 50 5RF Rx Instructions: apply pea size amount 3 to 4 times a day mecobalamin (vitamin B12) 1,000 mcg tablet,chewable 1,000 mcg PO DAILY 90 Days Qty: 90 3RF meloxicam 15 mg tablet 15 mg PO DAILY Qty: 14 0RF midodrine 5 mg tablet 5 mg PO TID 30 Days Qty: 90 2RF Rx Instructions: do not give last dose of day after 6PM or within 4 hrs of bedtime mirtazapine 30 mg tablet 30 mg PO BEDTIME 90 Days Qty: 90 1RF tramadol 50 mg tablet 50 mg PO DAILY PRN (Reason: pain) 30 Days Qty: 30 1RF levothyroxine 25 mcg tablet 25 mcg PO QAM 90 Days Qty: 90 1RF loratadine 10 mg tablet 10 mg PO DAILY PRN (Reason: allergy symptoms) 90 Days Qty: 90 1RF lorazepam 1 mg tablet 1 mg PO BEDTIME PRN (Reason: anxiety) 30 Days Qty: 30 0RF ibuprofen 600 mg tablet 600 mg PO Q6H PRN (Reason: fever or pain) Qty: 30 0RF phenazopyridine [Pyridium] 100 mg tablet 100 mg PO Q8H Qty: 10 0RF nitrofurantoin monohyd/m-cryst [Macrobid] 100 mg capsule 100 mg PO BID 5 Days Qty: 10 0RF Rx Instructions: must administer with a meal/food pantoprazole 40 mg tablet,delayed release (DR/EC) 40 mg PO BID cholecalciferol (vitamin D3) 50 mcg/drop (2, 000 unit/drop) drops 50 mcg PO DAILY erythromycin 5 mg/gram (0.5 %) ointment 1 appl ophthalmic (eye) BID 5 Days Qty: 3.5 1RF Rx Instructions: Apply 0.5 inch to lower lid of left eye 4 times daily for 5 days Interventions: ED Discharge Assessment Last Done: 07/09/23 16:11 Discharge Date/Time: 07/09/23 16:09
[2023-07-09 16:11] VITALS: BP 130/76; PULSE 88; RESP 18; TEMP 36.8; O2SAT 100
== END 2023-07-09 16:09 | disposition home or self-care (01) ==
PROVIDERS: Emergency Provider Emergency Medicine; PCP Internal Medicine
DX: R10.9 Unspecified abdominal pain (principal); H00.013 Hordeolum externum right eye, unspecified eyelid; Z79.899 Other long term (current) drug therapy
CPT/HCPCS: 36415; 76700; 80053; 81003; 81025; 82248; 85025; 99284

== ENCOUNTER 2023-07-19 07:18 | Emergency (ER) | payer OTHER, SELFPAY ==
[2023-07-19 07:34] VITALS: BP 151/85; PULSE 94; RESP 16; TEMP 36.3; O2SAT 99; BMI 28.0
--- NOTE | 2023-07-19 08:23 | ED_ITS ---
HPI - General Adult General Chief complaint: Abdominal Pain Stated complaint: Stomach Pain Time Seen by Provider: 07/19/23 08:23 History of Present Illness HPI narrative: The patient is a 48-year-old woman who describes having abdominal discomfort for over a month. She was seen here 10 days ago for the same complaints. At that time she had an abdominal ultrasound that was unremarkable. The patient describes a tearing like pain that she feels she experiences in the abdominal musculature on the right side whenever she moves. She has had no trauma. She says that she was recently in [place] and went to an emergency room 2 times for similar pains. She says she had labs checked and was advised to follow up when she returned to her home state. No nausea or vomiting. No diarrhea or constipation. No fever, sweats, chills. Related Data Home Medications ?Medication ?Instructions ?Recorded ?Confirmed cholecalciferol (vitamin D3) 50 50 mcg PO DAILY 07/05/23 mcg/drop (2,000 unit/drop) oral drops pantoprazole 40 mg tablet,delayed 40 mg PO BID 07/05/23 release Previous Rx's ?Medication ?Instructions ?Recorded baclofen 10 mg tablet 10 mg PO TID PRN muscle spasms 30 12/31/22 days #90 tabs cholecalciferol (vitamin D3) 50 50 mcg PO DAILY 90 days #90 caps 12/31/22 mcg (2,000 unit) capsule ferrous sulfate 325 mg (65 mg 325 mg PO DAILY 30 days #30 tabs 12/31/22 iron) tablet (Feosol) fluoxetine 20 mg capsule 20 mg PO DAILY 90 days #90 caps 12/31/22 fluticasone propionate 50 2 spray intranasal DAILY PRN 12/31/22 mcg/actuation nasal allergy symptoms 30 days #16 grams spray,suspension gabapentin 300 mg capsule 300 mg PO TID 30 days #90 caps 12/31/22 lidocaine 5 % topical ointment 1 appl topical .four time a day 12/31/22 PRN pain #50 grams mecobalamin (vitamin B12) 1,000 1,000 mcg PO DAILY 90 days #90 tabs 12/31/22 mcg chewable tablet meloxicam 15 mg tablet 15 mg PO DAILY #14 tabs 12/31/22 midodrine 5 mg tablet 5 mg PO TID 30 days #90 tabs 09/18/23 mirtazapine 30 mg tablet 30 mg PO BEDTIME 90 days #90 tabs 12/31/22 tramadol 50 mg tablet 50 mg PO DAILY PRN pain 30 days 12/31/22 #30 tabs ibuprofen 600 mg tablet 600 mg PO Q6H PRN fever or pain 02/17/23 #30 tabs nitrofurantoin 100 mg PO BID 5 days #10 caps 03/09/23 monohydrate/macrocrystals 100 mg capsule (Macrobid) phenazopyridine 100 mg tablet 100 mg PO Q8H 6 doses #10 tabs 03/09/23 (Pyridium) levothyroxine 25 mcg tablet 25 mcg PO QAM 90 days #90 tabs 04/10/23 loratadine 10 mg tablet 10 mg PO DAILY PRN allergy 06/04/23 symptoms 90 days #90 tabs erythromycin 5 mg/gram (0.5 %) eye 1 appl ophthalmic (eye) BID 5 days 07/05/23 ointment #3.5 grams lorazepam 1 mg tablet 1 mg PO BEDTIME PRN anxiety 30 07/05/23 days #30 tabs erythromycin 5 mg/gram (0.5 %) eye 1 appl ophthalmic (eye) DAILY #3.5 07/09/23 ointment grams simethicone 125 mg capsule (Gas-X 125 mg PO DAILY PRN abdominal 07/09/23 Extra Strength) distention #20 caps dicyclomine 20 mg tablet 20 mg PO QID PRN abdominal pain 07/19/23 #30 tabs Allergies Allergy/AdvReac Type Severity Reaction Status Date / Time Penicillins [PENICILLINS] Allergy Unknown RASH Verified 07/19/23 07:39 Review of Systems 2 Review of Systems: Yes all other systems are reviewed and are negative [facility] Past Medical History Medical History Fatigue Nasal dryness Localized swelling of left foot Left foot pain Upper respiratory tract infection Intestinal parasitism, unspecified Left ear pain Sty, external Annual physical exam Palpitations Colonoscopy refused Overweight (BMI 25.0-29.9) Depression Anxiety Chronic right sacroiliac joint pain Lumbar degenerative disc disease Orthostatic hypotension Allergic rhinitis Fibromyalgia Acquired hypothyroidism Vitamin D deficiency Varicose veins of bilateral lower extremities with pain Coccydynia Surgical History H/O breast augmentation History of appendectomy History of arthroplasty of right knee History of tonsillectomy History of bladder suspension procedure History of delivery Family History Family History Father No problems noted. Mother Myocardial infarction CVD (cardiovascular disease) Social History Social History Housing: House Alcohol intake: never Patient Tobacco Use Status: Never used Tobacco Second Hand Smoke Exposure: No Advance Directives: No Advance Directives Information Provided: Yes service: No Current occupational status: disabled Current occupation: Unemployed Cognitive needs: No Hearing needs: No Vision needs: Yes Physical Exam ED Vital Signs: Vital Signs - 24 hr 07/19/23 07:34 07/19/23 09:34 07/19/23 11:55 Temperature 97.4 F 98.1 F 98.3 F Pulse Rate 94 78 74 Respiratory Rate 16 16 16 Blood Pressure 151/85 H 114/69 112/66 Pulse Oximetry 99 99 96 Oxygen Delivery Method Room Air Room Air Room Air BMI result Body Mass Index 28.0 Const Other: The patient is awake and alert. She has an anxious affect. She does not seem obviously in distress or toxic. HENMT Other: Face is symmetrical. Mucous membranes moist. Pharynx is normal. Eyes Other: Pupils are round equal, conjunctivae clear, extraocular movements intact Neck Other: No JVD Resp Effort & Inspection: normal respiratory effort Auscultation: clear to auscultation bilaterally Cardio Rate: regular rate Rhythm: regular rhythm Heart sounds: S1 normal heart sound present and S2 normal heart sound present GI Other: The abdomen is flat and soft. With very deep palpation there seemed to be possibly some right lower quadrant tenderness but there was no associated rebound or guarding. General: Yes no CVA tenderness Back/Spine/Pelvis Back: no CVA tenderness Skin Other: Skin is dry and unremarkable Neuro Other: The patient is awake and alert, face is symmetrical, speech is clear, she moves all 4 extremities symmetrically and has normal coordination. She is grossly neurologically intact. Extrem Other: No peripheral edema Medical Decision Making Medical Decision Making MDM Narrative: The patient presents with an unusual complaint of abdominal pain. She seems to be describing what she feels as pain in the musculature of her right abdominal wall. She has not describing gastrointestinal symptoms such as nausea or vomiting or anorexia, diarrhea or constipation. This pain seemed to have been bothering her for quite some time. I believe that she was seen twice at hospitals in [place] over the last couple of months with the same pain. She had a normal ultrasound of the abdomen at an ER visit here last week. She had a CT scan of the abdomen and pelvis few months ago at this hospital that was unremarkable. My overall impression is that the patient does not have an acute intra-abdominal process. Labs are very reassuring. I did my best to reassure her that no dangerous process was at work. She will be discharged. She requested medication for possible irritable bowel syndrome. I prescribed dicyclomine. Lab Data 07/19/23 08:45 07/19/23 08:45 Labs: Lab Results 07/19/23 07/19/23 Range/Units 08:45 09:48 WBC 8.2 (4.8-10.8) X10*3/uL RBC 4.19 L (4.20-5.50) X10*6/uL Hgb 12.6 (12.0-16.0) g/dl Hct 38.2 (37.0-47.0) % MCV 91.2 (80.0-98.0) fL MCH 30.1 (27.0-33.0) pg MCHC 33.0 (31.0-35.0) g/dl RDW 12.6 (11.0-16.0) % Plt Count 226 (160-400) X10*3/uL MPV 11.3 (9.4-12.3) fL Immature Gran % (Auto) 0.1 (0.0-0.4) % Neut % (Auto) 66.0 (45-73) % Lymph % (Auto) 26.9 (20-40) % [place] % (Auto) 5.0 (2-11) % Eos % (Auto) 1.6 (0-4) % Baso % (Auto) 0.4 (0-2) % Lymph # (Auto) 2.2 (1.2-4.9) X10*3/uL [place] # (Auto) 0.4 (0.1-1.2) X10*3/uL Eos # (Auto) 0.1 (0.0-0.4) X10*3/uL Baso # (Auto) 0.0 (0.0-0.2) X10*3/uL Abs Immat Gran (auto) 0.01 (0.00-0.03) X10*3/uL Absolute Neuts (auto) 5.4 (2.0-8.3) x10*3/uL Absolute Nucleated RBC 0.000 (0.0-0.012) X10*3/uL Nucleated RBC % (auto) 0.0 (0.0-0.2) /100WBC Sodium 140 (135-145) mmol/L Potassium 3.6 D (3.3-5.1) mmol/L Chloride 107 (96-108) mmol/L Carbon Dioxide 24 (22-29) mmol/L Anion Gap 13 (12-20) BUN 16 (9-16) mg/dL Creatinine 0.86 (0.5-1.4) mg/dL Estim Creat Clear Calc 77.9 Estimated GFR > 60 Random Glucose 126 H (60-115) mg/dL Calcium 9.4 (8.4-10.2) mg/dL Total Bilirubin 0.3 (0.0-1.0) mg/dL Direct Bilirubin 0.2 (0.0-0.5) mg/dL AST 17 (5-31) U/L ALT 11 (0-31) U/L Alkaline Phosphatase 57 (39-117) U/L Total Creatine Kinase 77 (26-140) U/L C-Reactive Protein 0.46 (< or = 0.50) mg/dL Total Protein 7.5 (6.5-8.0) g/dL Albumin 3.9 (3.5-5.0) g/dL Lipase 47 (8-78) U/L Urine Color Yellow Urine Appearance Clear Urine pH 6.5 (5.0-9.0) Ur Specific [place] 1.010 (1.005-1.025) Urine Protein Negative (Neg-Trace) mg/dL Urine Glucose (UA) Negative (Negative) mg/dL Urine Ketones Negative (Negative) mg/dL Urine Blood Negative (Negative) Urine Nitrite Negative (Negative) Ur Leukocyte Esterase Negative (Negative) Urine RBC 0-2 (0-2) /HPF Urine WBC 0-5 (0-5) /HPF Ur Squamous Epith Cells 3-5 (0-2) /HPF Urine Bacteria Trace (None Seen) Hyaline Casts 0-2 (0-2) /LPF Urine Test NEGATIVE (NEGATIVE) Discharge Plan Discharge Clinical Impression: Abdominal wall pain Patient Disposition: Home, Self-Care Additional Instructions: Your testing in the emergency room today is very reassuring. Although your pain is very very debilitating I do not think there is any dangerous process at work. You may continue to use ibuprofen and acetaminophen as needed for pain. Dicyclomine is a medication which can be used for irritable bowel syndrome. You may try this medication to see if it helps. Please follow-up soon with your regular doctor. Return to the emergency room if you develop fever or vomiting. Prescriptions: New dicyclomine 20 mg tablet 20 mg PO QID PRN (Reason: abdominal pain) Qty: 30 0RF No Action baclofen 10 mg tablet 10 mg PO TID PRN (Reason: muscle spasms) 30 Days Qty: 90 2RF cholecalciferol (vitamin D3) 50 mcg (2,000 unit) capsule 50 mcg PO DAILY 90 Days Qty: 90 3RF ferrous sulfate [Feosol] 325 mg (65 mg iron) tablet 325 mg PO DAILY 30 Days Qty: 30 5RF fluoxetine 20 mg capsule 20 mg PO DAILY 90 Days Qty: 90 1RF fluticasone propionate 50 mcg/actuation spray,suspension 2 spray intranasal DAILY PRN (Reason: allergy symptoms) 30 Days Qty: 16 5RF Rx Instructions: administer into each nostril gabapentin 300 mg capsule 300 mg PO TID 30 Days Qty: 90 3RF lidocaine 5 % ointment 1 appl topical .four time a day PRN (Reason: pain) Qty: 50 5RF Rx Instructions: apply pea size amount 3 to 4 times a day mecobalamin (vitamin B12) 1,000 mcg tablet,chewable 1,000 mcg PO DAILY 90 Days Qty: 90 3RF meloxicam 15 mg tablet 15 mg PO DAILY Qty: 14 0RF midodrine 5 mg tablet 5 mg PO TID 30 Days Qty: 90 2RF Rx Instructions: do not give last dose of day after 6PM or within 4 hrs of bedtime mirtazapine 30 mg tablet 30 mg PO BEDTIME 90 Days Qty: 90 1RF tramadol 50 mg tablet 50 mg PO DAILY PRN (Reason: pain) 30 Days Qty: 30 1RF levothyroxine 25 mcg tablet 25 mcg PO QAM 90 Days Qty: 90 1RF loratadine 10 mg tablet 10 mg PO DAILY PRN (Reason: allergy symptoms) 90 Days Qty: 90 1RF lorazepam 1 mg tablet 1 mg PO BEDTIME PRN (Reason: anxiety) 30 Days Qty: 30 0RF ibuprofen 600 mg tablet 600 mg PO Q6H PRN (Reason: fever or pain) Qty: 30 0RF erythromycin 5 mg/gram (0.5 %) ointment 1 appl ophthalmic (eye) DAILY Qty: 3.5 0RF simethicone [Gas-X Extra Strength] 125 mg capsule 125 mg PO DAILY PRN (Reason: abdominal distention) Qty: 20 0RF phenazopyridine [Pyridium] 100 mg tablet 100 mg PO Q8H Qty: 10 0RF nitrofurantoin monohyd/m-cryst [Macrobid] 100 mg capsule 100 mg PO BID 5 Days Qty: 10 0RF Rx Instructions: must administer with a meal/food pantoprazole 40 mg tablet,delayed release (DR/EC) 40 mg PO BID cholecalciferol (vitamin D3) 50 mcg/drop (2, 000 unit/drop) drops 50 mcg PO DAILY erythromycin 5 mg/gram (0.5 %) ointment 1 appl ophthalmic (eye) BID 5 Days Qty: 3.5 1RF Rx Instructions: Apply 0.5 inch to lower lid of left eye 4 times daily for 5 days Interventions: ED Discharge Assessment Last Done: 07/19/23 11:55 Discharge Date/Time: 07/19/23 11:56 Print Language: Bruneian
--- NOTE | 2023-07-19 08:55 | PC.NURSE ---
alert and oriented, respirations even and unlabored. stating she has had this similar pain for approx 1 month. IV established, labs obtained and sent. warm blanket provided, call smart within reach
[2023-07-19 08:56] LABS: MANUAL DIFF FLAG NO
[2023-07-19 08:59] LABS: Basophils Percent Auto 0.4 % (0-2); Eosinophils Absolute Auto 0.1 X10*3/uL (0.0-0.4); Eosinophils Percent Auto 1.6 % (0-4); Hematocrit 38.2 % (37.0-47.0); Hemoglobin 12.6 g/dl (12.0-16.0); Imm Gran Abs Auto 0.01 X10*3/uL (0.00-0.03); Imm Gran Pct Auto 0.1 % (0.0-0.4); Lymphocytes Absolute Auto 2.2 X10*3/uL (1.2-4.9); Lymphocytes Percent Auto 26.9 % (20-40); Mean Corpuscular Hemoglobin 30.1 pg (27.0-33.0); Mean Corpuscular Volume 91.2 fL (80.0-98.0); Mean Platelet Volume 11.3 fL (9.4-12.3); Monocytes Absolute Auto 0.4 X10*3/uL (0.1-1.2); Neutrophils Absolute Auto 5.4 x10*3/uL (2.0-8.3); Platelet Count 226 X10*3/uL (160-400); Red Blood Count 4.19 X10*6/uL (4.20-5.50); Red Cell Distribution Width 12.6 % (11.0-16.0); White Blood Count 8.2 X10*3/uL (4.8-10.8)
[2023-07-19 09:11] LABS: Alanine Aminotransferase 11 U/L (0-31); Albumin Level 3.9 g/dL (3.5-5.0); Alkaline Phosphatase 57 U/L (39-117); Aspartate Amino Transferase 17 U/L (5-31); Bilirubin Direct 0.2 mg/dL (0.0-0.5); Bilirubin Total 0.3 mg/dL (0.0-1.0); Lipase 47 U/L (8-78); Total Protein 7.5 g/dL (6.5-8.0)
[2023-07-19 09:12] LABS: Anion Gap 13 (12-20); Blood Urea Nitrogen 16 mg/dL (9-16); C Reactive Protein 0.46 mg/dL (< or = 0.50); Calcium 9.4 mg/dL (8.4-10.2); Carbon Dioxide 24 mmol/L (22-29); Chloride 107 mmol/L (96-108); Creatinine Clr Calc Pharmacy 77.9; Estimated Glomerular Filt Rate > 60; Glucose Random 126 mg/dL (60-115); Potassium 3.6 mmol/L (3.3-5.1); Sodium 140 mmol/L (135-145)
[2023-07-19 09:34] VITALS: BP 114/69; PULSE 78; RESP 16; TEMP 36.7; O2SAT 99
[2023-07-19 09:56] LABS: Appearance Urine Clear; Color Urine Yellow; Glucose Urine UA Negative (Negative); Leukocyte Esterase Urine Negative (Negative); Nitrite Urine Negative (Negative); PH 6.5 (5.0-9.0); Urine Blood Negative (Negative); Urine Ketones Negative (Negative); Urine Protein Negative (Neg-Trace)
[2023-07-19 10:01] LABS: Bacteria Urine Trace (None Seen); Hyaline Casts Urine 0-2 /LPF (0-2); RBC Urine 0-2 /HPF (0-2); WBC Urine 0-5 /HPF (0-5)
[2023-07-19 10:56] LABS: UPreg QC Valid YES; Urine Pregnancy NEGATIVE (NEGATIVE)
[2023-07-19 11:55] VITALS: BP 112/66; PULSE 74; RESP 16; TEMP 36.8; O2SAT 96
== END 2023-07-19 11:56 | disposition home or self-care (01) ==
PROVIDERS: Emergency Provider Emergency Medicine; PCP Internal Medicine
DX: R10.9 Unspecified abdominal pain (principal); Z88.0 Allergy status to penicillin
CPT/HCPCS: 36415; 80048; 80076; 81001; 81025; 82550; 83690; 85025; 86140; 99283; 99284

== ENCOUNTER 2023-08-30 08:45 | Outpatient (REF) | payer OTHER, SELFPAY ==
[2023-08-30 09:03] LABS: MANUAL DIFF FLAG NO
[2023-08-30 09:15] LABS: Basophils Percent Auto 0.6 % (0-2); Eosinophils Absolute Auto 0.1 X10*3/uL (0.0-0.4); Eosinophils Percent Auto 1.5 % (0-4); Hematocrit 35.8 % (37.0-47.0); Imm Gran Abs Auto 0.03 X10*3/uL (0.00-0.03); Imm Gran Pct Auto 0.5 % (0.0-0.4); Lymphocytes Absolute Auto 2.5 X10*3/uL (1.2-4.9); Lymphocytes Percent Auto 36.9 % (20-40); Mean Corpuscular HGB Conc 33.5 g/dl (31.0-35.0); Mean Corpuscular Volume 92.5 fL (80.0-98.0); Mean Platelet Volume 11.2 fL (9.4-12.3); Monocytes Absolute Auto 0.4 X10*3/uL (0.1-1.2); Monocytes Percent Auto 6.6 % (2-11); Neutrophils Absolute Auto 3.6 x10*3/uL (2.0-8.3); Neutrophils Percent Auto 53.9 % (45-73); Platelet Count 224 X10*3/uL (160-400); Red Blood Count 3.87 X10*6/uL (4.20-5.50); Red Cell Distribution Width 13.7 % (11.0-16.0); White Blood Count 6.6 X10*3/uL (4.8-10.8)
[2023-08-30 09:54] LABS: Erythrocyte Sedimentation Rate 19 MM/HR (0-20)
[2023-08-30 10:00] LABS: Alanine Aminotransferase 24 U/L (0-31); Albumin Level 3.9 g/dL (3.5-5.0); Alkaline Phosphatase 60 U/L (39-117); Anion Gap 11 (12-20); Aspartate Amino Transferase 29 U/L (5-31); Bilirubin Total 0.5 mg/dL (0.0-1.0); Blood Urea Nitrogen 7 mg/dL (9-16); Calcium 8.9 mg/dL (8.4-10.2); Carbon Dioxide 26 mmol/L (22-29); Chloride 105 mmol/L (96-108); Cholesterol 160 mg/dL (<200); Estimated Glomerular Filt Rate > 60; Glucose Fasting 99 mg/dL (60-99); HDL Cholesterol 53 mg/dL (>40); Iron 99 mcg/dL (30-160); LDL Cholesterol Calculated 98 mg/dL (<100); Percent Iron Saturation 36 % (15-50); Potassium 4.3 mmol/L (3.3-5.1); Sodium 138 mmol/L (135-145); Total Iron Binding Capacity 274 mcg/dL (228-428); Total Protein 7.2 g/dL (6.5-8.0); Triglycerides 49 mg/dL (<150); Unsaturated Iron Binding 175 ug/dL
[2023-08-30 10:17] LABS: Free T4 (Free Thyroxine) 1.07 ng/dL (0.71-1.85); Thyroid Stimulating Hormone 2.24 uIU/mL (0.32-4.0); Vitamin D 25-OH Total 51.7 ng/mL (>30)
== END 2023-08-30 08:46 | disposition home or self-care (01) ==
LOC: HO.LAB 08:45
PROVIDERS: PCP Internal Medicine; Visit Provider Internal Medicine
DX: E78.00 Pure hypercholesterolemia, unspecified (principal); D50.9 Iron deficiency anemia, unspecified; I10 Essential (primary) hypertension; E55.9 Vitamin D deficiency, unspecified; E03.9 Hypothyroidism, unspecified; M79.7 Fibromyalgia
CPT/HCPCS: 36415; 80053; 80061; 82306; 83540; 84439; 84443; 85025; 85652

== ENCOUNTER 2023-09-04 13:28 | Outpatient (AMB) | payer OTHER, SELFPAY ==
--- NOTE | 2023-09-04 13:54 | A.OFFPC_ITS ---
Vital Signs 09/04/23 13:55 Height 5 ft 4 in Weight 164 lb BMI 28.1 BP 110/72 Blood Pressure Location Lt brachial Position Sitting Pulse 94 Pulse Source Pulse Oximeter Pulse Oximetry (%) 97 Oxygen Delivery Method Room Air Intake Visit Reasons: Annual PE Intake Note: Patient is here today for a physical. 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 Allergies Penicillins [PENICILLINS] Allergy (Unknown, Verified 09/04/23 14:23) RASH Medication List - Last Reconciled 09/04/23 by Chandu Ruvalcaba MD baclofen 10 mg PO TID PRN 30 days cholecalciferol (vitamin D3) 50 mcg PO DAILY 90 days cholecalciferol (vitamin D3) 50 mcg PO DAILY dicyclomine 20 mg PO QID PRN erythromycin 1 appl ophthalmic (eye) BID 5 days ferrous sulfate (Feosol) 325 mg PO DAILY 30 days fluoxetine 20 mg PO DAILY 90 days fluticasone propionate 50 mcg/actuation 2 sprays intranasal DAILY PRN 30 days gabapentin 300 mg PO TID 30 days ibuprofen 600 mg PO Q6H PRN levothyroxine 25 mcg PO QAM 90 days lidocaine 5% 1 appl topical .four time a day PRN loratadine 10 mg PO DAILY PRN 90 days lorazepam 1 mg PO BEDTIME PRN 30 days mecobalamin (vitamin B12) 1,000 mcg PO DAILY 90 days meloxicam 15 mg PO DAILY midodrine 5 mg PO TID 30 days mirtazapine 30 mg PO BEDTIME 90 days pantoprazole 40 mg PO BID phenazopyridine (Pyridium) 100 mg PO Q8H 6 doses simethicone (Gas-X Extra Strength) 125 mg PO DAILY PRN tramadol 50 mg PO DAILY PRN 30 days Tobacco use date assessed: 09/04/23 Dental Screening Dental Screen Date: 09/04/23 Did you have a dental visit in the last 12 months?: Yes Did you have a dental problem in the last 6 months where you did not have access to dental care?: No Was dental information given to patient?: Patient has dentist HPI Annual PE HPI Details Patient comes in today for her annual physical examination States that she is currently still experiencing recurrent sharp pains over her right lower abdomen/right inguinal area that feels worse (describes symptoms as a sharp painful tearing sensation) when she is walking and moving around She has been to the ER here locally a few times over the past several months (and also once to a local ER in [place] when she was down in [place]) for the same complaint She's had abdominal US and a CT done in the past 6 to 7 months and both have been unrevealing She denies any associated nausea or vomiting and states that she does move her bowels fairly regularly Would like to see about getting an MRI for further evaluation of her symptoms Adds that she has trouble tolerating her iron tablets and she often gets stomach upset after taking them - would like to see if she can be referred for IV iron infusion instead She denies any increased headaches or dizziness Denies any chest pains, no increased SOB She denies any acute urinary symptoms Needs her Loratadine Rx refilled Had her follow up labs done a few days ago - to discuss her results She had a negative Cologuard back in June 2022 Had mammogram done at [facility] late last year - was advised 6 months follow up for some abnormal findings She goes to [facility] for her annual gynecology exam and pap smear and recalls being advised at her recent appt with them that her pap smear came out normal [facility] Medical History (Updated 09/04/23 @ 14:49 by Chandu Ruvalcaba MD) Annual physical exam Fatigue Nasal dryness Localized swelling of left foot Left foot pain Upper respiratory tract infection Intestinal parasitism, unspecified Left ear pain Sty, external Palpitations Colonoscopy refused Overweight (BMI 25.0-29.9) Depression Anxiety Chronic right sacroiliac joint pain Lumbar degenerative disc disease Orthostatic hypotension Allergic rhinitis Fibromyalgia Acquired hypothyroidism Vitamin D deficiency Varicose veins of bilateral lower extremities with pain Coccydynia Surgical History H/O breast augmentation History of appendectomy History of arthroplasty of right knee History of tonsillectomy History of bladder suspension procedure History of delivery Family History Father No problems noted. Mother Myocardial infarction CVD (cardiovascular disease) Social History Housing: House Alcohol intake: never Patient Tobacco Use Status: Never used Tobacco Second Hand Smoke Exposure: No service: No Current occupational status: disabled Current occupation: Unemployed Cognitive needs: No Hearing needs: No Vision needs: Yes Questionnaire PHQ-9 Over the last 2 weeks, how often have you been bothered by any of the following problems? 1. Little interest or pleasure in doing things: not at all 2. Feeling down, depressed, or hopeless: not at all 3. Trouble falling or staying asleep, or sleeping too much: not at all 4. Feeling tired or having little energy: not at all 5. Poor appetite or overeating: not at all 6. Feeling bad about yourself - or that you are a failure or have let yourself or your family down: not at all 7. Trouble concentrating on things, such as reading the newspaper or watching television: not at all 8. Moving or speaking so slowly that other people could have noticed. Or the opposite - being so fidgety or restless that you have been moving around a lot more than usual: not at all 9. Thoughts that you would be better off or of hurting yourself in some way: not at all Total score: 0 Depression Screening Interpretation: Positive Depression Screening Follow-up: Existing condition and In treatment Depression Screening Done: Yes 75153 - PHQ-9 Billing: Yes Source: Developed by Drs. Burt Martines, Lili Peguero, Mike Khan and colleagues, with an educational claudine from [employer]. Thrive Questionnaire Date Thrive assessed: 09/04/23 I am a: Patient What is your living situation today?: I have a steady place to live Within the past 12 months, did the food you bought not last and you didn't have the money to get more?: Never true Within the past 12 months, did you worry whether your food would run out before you got money to buy more?: Never true Do you have trouble paying for medicines?: No Do you have trouble getting transportation to medical appointments?: No Do you have trouble paying your heating and electricity bill?: No Do you have trouble taking care of your child, family member or friend?: No Do you have trouble with day-to-day activities such as bathing, preparing meals, shopping, managing finances, etc.?: No Are you currently unemployed and looking for a job?: No Are you interested in more education?: No Please select the resources that you would like help with: None Currently or been in a relationship where the following occur: no concerns reported THRIVE Score: 0 AUDIT C Alcohol Use Questionnaire (AUDIT-C) 1. How often do you have a drink containing alcohol?: Never 3. How often do you have six or more drinks on one occasion?: Never Total Score: 0 Score Reviewed/Action Taken: Yes HERLINDA-7 AMB Questionnaire HERLINDA-7 Date HERLINDA - 7 assessed: 09/04/23 Feeling nervous, anxious, or on edge: 0 = Not at all Not being able to stop or control worryin = Not at all Worrying too much about different things: 0 = Not at all Trouble relaxin = Not at all Being so restless that it is hard to sit still: 0 = Not at all Becoming easily annoyed or irritable: 0 = Not at all Feeling afraid as if something awful might happen: 0 = Not at all Total HERLINDA-7 score (0-4 normal; 5-9 mild; 10-14 moderate; 15-21 severe): 0 Source: Developed by Drs. Burt Martines, Lili Peguero, Mike Khan and colleagues, with an educational claudine from [employer]. HERLINDA-7 Assessment Billing HERLINDA-7 Assessment Tool: HERLINDA-7 Assessment 25591 Review of Systems Const Denies chills, Denies fatigue, Denies fever(s), Denies headache(s) and Denies malaise Eyes Denies blurry vision, Denies change in vision, Denies irritation and Denies itchy eyes ENT Denies dysphagia, Denies dizziness, Denies otalgia, Denies headache(s), Denies nasal congestion, Reports neck pain, Denies odynophagia, Denies sinus pain and Denies sore throat Card Denies chest pain, Denies rapid heart rate, Denies irregular heart rhythm, Denies palpitations and Denies dyspnea Resp Denies chest congestion, Denies cough, Denies dyspnea and Denies wheezing GI Reports abdominal pain (over the right lower abdomen - see HPI), Denies bloating, Denies constipation, Denies dysphagia, Denies heartburn, Denies diarrhea, Denies nausea, Denies odynophagia and Denies vomiting Denies hematuria, Denies urinary frequency, Denies dysuria, Denies urinary i ncontinence and Denies urinary urgency Musc Reports back pain (over the lower back - chronic), Denies arthralgias, Denies joint swelling, Denies muscle weakness and Reports neck pain Skin/Breast Denies breast pain, Denies breast mass, Denies change in pigmentation, Denies lesions, Denies rash and Denies unusual bruising Neuro Denies dizziness, Denies headache(s) and Denies paresthesias Psych Denies anxiety and Denies depression Endo Denies fatigue and Denies palpitations Neal/Lymph Denies easy bruising Aller/Immun Denies itchy eyes and Denies wheezing Physical exam (Primary Care) Vital Signs: Last Vital Signs Pulse 94 09/04/23 13:55 BP 110/72 09/04/23 13:55 Pulse Ox 97 09/04/23 13:55 Oxygen Delivery Method Room Air 09/04/23 13:55 BMI result Body Mass Index 28.1 Tobacco/Smoking Status: Tobacco use Status Tobacco use date assessed 09/04/23 09/04/23 13:56 Patient Tobacco Use Status Never used Tobacco 09/04/23 13:56 PHQ-9: PHQ-9 Score PHQ-9: Total score 0 09/04/23 14:07 Depression Screening Interpretation: Positive Depression Screening Follow-up: Existing condition and In treatment Thrive Assessment: Date of Thrive Assessment Date Thrive assessed 09/04/23 09/04/23 13:57 Currently or been in a relationship where the following occur: no concerns reported Const General: no acute distress, alert and awake Orientation/consciousness: patient oriented x3 HENMT Head: Yes normocephalic and Yes atraumatic Ears: external ears normal, TM's normal bilaterally and EAC's normal General nose exam: No nasal discharge present Face and sinus: Yes normal facial exam and Yes sinuses nontender Teeth and gingiva: dentition normal Throat: Yes posterior oropharynx normal and Yes tonsils normal (no TP congestion) Eyes Eyelids: Yes eyelids normal Conjunctivae: conjunctivae normal Pupils: Equal, round and reactive pupils present EOM: EOMs intact bilaterally Neck Neck: Yes no lymphadenopathy Thyroid: Thyroid normal Resp Auscultation: clear to auscultation bilaterally, no rales and no wheezes Cardio Rate: regular rate Rhythm: regular rhythm Heart sounds: no murmurs GI Palpation (GI): Soft to palpation, nontender (no tenderness elicited on physical exam) and No hepatosplenomegaly present Auscultation: normal bowel sounds General: Yes no CVA tenderness Back/Spine/Pelvis Back: no CVA tenderness Cervical Spine: Cervical spine tenderness Thoracic/Lumbar Spine: lumbar spinal tenderness Skin Lesions: no lesions Rashes: no rashes Neuro General: patient oriented x3, moves all extremities, no focal motor deficits and CN's II-XI intact bilaterally Cranial nerves: Yes Equal, round and reactive pupils present Cognition (Neuro): normal cognition Gait exam (Neuro): Normal gait present Extrem General: Yes no clubbing, cyanosis or edema Results Reviewed Results Reviewed: Laboratory Tests 07/19/23 08/30/23 09:48 08:58 WBC 6.6 Hgb 12.0 Hct 35.8 L Plt Count 224 ESR 19 Sodium 138 Potassium 4.3 Creatinine 0.78 Estimated GFR > 60 Fasting Glucose 99 Calcium 8.9 AST 29 ALT 24 Triglycerides 49 Cholesterol 160 LDL Cholesterol, Calc 98 HDL Cholesterol 53 25-OH Vitamin D Total 51.7 TSH 2.24 Free T4 1.07 Ur Specific [place] 1.010 Urine Protein Negative Urine Glucose (UA) Negative Urine Blood Negative Urine Nitrite Negative Ur Leukocyte Esterase Negative Assessment and Plan Assessment & Plan (1) Annual physical exam: Code(s): Z00.00 - Encounter for general adult medical examination without abnormal findings Plan: Results of her labs done a few days ago reviewed and discussed with patient She is up-to-date with her cancer screenings Had a negative Cologuard last year in June 2022 She supposedly had some abnormalities on her last mammogram done at [facility] late last year (2022) and is scheduled for repeat mammogram in 6 months She goes to [facility] for her annual gynecology exam and pap smear and recalls being advised that her last pap smaer done recently was normal (2) Acquired hypothyroidism: Code(s): E03.9 - Hypothyroidism, unspecified Plan: Her TFTs were normal on her recent labs Continue Levothyroxine 25 mcg QD Will recheck her TFTs in 4 months for follow up (3) Anemia: Code(s): D64.9 - Anemia, unspecified Qualifiers: Anemia type: unspecified type Qualified Code(s): D64.9 - Anemia, unspecified Plan: Her anemia is improving on oral Ferrous Sulfate 325 mg QD but patient reports experiencing frequent abdominal / GI symptoms with oral iron Rx and is interested in switching over to IV iron infusion if appropriate Will refer her to hematology for further evaluation and consideration for IV iron Tx Will recheck her CBC in 4 months for follow up (4) Fibromyalgia: Code(s): M79.7 - Fibromyalgia Plan: Patient is again encouraged on regular exercise and physical activity to help manage her fibromyalgia symptoms She is mostly sedentary and has orthostatic hypotension, which makes it difficult to motivate her to increase her physical activity Have advised her to try gradually increasing her daily activity level as tolerated Because of her physical symptoms, she continues to require assistance with ADLs that involve increased exertion and 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 but she is somewhat independent with some routine ADLs including those that involve self hygiene and toileting Continue Baclofen 10 mg TID PRN and Gabapentin 300 mg TID - symptoms appear better controlled since her dose was raised to 300 mg 3 times a day a few months ago (5) Orthostatic hypotension: Code(s): I95.1 - Orthostatic hypotension Plan: Continue Midodrine 5 mg TID (6) Abdominal pain, chronic, right lower quadrant: Code(s): R10.31 - Right lower quadrant pain; G89.29 - Other chronic pain Plan: Patient has been to the ER here locally a few times over the past several months (and also once to a local ER in [place] when she was down in [place]) for the same complaint - recurrent sharp pains over her right lower abdomen/right inguinal area that feel worse (describes symptoms as a sharp painful tearing sensation) when she is walking and moving around She's had abdominal US and a CT done in the past 6 to 7 months and both have been unrevealing and she is now requesting for an MRI for further evaluation and to check for possible myofascial injury instead Will send her for abdominal and pelvic MRI for further evaluation (7) Varicose veins of bilateral lower extremities with pain: Code(s): I83.813 - Varicose veins of bilateral lower extremities with pain Plan: S/P EVLT and sclerotherapy with Dr. Imani Peter Follow up with vascular surgery as scheduled (8) Palpitations: Code(s): R00.2 - Palpitations Plan: Stable lately; were most likely related to her anxiety Echocardiogram done in November 2017 came out completely normal; Holter monitor done in September 2018 also came back normal with normal sinus rhythm, no significant arrhythmia noted and patient's symptom diary showed no associations of her symptoms with arrhythmia (9) Vitamin D deficiency: Code(s): E55.9 - Vitamin D deficiency, unspecified Plan: Continue Vitamin D3 2000 units QD (10) Allergic rhinitis: Code(s): J30.9 - Allergic rhinitis, unspecified Qualifiers: Allergic rhinitis trigger: unspecified Allergic rhinitis seasonality: unspecified Qualified Code(s): J30.9 - Allergic rhinitis, unspecified Plan: Continue Loratadine 10 mg QD PRN (Rx refilled) and Fluticasone 50 mcg nasal spray QD PRN (11) Lumbar degenerative disc disease: Code(s): M51.36 - Other intervertebral disc degeneration, lumbar region Plan: Reinforced activity and weight lifting restrictions Lumbar spine MRI done in January 2020 revealed degenerative changes and facet arthritis with an L4-L5 disc bulge with small lateral recess stenosis Was evaluated by Neurosurgery and was referred for physical therapy and to pain management - advised that she had no surgical indication then Follow up with [facility] as scheduled (12) Chronic right sacroiliac joint pain: Code(s): M53.3 - Sacrococcygeal disorders, not elsewhere classified; G89.29 - Other chronic pain Plan: Patient states that her low back pain and right sacroiliac pain has improved significantly with physical therapy and injection treatment from pain management Continue Naproxen 500 mg BID PRN and Tramadol 50 mg PRN Follow-up with [facility] as scheduled (13) Anxiety: Code(s): F41.9 - Anxiety disorder, unspecified Plan: Continue Lorazepam 1 mg Q HS PRN (14) Depression: Code(s): F32.9 - Major depressive disorder, single episode, unspecified Qualifiers: Depression Type: major depressive disorder Major depression recurrence: recurrent Active/Remission status: currently active Major depression episode severity: unspecified Qualified Code(s): F33.9 - Major depressive disorder, recurrent, unspecified Plan: Continue Fluoxetine 20 mg QD and Mirtazapine 30 mg Q HS Follow-up with Psychiatry as scheduled (15) Overweight (BMI 25.0-29.9): Code(s): E66.3 - Overweight Plan: Reinforced diet/exercise as tolerated/lose weight Plan Follow up in 4 months Orders: Orders MR abdomen wo con Today G89.29 - Other chronic pain, R10.31 - Right lower quadrant pain MR pelvis wo con Today G89.29 - Other chronic pain, R10.31 - Right lower quadrant pain Complete Blood Count Auto Diff 4 Months D64.9 - Anemia, unspecified Lipid Panel 4 Months E78.00 - Pure hypercholesterolemia, unspecified Comprehensive [place]. Panel Fast 4 Months E78.00 - Pure hypercholesterolemia, unspecified Free T4 (Free Thyroxine) 4 Months E03.9 - Hypothyroidism, unspecified IRON PROFILE 4 Months D50.9 - Iron deficiency anemia, unspecified Thyroid Stimulating Hormone 4 Months E03.9 - Hypothyroidism, unspecified Vitamin D 25-OH Total 4 Months E55.9 - Vitamin D deficiency, unspecified UA CC w/rflx Micro + Cult 4 Months R30.0 - Dysuria Referrals Hematology & Oncology Referral D50.9 - Iron deficiency anemia, unspecified Medications: Refilled loratadine 10 mg PO DAILY 90 days PRN 90 tabs 1RF allergy symptoms Coding Level of Care Code Est Pt Prev Care 40-64y(75228) Diagnoses Annual physical exam Z00.00 Acquired hypothyroidism E03.9 Anemia, unspecified type D64.9 Anemia type: unspecified type Fibromyalgia M79.7 Orthostatic hypotension I95.1 Abdominal pain, chronic, right lower quadrant R10.31; G89.29 Varicose veins of bilateral lower extremities with pain I83.813 Palpitations R00.2 Vitamin D deficiency E55.9 Allergic rhinitis, unspecified seasonality, unspecified trigger J30.9 Allergic rhinitis trigger: unspecified Allergic rhinitis seasonality: unspecified Lumbar degenerative disc disease M51.36 Chronic right sacroiliac joint pain M53.3; G89.29 Anxiety F41.9 Episode of recurrent major depressive disorder, unspecified depression episode severity F33.9 Depression Type: major depressive disorder Major depression recurrence: recurrent Active/Remission status: currently active Major depression episode severity: unspecified Overweight (BMI 25.0-29.9) E66.3 Additional Codes HERLINDA-7 Assessment Billing - HERLINDA-7 Assessment Tool: HERLINDA-7 Assessment [id number] ([id number])
[2023-09-04 13:55] VITALS: BP 110/72; PULSE 94; O2SAT 97; BMI 28.1
== END 2023-09-04 14:38 | disposition home or self-care (01) ==
LOC: HO.HMGH 13:54
PROVIDERS: PCP Internal Medicine; Visit Provider Internal Medicine
DX: Z00.00 Encounter for general adult medical examination without abnormal findings (principal); E03.9 Hypothyroidism, unspecified; D64.9 Anemia, unspecified; F33.9 Major depressive disorder, recurrent, unspecified; M79.7 Fibromyalgia; I95.1 Orthostatic hypotension; R10.31 Right lower quadrant pain; G89.29 Other chronic pain; I83.813 Varicose veins of bilateral lower extremities with pain; R00.2 Palpitations; E55.9 Vitamin D deficiency, unspecified; J30.9 Allergic rhinitis, unspecified
CPT/HCPCS: 99396

== ENCOUNTER 2023-09-11 17:10 | Emergency (ER) | payer OTHER, SELFPAY ==
--- NOTE | 2023-09-11 17:35 | ED_ITS ---
HPI - General Adult General Chief complaint: Abdominal Pain Stated complaint: abd pain, ref by pcp Time Seen by Provider: 09/11/23 19:26 Source: patient Mode of arrival: ambulatory Limitations: no limitations History of Present Illness ED Provider: Dr. Antoine Metcalf HPI narrative: 48-year-old female with a history of depression, anxiety, palpitations, chronic right lower quadrant abdominal pain who presents emergency department for evaluation of abdominal pain x3 months. The patient states that 3 months ago she was pulling something heavy when she developed a tightness and pain in her abdomen. She states that since that time she has spasm of her abdominal muscles. She states she gets a tightness which is constant that the tightness is worse if she bends or moves. She states that she has seen her PCP and was diagnosed with iron deficient anemia however she was not able to take iron supplements secondary to adverse reaction/abdominal discomfort. She was seen in the emergency department on 07/09/2023 and 07/19/2023 with similar pain. On the 1st visit she had an abdominal ultrasound which was unremarkable. She states she has been taking Tylenol with no relief for pain. She was prescribed cyclobenzaprine however she did not like the feeling that she had when she took this medication and discontinued after several doses. She had no systemic symptoms such as fever, chills, nausea, vomiting, diarrhea, frequency, urgency, dysuria, black stools or bloody stools. Patient did see her PCP and is going to get an MRI of her abdomen and pelvis without contrast to further evaluate her symptoms. Patient states that she did have a ?tummy tuck ?7 years prior Related Data Home Medications ?Medication ?Instructions ?Recorded ?Confirmed cholecalciferol (vitamin D3) 50 50 mcg PO DAILY 07/05/23 09/04/23 mcg/drop (2,000 unit/drop) oral drops pantoprazole 40 mg tablet,delayed 40 mg PO BID 07/05/23 09/04/23 release Previous Rx's ?Medication ?Instructions ?Recorded baclofen 10 mg tablet 10 mg PO TID PRN muscle spasms 30 12/31/22 days #90 tabs cholecalciferol (vitamin D3) 50 50 mcg PO DAILY 90 days #90 caps 12/31/22 mcg (2,000 unit) capsule ferrous sulfate 325 mg (65 mg 325 mg PO DAILY 30 days #30 tabs 12/31/22 iron) tablet (Feosol) fluoxetine 20 mg capsule 20 mg PO DAILY 90 days #90 caps 12/31/22 fluticasone propionate 50 2 spray intranasal DAILY PRN 12/31/22 mcg/actuation nasal allergy symptoms 30 days #16 grams spray,suspension gabapentin 300 mg capsule 300 mg PO TID 30 days #90 caps 12/31/22 lidocaine 5 % topical ointment 1 appl topical .four time a day 12/31/22 PRN pain #50 grams mecobalamin (vitamin B12) 1,000 1,000 mcg PO DAILY 90 days #90 tabs 12/31/22 mcg chewable tablet meloxicam 15 mg tablet 15 mg PO DAILY #14 tabs 12/31/22 midodrine 5 mg tablet 5 mg PO TID 30 days #90 tabs 12/31/22 mirtazapine 30 mg tablet 30 mg PO BEDTIME 90 days #90 tabs 12/31/22 tramadol 50 mg tablet 50 mg PO DAILY PRN pain 30 days 12/31/22 #30 tabs ibuprofen 600 mg tablet 600 mg PO Q6H PRN fever or pain 02/17/23 #30 tabs phenazopyridine 100 mg tablet 100 mg PO Q8H 6 doses #10 tabs 03/09/23 (Pyridium) levothyroxine 25 mcg tablet 25 mcg PO QAM 90 days #90 tabs 04/10/23 erythromycin 5 mg/gram (0.5 %) eye 1 appl ophthalmic (eye) BID 5 days 07/05/23 ointment #3.5 grams lorazepam 1 mg tablet 1 mg PO BEDTIME PRN anxiety 30 07/05/23 days #30 tabs simethicone 125 mg capsule (Gas-X 125 mg PO DAILY PRN abdominal 07/09/23 Extra Strength) distention #20 caps dicyclomine 20 mg tablet 20 mg PO QID PRN abdominal pain 07/19/23 #30 tabs loratadine 10 mg tablet 10 mg PO DAILY PRN allergy 09/04/23 symptoms 90 days #90 tabs methocarbamol 750 mg tablet 750 mg PO Q6H PRN muscle spasm #20 09/11/23 tabs Allergies Allergy/AdvReac Type Severity Reaction Status Date / Time Penicillins [PENICILLINS] Allergy Unknown RASH Verified 09/11/23 17:39 Review of Systems 2 Review of Systems: Yes all other systems are reviewed and are negative [facility] Past Medical History Medical History (Updated 09/11/23 @ 19:59 by Antoine Metcalf MD) Annual physical exam Fatigue Nasal dryness Localized swelling of left foot Left foot pain Upper respiratory tract infection Intestinal parasitism, unspecified Left ear pain Sty, external Palpitations Colonoscopy refused Overweight (BMI 25.0-29.9) Depression Anxiety Chronic right sacroiliac joint pain Lumbar degenerative disc disease Orthostatic hypotension Allergic rhinitis Fibromyalgia Acquired hypothyroidism Vitamin D deficiency Varicose veins of bilateral lower extremities with pain Coccydynia Surgical History H/O breast augmentation History of appendectomy History of arthroplasty of right knee History of tonsillectomy History of bladder suspension procedure History of delivery Family History Family History Father No problems noted. Mother Myocardial infarction CVD (cardiovascular disease) Social History Social History Housing: House Alcohol intake: never Patient Tobacco Use Status: Never used Tobacco Second Hand Smoke Exposure: No Advance Directives: No Advance Directives Information Provided: No service: No Current occupational status: disabled Current occupation: Unemployed Cognitive needs: No Hearing needs: No Vision needs: Yes Physical Exam ED Vital Signs: Vital Signs - 24 hr 09/11/23 17:36 09/11/23 19:52 09/11/23 20:10 Temperature 98.6 F 98.0 F 98.8 F Pulse Rate 86 68 68 Respiratory Rate 16 16 16 Blood Pressure 131/72 112/49 L 112/49 L Pulse Oximetry 100 98 98 Oxygen Delivery Method Room Air Room Air Room Air BMI result Body Mass Index 27.4 Vital signs were normal Exam: General: Awake, alert in no distress Head: Normocephalic, atraumatic EENT: PERRL, Lids normal, sclera normal, conjunctiva normal, nose normal , ears normal, throat without erythema or exudates Neck: Supple, no adenopathy Lung: breath sounds symmetric, no wheezing, rales or rhonchi Chest: symmetric movement, nontender Heart: regular rate and rhythm, normal S1, S2 no murmurs or rubs Abdomen: soft, non-tender, nondistended, normal bowel sounds, no defects noted in the abdominal muscle wall, no hernias Back: no vertebral tenderness, no CVAT Extremities: no deformities, moves all extremities symmetrically Neuro: Awake, alert, oriented, normal speech, cranial nerves intact, moves all extremities symmetrically Psych: Pleasant, cooperative Course Course Course Narrative: This is an RME done by SALONI Moreno: Additional HPI, ROS, PE not included below will be deferred to primary provider. 48 year old female with a pmh of depression, anxiety, anemia, lumbar degenerative disc disease, fibromylagia, presents with tightness/pain in abdomen x 3 months and palpitations since yesterday. Reports no chest pain, fever, chills, SOB. Appearance: Alert.? Oriented X3.? No acute cardiopulmonary distress distress.? Head: Normocephalic, atraumatic, no step-offs or deformities CVS: Pulses normal.? Respiratory: No respiratory distress.? Abdomen: Soft and tenderness to palpation. Skin: ? Normal skin color. Neuro: Oriented X 3.? No motor deficit.? No sensory deficit. Medical Decision Making Medical Decision Making MDM Narrative: 48-year-old female with a history of depression, anxiety, palpitations, chronic right lower quadrant abdominal pain who presents emergency department for evaluation of abdominal pain x3 months. She describes the pain as a spasm like sensation in the muscles of her abdominal wall which are worse with movement/bending. She had no concerning systemic symptoms or GI symptoms. Vital signs were normal. Physical examination did not reveal any defects in her abdominal muscle wall and no localizing tenderness. Differential diagnosis: ?Includes but is not limited to diverticulitis, pancreatitis, hernia, muscle tear, IBS Following evaluation was ordered: CBC, CMP, quantitative BHC, magnesium Course: 20:22 My interpretation patient's laboratory evaluation is as follows: Anemia with an H&H of 12 and 35.7 with a normal MCV. Patient has had multiple CBC since 2019 and has never had microcytic anemia. Comprehensive metabolic panel was normal. Quantitative beta-hCG was below detectable limits. At this time I do not have a clear etiology for the patient's symptoms however I do not think that she has iron deficient anemia and I did discuss this with her. The patient's pain seems to be more musculoskeletal/abdominal wall pain. She was advised to continue taking Tylenol and she was prescribed the muscle relaxant Robaxin 750 mg 3 times a day as needed for pain. She has seen her PCP who has ordered an MRI of her abdomen pelvis but has not been scheduled yet. Encouraged her to contact her PCP to discuss scheduling the MRI. Patient was given printed and verbal instructions and discharged home Admission/Observation Consideration of admission/observation: Escalation of care including admission/observation considered Lab Data MDM Lab Attestation statement: I reviewed the patient's lab results. 09/11/23 18:16 09/11/23 18:16 Labs: Lab Results 09/11/23 Range/Units 18:16 WBC 9.6 (4.8-10.8) X10*3/uL RBC 3.84 L (4.20-5.50) X10*6/uL Hgb 12.0 (12.0-16.0) g/dl Hct 35.7 L (37.0-47.0) % MCV 93.0 (80.0-98.0) fL MCH 31.3 (27.0-33.0) pg MCHC 33.6 (31.0-35.0) g/dl RDW 13.9 (11.0-16.0) % Plt Count 236 (160-400) X10*3/uL MPV 11.2 (9.4-12.3) fL Immature Gran % (Auto) 0.3 (0.0-0.4) % Neut % (Auto) 73.4 H (45-73) % Lymph % (Auto) 20.6 (20-40) % Nolan % (Auto) 4.1 (2-11) % Eos % (Auto) 1.1 (0-4) % Baso % (Auto) 0.5 (0-2) % Lymph # (Auto) 2.0 (1.2-4.9) X10*3/uL Nolan # (Auto) 0.4 (0.1-1.2) X10*3/uL Eos # (Auto) 0.1 (0.0-0.4) X10*3/uL Baso # (Auto) 0.1 (0.0-0.2) X10*3/uL Abs Immat Gran (auto) 0.03 (0.00-0.03) X10*3/uL Absolute Neuts (auto) 7.0 (2.0-8.3) x10*3/uL Absolute Nucleated RBC 0.000 (0.0-0.012) X10*3/uL Nucleated RBC % (auto) 0.0 (0.0-0.2) /100WBC Sodium 140 (135-145) mmol/L Potassium 4.1 (3.3-5.1) mmol/L Chloride 107 (96-108) mmol/L Carbon Dioxide 24 (22-29) mmol/L Anion Gap 13 (12-20) BUN 9 (9-16) mg/dL Creatinine 0.85 (0.5-1.4) mg/dL Estim Creat Clear Calc 80.9 Estimated GFR > 60 Random Glucose 138 H (60-115) mg/dL Calcium 9.0 (8.4-10.2) mg/dL Magnesium 1.8 (1.6-2.6) mg/dL Total Bilirubin 0.2 (0.0-1.0) mg/dL AST 17 (5-31) U/L ALT 17 (0-31) U/L Alkaline Phosphatase 65 (39-117) U/L Total Protein 7.3 (6.5-8.0) g/dL Albumin 3.9 (3.5-5.0) g/dL Beta HCG, Quant < 2 mIU/mL Prescription Management I considered prescription management with: Other (Muscle relaxants) Chronic Conditions Patient?s care impacted by: Other (Fibromyalgia) Discharge Plan Discharge Clinical Impression: Abdominal pain Patient Disposition: Home, Self-Care Instructions: Abdominal Pain (ED) Additional Instructions: On your exam I did not feel any significant defects in the muscles of your abdominal wall. Your blood work showed that you are mildly anemic with a hematocrit (percentage of red blood cells) of 35.7%. Normal percentage is 37-47% but women are usually closer to the lower range of 37%. Your MCV (mean corpuscular volume) was normal at 93 (normal is 80-98). This suggests that you do not have iron deficient anemia at this time. Usually if you have iron deficiency your MCV is lower than 70. I am going to start you on a muscle relaxant called Robaxin (methocarbamol) 750 mg pills, you can take 1 pill every 6 hours as needed for pain/spasm. Try to eat iron rich foods since iron supplements seem to give you stomach pain. Call your doctor to see if they can schedule the MRI of your abdomen to see if this helps determine the cause of your pain. Follow-up with your doctor in 2 days. Please return to the emergency department if your symptoms get worse or if you develop any symptoms that are concerning to you. Prescriptions: New methocarbamol 750 mg tablet 750 mg PO Q6H PRN (Reason: muscle spasm) Qty: 20 0RF No Action baclofen 10 mg tablet 10 mg PO TID PRN (Reason: muscle spasms) 30 Days Qty: 90 2RF cholecalciferol (vitamin D3) 50 mcg (2,000 unit) capsule 50 mcg PO DAILY 90 Days Qty: 90 3RF ferrous sulfate [Feosol] 325 mg (65 mg iron) tablet 325 mg PO DAILY 30 Days Qty: 30 5RF fluoxetine 20 mg capsule 20 mg PO DAILY 90 Days Qty: 90 1RF fluticasone propionate 50 mcg/actuation spray,suspension 2 spray intranasal DAILY PRN (Reason: allergy symptoms) 30 Days Qty: 16 5RF Rx Instructions: administer into each nostril gabapentin 300 mg capsule 300 mg PO TID 30 Days Qty: 90 3RF lidocaine 5 % ointment 1 appl topical .four time a day PRN (Reason: pain) Qty: 50 5RF Rx Instructions: apply pea size amount 3 to 4 times a day mecobalamin (vitamin B12) 1,000 mcg tablet,chewable 1,000 mcg PO DAILY 90 Days Qty: 90 3RF meloxicam 15 mg tablet 15 mg PO DAILY Qty: 14 0RF midodrine 5 mg tablet 5 mg PO TID 30 Days Qty: 90 2RF Rx Instructions: do not give last dose of day after 6PM or within 4 hrs of bedtime mirtazapine 30 mg tablet 30 mg PO BEDTIME 90 Days Qty: 90 1RF tramadol 50 mg tablet 50 mg PO DAILY PRN (Reason: pain) 30 Days Qty: 30 1RF levothyroxine 25 mcg tablet 25 mcg PO QAM 90 Days Qty: 90 1RF lorazepam 1 mg tablet 1 mg PO BEDTIME PRN (Reason: anxiety) 30 Days Qty: 30 0RF ibuprofen 600 mg tablet 600 mg PO Q6H PRN (Reason: fever or pain) Qty: 30 0RF simethicone [Gas-X Extra Strength] 125 mg capsule 125 mg PO DAILY PRN (Reason: abdominal distention) Qty: 20 0RF phenazopyridine [Pyridium] 100 mg tablet 100 mg PO Q8H Qty: 10 0RF dicyclomine 20 mg tablet 20 mg PO QID PRN (Reason: abdominal pain) Qty: 30 0RF pantoprazole 40 mg tablet,delayed release (DR/EC) 40 mg PO BID cholecalciferol (vitamin D3) 50 mcg/drop (2, 000 unit/drop) drops 50 mcg PO DAILY erythromycin 5 mg/gram (0.5 %) ointment 1 appl ophthalmic (eye) BID 5 Days Qty: 3.5 1RF Rx Instructions: Apply 0.5 inch to lower lid of left eye 4 times daily for 5 days loratadine 10 mg tablet 10 mg PO DAILY PRN (Reason: allergy symptoms) 90 Days Qty: 90 1RF Interventions: ED Discharge Assessment Last Done: 09/11/23 20:10 Discharge Date/Time: 09/11/23 20:13 Print Language: Turkmen
[2023-09-11 17:36] VITALS: BP 131/72; PULSE 86; RESP 16; TEMP 37; O2SAT 100; BMI 27.4
[2023-09-11 18:21] LABS: MANUAL DIFF FLAG NO
[2023-09-11 18:48] LABS: Alanine Aminotransferase 17 U/L (0-31); Albumin Level 3.9 g/dL (3.5-5.0); Alkaline Phosphatase 65 U/L (39-117); Anion Gap 13 (12-20); Aspartate Amino Transferase 17 U/L (5-31); Basophils Absolute Auto 0.1 X10*3/uL (0.0-0.2); Basophils Percent Auto 0.5 % (0-2); Bilirubin Total 0.2 mg/dL (0.0-1.0); Blood Urea Nitrogen 9 mg/dL (9-16); Carbon Dioxide 24 mmol/L (22-29); Chloride 107 mmol/L (96-108); Creatinine Clr Calc Pharmacy 80.9; Eosinophils Absolute Auto 0.1 X10*3/uL (0.0-0.4); Eosinophils Percent Auto 1.1 % (0-4); Estimated Glomerular Filt Rate > 60; Glucose Random 138 mg/dL (60-115); Hematocrit 35.7 % (37.0-47.0); Imm Gran Abs Auto 0.03 X10*3/uL (0.00-0.03); Imm Gran Pct Auto 0.3 % (0.0-0.4); Lymphocytes Percent Auto 20.6 % (20-40); Magnesium 1.8 mg/dL (1.6-2.6); Mean Corpuscular HGB Conc 33.6 g/dl (31.0-35.0); Mean Corpuscular Hemoglobin 31.3 pg (27.0-33.0); Mean Platelet Volume 11.2 fL (9.4-12.3); Monocytes Absolute Auto 0.4 X10*3/uL (0.1-1.2); Monocytes Percent Auto 4.1 % (2-11); Neutrophils Percent Auto 73.4 % (45-73); Platelet Count 236 X10*3/uL (160-400); Potassium 4.1 mmol/L (3.3-5.1); Red Blood Count 3.84 X10*6/uL (4.20-5.50); Red Cell Distribution Width 13.9 % (11.0-16.0); Sodium 140 mmol/L (135-145); Total Protein 7.3 g/dL (6.5-8.0); White Blood Count 9.6 X10*3/uL (4.8-10.8)
[2023-09-11 18:53] LABS: HCG Quantitative < 2 mIU/mL
[2023-09-11 19:52] VITALS: BP 112/49; PULSE 68; RESP 16; TEMP 36.7; O2SAT 98
--- NOTE | 2023-09-11 20:04 | PC.NURSE ---
assumed care at 1930, pt c/o abd pain x 3 months, no interventions ordered
[2023-09-11 20:10] VITALS: BP 112/49; PULSE 68; RESP 16; TEMP 37.1; O2SAT 98
== END 2023-09-11 20:13 | disposition home or self-care (01) ==
PROVIDERS: Physician Assistant; Emergency Provider Emergency Medicine Emergency Medical Services; PCP Internal Medicine
DX: R10.31 Right lower quadrant pain (principal)
CPT/HCPCS: 36415; 80053; 83735; 84702; 85025; 99283

== ENCOUNTER 2023-09-27 13:19 | Outpatient (AMB) | payer OTHER, SELFPAY ==
[2023-09-27 13:54] VITALS: BP 112/62; PULSE 84; O2SAT 99; BMI 27.0
--- NOTE | 2023-09-27 13:54 | MHC.PC.OV ---
Vital Signs 09/27/23 13:54 Height 5 ft 5 in Weight 162 lb 2 oz BMI 27.0 BP 112/62 Blood Pressure Location Lt brachial Position Sitting Pulse 84 Pulse Source Pulse Oximeter Pulse Oximetry (%) 99 Oxygen Delivery Method Room Air Intake Visit Reasons: Requesting Abdomen Scan Hand Screen Printer Required: No Clerk Television Production: Not Required per policy Accompanied by: Self / Same As Patient Allergies Penicillins [PENICILLINS] Allergy (Unknown, Verified 10/14/23 03:51) RASH Medication List - Last Reconciled 10/14/23 by Chandu Ruvalcaba MD baclofen 10 mg PO TID PRN 30 days cholecalciferol (vitamin D3) 50 mcg PO DAILY 90 days cholecalciferol (vitamin D3) 50 mcg PO DAILY dicyclomine 20 mg PO QID PRN erythromycin 1 appl ophthalmic (eye) BID 5 days ferrous sulfate (Feosol) 325 mg PO DAILY 30 days fluoxetine 20 mg PO DAILY 90 days fluticasone propionate 50 mcg/actuation 2 sprays intranasal DAILY PRN 30 days gabapentin 300 mg PO TID 30 days ibuprofen 600 mg PO Q6H PRN levothyroxine 25 mcg PO QAM 90 days lidocaine 5% 1 appl topical .four time a day PRN loratadine 10 mg PO DAILY PRN 90 days lorazepam 1 mg PO BEDTIME PRN 30 days mecobalamin (vitamin B12) 1,000 mcg PO DAILY 90 days meloxicam 15 mg PO DAILY methocarbamol 750 mg PO Q6H PRN midodrine 5 mg PO TID 30 days mirtazapine 30 mg PO BEDTIME 90 days pantoprazole 40 mg PO BID phenazopyridine (Pyridium) 100 mg PO Q8H 6 doses simethicone (Gas-X Extra Strength) 125 mg PO DAILY PRN tramadol 50 mg PO DAILY PRN 30 days Tobacco use date assessed: 09/04/23 Dental Screening Dental Screen Date: 09/04/23 HPI Requesting Abdomen Scan HPI Details Patient comes in today complaining of a recurrent pain and discomfort as well as a recurrent sensation of pins and needles over her entire lower abdomen bilaterally States that her symptoms have been going on for a while now and feels that they have been getting worse and becoming more and more pronounced Patient recalls (+) Hx tummy tuck surgery done back in [place] about 7 years ago and is concerned that she may be experiencing some adverse effects from her surgery back then Would like to request for some imaging studies /lower abdominal scan for further evaluation She denies any nausea or vomiting and states that her bowel movements have been normal so far She denies any fever or chills Denies any headaches or dizziness Denies any chest pains, no increased shortness of breath noted [facility] Medical History Annual physical exam Fatigue Nasal dryness Localized swelling of left foot Left foot pain Upper respiratory tract infection Intestinal parasitism, unspecified Left ear pain Sty, external Palpitations Colonoscopy refused Overweight (BMI 25.0-29.9) Depression Anxiety Chronic right sacroiliac joint pain Lumbar degenerative disc disease Orthostatic hypotension Allergic rhinitis Fibromyalgia Acquired hypothyroidism Vitamin D deficiency Varicose veins of bilateral lower extremities with pain Coccydynia Surgical History H/O breast augmentation History of appendectomy History of arthroplasty of right knee History of tonsillectomy History of bladder suspension procedure History of delivery Family History Father No problems noted. Mother Myocardial infarction CVD (cardiovascular disease) Social History Housing: House Alcohol intake: never Patient Tobacco Use Status: Never used Tobacco Smoked in Last 30 Days: No e-Cigarette/Vaping Use: Never Used Second Hand Smoke Exposure: No Use of substances other than those prescribed or required for medical reasons: No Advance Directives: No Advance Directives Information Provided: No Do you have a plan to hurt others: No Plan service: No Current occupational status: disabled Current occupation: Unemployed Cognitive needs: No Hearing needs: No Vision needs: Yes Questionnaire Thrive Questionnaire Date Thrive assessed: 09/04/23 HERLINDA-7 AMB Questionnaire HERLINDA-7 Date HERLINDA - 7 assessed: 09/04/23 Source: Developed by Drs. Burt Martines, Lili Peguero, Mike Khan and colleagues, with an educational claudine from [employer]. Review of Systems Const Denies chills, Denies fatigue, Denies fever(s) and Denies headache(s) ENT Denies dysphagia, Denies dizziness, Denies otalgia, Denies headache(s), Reports neck pain, Denies odynophagia and Denies sore throat Card Denies chest pain, Denies irregular heart rhythm, Denies palpitations and Denies dyspnea Resp Denies cough, Denies dyspnea and Denies wheezing GI Reports abdominal pain (over the lower abdomen bilaterally - see HPI), Denies constipation, Denies dysphagia, Denies heartburn, Denies diarrhea, Denies nausea, Denies odynophagia and Denies vomiting Denies urinary frequency, Denies dysuria and Denies urinary urgency Musc Reports back pain (over the lower back - chronic), Denies arthralgias and Reports neck pain Skin/Breast Denies rash Neuro Denies dizziness, Denies headache(s) and Reports paresthesias (on and off sensation of pins and needles over her lower abdomen) Psych Denies anxiety and Denies depression Endo Denies fatigue and Denies palpitations Neal/Lymph Denies easy bruising Aller/Immun Denies wheezing Physical exam (Primary Care) Vital Signs: Last Vital Signs Pulse 84 09/27/23 13:54 BP 112/62 09/27/23 13:54 Pulse Ox 99 09/27/23 13:54 Oxygen Delivery Method Room Air 09/27/23 13:54 BMI result Body Mass Index 27.0 Tobacco/Smoking Status: Tobacco use Status Tobacco use date assessed 09/04/23 09/27/23 13:55 Patient Tobacco Use Status Never used Tobacco 09/27/23 13:55 e-Cigarette/Vaping Use Never Used 09/27/23 14:06 Thrive Assessment: Date of Thrive Assessment Date Thrive assessed 09/04/23 09/27/23 13:55 Const General: no acute distress and alert HENMT Ears: TM's normal bilaterally and EAC's normal Throat: Yes posterior oropharynx normal and Yes tonsils normal (no TP congestion) Neck Neck: Yes no lymphadenopathy Thyroid: Thyroid normal Resp Auscultation: clear to auscultation bilaterally, no rales and no wheezes Cardio Rate: regular rate Rhythm: regular rhythm Heart sounds: no murmurs GI Palpation (GI): Soft to palpation, Tenderness to palpation present (GI) (over the lower abdomen bilaterally), no guarding, not rigid and No Rebound tenderness present Auscultation: normal bowel sounds General: Yes no CVA tenderness Back/Spine/Pelvis Back: no CVA tenderness Cervical Spine: Cervical spine tenderness Thoracic/Lumbar Spine: lumbar spinal tenderness Skin Rashes: no rashes Extrem General: Yes no clubbing, cyanosis or edema Assessment and Plan Assessment & Plan (1) Lower abdominal pain: Code(s): R10.30 - Lower abdominal pain, unspecified Plan: Patient is advised that per her request previously, an abdominal and pelvic MRI has already been ordered last month and we are just waiting on insurance approval for this before they can schedule her for the procedure Have discussed with patient that her recent lower abdominal symptoms may or may not necessarily be related to her previous tummy tuck surgery and if they are, are likely a result of scar tissues resulting from her previous tummy tuck surgery Plan Follow up as scheduled in December 2023 Coding Level of Care Code Est Pt Level 3 (49812) Diagnoses Lower abdominal pain R10.30
== END 2023-09-27 15:57 | disposition home or self-care (01) ==
PROVIDERS: PCP Internal Medicine; Visit Provider Internal Medicine
DX: R10.30 Lower abdominal pain, unspecified (principal)
CPT/HCPCS: 99213

== ENCOUNTER 2023-10-13 21:13 | Emergency (ER) | payer OTHER, SELFPAY ==
--- NOTE | ~2023-10-13 | CT_ITS ---
EXAMINATION: CT ABDOMEN AND PELVIS WITHOUT CONTRAST CLINICAL INFORMATION: Right flank pain. COMPARISON: 03/11/2023 TECHNIQUE: Multidetector volumetric imaging was performed from the superior aspect of the liver through the pubic symphysis. Sagittal and coronal reformatted images were obtained on the technologist's workstation. This CT examination was performed using dose optimization techniques as appropriate, variously including the following: *Automated exposure control *Adjustment of mA and/or kV according to patient size (this includes techniques or standardized protocols for targeted exams where dose is matched to indication/reason for exam; i.e. extremities or head) *Use of iterative reconstruction technique DLP: 520 mGy-cm FINDINGS: LUNG BASES: The visualized lung bases are unremarkable. LIVER, GALLBLADDER, AND BILIARY TREE: The liver is normal in size, shape, and attenuation. No focal hepatic lesion or biliary ductal dilatation is present. The gallbladder is unremarkable with no evidence of radiopaque gallstones, gallbladder wall thickening, or obvious pericholecystic inflammatory changes. PANCREAS: Unremarkable. SPLEEN: Unremarkable. ADRENAL GLANDS: Unremarkable. KIDNEYS AND URETERS: The kidneys are normal in size, shape, and attenuation. No hydronephrosis, hydroureter, or calculi seen. No perinephric stranding. BLADDER: Unremarkable. GASTROINTESTINAL TRACT: Stomach, small bowel, and colon are normal in caliber. No bowel wall thickening or surrounding inflammatory changes. Appendix is surgically absent. No intraperitoneal free fluid or free air. Moderate volume of stool in the colon. ABDOMINAL WALL: Circumferential reticular scar tissue in the abdominal subcutaneous fat is consistent with prior liposuction. Mild diastasis recti. No hernia. LYMPH NODES: Normal. VASCULAR: Unremarkable. PELVIC VISCERA: The uterus and adnexa are unremarkable. OSSEOUS STRUCTURES: Minimal osteoarthritis in the hips and mild to moderate facet arthropathy in the lower lumbar spine. No acute osseous findings. CT/CT abdomen pelvis wo IV con IMPRESSION: 1. No acute intra-abdominal or intrapelvic abnormalities. No nephrolithiasis or hydronephrosis. 2. Status post appendectomy. Fleischner guidelines were followed.
[2023-10-13 21:15] VITALS: BP 128/75; PULSE 77; RESP 18; TEMP 36.6; O2SAT 100; BMI 27.6
[2023-10-13 21:36] LABS: MANUAL DIFF FLAG NO
[2023-10-13 21:37] LABS: Basophils Absolute Auto 0.1 X10*3/uL (0.0-0.2); Basophils Percent Auto 0.8 % (0-2); Eosinophils Absolute Auto 0.2 X10*3/uL (0.0-0.4); Eosinophils Percent Auto 2.2 % (0-4); Hematocrit 36.1 % (37.0-47.0); Hemoglobin 12.2 g/dl (12.0-16.0); Imm Gran Abs Auto 0.01 X10*3/uL (0.00-0.03); Imm Gran Pct Auto 0.1 % (0.0-0.4); Lymphocytes Absolute Auto 3.6 X10*3/uL (1.2-4.9); Lymphocytes Percent Auto 40.8 % (20-40); Mean Corpuscular HGB Conc 33.8 g/dl (31.0-35.0); Mean Corpuscular Hemoglobin 31.1 pg (27.0-33.0); Mean Corpuscular Volume 92.1 fL (80.0-98.0); Mean Platelet Volume 11.2 fL (9.4-12.3); Monocytes Absolute Auto 0.6 X10*3/uL (0.1-1.2); Monocytes Percent Auto 6.7 % (2-11); Neutrophils Absolute Auto 4.3 x10*3/uL (2.0-8.3); Neutrophils Percent Auto 49.4 % (45-73); Platelet Count 224 X10*3/uL (160-400); Red Blood Count 3.92 X10*6/uL (4.20-5.50); Red Cell Distribution Width 13.1 % (11.0-16.0); White Blood Count 8.7 X10*3/uL (4.8-10.8)
[2023-10-13 21:38] LABS: Appearance Urine Clear; Color Urine Yellow; Glucose Urine UA Negative (Negative); Leukocyte Esterase Urine Negative (Negative); Nitrite Urine Negative (Negative); PH 7.5 (5.0-9.0); Urine Blood Negative (Negative); Urine Ketones Negative (Negative); Urine Protein Negative (Neg-Trace)
[2023-10-13 21:40] LABS: UPreg QC Valid YES; Urine Pregnancy NEGATIVE (NEGATIVE)
[2023-10-13 21:42] LABS: Bacteria Urine None Seen (None Seen); Hyaline Casts Urine 0-2 /LPF (0-2); RBC Urine 0-2 /HPF (0-2); Squamous Epithelial Cell Urine 0-2 /HPF (0-2); WBC Urine 0-5 /HPF (0-5)
[2023-10-13 21:54] LABS: Alanine Aminotransferase 13 U/L (0-31); Albumin Level 4.1 g/dL (3.5-5.0); Alkaline Phosphatase 66 U/L (39-117); Anion Gap 12 (12-20); Aspartate Amino Transferase 20 U/L (5-31); Bilirubin Total 0.2 mg/dL (0.0-1.0); Blood Urea Nitrogen 17 mg/dL (9-16); Calcium 9.6 mg/dL (8.4-10.2); Carbon Dioxide 26 mmol/L (22-29); Chloride 106 mmol/L (96-108); Creatinine Clr Calc Pharmacy 72.4; Estimated Glomerular Filt Rate > 60; Glucose Random 126 mg/dL (60-115); Potassium 3.6 mmol/L (3.3-5.1); Sodium 140 mmol/L (135-145); Total Protein 7.6 g/dL (6.5-8.0)
--- NOTE | 2023-10-14 00:52 | ED_ITS ---
HPI - Abdominal Pain General Chief Complaint: Abdominal Pain Stated Complaint: rt side pain Time Seen by Provider: 10/13/23 23:52 Source: patient and old records reviewed Mode of arrival: ambulatory Limitations: no limitations History of Present Illness ED Provider: SARAI NELSON narrative: 48 yo female with PMH of chronic right sided abdominal pain, anxiety, depression, hypothyroidism, GERD she comes in with c/o chronic intermittent bloating and R sided abdominal pain she took OTC medications but still has pain - she states saw PCP last week who wants to do CT scan but she has not had appointment time yet. No nausea/vomiting. MD elicited complaint: abdominal pain Pertinent past history: other (hx of same) Onset (ago): month(s) Pain Consistency: intermittent Location: RLQ Severity: moderate Quality: fullness Radiation: none Migration to: no migration Exacerbating factors: nothing Relieving factors: nothing Context: history of similar episodes Associated symptoms: denies other symptoms Related Data Home Medications ?Medication ?Instructions ?Recorded ?Confirmed cholecalciferol (vitamin D3) 50 50 mcg PO DAILY 07/05/23 09/04/23 mcg/drop (2,000 unit/drop) oral drops pantoprazole 40 mg tablet,delayed 40 mg PO BID 07/05/23 09/04/23 release Previous Rx's ?Medication ?Instructions ?Recorded baclofen 10 mg tablet 10 mg PO TID PRN muscle spasms 30 12/31/22 days #90 tabs cholecalciferol (vitamin D3) 50 50 mcg PO DAILY 90 days #90 caps 12/31/22 mcg (2,000 unit) capsule ferrous sulfate 325 mg (65 mg 325 mg PO DAILY 30 days #30 tabs 12/31/22 iron) tablet (Feosol) fluoxetine 20 mg capsule 20 mg PO DAILY 90 days #90 caps 12/31/22 fluticasone propionate 50 2 spray intranasal DAILY PRN 12/31/22 mcg/actuation nasal allergy symptoms 30 days #16 grams spray,suspension gabapentin 300 mg capsule 300 mg PO TID 30 days #90 caps 12/31/22 lidocaine 5 % topical ointment 1 appl topical .four time a day 12/31/22 PRN pain #50 grams mecobalamin (vitamin B12) 1,000 1,000 mcg PO DAILY 90 days #90 tabs 12/31/22 mcg chewable tablet meloxicam 15 mg tablet 15 mg PO DAILY #14 tabs 12/31/22 midodrine 5 mg tablet 5 mg PO TID 30 days #90 tabs 12/31/22 mirtazapine 30 mg tablet 30 mg PO BEDTIME 90 days #90 tabs 12/31/22 tramadol 50 mg tablet 50 mg PO DAILY PRN pain 30 days 12/31/22 #30 tabs ibuprofen 600 mg tablet 600 mg PO Q6H PRN fever or pain 02/17/23 #30 tabs phenazopyridine 100 mg tablet 100 mg PO Q8H 6 doses #10 tabs 03/09/23 (Pyridium) levothyroxine 25 mcg tablet 25 mcg PO QAM 90 days #90 tabs 04/10/23 erythromycin 5 mg/gram (0.5 %) eye 1 appl ophthalmic (eye) BID 5 days 07/05/23 ointment #3.5 grams lorazepam 1 mg tablet 1 mg PO BEDTIME PRN anxiety 30 07/05/23 days #30 tabs simethicone 125 mg capsule (Gas-X 125 mg PO DAILY PRN abdominal 07/09/23 Extra Strength) distention #20 caps dicyclomine 20 mg tablet 20 mg PO QID PRN abdominal pain 07/19/23 #30 tabs loratadine 10 mg tablet 10 mg PO DAILY PRN allergy 09/04/23 symptoms 90 days #90 tabs methocarbamol 750 mg tablet 750 mg PO Q6H PRN muscle spasm #20 09/11/23 tabs Allergies Allergy/AdvReac Type Severity Reaction Status Date / Time Penicillins [PENICILLINS] Allergy Unknown RASH Verified 10/13/23 21:17 Review of Systems Review of Systems Constitutional : No Weight loss, No Fever, No Chills ENT/Mouth : No sore throat, No Rhinorrhea Eyes: No Swelling, No Redness Cardiovascular : No Chest Pain, No SOB, No edema Respiratory : No Cough, No Sputum, No Wheezing Gastrointestinal : no Nausea, no Vomiting, no Diarrhea, positive abdominal Pain, No Hematochezia, No Melena Genitourinary : No Dysuria, No Urinary Frequency, No Hematuria, No Urgency Musculoskeletal : No joint pain, No Myalgias, No Joint Swelling Skin : No Skin Lesions, No rash Neuro : No Weakness, No Numbness, No Dizziness, No Headache Psych : No Anxiety/Panic, No Depression All other systems reviewed and are negative. PMFSH Past Medical History Attestation statement: The following information was validated with the patient. Source: old records reviewed Medical History Annual physical exam Fatigue Nasal dryness Localized swelling of left foot Left foot pain Upper respiratory tract infection Intestinal parasitism, unspecified Left ear pain Sty, external Palpitations Colonoscopy refused Overweight (BMI 25.0-29.9) Depression Anxiety Chronic right sacroiliac joint pain Lumbar degenerative disc disease Orthostatic hypotension Allergic rhinitis Fibromyalgia Acquired hypothyroidism Vitamin D deficiency Varicose veins of bilateral lower extremities with pain Coccydynia Surgical History H/O breast augmentation History of appendectomy History of arthroplasty of right knee History of tonsillectomy History of bladder suspension procedure History of delivery Family History Family History Father No problems noted. Mother Myocardial infarction CVD (cardiovascular disease) Social History Social History Housing: House Alcohol intake: never Patient Tobacco Use Status: Never used Tobacco e-Cigarette/Vaping Use: Never Used Second Hand Smoke Exposure: No Advance Directives: No Advance Directives Information Provided: No Do you have a plan to hurt others: No Plan service: No Current occupational status: disabled Current occupation: Unemployed Cognitive needs: No Hearing needs: No Vision needs: Yes Physical Exam ED Vital Signs: Vital Signs - 24 hr 10/13/23 21:15 Temperature 97.8 F Pulse Rate 77 Respiratory Rate 18 Blood Pressure 128/75 Pulse Oximetry 100 Oxygen Delivery Method Room Air BMI result Body Mass Index 27.6 Appearance: Alert. Oriented X3. No acute distress. Eyes: Pupils equal, round and reactive to light. ENT: Pharynx normal. Neck: Normal inspection. Neck supple. CVS: Normal heart rate and rhythm. Pulses normal. Respiratory: No respiratory distress. Breath sounds normal. Abdomen: Soft with mild distention and ttp in RLQ no rebound or guarding Skin: Skin warm and dry. Normal skin color. Normal skin turgor. Extremities: No lower extremity edema. Neuro: Oriented X 3. No motor deficit. No sensory deficit. Medical Decision Making Medical Decision Making MDM Narrative: 48 yo female with PMH of chronic right sided abdominal pain, anxiety, depression, hypothyroidism, GERD here with c/o recurrent pain at this time will need basic labs, CT scan given concerns and PCP to plan getting CT scan could be renal colic, mass, colitis. PO valium Differential Diagnosis Differential Diagnoses: The differential diagnosis associated with the presentation includes renal colic, mass, colitis Admission/Observation Consideration of admission/observation: Escalation of care including admission/observation considered labs and workup reassuring stable for DC Lab Data MDM Lab Attestation statement: I reviewed the patient's lab results. 10/13/23 21:29 10/13/23 21:29 Labs: Lab Results 10/13/23 10/13/23 Range/Units 21:29 21:30 WBC 8.7 (4.8-10.8) X10*3/uL RBC 3.92 L (4.20-5.50) X10*6/uL Hgb 12.2 (12.0-16.0) g/dl Hct 36.1 L (37.0-47.0) % MCV 92.1 (80.0-98.0) fL MCH 31.1 (27.0-33.0) pg MCHC 33.8 (31.0-35.0) g/dl RDW 13.1 (11.0-16.0) % Plt Count 224 (160-400) X10*3/uL MPV 11.2 (9.4-12.3) fL Immature Gran % (Auto) 0.1 (0.0-0.4) % Neut % (Auto) 49.4 (45-73) % Lymph % (Auto) 40.8 H (20-40) % Slope % (Auto) 6.7 (2-11) % Eos % (Auto) 2.2 (0-4) % Baso % (Auto) 0.8 (0-2) % Lymph # (Auto) 3.6 (1.2-4.9) X10*3/uL Slope # (Auto) 0.6 (0.1-1.2) X10*3/uL Eos # (Auto) 0.2 (0.0-0.4) X10*3/uL Baso # (Auto) 0.1 (0.0-0.2) X10*3/uL Abs Immat Gran (auto) 0.01 (0.00-0.03) X10*3/uL Absolute Neuts (auto) 4.3 (2.0-8.3) x10*3/uL Absolute Nucleated RBC 0.000 (0.0-0.012) X10*3/uL Nucleated RBC % (auto) 0.0 (0.0-0.2) /100WBC Sodium 140 (135-145) mmol/L Potassium 3.6 (3.3-5.1) mmol/L Chloride 106 (96-108) mmol/L Carbon Dioxide 26 (22-29) mmol/L Anion Gap 12 (12-20) BUN 17 H (9-16) mg/dL Creatinine 0.92 (0.5-1.4) mg/dL Estim Creat Clear Calc 72.4 Estimated GFR > 60 Random Glucose 126 H (60-115) mg/dL Calcium 9.6 D (8.4-10.2) mg/dL Total Bilirubin 0.2 (0.0-1.0) mg/dL AST 20 (5-31) U/L ALT 13 (0-31) U/L Alkaline Phosphatase 66 (39-117) U/L Total Protein 7.6 (6.5-8.0) g/dL Albumin 4.1 (3.5-5.0) g/dL Urine Color Yellow Urine Appearance Clear Urine pH 7.5 (5.0-9.0) Ur Specific [place] 1.010 (1.005-1.025) Urine Protein Negative (Neg-Trace) mg/dL Urine Glucose (UA) Negative (Negative) mg/dL Urine Ketones Negative (Negative) mg/dL Urine Blood Negative (Negative) Urine Nitrite Negative (Negative) Ur Leukocyte Esterase Negative (Negative) Urine RBC 0-2 (0-2) /HPF Urine WBC 0-5 (0-5) /HPF Ur Squamous Epith Cells 0-2 (0-2) /HPF Urine Bacteria None Seen (None Seen) Hyaline Casts 0-2 (0-2) /LPF Urine Test NEGATIVE (NEGATIVE) Independent Interpretation I performed an independent interpretation of an: CT Scan (no acute cause of pain) Radiology Impression Discussion of test interpretation with radiology: I have reviewed the radiologist's reading. External Record Review External record reviewed: Inpatient record Prescription Management I considered prescription management with: Other Discharge Plan Discharge Clinical Impression: Chronic abdominal pain Patient Disposition: Home, Self-Care Instructions: Abdominal Pain (ED) Additional Instructions: labs and urine normal CT scan no acute cause of your pain please follow up with your doctor return for any worsening symptoms or concerns FINDINGS: LUNG BASES: The visualized lung bases are unremarkable. LIVER, GALLBLADDER, AND BILIARY TREE: The liver is normal in size, shape, and attenuation. No focal hepatic lesion or biliary ductal dilatation is present. The gallbladder is unremarkable with no evidence of radiopaque gallstones, gallbladder wall thickening, or obvious pericholecystic inflammatory changes. PANCREAS: Unremarkable. SPLEEN: Unremarkable. ADRENAL GLANDS: Unremarkable. KIDNEYS AND URETERS: The kidneys are normal in size, shape, and attenuation. No hydronephrosis, hydroureter, or calculi seen. No perinephric stranding. BLADDER: Unremarkable. GASTROINTESTINAL TRACT: Stomach, small bowel, and colon are normal in caliber. No bowel wall thickening or surrounding inflammatory changes. Appendix is surgically absent. No intraperitoneal free fluid or free air. Moderate volume of stool in the colon. ABDOMINAL WALL: Circumferential reticular scar tissue in the abdominal subcutaneous fat is consistent with prior liposuction. Mild diastasis recti. No hernia. LYMPH NODES: Normal. VASCULAR: Unremarkable. PELVIC VISCERA: The uterus and adnexa are unremarkable. OSSEOUS STRUCTURES: Minimal osteoarthritis in the hips and mild to moderate facet arthropathy in the lower lumbar spine. No acute osseous findings. CT/CT abdomen pelvis wo IV con IMPRESSION: 1. No acute intra-abdominal or intrapelvic abnormalities. No nephrolithiasis or hydronephrosis. 2. Status post appendectomy Prescriptions: No Action baclofen 10 mg tablet 10 mg PO TID PRN (Reason: muscle spasms) 30 Days Qty: 90 2RF cholecalciferol (vitamin D3) 50 mcg (2,000 unit) capsule 50 mcg PO DAILY 90 Days Qty: 90 3RF ferrous sulfate [Feosol] 325 mg (65 mg iron) tablet 325 mg PO DAILY 30 Days Qty: 30 5RF fluoxetine 20 mg capsule 20 mg PO DAILY 90 Days Qty: 90 1RF fluticasone propionate 50 mcg/actuation spray,suspension 2 spray intranasal DAILY PRN (Reason: allergy symptoms) 30 Days Qty: 16 5RF Rx Instructions: administer into each nostril gabapentin 300 mg capsule 300 mg PO TID 30 Days Qty: 90 3RF lidocaine 5 % ointment 1 appl topical .four time a day PRN (Reason: pain) Qty: 50 5RF Rx Instructions: apply pea size amount 3 to 4 times a day mecobalamin (vitamin B12) 1,000 mcg tablet,chewable 1,000 mcg PO DAILY 90 Days Qty: 90 3RF meloxicam 15 mg tablet 15 mg PO DAILY Qty: 14 0RF midodrine 5 mg tablet 5 mg PO TID 30 Days Qty: 90 2RF Rx Instructions: do not give last dose of day after 6PM or within 4 hrs of bedtime mirtazapine 30 mg tablet 30 mg PO BEDTIME 90 Days Qty: 90 1RF tramadol 50 mg tablet 50 mg PO DAILY PRN (Reason: pain) 30 Days Qty: 30 1RF levothyroxine 25 mcg tablet 25 mcg PO QAM 90 Days Qty: 90 1RF lorazepam 1 mg tablet 1 mg PO BEDTIME PRN (Reason: anxiety) 30 Days Qty: 30 0RF ibuprofen 600 mg tablet 600 mg PO Q6H PRN (Reason: fever or pain) Qty: 30 0RF simethicone [Gas-X Extra Strength] 125 mg capsule 125 mg PO DAILY PRN (Reason: abdominal distention) Qty: 20 0RF phenazopyridine [Pyridium] 100 mg tablet 100 mg PO Q8H Qty: 10 0RF dicyclomine 20 mg tablet 20 mg PO QID PRN (Reason: abdominal pain) Qty: 30 0RF methocarbamol 750 mg tablet 750 mg PO Q6H PRN (Reason: muscle spasm) Qty: 20 0RF pantoprazole 40 mg tablet,delayed release (DR/EC) 40 mg PO BID cholecalciferol (vitamin D3) 50 mcg/drop (2, 000 unit/drop) drops 50 mcg PO DAILY erythromycin 5 mg/gram (0.5 %) ointment 1 appl ophthalmic (eye) BID 5 Days Qty: 3.5 1RF Rx Instructions: Apply 0.5 inch to lower lid of left eye 4 times daily for 5 days loratadine 10 mg tablet 10 mg PO DAILY PRN (Reason: allergy symptoms) 90 Days Qty: 90 1RF Print Language: Ukrainian
[2023-10-14] MEDS: diazePAM 2 MG TABLET PO (02:46)
[2023-10-14 02:51] VITALS: BP 135/63; PULSE 104; RESP 16; TEMP 36.8; O2SAT 99
== END 2023-10-14 02:52 | disposition home or self-care (01) ==
PROVIDERS: Emergency Provider Emergency Medicine; PCP Internal Medicine
DX: R10.31 Right lower quadrant pain (principal); R14.0 Abdominal distension (gaseous); Z79.899 Other long term (current) drug therapy
CPT/HCPCS: 36415; 74176; 80053; 81001; 81025; 85025; 99284

== ENCOUNTER 2023-10-18 16:05 | Outpatient (AMB) | payer OTHER, SELFPAY ==
--- NOTE | 2023-10-18 16:10 | MHC.PC.OV ---
Vital Signs 10/18/23 16:11 Height 5 ft 4 in Weight 160 lb BMI 27.5 BP 122/80 Blood Pressure Location Lt brachial Position Sitting Pulse 77 Pulse Source Pulse Oximeter Pulse Oximetry (%) 99 Oxygen Delivery Method Room Air Intake Visit Reasons: [facility] Follow Up Abd pain Supersonic Engineer: Not Required per policy Accompanied by: Self / Same As Patient Allergies Penicillins [PENICILLINS] Allergy (Unknown, Verified 10/18/23 19:02) RASH Medication List - Last Reconciled 10/18/23 by Chandu Ruvalcaba MD baclofen 10 mg PO TID PRN 30 days cholecalciferol (vitamin D3) 50 mcg PO DAILY 90 days cholecalciferol (vitamin D3) 50 mcg PO DAILY dicyclomine 20 mg PO QID PRN erythromycin 1 appl ophthalmic (eye) BID 5 days ferrous sulfate (Feosol) 325 mg PO DAILY 30 days fluoxetine 20 mg PO DAILY 90 days fluticasone propionate 50 mcg/actuation 2 sprays intranasal DAILY PRN 30 days gabapentin 300 mg PO TID 30 days ibuprofen 600 mg PO Q6H PRN levothyroxine 25 mcg PO QAM 90 days lidocaine 5% 1 appl topical .four time a day PRN loratadine 10 mg PO DAILY PRN 90 days lorazepam 1 mg PO BEDTIME PRN 30 days mecobalamin (vitamin B12) 1,000 mcg PO DAILY 90 days meloxicam 15 mg PO DAILY methocarbamol 750 mg PO Q6H PRN midodrine 5 mg PO TID 30 days mirtazapine 30 mg PO BEDTIME 90 days pantoprazole 40 mg PO BID phenazopyridine (Pyridium) 100 mg PO Q8H 6 doses simethicone (Gas-X Extra Strength) 125 mg PO DAILY PRN tramadol 50 mg PO DAILY PRN 30 days Tobacco use date assessed: 09/04/23 Dental Screening Dental Screen Date: 09/04/23 HPI [facility] Follow Up Abd pain HPI Details Patient comes in today for her HDF follow up visit She went to the ER a few days ago for chronic pain over the right side of her abdomen States that she also has a similar pain on the left side but the pain is milder and not as intense Recalls that her symptoms started after what she describes as a bout of intense work out back in April 2023 when she tried exercising at a local gym, and she suddenly felt a sharp pain on both sides of her lower abdomen (worse on the right side) and the pain has been recurring since, especially with activity and when she tenses her abdomen or when she bends over forward or backwards She points to her abdominal wall (muscles) as the area(s) where the pain is located She denies any nausea or vomiting and states that her bowel movements are normal; she also denies any acute urinary symptoms She had abdominal and pelvic CT done at the ER, which came out with no acute abnormalities She also had an abdominal US done back in June 2023 that also came out normal She is now here for follow up and states that she is desperate for answers and is wondering what else we can do to help her find out the source of her pain She reports undergoing liposuction about 7 years ago in [place] but states that she has not had any abdominal pain until this past April (2023) so she does not think that her past surgery has anything to do with her current symptoms [facility] Medical History Annual physical exam Fatigue Nasal dryness Localized swelling of left foot Left foot pain Upper respiratory tract infection Intestinal parasitism, unspecified Left ear pain Sty, external Palpitations Colonoscopy refused Overweight (BMI 25.0-29.9) Depression Anxiety Chronic right sacroiliac joint pain Lumbar degenerative disc disease Orthostatic hypotension Allergic rhinitis Fibromyalgia Acquired hypothyroidism Vitamin D deficiency Varicose veins of bilateral lower extremities with pain Coccydynia Surgical History H/O breast augmentation History of appendectomy History of arthroplasty of right knee History of tonsillectomy History of bladder suspension procedure History of delivery Family History Father No problems noted. Mother Myocardial infarction CVD (cardiovascular disease) Social History Housing: House Alcohol intake: never Patient Tobacco Use Status: Never used Tobacco e-Cigarette/Vaping Use: Never Used Second Hand Smoke Exposure: No service: No Current occupational status: disabled Current occupation: Unemployed Cognitive needs: No Hearing needs: No Vision needs: Yes Questionnaire Thrive Questionnaire Date Thrive assessed: 09/04/23 HERLINDA-7 AMB Questionnaire HERLINDA-7 Date HERLINDA - 7 assessed: 09/04/23 Source: Developed by Drs. Burt Martines, Lili Peguero, Mike Khan and colleagues, with an educational claudine from [employer]. Review of Systems Const Denies chills, Denies fatigue, Denies fever(s) and Denies headache(s) ENT Denies dysphagia, Denies dizziness, Denies otalgia, Denies headache(s), Reports neck pain, Denies odynophagia and Denies sore throat Card Denies chest pain, Denies irregular heart rhythm, Denies palpitations and Denies dyspnea Resp Denies cough, Denies dyspnea and Denies wheezing GI Reports abdominal pain (over the lower abdomen wall bilaterally, worse on the right side), Denies constipation, Denies dysphagia, Denies heartburn, Denies diarrhea, Denies nausea, Denies odynophagia and Denies vomiting Denies urinary frequency, Denies dysuria and Denies urinary urgency Musc Reports back pain (over the lower back - chronic), Denies arthralgias and Reports neck pain Skin/Breast Denies rash Neuro Denies dizziness, Denies headache(s) and Reports paresthesias (on and off sensation of pins and needles over her lower abdomen) Psych Denies anxiety and Denies depression Endo Denies fatigue and Denies palpitations Neal/Lymph Denies easy bruising Aller/Immun Denies wheezing Physical exam (Primary Care) Vital Signs: Last Vital Signs Pulse 77 10/18/23 16:11 BP 122/80 10/18/23 16:11 Pulse Ox 99 10/18/23 16:11 Oxygen Delivery Method Room Air 10/18/23 16:11 BMI result Body Mass Index 27.5 Tobacco/Smoking Status: Tobacco use Status Tobacco use date assessed 09/04/23 10/18/23 16:15 Patient Tobacco Use Status Never used Tobacco 10/18/23 16:15 e-Cigarette/Vaping Use Never Used 10/18/23 16:15 Thrive Assessment: Date of Thrive Assessment Date Thrive assessed 09/04/23 10/18/23 16:15 Const General: no acute distress and alert HENMT Throat: Yes posterior oropharynx normal and Yes tonsils normal (no TP congestion) Neck Neck: Yes no lymphadenopathy Thyroid: Thyroid normal Resp Auscultation: clear to auscultation bilaterally, no rales and no wheezes Cardio Rate: regular rate Rhythm: regular rhythm Heart sounds: no murmurs GI Other: (+) tenderness on palpation over the right lower abdomen but the area of tenderness appear to be localized more to the abdominal wall muscle rather than intraabdominally Palpation (GI): Soft to palpation, no guarding, not rigid and No Rebound tenderness present Auscultation: normal bowel sounds General: Yes no CVA tenderness Back/Spine/Pelvis Back: no CVA tenderness Cervical Spine: Cervical spine tenderness Thoracic/Lumbar Spine: lumbar spinal tenderness Skin Rashes: no rashes Extrem General: Yes no clubbing, cyanosis or edema Assessment and Plan Assessment & Plan (1) Abdominal wall pain: Code(s): R10.9 - Unspecified abdominal pain Plan: Have discussed with patient that based on exam, her pain appears to be localized more on the right lower abdominal wall muscles and based on her recollection of events back in April 2023 when her symptoms started and her description of her symptoms currently, it seems likely that the cause of her pain is abdominal muscle strain or injury, which is quite severe given the duration and intensity of her pain She's had abdominal US done in June 2023 and abdominal / pelvic CT done a few days ago, all of which showed no acute findings Advised that sending her for an MRI would not provide us with any other helpful information that we do not already know of at this point If this is what is causing her pain, a referral to physical therapy may be helpful but the treatment for this is mostly conservative treatment, including rest, ice packs/warm compresses, use of abdominal support devices such as a brace as well as NSAIDs if they are tolerated Per request, will refer her to surgery for further evaluation and recommendations She has also requested for a referral to [facility] [place] Plan Follow up as scheduled in December 2023 Orders: Referrals General Surgery Referral R10.30 - Lower abdominal pain, unspecified, R10.9 - Unspecified abdominal pain Massage Therapy Referral R10.9 - Unspecified abdominal pain Coding Level of Care Code Est Pt Level 3 (36242) Diagnoses Abdominal wall pain R10.9
[2023-10-18 16:11] VITALS: BP 122/80; PULSE 77; O2SAT 99; BMI 27.5
== END 2023-10-18 17:13 | disposition home or self-care (01) ==
PROVIDERS: PCP Internal Medicine; Visit Provider Internal Medicine
DX: R10.9 Unspecified abdominal pain (principal)
CPT/HCPCS: 99213

== ENCOUNTER 2023-10-29 11:01 | Outpatient (AMB) | payer OTHER, SELFPAY ==
--- NOTE | 2023-10-29 11:12 | MHC.OFFVIS ---
Vital Signs 10/29/23 11:16 Height 5 ft 4 in Weight 161 lb BMI 27.6 BP 119/71 Blood Pressure Location Rt brachial Position Sitting Pulse 84 Intake Visit Reasons: Lower abdominal pain Intake Note: Patient referred by pcp Dr. Ruvalcaba for lower abdominal pain. Present for 6m. Hx of tumchicho tuneal in [place] 7yrs ago. Patient c/o: RLQ pain. Abdomen feels inflamed. 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 ABD CT: 10-14-2023. ABD US: 07-09-2023. Occupational Therapy Technician Required: No Accompanied by: Self / Same As Patient Allergies Penicillins [PENICILLINS] Allergy (Unknown, Verified 10/29/23 11:14) RASH HPI Comments Details: Patient presents with her daughter. She is 7 years status post abdominal plasty and bilateral breast lift who had this performed in [place]. She now presents here with a six-month history of flank and lower abdominal pain while doing workouts on a Wyle type work on apparatus. She otherwise is tolerating her diet. He is having regular bowel habits. She has not noticed any bulge or swelling of the abdominal wall. Patient was also unhappy with the left inframammary scar from her breast surgery. Patient has been seen in the ER because her symptoms and workup which included normal both ultrasound and CT scan of the abdomen. Chart was reviewed and patient evaluated COUNTS INCLUDE 234 BEDS AT THE [facility] Medical History Annual physical exam Fatigue Nasal dryness Localized swelling of left foot Left foot pain Upper respiratory tract infection Intestinal parasitism, unspecified Left ear pain Sty, external Palpitations Colonoscopy refused Overweight (BMI 25.0-29.9) Depression Anxiety Chronic right sacroiliac joint pain Lumbar degenerative disc disease Orthostatic hypotension Allergic rhinitis Fibromyalgia Acquired hypothyroidism Vitamin D deficiency Varicose veins of bilateral lower extremities with pain Coccydynia Surgical History H/O breast augmentation History of appendectomy History of arthroplasty of right knee History of tonsillectomy History of bladder suspension procedure History of delivery Family History Father No problems noted. Mother Myocardial infarction CVD (cardiovascular disease) Social History Housing: House Alcohol intake: never Patient Tobacco Use Status: Never used Tobacco e-Cigarette/Vaping Use: Never Used Second Hand Smoke Exposure: No service: No Current occupational status: disabled Current occupation: Unemployed Cognitive needs: No Hearing needs: No Vision needs: Yes Physical Exam Vital Signs: Last Vital Signs Pulse 84 10/29/23 11:16 BP 119/71 10/29/23 11:16 BMI result Body Mass Index 27.6 Chest Other: Right inframammary breast scar well healed. Left inframammary scar demonstrates hypertrophic scarring GI Other: Abdominoplasty scar well healed. Patient was examined both supine and standing with Valsalva. No evidence of any hernia or rectus diastasis demonstrated. Abdomen otherwise soft and benign. Assessment & Plan Assessment & Plan (1) Lower abdominal pain: Code(s): R10.30 - Lower abdominal pain, unspecified Category: Surgical (2) Abdominal pain, chronic, right lower quadrant: Code(s): R10.31 - Right lower quadrant pain; G89.29 - Other chronic pain Category: Surgical Plan Discussed with the patient and daughter that both clinically and radiographically there is no evidence of any hernia or any defects. At present, no acute surgical issues to be addressed. Unfortunately, her plastic surgeon is in [place]. I recommend that she contact her medical doctor and have them refer her to a plastic surgeon to see if there is any other workup that needs to be done. Her symptoms may be related to abdominal wall/scarring from her original surgeries. All questions answered. Patient will otherwise follow-up p.r.n. Coding Level of Care Code New Pt Level 4 (42425) Diagnoses Lower abdominal pain R10.30 Abdominal pain, chronic, right lower quadrant R10.31; G89.29
[2023-10-29 11:16] VITALS: BP 119/71; PULSE 84; BMI 27.6
== END 2023-10-29 11:29 | disposition home or self-care (01) ==
PROVIDERS: PCP Internal Medicine; Referring Provider Internal Medicine; Visit Provider Surgery
DX: R10.30 Lower abdominal pain, unspecified (principal); R10.31 Right lower quadrant pain; G89.29 Other chronic pain
CPT/HCPCS: 99203

== ENCOUNTER → 2023-10-29 11:01 | Outpatient (BNVA) | payer OTHER, SELFPAY | PROVIDERS: PCP Internal Medicine; Referring Provider Internal Medicine; Visit Provider Surgery | DX: R10.30 Lower abdominal pain, unspecified (principal); R10.31 Right lower quadrant pain; G89.29 Other chronic pain | CPT/HCPCS: 99202 ==

== ENCOUNTER 2023-11-07 14:11 | Outpatient (AMB) | payer OTHER, SELFPAY ==
--- NOTE | 2023-11-07 14:16 | MHC.OFFVIS ---
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 She reports that this pain started 1 year ago. She reports that she can not sleep normally because of her pain but she can do activity of daily living, she can care for herself, but she can not function normally. She has homemaker. Weather changes aggravate her pain. Heat applications alleviate her pain. She tried ibuprofen and it gives her temporary pain relief. She had CT scan of the abdomen and pelvis which is available at [facility]. However she never had any images of the lumbar spine. On the CT of the abdomen and pelvis there was demonstration of the arthritis of the lower lumbar spine as well as mild arthritis of bilateral hips. She had massage therapy for her painful area which gave her some temporary pain relief. However very soon after the completion of the massage the pain would come back. She never had any injections. Her past medical history significant for anxiety and hypothyroidism she is taking levothyroxine. Past surgical history significant for 2 C sections, tonsillectomy, and bladder suspension surgery. She denies smoking cigarettes she denies drinking alcohol she admits drinking coffee and she denies recreational drugs. [facility] Medical History Annual physical exam Fatigue Nasal dryness Localized swelling of left foot Left foot pain Upper respiratory tract infection Intestinal parasitism, unspecified Left ear pain Sty, external Palpitations Colonoscopy refused Overweight (BMI 25.0-29.9) Depression Anxiety Chronic right sacroiliac joint pain Lumbar degenerative disc disease Orthostatic hypotension Allergic rhinitis Fibromyalgia Acquired hypothyroidism Vitamin D deficiency Varicose veins of bilateral lower extremities with pain Coccydynia Surgical History H/O breast augmentation History of appendectomy History of arthroplasty of right knee History of tonsillectomy History of bladder suspension procedure History of delivery Family History Father No problems noted. Mother Myocardial infarction CVD (cardiovascular disease) Social History Housing: House Alcohol intake: never Patient Tobacco Use Status: Never used Tobacco e-Cigarette/Vaping Use: Never Used Second Hand Smoke Exposure: No service: No Current occupational status: disabled Current occupation: Unemployed Cognitive needs: No Hearing needs: No Vision needs: Yes Review of Systems Const Reports no additional complaints ENT Reports Normal hearing present Card Reports no additional complaints Resp Reports no additional complaints GI Reports no additional complaints Reports no additional complaints Musc Reports as per HPI Neuro Reports no additional complaints, Reports Normal hearing present, Denies Abnormal speech present, Denies confusion and Denies Sensory deficit (Neuro) Psych Reports no additional complaints and Denies confusion Endo Reports as per HPI Neal/Lymph Reports no additional complaints Aller/Immun Reports no additional complaints Physical Exam Const General: no acute distress; No confusion Orientation/consciousness: patient oriented x3 and No confusion Eyes General: appearance normal, both eyes and all related structures Pupils: Equal, round and reactive pupils present EOM: EOMs intact bilaterally Neck Neck: Yes full ROM Chest Chest palpation & inspection: normal inspection of the chest Resp Effort & Inspection: normal respiratory effort, able to speak in complete sentences, normal respiratory pattern, no audible wheezes and no cough Cardio Jugular venous distension: no JVD GI Inspection: Yes normal to inspection Back/Spine/Pelvis Other: Tenderness on palpation in the projection of the right sacroiliac joint. Angel test is positive on the right. Pelvis compression and pelvis contraction tests are positive on the right. Lateral rotation of the hip and medial rotation of the hip do not aggravate her pain. Especially medial rotation of the hip does not cause any pain aggravation in the projection of her pain. Neuro General: patient oriented x3, gait normal and No confusion Cranial nerves: Yes CN's II-XII intact bilaterally, Yes Equal, round and reactive pupils present, Yes Normal hearing present and Yes Ability to bilaterally elevate shoulders present Speech: No Abnormal speech present Gait exam (Neuro): Normal gait present Motor exam (neuro): 5/5 motor strength present throughout Sensory Exam: No Sensory deficit (Neuro) Extrem General: No pedal edema Psych Speech and movement: Normal speech and movement present Affect: normal affect Attitude: cooperative Thought process: Normal thought process present Thought content: Normal thought content present Insight: Good insight present (Psych) Judgement: Good judgement present (Psych) Assessment & Plan Assessment & Plan (1) Sacroiliitis: Code(s): M46.1 - Sacroiliitis, not elsewhere classified Category: Medical (2) Sacroiliac joint dysfunction of right side: Code(s): M53.3 - Sacrococcygeal disorders, not elsewhere classified Category: Medical Plan It seemed to me that this patient is suffering from sacroiliitis. She has history of multiparity. It is usual history with sacroiliac joint problems. I will schedule her for diagnostic sacroiliac joint injection. I will see this patient immediately after the procedure. Coding Level of Care Code New Pt Level 3 (46366) Diagnoses Sacroiliitis M46.1 Sacroiliac joint dysfunction of right side M53.3
== END 2023-11-07 14:34 | disposition home or self-care (01) ==
PROVIDERS: PCP Internal Medicine; Referring Provider Nurse Practitioner Family; Visit Provider Anesthesiology
DX: M46.1 Sacroiliitis, not elsewhere classified (principal); M53.3 Sacrococcygeal disorders, not elsewhere classified
CPT/HCPCS: 99204

== ENCOUNTER → 2023-11-07 14:11 | Outpatient (BNVA) | payer OTHER, SELFPAY | PROVIDERS: PCP Internal Medicine; Referring Provider Nurse Practitioner Family; Visit Provider Anesthesiology | DX: M46.1 Sacroiliitis, not elsewhere classified (principal); M53.3 Sacrococcygeal disorders, not elsewhere classified | CPT/HCPCS: 99202 ==

== ENCOUNTER 2023-11-18 13:49 | Outpatient (AMB) | payer OTHER, SELFPAY ==
[2023-11-18 13:55] VITALS: BMI 28.3
--- NOTE | 2023-11-18 13:55 | MHC.OFFVIS ---
Vital Signs 11/18/23 13:55 Height 5 ft 4 in Weight 165 lb BMI 28.3 Intake Visit Reasons: abdominal pain from surg site Intake Note: This patient presents for an assessment for incisional pain, Hx tummy ck in [place] 7 years ago. Patient c/o; reports bloating, discomfort, reports no changes in bowel habits, reports pain RLQ. Admission Nurse Coordinator Required: No Accompanied by: Self / Same As Patient Allergies Penicillins [PENICILLINS] Allergy (Unknown, Verified 11/18/23 14:03) RASH Medication List - Last Reconciled 11/18/23 by Gigi Vang MD baclofen 10 mg PO TID PRN 30 days cholecalciferol (vitamin D3) 50 mcg PO DAILY 90 days cholecalciferol (vitamin D3) 50 mcg PO DAILY dicyclomine 20 mg PO QID PRN erythromycin 1 appl ophthalmic (eye) BID 5 days ferrous sulfate (Feosol) 325 mg PO DAILY 30 days fluoxetine 20 mg PO DAILY 90 days fluticasone propionate 50 mcg/actuation 2 sprays intranasal DAILY PRN 30 days gabapentin 300 mg PO TID 30 days ibuprofen 600 mg PO Q6H PRN levothyroxine 25 mcg PO QAM 90 days lidocaine 5% 1 appl topical .four time a day PRN loratadine 10 mg PO DAILY PRN 90 days lorazepam 1 mg PO BEDTIME PRN 30 days mecobalamin (vitamin B12) 1,000 mcg PO DAILY 90 days meloxicam 15 mg PO DAILY methocarbamol 750 mg PO Q6H PRN midodrine 5 mg PO TID 30 days mirtazapine 30 mg PO BEDTIME 90 days pantoprazole 40 mg PO BID phenazopyridine (Pyridium) 100 mg PO Q8H 6 doses simethicone (Gas-X Extra Strength) 125 mg PO DAILY PRN tramadol 50 mg PO DAILY PRN 30 days HPI HPI abdominal pain from surg site: Details: 48-year-old female, who previously had an abdominoplasty and liposuction in [place] 7 years ago, now the office because of what she says was ?bulging? of her abdomen. She actually had been seen by Dr. Palencia about 3 weeks ago here in the office as well. She had mentioned some pain on the abdominal wall. She was told that her CT scan did not really feel any hernia. She says she wanted to see a plastic surgeon as why she came to the office. She says she wants the bulge on her entire abdominal wall fixed. She denies GI complaints. She says she already talked to her plastic surgeon in [place] who told her that she needs a procedure for ?diastasis?. [facility] Medical History (Updated 11/18/23 @ 14:21 by Gigi Vang MD) Diastasis of rectus abdominis Annual physical exam Fatigue Nasal dryness Localized swelling of left foot Left foot pain Upper respiratory tract infection Intestinal parasitism, unspecified Left ear pain Sty, external Palpitations Colonoscopy refused Overweight (BMI 25.0-29.9) Depression Anxiety Chronic right sacroiliac joint pain Lumbar degenerative disc disease Orthostatic hypotension Allergic rhinitis Fibromyalgia Acquired hypothyroidism Vitamin D deficiency Varicose veins of bilateral lower extremities with pain Coccydynia Surgical History H/O breast augmentation History of appendectomy History of arthroplasty of right knee History of tonsillectomy History of bladder suspension procedure History of delivery Family History Father No problems noted. Mother Myocardial infarction CVD (cardiovascular disease) Social History Housing: House Alcohol intake: never Patient Tobacco Use Status: Never used Tobacco e-Cigarette/Vaping Use: Never Used Second Hand Smoke Exposure: No service: No Current occupational status: disabled Current occupation: Unemployed Cognitive needs: No Hearing needs: No Vision needs: Yes Review of Systems Const Denies chills and Denies fever(s) Card Denies chest pain, Denies dyspnea and Denies dyspnea on exertion Resp Denies cough, Denies dyspnea and Denies dyspnea on exertion GI Denies hematochezia and Denies change in bowel habits Denies hematuria Musc Denies back pain and Denies limited range of motion Neuro Denies focal weakness and Denies convulsions Psych Denies depression and Denies mood swings Physical Exam Vital Signs: BMI result Body Mass Index 28.3 GI Other: Question of diastasis of the abdominal wall Assessment & Plan Assessment & Plan (1) Diastasis of rectus abdominis: Code(s): M62.08 - Separation of muscle (nontraumatic), other site Category: Medical Plan: She has a history of abdominoplasty and liposuction in [place]. She now says that she feels that her abdominal wall is ?bulging?. Her CAT scan shows some mild diastasis. She says she wants to see a plastic surgeon as this was what her original plastic surgeon for in [place] had recommended. I have given her the phone number for Dr. Lindy Mane of Plastic surgery in [place]. The patient understood the plan and was comfortable with this. Coding Level of Care Code Est Pt Level 2 (78607) Diagnoses Diastasis of rectus abdominis M62.08
== END 2023-11-18 14:20 | disposition home or self-care (01) ==
PROVIDERS: PCP Internal Medicine; Visit Provider Surgery
DX: M62.08 Separation of muscle (nontraumatic), other site (principal)
CPT/HCPCS: 99212

== ENCOUNTER → 2023-11-18 13:49 | Outpatient (BNVA) | payer OTHER, SELFPAY | PROVIDERS: PCP Internal Medicine; Visit Provider Surgery | DX: M62.08 Separation of muscle (nontraumatic), other site (principal); R10.9 Unspecified abdominal pain | CPT/HCPCS: 99212 ==

== ENCOUNTER 2023-12-06 11:56 | Outpatient (AMB) | payer OTHER, SELFPAY ==
--- NOTE | 2023-12-06 12:29 | MHC.PC.OV ---
Vital Signs 12/06/23 12:34 Height 5 ft 4 in Weight 162 lb 4 oz BMI 27.8 BP 96/58 L Blood Pressure Location Lt brachial Position Sitting Pulse 76 Pulse Source Pulse Oximeter Pulse Oximetry (%) 97 Oxygen Delivery Method Room Air Intake Visit Reasons: EDF [facility] 12/03 Stomach Pains Intake Note: Pt is here for F/U from Urgent Care in [place] for Abdominal pain. 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 Pt was seen at an 12/02/23 for c/o ongoing chronic lower abdominal pain. Pt has h/o Abdominoplasty with liposuction done 7 years ago in [place]. Pt has been seen multiple times in Emergency room, 4 times only this year for similar problem. All imaging and Labs unremarkable so far. She has been seen twice with General surgery (October and November 2023) - they concluded probably is the Diastasis of Rectus Abdominis . General surgery recommended seeing Dr. Lindy Mane Plastics (Pt was given phone number and address to call). Plus PCP placed Plastic surgery referral back in 11/20/23. According to Pt she never received any Appointment letters. Pt was seen and evaluated by [facility] Pain management who diagnosed her with Sacroillitis hip joint. She was suppose to be receiving Joint pain injection, but not clear if this was done or not. COUNT INCLUDES THE [facility] Medical History (Updated 11/18/23 @ 14:21 by Gigi Vang MD) Diastasis of rectus abdominis Annual physical exam Fatigue Nasal dryness Localized swelling of left foot Left foot pain Upper respiratory tract infection Intestinal parasitism, unspecified Left ear pain Sty, external Palpitations Colonoscopy refused Overweight (BMI 25.0-29.9) Depression Anxiety Chronic right sacroiliac joint pain Lumbar degenerative disc disease Orthostatic hypotension Allergic rhinitis Fibromyalgia Acquired hypothyroidism Vitamin D deficiency Varicose veins of bilateral lower extremities with pain Coccydynia Surgical History H/O breast augmentation History of appendectomy History of arthroplasty of right knee History of tonsillectomy History of bladder suspension procedure History of delivery Family History Father No problems noted. Mother Myocardial infarction CVD (cardiovascular disease) Social History Housing: House Alcohol intake: never Patient Tobacco Use Status: Never used Tobacco e-Cigarette/Vaping Use: Never Used Second Hand Smoke Exposure: No service: No Current occupational status: disabled Current occupation: Unemployed Cognitive needs: No Hearing needs: No Vision needs: Yes Questionnaire Thrive Questionnaire Date Thrive assessed: 09/04/23 HERLINDA-7 AMB Questionnaire HERLINDA-7 Date HERLINDA - 7 assessed: 09/04/23 Source: Developed by Drs. Brut Martines, Lili Peguero, Mike Khan and colleagues, with an educational claudine from [employer]. Physical exam (Primary Care) Vital Signs: Last Vital Signs Pulse 76 12/06/23 12:34 BP 96/58 L 12/06/23 12:34 Pulse Ox 97 12/06/23 12:34 Oxygen Delivery Method Room Air 12/06/23 12:34 BMI result Body Mass Index 27.8 Tobacco/Smoking Status: Tobacco use Status Tobacco use date assessed 09/04/23 12/06/23 12:29 Patient Tobacco Use Status Never used Tobacco 12/06/23 12:29 e-Cigarette/Vaping Use Never Used 12/06/23 12:29 Thrive Assessment: Date of Thrive Assessment Date Thrive assessed 09/04/23 12/06/23 12:29 Const General: cooperative and no acute distress Orientation/consciousness: patient oriented x3 Limitations: language barrier GI Palpation (GI): Soft to palpation, not firm, Tenderness to palpation present (GI) in the RLQ, no guarding, not rigid and No hepatosplenomegaly present Auscultation: normal bowel sounds Neuro General: patient oriented x3, gait normal and moves all extremities Psych Speech and movement: Normal speech and movement present Vital Signs: Last Vital Signs Pulse 76 12/06/23 12:34 BP 96/58 L 12/06/23 12:34 Pulse Ox 97 12/06/23 12:34 Oxygen Delivery Method Room Air 12/06/23 12:34 BMI result Body Mass Index 27.8 Const General: cooperative and no acute distress Orientation/consciousness: patient oriented x3 Limitations: language barrier GI Palpation (GI): Soft to palpation, not firm, Tenderness to palpation present (GI) in the RLQ, no guarding, not rigid and No hepatosplenomegaly present Auscultation: normal bowel sounds Neuro General: patient oriented x3, gait normal and moves all extremities Psych Speech and movement: Normal speech and movement present Assessment and Plan Assessment & Plan (1) Diastasis of rectus abdominis: Code(s): M62.08 - Separation of muscle (nontraumatic), other site Plan: Advised Pt to call Plastic surgeons as directed, and referral was already done by PCP. (2) Sacroiliitis: Code(s): M46.1 - Sacroiliitis, not elsewhere classified Plan: Not clear if Patient received the Joint injection as stated on Pain management notes. Pt does not know. (3) Lower abdominal pain: Code(s): R10.30 - Lower abdominal pain, unspecified Plan: Believed to be related to Diastasis of Rectus Abdominis Coding Level of Care Code Est Pt Level 4 (83287) Diagnoses Diastasis of rectus abdominis M62.08 Sacroiliitis M46.1 Lower abdominal pain R10.30 Time Spent (min) 20 Comment Spent on reviewing hospital notes and Patient education
[2023-12-06 12:34] VITALS: BP 96/58; PULSE 76; O2SAT 97; BMI 27.8
== END 2023-12-06 12:54 | disposition home or self-care (01) ==
PROVIDERS: PCP Internal Medicine; Visit Provider Nurse Practitioner Family
DX: M62.08 Separation of muscle (nontraumatic), other site (principal); M46.1 Sacroiliitis, not elsewhere classified; R10.30 Lower abdominal pain, unspecified
CPT/HCPCS: 99213

== ENCOUNTER 2024-01-29 09:43 | Outpatient (REF) | payer OTHER, SELFPAY ==
[2024-01-29 10:11] LABS: MANUAL DIFF FLAG NO
[2024-01-29 10:32] LABS: Basophils Percent Auto 0.7 % (0-2); Eosinophils Absolute Auto 0.2 X10*3/uL (0.0-0.4); Eosinophils Percent Auto 4.1 % (0-4); Hematocrit 38.2 % (37.0-47.0); Hemoglobin 12.6 g/dl (12.0-16.0); Imm Gran Abs Auto 0.01 X10*3/uL (0.00-0.03); Imm Gran Pct Auto 0.2 % (0.0-0.4); Lymphocytes Absolute Auto 1.9 X10*3/uL (1.2-4.9); Lymphocytes Percent Auto 32.6 % (20-40); Mean Corpuscular Hemoglobin 30.5 pg (27.0-33.0); Mean Corpuscular Volume 92.5 fL (80.0-98.0); Mean Platelet Volume 11.2 fL (9.4-12.3); Monocytes Absolute Auto 0.3 X10*3/uL (0.1-1.2); Monocytes Percent Auto 5.8 % (2-11); Neutrophils Absolute Auto 3.3 x10*3/uL (2.0-8.3); Neutrophils Percent Auto 56.6 % (45-73); Platelet Count 216 X10*3/uL (160-400); Red Blood Count 4.13 X10*6/uL (4.20-5.50); Red Cell Distribution Width 13.3 % (11.0-16.0); White Blood Count 5.9 X10*3/uL (4.8-10.8)
[2024-01-29 10:44] LABS: Appearance Urine Clear; Color Urine Yellow; Glucose Urine UA Negative (Negative); Leukocyte Esterase Urine Negative (Negative); Nitrite Urine Negative (Negative); Specific Gravity - Urine 1.015 (1.005-1.025); Urine Blood Negative (Negative); Urine Ketones Negative (Negative); Urine Protein Negative (Neg-Trace)
[2024-01-29 11:31] LABS: Alanine Aminotransferase 20 U/L (0-31); Albumin Level 3.9 g/dL (3.5-5.0); Alkaline Phosphatase 71 U/L (39-117); Anion Gap 10 (12-20); Aspartate Amino Transferase 20 U/L (5-31); Bilirubin Total 0.4 mg/dL (0.0-1.0); Blood Urea Nitrogen 13 mg/dL (9-16); Calcium 9.3 mg/dL (8.4-10.2); Carbon Dioxide 27 mmol/L (22-29); Chloride 108 mmol/L (96-108); Cholesterol 158 mg/dL (<200); Estimated Glomerular Filt Rate > 60; Glucose Fasting 91 mg/dL (60-99); HDL Cholesterol 58 mg/dL (>40); Iron 83 mcg/dL (30-160); LDL Cholesterol Calculated 92 mg/dL (<100); Percent Iron Saturation 31 % (15-50); Sodium 141 mmol/L (135-145); Total Iron Binding Capacity 269 mcg/dL (228-428); Total Protein 7.4 g/dL (6.5-8.0); Triglycerides 40 mg/dL (<150); Unsaturated Iron Binding 186 ug/dL
[2024-01-29 11:36] LABS: Thyroid Stimulating Hormone 2.06 uIU/mL (0.32-4.0); Vitamin D 25-OH Total 63.6 ng/mL (>30)
== END 2024-01-29 09:44 | disposition home or self-care (01) ==
LOC: HO.LAB 09:43
PROVIDERS: PCP Internal Medicine; Visit Provider Physician Assistant
DX: D64.9 Anemia, unspecified (principal); E78.00 Pure hypercholesterolemia, unspecified; D50.9 Iron deficiency anemia, unspecified; E55.9 Vitamin D deficiency, unspecified; R30.0 Dysuria; E03.9 Hypothyroidism, unspecified
CPT/HCPCS: 36415; 80053; 80061; 81003; 82306; 83540; 84439; 84443; 85025

== ENCOUNTER 2024-02-06 13:02 | Outpatient (AMB) | payer OTHER, SELFPAY ==
--- NOTE | 2024-02-06 13:04 | AM.OFFWIN_ITS ---
Intake Vital Signs 02/06/24 13:08 Weight 162 lb BP 108/74 Blood Pressure Location Lt brachial Position Sitting Pulse 77 Pulse Source Pulse Oximeter Pulse Oximetry (%) 98 Oxygen Delivery Method Room Air Intake Visit Reasons: EP-fissure Intake Note: Patient here for fissure that has been present for about 6 months now. no constipation, no diarrhea and no stomach pain just has been very uncomfortable. She states she previously had this years back and had surgery done. Patient Tobacco Use Status: Never used Tobacco Allergies Penicillins [PENICILLINS] Allergy (Unknown, Verified 02/06/24 13:07) RASH Do you need a note to return to daycare/school/sports/work: No HPI HPI Comments History of Present Illness Details Patient is a 48-year-old female complaining of an anal fissure which she says has been present for the last 6 months. She tells me that approximately 10 years ago she had it repaired in her home country of [place]. She tells me she knows the symptoms and she is feeling exactly the same pain as she felt before. She denies any feelings of tearing or ripping or burning when she has a bowel movement. She tells me she has been moving her bowels normally and denies any bloody or black bowel movements. She denies a history of Crohn's disease. She says her pain is worse when she sits and has to sit on the side of her bottom. She tells me she saw a GI doctor for this at [facility], they prescribed some kind of compounded medication which she used for 3 months but had no improvement in her symptoms. So then they referred her to a surgeon and that surgeon told her she did not have an anal fissure. She has a picture which she took and showed me, which appears to be an anal fissure. FORMERLY [facility], [facility] Medical History (Updated 02/06/24 @ 13:45 by Belkis Coburn PA-C) Diastasis of rectus abdominis Annual physical exam Fatigue Nasal dryness Localized swelling of left foot Left foot pain Upper respiratory tract infection Intestinal parasitism, unspecified Left ear pain Sty, external Palpitations Colonoscopy refused Overweight (BMI 25.0-29.9) Depression Anxiety Chronic right sacroiliac joint pain Lumbar degenerative disc disease Orthostatic hypotension Allergic rhinitis Fibromyalgia Acquired hypothyroidism Vitamin D deficiency Varicose veins of bilateral lower extremities with pain Coccydynia Surgical History H/O breast augmentation History of appendectomy History of arthroplasty of right knee History of tonsillectomy History of bladder suspension procedure History of delivery Family History Father No problems noted. Mother Myocardial infarction CVD (cardiovascular disease) Social History Housing: House Alcohol intake: never Patient Tobacco Use Status: Never used Tobacco e-Cigarette/Vaping Use: Never Used Second Hand Smoke Exposure: No service: No Current occupational status: disabled Current occupation: Unemployed Cognitive needs: No Hearing needs: No Vision needs: Yes Review of Systems Const All systems reviewed & are unremarkable except as noted in HPI and below Physical Exam Vital Signs: Last Vital Signs Pulse 77 02/06/24 13:08 BP 108/74 02/06/24 13:08 Pulse Ox 98 02/06/24 13:08 Oxygen Delivery Method Room Air 02/06/24 13:08 Const General: cooperative, healthy appearing, comfortable, no acute distress and well developed Orientation/consciousness: patient oriented x3 Limitations: no limitations HEENT Head: Yes normal to inspection Ears: hearing grossly normal bilaterally General nose exam: Normal external nose present Face and sinus: Yes normal facial exam Eyes General: appearance normal, both eyes and all related structures Neck Neck: Yes normal visual inspection and Yes full ROM Resp Effort & Inspection: normal respiratory effort and able to speak in complete sentences Skin General skin exam: no rashes or lesions noted Neuro General: patient oriented x3 Extrem General: Yes normal to inspection Assessment & Plan Assessment & Plan (1) Chronic anal fissure: Code(s): K60.1 - Chronic anal fissure Plan: Prescribed nitroglycerin 0.4% ointment twice daily for 2 weeks with the hope of improving her pain. Also sent her PCP a message to request a referral to surgery. Plan See above Medications: New nitroglycerin 0.4%(w/w) 1 inch IA BID 2 weeks 30 grams 0RF Coding Level of Care Code Est Pt Level 4 (07375) Diagnoses Chronic anal fissure K60.1
[2024-02-06 13:08] VITALS: BP 108/74; PULSE 77; O2SAT 98
== END 2024-02-06 13:52 | disposition home or self-care (01) ==
PROVIDERS: PCP Internal Medicine; Visit Provider Physician Assistant
DX: K60.1 Chronic anal fissure (principal)

== ENCOUNTER → 2024-02-06 13:02 | Outpatient (BNVA) | payer OTHER, SELFPAY | PROVIDERS: PCP Internal Medicine; Visit Provider Physician Assistant | DX: K60.1 Chronic anal fissure (principal) | CPT/HCPCS: 99212 ==

== ENCOUNTER 2024-04-07 14:48 | Outpatient (AMB) | payer OTHER, SELFPAY ==
--- NOTE | 2024-04-07 14:51 | MHC.PC.OV ---
Vital Signs 04/07/24 14:53 Height 5 ft 4 in Weight 166 lb 8 oz BMI 28.6 BP 102/72 Blood Pressure Location Lt brachial Position Sitting Pulse 77 Pulse Source Pulse Oximeter Pulse Oximetry (%) 99 Oxygen Delivery Method Room Air Intake Visit Reasons: 3 mth f/u Intake Note: Patient is here to follow up on LDDD, Hypothyroidism. Pt decline flu shot today. 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: Present Accompanied by: Daughter Allergies Penicillins [PENICILLINS] Allergy (Unknown, Verified 04/07/24 15:15) RASH Medication List - Last Reconciled 04/07/24 by Chandu Ruvalcaba MD baclofen 10 mg PO TID PRN 30 days cholecalciferol (vitamin D3) 50 mcg PO DAILY dicyclomine 20 mg PO QID PRN erythromycin 1 appl ophthalmic (eye) BID 5 days ferrous sulfate (Feosol) 325 mg PO DAILY 30 days fluoxetine 20 mg PO DAILY 90 days fluticasone propionate 50 mcg/actuation 2 sprays intranasal DAILY PRN 30 days gabapentin 300 mg PO TID 30 days ibuprofen 600 mg PO Q6H PRN levothyroxine 25 mcg PO QAM 90 days lidocaine 5% 1 appl topical .four time a day PRN loratadine 10 mg PO DAILY PRN 90 days lorazepam 1 mg PO BEDTIME PRN 30 days mecobalamin (vitamin B12) 1,000 mcg PO DAILY 90 days meloxicam 15 mg PO DAILY methocarbamol 750 mg PO Q6H PRN midodrine 5 mg PO TID 30 days mirtazapine 30 mg PO BEDTIME 90 days nitroglycerin 0.4%(w/w) 1 inch AR BID 2 weeks pantoprazole 40 mg PO BID phenazopyridine (Pyridium) 100 mg PO Q8H 6 doses simethicone (Gas-X Extra Strength) 125 mg PO DAILY PRN tramadol 50 mg PO DAILY PRN 30 days Tobacco use date assessed: 04/07/24 Dental Screening Dental Screen Date: 09/04/23 HPI 3 mth f/u HPI Details Patient comes in today for her follow up visit States that she continues to experience increased perirectal pain, which she states she's had for a few months now She is convinced that she has a perianal fissure presently as she claims that her current symptoms are exactly the same as her symptoms were about 10 years ago when she first had corrective surgery done for this in [place] She was supposedly seen by a surgeon at [facility] a few months ago who advised her that she has no fissures She is currently scheduled to be seen by a colorectal surgeon at [facility] for another opinion on this at the end of the month States that she has so far been prescribed Hydrocortisone cream and Nitroglycerin ointment for her perirectal pain with no relief and would like to be tried on something else that can help She states that she feels okay otherwise and denies any headaches or dizziness Denies any chest pains, no SOB; she still reports experiencing occasional brief bouts of sensations of palpitations, often when she feels upset or anxious States that these tend to last only for a few seconds and have not been associated with any other symptoms, including chest pains, SOB, dizziness or nausea No nausea/vomiting, no abdominal pain No change in bowel habits noted Needs several of her Rx refilled PFSH Medical History Diastasis of rectus abdominis Annual physical exam Fatigue Nasal dryness Localized swelling of left foot Left foot pain Upper respiratory tract infection Intestinal parasitism, unspecified Left ear pain Sty, external Palpitations Colonoscopy refused Overweight (BMI 25.0-29.9) Depression Anxiety Chronic right sacroiliac joint pain Lumbar degenerative disc disease Orthostatic hypotension Allergic rhinitis Fibromyalgia Acquired hypothyroidism Vitamin D deficiency Varicose veins of bilateral lower extremities with pain Coccydynia Surgical History H/O breast augmentation History of appendectomy History of arthroplasty of right knee History of tonsillectomy History of bladder suspension procedure History of delivery Family History Father No problems noted. Mother Myocardial infarction CVD (cardiovascular disease) Social History Housing: House Alcohol intake: never Patient Tobacco Use Status: Never used Tobacco e-Cigarette/Vaping Use: Never Used Second Hand Smoke Exposure: No service: No Current occupational status: disabled Current occupation: Unemployed Cognitive needs: No Hearing needs: No Vision needs: Yes Questionnaire Thrive Questionnaire Date Thrive assessed: 09/04/23 HERLINDA-7 AMB Questionnaire HERLINDA-7 Date HERLINDA - 7 assessed: 09/04/23 Source: Developed by Drs. Burt Martines, Lili Peguero, Mike Khan and colleagues, with an educational claudine from [employer]. Review of Systems Const Denies chills, Reports fatigue, Denies fever(s) and Denies headache(s) ENT Denies dysphagia, Denies dizziness, Denies otalgia, Denies headache(s), Reports neck pain, Denies odynophagia and Denies sore throat Card Denies chest pain, Denies irregular heart rhythm, Reports palpitations (occasional - see HPI) and Denies dyspnea Resp Denies chest congestion, Denies cough and Denies dyspnea GI Details: increased pain over her perianal area Denies abdominal pain, Denies constipation, Denies dysphagia, Denies heartburn, Denies diarrhea, Denies nausea, Denies odynophagia and Denies vomiting Denies urinary frequency, Denies dysuria and Denies urinary urgency Musc Reports back pain (over the lower back - chronic), Denies arthralgias and Reports neck pain Skin/Breast Denies rash Neuro Denies dizziness and Denies headache(s) Psych Denies anxiety and Denies depression Endo Reports fatigue and Reports palpitations (occasional - see HPI) Neal/Lymph Denies easy bruising Physical exam (Primary Care) Vital Signs: Last Vital Signs Pulse 77 04/07/24 14:53 BP 102/72 04/07/24 14:53 Pulse Ox 99 04/07/24 14:53 Oxygen Delivery Method Room Air 04/07/24 14:53 BMI result Body Mass Index 28.6 Tobacco/Smoking Status: Tobacco use Status Tobacco use date assessed 04/07/24 04/07/24 14:59 Patient Tobacco Use Status Never used Tobacco 04/07/24 14:59 e-Cigarette/Vaping Use Never Used 04/07/24 14:59 Thrive Assessment: Date of Thrive Assessment Date Thrive assessed 09/04/23 04/07/24 14:59 Const General: no acute distress and alert HENMT Throat: Yes posterior oropharynx normal and Yes tonsils normal (no TP congestion) Neck Neck: No lymphadenopathy Thyroid: Thyroid normal Resp Auscultation: clear to auscultation bilaterally, no rales and no wheezes Cardio Rate: regular rate Rhythm: regular rhythm Heart sounds: no murmurs GI Palpation (GI): Soft to palpation, no guarding, not rigid and No Rebound tenderness present Auscultation: normal bowel sounds General: Yes no CVA tenderness Back/Spine/Pelvis Back: no CVA tenderness Cervical Spine: Cervical spine tenderness Thoracic/Lumbar Spine: lumbar spinal tenderness Skin Rashes: no rashes Extrem General: Yes no clubbing, cyanosis or edema Results Reviewed Results Reviewed: Laboratory Tests 01/29/24 01/29/24 10:10 Unknown WBC 5.9 Hgb 12.6 Hct 38.2 Plt Count 216 Sodium 141 Potassium 4.0 Creatinine 0.87 Estimated GFR > 60 Fasting Glucose 91 Calcium 9.3 AST 20 ALT 20 Triglycerides 40 Cholesterol 158 LDL Cholesterol, Calc 92 HDL Cholesterol 58 25-OH Vitamin D Total 63.6 TSH 2.06 Free T4 1.10 Ur Specific [place] 1.015 Urine Protein Negative Urine Glucose (UA) Negative Urine Blood Negative Urine Nitrite Negative Ur Leukocyte Esterase Negative Coding Level of Care Code Est Pt Level 4 (29812) Diagnoses Perianal pain K62.89 Acquired hypothyroidism E03.9 Anemia, unspecified type D64.9 Anemia type: unspecified type Fibromyalgia M79.7 Orthostatic hypotension I95.1 Varicose veins of bilateral lower extremities with pain I83.813 Palpitations R00.2 Vitamin D deficiency E55.9 Allergic rhinitis, unspecified seasonality, unspecified trigger J30.9 Allergic rhinitis seasonality: unspecified Allergic rhinitis trigger: unspecified Degeneration of intervertebral disc of lumbar region with discogenic back pain M51.360 Disc-related pain type: discogenic back pain only Chronic right sacroiliac joint pain M53.3; G89.29 Anxiety F41.9 Episode of recurrent major depressive disorder, unspecified depression episode severity F33.9 Active/Remission status: currently active Depression Type: major depressive disorder Major depression episode severity: unspecified Major depression recurrence: recurrent Overweight (BMI 25.0-29.9) E66.3 Assessment & Plan Assessment & Plan (1) Perianal pain: Code(s): K62.89 - Other specified diseases of anus and rectum Category: Medical Plan: Patient is currently convinced that she has a perianal fissure even though the surgeon that she saw a few months ago have advised her that she does not She claims that her symptoms are similar to how she felt about 10 years ago before she had corrective surgery done for anal fissure while she was still residing in [place] She is currently scheduled to see another surgeon specializing in colorectal procedures for a second opinion at the end of the month She has been prescribed Hydrocortisone cream and Nitroglycerine ointment so far with no relief Have advised her that there is no topical Rx that I can prescribe that will help heal her supposed perianal fissure and that the recommended treatment for a perianal fissure is surgical closure Have advised her that the only Rx I can recommend at this time would be to just help with her pain and more for symptomatic relief only - recommend she start using some Sarna lotion 3 to 4 times a day PRN (2) Acquired hypothyroidism: Code(s): E03.9 - Hypothyroidism, unspecified Category: Medical Plan: Her TFTs were normal on her labs done a couple of months ago Continue Levothyroxine 25 mcg QD Will recheck her TFTs in a few months for follow up (3) Anemia: Code(s): D64.9 - Anemia, unspecified Category: Medical Qualifiers: Anemia type: unspecified type Qualified Code(s): D64.9 - Anemia, unspecified Plan: Her anemia has improved with oral Ferrous Sulfate 325 mg QD Will recheck her CBC in a few months for follow up (4) Fibromyalgia: Code(s): M79.7 - Fibromyalgia Category: Medical Plan: Patient is again encouraged on regular exercise and physical activity to help manage her fibromyalgia symptoms She is mostly sedentary and has orthostatic hypotension, which makes it difficult to motivate her to increase her physical activity Have advised her to try gradually increasing her daily activity level as tolerated Because of her physical symptoms, she continues to require assistance with ADLs that involve increased exertion and with most interior design consultant but she is somewhat independent with some routine ADLs including those that involve self hygiene and toileting Continue Baclofen 10 mg TID PRN and Gabapentin 300 mg TID - symptoms appear better controlled since her dose was raised to 300 mg 3 times a day earlier this year (5) Orthostatic hypotension: Code(s): I95.1 - Orthostatic hypotension Category: Medical Plan: Continue Midodrine 5 mg TID (6) Varicose veins of bilateral lower extremities with pain: Code(s): I83.813 - Varicose veins of bilateral lower extremities with pain Category: Medical Plan: S/P EVLT and sclerotherapy with Dr. Imani Peter, with some improvement of symptoms Follow up with vascular surgery as scheduled (7) Palpitations: Code(s): R00.2 - Palpitations Category: Medical Plan: Have advised patient that these again are most likely related to her anxiety Echocardiogram done in November 2017 came out completely normal; Holter monitor done in September 2018 also came back normal with normal sinus rhythm, no significant arrhythmia noted and patient's symptom diary showed no associations of her symptoms with arrhythmia Discussed that if she feels that these are occurring more frequently again lately, can refer her back to cardiology for reassessment - patient states that she will call for referral if her symptoms increase (8) Vitamin D deficiency: Code(s): E55.9 - Vitamin D deficiency, unspecified Category: Medical Plan: Continue Vitamin D3 2000 units QD (9) Allergic rhinitis: Code(s): J30.9 - Allergic rhinitis, unspecified Category: Medical Qualifiers: Allergic rhinitis seasonality: unspecified Allergic rhinitis trigger: unspecified Qualified Code(s): J30.9 - Allergic rhinitis, unspecified Plan: Continue Loratadine 10 mg QD PRN and Fluticasone 50 mcg nasal spray QD PRN (10) Lumbar degenerative disc disease: Code(s): M51.36 - Other intervertebral disc degeneration, lumbar region Category: Medical Qualifiers: Disc-related pain type: discogenic back pain only Qualified Code(s): M51.360 - Other intervertebral disc degeneration, lumbar region with discogenic back pain only Plan: Reinforced activity and weight lifting restrictions Lumbar spine MRI done in January 2020 revealed degenerative changes and facet arthritis with an L4-L5 disc bulge with small lateral recess stenosis Was evaluated by Neurosurgery and was referred for physical therapy and to pain management - advised that her pain appears to be due more from the SI joint(s) and that she had no surgical indication then Follow up with [facility] as scheduled (11) Chronic right sacroiliac joint pain: Code(s): M53.3 - Sacrococcygeal disorders, not elsewhere classified; G89.29 - Other chronic pain Category: Medical Plan: Patient states that her low back pain and right sacroiliac pain have improved significantly with physical therapy and injection treatments from pain management Continue Naproxen 500 mg BID PRN and Tramadol 50 mg PRN Follow-up with [facility] as scheduled (12) Anxiety: Code(s): F41.9 - Anxiety disorder, unspecified Category: Medical Plan: Continue Lorazepam 1 mg Q HS PRN (13) Depression: Code(s): F32.9 - Major depressive disorder, single episode, unspecified Category: Medical Qualifiers: Active/Remission status: currently active Depression Type: major depressive disorder Major depression episode severity: unspecified Major depression recurrence: recurrent Qualified Code(s): F33.9 - Major depressive disorder, recurrent, unspecified Plan: Continue Fluoxetine 20 mg QD and Mirtazapine 30 mg Q HS Follow-up with Psychiatry as scheduled (14) Overweight (BMI 25.0-29.9): Code(s): E66.3 - Overweight Category: Medical Plan: Reinforced diet; exercise and weight loss are not practical due to patient's multiple physical issues at this time Plan To return as scheduled in August 2024 for her annual physical examination Orders: Orders Complete Blood Count Auto Diff 08/22/24 D64.9 - Anemia, unspecified, Z00.00 - Encounter for general adult medical examination without abnormal findings Comprehensive Aromas. Panel Fast 08/22/24 E78.00 - Pure hypercholesterolemia, unspecified, Z00.00 - Encounter for general adult medical examination without abnormal findings Erythrocyte Sedimentation Rate 08/22/24 M79.7 - Fibromyalgia, Z00. - Encounter for general adult medical examination without abnormal findings UA CC w/rflx Micro + Cult 08/22/24 R30.0 - Dysuria, Z00.00 - Encounter for general adult medical examination without abnormal findings Free T4 (Free Thyroxine) 08/22/24 E03.9 - Hypothyroidism, unspecified, Z00.00 - Encounter for general adult medical examination without abnormal findings Vitamin D 25-OH Total 08/22/24 E55.9 - Vitamin D deficiency, unspecified, Z00.00 - Encounter for general adult medical examination without abnormal findings Vitamin B12 and Folate 08/22/24 E53.8 - Deficiency of other specified B group vitamins, Z00. - Encounter for general adult medical examination without abnormal findings Thyroid Stimulating Hormone 08/22/24 E03.9 - Hypothyroidism, unspecified, Z00.00 - Encounter for general adult medical examination without abnormal findings Lipid Panel 08/22/24 E78.00 - Pure hypercholesterolemia, unspecified, Z00.00 - Encounter for general adult medical examination without abnormal findings Medications: New cholecalciferol (vitamin D3) 50 mcg PO DAILY 90 days 90 caps 3RF E55.9 - Vitamin D deficiency, unspecified Changed From pantoprazole 40 mg PO BID To pantoprazole 40 mg PO BID 90 days 180 tabs 1RF Refilled ibuprofen 600 mg PO Q6H PRN 30 tabs 0RF fever or pain dicyclomine 20 mg PO QID PRN 30 tabs 0RF abdominal pain fluticasone propionate 50 mcg/actuation administer into each nostril 2 sprays intranasal DAILY 30 days PRN 16 grams 5RF allergy symptoms meloxicam 15 mg PO DAILY 14 tabs 0RF methocarbamol 750 mg PO Q6H PRN 20 tabs 0RF muscle spasm midodrine do not give last dose of day after 6PM or within 4 hrs of bedtime 5 mg PO TID 30 days 90 tabs 2RF nitroglycerin 0.4%(w/w) 1 inch AR BID 2 weeks 30 grams 0RF lorazepam 1 mg PO BEDTIME 30 days PRN 30 tabs 0RF anxiety gabapentin 300 mg PO TID 30 days 90 caps 3RF mirtazapine 30 mg PO BEDTIME 90 days 90 tabs 1RF erythromycin Apply 0.5 inch to lower lid of left eye 4 times daily for 5 days 1 appl ophthalmic (eye) BID 5 days 3.5 grams 1RF H01.002 - Unspecified blepharitis right lower eyelid lidocaine 5% apply pea size amount 3 to 4 times a day 1 appl topical .four time a day PRN 50 grams 5RF pain mecobalamin (vitamin B12) 1,000 mcg PO DAILY 90 days 90 tabs 3RF simethicone (Gas-X Extra Strength) 125 mg PO DAILY PRN 20 caps 0RF abdominal distention tramadol 50 mg PO DAILY 30 days PRN 30 tabs 1RF pain levothyroxine 25 mcg PO QAM 90 days 90 tabs 1RF fluoxetine 20 mg PO DAILY 90 days 90 caps 1RF ferrous sulfate (Feosol) 325 mg PO DAILY 30 days 30 tabs 5RF baclofen 10 mg PO TID 30 days PRN 90 tabs 2RF muscle spasms loratadine 10 mg PO DAILY 90 days PRN 90 tabs 3RF allergy symptoms
[2024-04-07 14:53] VITALS: BP 102/72; PULSE 77; O2SAT 99; BMI 28.6
== END 2024-04-07 15:23 | disposition home or self-care (01) ==
PROVIDERS: PCP Internal Medicine; Visit Provider Internal Medicine
DX: E03.9 Hypothyroidism, unspecified (principal); K62.89 Other specified diseases of anus and rectum; F33.9 Major depressive disorder, recurrent, unspecified; D64.9 Anemia, unspecified; M79.7 Fibromyalgia; I95.1 Orthostatic hypotension; I83.813 Varicose veins of bilateral lower extremities with pain; R00.2 Palpitations; E55.9 Vitamin D deficiency, unspecified; J30.9 Allergic rhinitis, unspecified; M51.360 Other intervertebral disc degeneration, lumbar region with discogenic back pain only; M53.3 Sacrococcygeal disorders, not elsewhere classified

== ENCOUNTER → 2024-04-07 14:48 | Outpatient (BNVA) | payer OTHER, SELFPAY | PROVIDERS: PCP Internal Medicine; Visit Provider Internal Medicine | DX: K62.89 Other specified diseases of anus and rectum (principal); E03.9 Hypothyroidism, unspecified; D64.9 Anemia, unspecified; M79.7 Fibromyalgia; I95.1 Orthostatic hypotension; I83.813 Varicose veins of bilateral lower extremities with pain; R00.2 Palpitations; E55.9 Vitamin D deficiency, unspecified; J30.9 Allergic rhinitis, unspecified; M51.360 Other intervertebral disc degeneration, lumbar region with discogenic back pain only; G89.29 Other chronic pain; F41.9 Anxiety disorder, unspecified; F33.9 Major depressive disorder, recurrent, unspecified; E66.3 Overweight | CPT/HCPCS: 99212 ==

== ENCOUNTER 2024-06-15 12:44 | Outpatient (AMB) | payer OTHER, SELFPAY ==
--- NOTE | 2024-06-15 12:45 | A.OFFVIS_ITS ---
Vital Signs 06/15/24 12:49 Height 5 ft 4 in Weight 165 lb 2 oz BMI 28.3 BP 112/57 L Blood Pressure Location Lt brachial Position Sitting Pulse 74 Pulse Source Pulse Oximeter Intake Visit Reasons: Follow Up/Discuss Denial [employer] Required: No Accompanied by: Self / Same As Patient Allergies Penicillins [PENICILLINS] Allergy (Unknown, Verified 06/15/24 12:49) RASH HPI HPI Follow Up/Discuss Denial: Details: History of Present Illness The patient is a 49 year old female presenting with right buttock pain. She was previously treated for sacroiliac joint dysfunction with a sacroiliac joint injection, which was not effective. She continued with stretching and exercises at home. Recently diagnosed with piriformis syndrome by a physical therapist, the pain remains localized to the right buttock without radiation. Tenderness is noted in the right buttock. An MRI was performed recently, though images are unavailable for review today. Pain Description - Onset: Persistent, initially identified with sacroiliac pain - Quality: Tenderness to palpation - Primary Location: Right buttock - Radiation: None reported - Exacerbating Factors: None specifically noted - Relieving Factors: Physical therapy and home exercises - Interference with Function: Not explicitly addressed in detail Physical Exam - Musculoskeletal- Tenderness noted on palpation in the right buttock Results Pain Management - Affect: Not explicitly discussed - Analgesia: Diagnostic sacroiliac joint injection performed last year without significant benefit - Adverse Effects: Not reported - Activities of Daily Living: Not explicitly discussed - Aberrant Drug Related Behaviors: Not indicated PFSH Medical History Diastasis of rectus abdominis Annual physical exam Fatigue Nasal dryness Localized swelling of left foot Left foot pain Upper respiratory tract infection Intestinal parasitism, unspecified Left ear pain Sty, external Palpitations Colonoscopy refused Overweight (BMI 25.0-29.9) Depression Anxiety Chronic right sacroiliac joint pain Lumbar degenerative disc disease Orthostatic hypotension Allergic rhinitis Fibromyalgia Acquired hypothyroidism Vitamin D deficiency Varicose veins of bilateral lower extremities with pain Coccydynia Surgical History H/O breast augmentation History of appendectomy History of arthroplasty of right knee History of tonsillectomy History of bladder suspension procedure History of delivery Family History Father No problems noted. Mother Myocardial infarction CVD (cardiovascular disease) Social History Housing: House Alcohol intake: never Patient Tobacco Use Status: Never used Tobacco e-Cigarette/Vaping Use: Never Used Second Hand Smoke Exposure: No service: No Current occupational status: disabled Current occupation: Unemployed Cognitive needs: No Hearing needs: No Vision needs: Yes Physical Exam Vital Signs: Last Vital Signs Pulse 74 06/15/24 12:49 BP 112/57 L 06/15/24 12:49 BMI result Body Mass Index 28.3 Assessment & Plan Assessment & Plan (1) Chronic right sacroiliac joint pain: Code(s): M53.3 - Sacrococcygeal disorders, not elsewhere classified; G89.29 - Other chronic pain Category: Medical (2) Piriformis syndrome of right side: Code(s): G57.01 - Lesion of sciatic nerve, right lower limb Category: Medical Plan Plan The differential diagnosis for the patient's right buttock pain includes piriformis syndrome, sacroiliac joint dysfunction, and potential lumbar nerve root impingement. Continuation with physical therapy for piriformis syndrome and additional back-strengthening exercises has been advised. A follow-up evaluation is suggested after three months if symptoms persist. At that time, a review of the patient's MRI will help assess whether further interventions such as spinal injections are required. Patient was informed and verbally consented to the use of an ambient scribe for clinic note documentation during this visit. Discussion Notes I discussed with the patient the differential diagnoses contributing to her right buttock pain, including piriformis syndrome, sacroiliac joint dysfunction, and lumbar nerve root impingement. We reviewed her recent MRI, with further evaluation discussions planned once the images become available. I emphasized continuing physical therapy tailored for piriformis syndrome and initiating back strengthening exercises. We agreed on a follow-up in three months to reassess the efficacy of these interventions and consider further diagnostic assessments or treatments if necessary. She expressed understanding of the plan. Patient Instructions - Continue with prescribed physical therapy sessions focused on piriformis syndrome. - Include back strengthening exercises in daily routine. - Return for follow-up consultation in three months if there is no improvement. - Monitor symptoms and notify if pain worsens or changes. Coding Level of Care Code New Pt Level 4 (21983) Diagnoses Chronic right sacroiliac joint pain M53.3; G89.29 Piriformis syndrome of right side G57.01
[2024-06-15 12:49] VITALS: BP 112/57; PULSE 74; BMI 28.3
--- OUTSIDE RECORDS SUMMARY | 2024-06-15 14:51 | XMS_ITS | Data Portability ---
Author Organization SALONI Goetz s, [address] Address [address] [place] [address] Assessment No assessment recorded. Plan of Treatment Reminders Order Date Submit Date Provider Last Modified By Organization Details Last Modified Time Details Appointments None recorded. Lab None recorded. Referral emergency medicine referral 2022 023 [email or web address] 26 [facility] [address] [place], [address], 3 13:20:05 Procedures None recorded. Surgeries None recorded. Imaging None recorded. Medication Orders prednisone 20 mg tablet 2022 023 [facility] [address] [place] [address], [id number], 3 10:55:47 Allergy Relief (fluticason e) 50 mcg/actuati on nasal spray,suspe nsion 2022 023 [facility], [address] [place] [address], [address], 3 10:55:48 fexofenadin e-pseudoeph edrine ER 180 mg-240 mg tablet,ext. release 24 hr 2022 023 [facility], [address] [place] [address], [address], 3 11:12:06 ofloxacin 0.3 % ear drops 2022 023 [email or web address] 5 [facility], [address] [place] [address], [address], 3 20:23:03 doxycycline hyclate 100 mg tablet 2022 023 [facility] [address], [address] [place] [address], [address], 3 11:33:10 prednisone 20 mg tablet 2022 023 [facility] [address], [address] [place] [address], [address], 3 11:33:12 fexofenadin e-pseudoeph edrine ER 180 mg-240 mg tablet,ext. release 24 hr 2022 023 [facility] [address], [address] [place] [address], [address], 3 11:33:11 Patient TargetsNo targets recorded. Patient Instructions Encounter Date Encounter Id Patient Instructions Last Modified By Organization Details Last Modified Time 05/31/2022 [id number] An ear infection may start with a cold and affect the middle ear (otitis media). It can hurt a lot. Most ear infections clear up on their own in a couple of days and do not need antibiotics. Also, antibiotics do not work against viruses, which may be the cause of your infection. Regular doses of pain relievers are the best way to reduce your fever and help you feel better. How can you care for yourself at home? Take pain medicines exactly as directed. If the doctor gave you a prescription medicine for pain, take it as prescribed. If you are not taking a prescription pain medicine, take an hlpw-zjf-ornwjqm medicine, such as acetaminophen (Tylenol), ibuprofen (Advil, Motrin), or naproxen (Aleve). Read and follow all instructions on the label. Do not take two or more pain medicines at the same time unless the doctor told you to. Many pain medicines have acetaminophen, which is Tylenol. Too much acetaminophen (Tylenol) can be harmful. Plan to take a full dose of pain reliever before bedtime. Getting enough sleep will help you get better. Try a warm, moist face cloth on the ear. It may help relieve pain. If your doctor prescribed antibiotics, take them as directed. Do not stop taking them just because you feel better. You need to take the full course of antibiotics. Not available 05/31/2022 11:32:02 06/17/2022 [id number] swimmer's ear: care instructions [email or web address] Not available 06/17/2022 20:23:06 You have been advised to go now to the Emergency Department for evaluation of your leg pain to check for a blood clot. [facility] has been advised of your impending arrival. Use the ear drops as prescribed. Follow-up with your doctor if no improvement in your ear symptoms in a few days. See printed instructions. [email or web address] Not available 06/17/2022 20:22:51 09/14/2022 [id number] Sinusitis is an infection of the lining of the sinus cavities in your head. Sinusitis often follows a cold. It causes pain and pressure in your head and face. In most cases, sinusitis gets better on its own in 1 to 2 weeks. But some mild symptoms may last for several weeks. Sometimes antibiotics are needed. if you are having problems. It's also a good idea to know your test results and keep a list of the medicines you take. How can you care for yourself at home? Take an inzz-oob-xtmjoso pain medicine. Avoid Ibuprofen, Aleve and Aspirin if . If the doctor prescribed antibiotics, take them as directed. Do not stop taking them just because you feel better. You need to take the full course of antibiotics. Be careful when taking wvjx-dbf-pkhgwzv cold or influenza (flu) medicines and Tylenol at the same time. Many of these medicines have acetaminophen, which is Tylenol. Read the labels to make sure that you are not taking more than the recommended dose. Too much acetaminophen (Tylenol) can be harmful. Breathe warm, moist air from a steamy shower, a hot bath, or a sink filled with hot water. Avoid cold, dry air. Using a humidifier in your home may help. Follow the directions for cleaning the machine. Use saline (saltwater) nasal washes. This can help keep your nasal passages open and wash out mucus and bacteria. You can buy saline nose drops at a grocery store or [employer]. Or you can make your own at home by adding 1 teaspoon (5 millilitres) of salt and 1 teaspoon (5 millilitres) of baking soda to 2 cups (500 mL) of distilled water. If you make your own, fill a bulb syringe with the solution, insert the tip into your nostril, and squeeze gently. Blow your nose. Put a hot, wet towel or a warm gel pack on your face 3 or 4 times a day for 5 to 10 minutes each time. Try a decongestant nasal spray like oxymetazoline (Drixoral). Do not use it for more than 3 days in a row. Using it for more than 3 days can make your congestion worse. Not available 09/14/2022 10:46:01 Water in the ear , from swimming or bathing, makes the ear canal prone to infection. Hot and humid weather also predisposes to infection. Symptoms of otitis externa include: ear pain, fullness or itching in the ear, ear drainage, and temporary loss of hearing. These symptoms are similar to those caused by otitis media (middle ear infection). To differentiate between external ear infection and middle ear infection, the provider looks in the ear with an instrument called an otoscope. It is important to distinguish between the two infections, as they are treated differently: External otitis is treated with drops in the ear canal, while middle ear infection is sometimes treated with an antibiotic by mouth. MEASURES YOU SHOULD TAKE TO HELP TREAT EXTERNAL EAR INFECTION: 1. Use the ear drops regularly, as directed on the prescription. 2. The kc to treatment is getting the drops down into the canal and keeping the medicine there. To accomplish this: Lie on your side, with the unaffected ear down. Put three to four drops in the infected ear canal, then gently pull the outer ear back and forth several times, working the medicine deeper into the ear canal. Remain still, fvud-nrt-odhw-down for about 15 minutes. 3. Keep the ear as dry as possible. Swimming should be postponed until the infection has cleared. Try to avoid getting water in the ear when bathing. If water does get in the ear, the canal can be gently dried with a hair blow dryer. Use the low heat setting, and keep the blow dryer about six inches from the ear. 4. Zlkn-dpd-clesamx pain medications can relieve discomfort associated with external otitis. Acetaminophen (Tylenol), ibuprofen, or naproxen can be taken, depending on individual preference. 5. Return to the [facility] in about one week. The provider can check to make sure the infection has cleared, continue the medicine if needed, okay a return to swimming, etc. 6. To prevent repeated episodes of otitis externa, try to keep the ear canal dry. Gentle swabbing with Q-tips (never deep into the canal), along with a hair blow dryer (low heat), can be used to dry the ear canal if it gets wet. 7. Should you develop severe pain, fever, severe headache, or stiff neck, see your personal/referral doctor or go to the closest emergency department promptly. Otitis externa does not normally cause these symptoms; another problem, requiring different treatment, could be present Not available 09/14/2022 10:45:53 Reason for Referral Emergency Medicine Referral for Pain in right lower limb RLE pain and swelling s/p vein stripping one week ago r/o DVT Referring Physician: Marium Salguero, Urgent Care, Encounter Date: 06/17/2022 Problems Name Problem SNOMED Code Status Onset Date Resolution Date Notes Provider Name and Address Organization Details Recorded Time Hypothyroidism 27499853 Active 2022 ESTEBAN bello, [place] - [facility] 3 10:43:40 Low blood pressure 89628856 Active 2022 ESTEBAN bello, PA - [facility] 3 10:45:35 Anxiety 51424060 Active 2022 ESTEBAN bello, PA - [facility] 3 10:45:39 Problem Notes None recorded. Procedures Surgical History Date Name Laterality Status Provider Name and Address Organization Details Recorded Time hysterectomy completed ESTEBAN CHRIS PA - [facility] 05/31/2022 10:48:14 tonsillectomy completed ESTEBAN CHRIS PA - [facility] 05/31/2022 10:48:22 Imaging Results None recorded. Procedure Notes None recorded. Medical Equipment None Reported. Allergies Allergen ID Allergen Name Allergen Category Reaction Reaction Severity Criticality Documentation Date Start Date Code Code System Note Provider Name and Address Organization Details Recorded Time 411579 Product containin g penicilli n (product) medicatio n other Not available Not available 05/31/2022 [id number] SNOMED famil y histo ry SALONI Mattson - [facility] 3 10:40:34 Medications Name Sig Start Date Stop Date Status Note LastModified by Organization Details LastModified Time lido 5% nifed 0.2% oint APPLY PEA SIZE AMOUNT 3 TO 4 TIMES PER DAY active Not Available Not Available No t Available quetiapine 25 mg tablet TAKE 1 TABLET BY MOUTH TWICE DAILY active Not Available Not Available No t Available quetiapine 300 mg tablet TAKE 1 TABLET BY MOUTH IN THE EVENING active Not Available Not Available Not Available ibuprofen 800 mg tablet TAKE 1 TABLET BY MOUTH THREE TIMES DAILY NEEDED FOR PAIN . TAKE WITH FOOD active Not Available Not Available No t Available prednisone 20 mg tablet Take 2 tablets every day by oral route in the morning for 4 days. 2022 active Not Available Not Available Not Avai lable midodrine 5 mg tablet TAKE 1 TABLET BY MOUTH THREE TIMES DAILY. DO NOT TAKE LAST DOSE OF THE DAY AFTER 6 PM OR WITHIN 4 HOURS OF BEDTIME active Not Available Not Available No t Available tretinoin 0.05 % topical cream APPLY A PEA SIZE AMOUNT OF CREAM TOPICALLY TO FACE AT NIGHT . ALTERNATE THE TWO STRENGTHS FOR THE FIRST 2 WEEKS. active Not Available Not Available No t Available tramadol 50 mg tablet TAKE 1 TABLET BY MOUTH ONCE DAILY NEEDED FOR PAIN active Not Available Not Available No t Available lidocaine-pr ilocaine 2.5 %-2.5 % topical cream APPLY TOPICALLY TO AFFECTED LEG 2 HOURS BEFORE PROCEDURE. APPLY THICK LAYER AND LOOSELY COVER WITH PLASTIC WRAP active Not Available Not Available No t Available levothyroxin e 25 mcg tablet TAKE 1 TABLET BY MOUTH ONCE DAILY IN THE MORNING active Not Available Not Available Not Available ofloxacin 0.3 % ear drops INSTILL 10 DROPS INTO AFFECTED EAR(S) ONCE DAILY active Not Available Not Available No t Available baclofen 10 mg tablet TAKE 1 TABLET BY MOUTH THREE TIMES DAILY NEEDED FOR MUSCLE SPASM active Not Available Not Available No t Available mirtazapine 30 mg tablet TAKE 1 TABLET BY MOUTH AT BEDTIME DOSE INCREASE active Not Available Not Available No t Available Proctofoam HC 1 %-1 % APPLY RECTALLY TWICE DAILY active Not Available Not Available Not Available albendazole 200 mg tablet TAKE 1 TABLET BY MOUTH TWICE DAILY FOR 3 DAYS . MUST TAKE WITH FOOD, PREFERABLY A HIGH-FAT MEAL active Not Available Not Available No t Available gabapentin 300 mg capsule TAKE 1 CAPSULE BY MOUTH THREE TIMES DAILY active Not Available Not Available Not Available mirtazapine 15 mg tablet TAKE 1 TABLET BY MOUTH EVERY DAY AT BEDTIME active Not Available Not Available No t Available lorazepam 1 mg tablet TAKE 1 TABLET BY MOUTH AT BEDTIME NEEDED FOR ANXIETY active Not Available Not Available No t Available estradiol 0.01% (0.1 mg/gram) vaginal cream INSERT 1 GRAM VAGINALLY ONCE DAILY AT BEDTIME FOR 2 WEEKS, THEN INSERT 1 GRAM VAGINALLY AT BEDTIME THREE TIMES A WEEK THEREAFTER active Not Available Not Available N ot Available fluoxetine 20 mg capsule TAKE 1 CAPSULE BY MOUTH ONCE DAILY active Not Available Not Available No t Available doxycycline hyclate 100 mg tablet Take 1 tablet twice a day by oral route with meals for 10 days. active Not Available Not Available No t Available loratadine 10 mg tablet TAKE 1 TABLET BY MOUTH ONCE DAILY NEEDED FOR ALLERGY SYMPTOMS active Not Available Not Available No t Available naproxen 500 mg tablet TAKE 1 TABLET BY MOUTH TWICE DAILY NEEDED FOR PAIN TAKE WITH FOOD active Not Available Not Available No t Available oxycodone 5 mg tablet TAKE 1 TABLET BY MOUTH EVERY 4 HOURS NEEDED FOR PAIN active Not Available Not Available No t Available azelaic acid 15 % topical gel APPLY 1 APPLICATION OF GEL TOPICALLY TO THE FACE IN THE MORNING active Not Available Not Available No t Available iron 325 mg (65 mg iron) tablet TAKE 1 TABLET BY MOUTH ONCE DAILY active Not Available Not Available No t Available fexofenadine -pseudoephed rine ER 180 mg-240 mg tablet,ext.r elease 24 hr Take 1 tablet every day by oral route in the evening for 10 days. 2022 active Not Available Not Available Not Avai lable Vitamin D3 50 mcg (2,000 unit) capsule TAKE 1 CAPSULE BY MOUTH ONCE DAILY active Not Available Not Available No t Available ivermectin 1 % topical cream APPLY 1 APPLICATION OF CREAM TOPICALLY TO FACE ONCE DAILY active Not Available Not Available N ot Available Allergy Relief (fluticasone ) 50 mcg/actuatio n nasal spray,suspen neisha [place] 1 spray every day by intranasal route in the morning for 30 days. 2022 active Not Available Not Available Not Avai lable Eliquis DVT-PE Treatment 30-Day Starter 5 mg (74 tablets) in dose pack TAKE BY MOUTH DIRECTED ON THE PACKAGE INSTRUCTION AND BY THE DOCTOR active Not Available Not Available No t Available Vitals Date Recorded Body height Body mass index (BMI) Body weight Oxygen saturation Oxygen saturation in Arterial blood by Pulse oximetry Heart rate Respiratory rate Body temperature Systolic blood pressure Diastolic blood pressure Provider Name and Address Organization Details Last Updated DateTime 3 165.1 cm 27.5 kg/m2 74052.7 4 g 99 % 99 % 72 /min 18 /min 98 [degF] 105 mm[Hg] 71 mm[Hg] BABITA REYES PA [facility] 3 10:35:00 Date Recorded Body height Body mass index (BMI) Body weight Pain severity - 0-10 verbal numeric rating [Score] - Reported Respiratory rate Oxygen saturation Oxygen saturation in Arterial blood by Pulse oximetry Heart rate Body temperature Systolic blood pressure Diastolic blood pressure Provider Name and Address Organization Details Last Updated DateTime 3 165.1 cm 27.5 kg/m2 67462.7 4 g 6 20 /min 99 % 99 % 74 /min 98.5 [degF] 105 mm[Hg] 70 mm[Hg] ESTEBAN CHRIS [facility] 3 10:49:11 Date Recorded Body height Body mass index (BMI) Body weight Pain severity - 0-10 verbal numeric rating [Score] - Reported Respiratory rate Oxygen saturation Oxygen saturation in Arterial blood by Pulse oximetry Heart rate Body temperature Systolic blood pressure Diastolic blood pressure Systolic blood pressure Diastolic blood pressure Provider Name and Address Organization Details Last Updated DateTime 3 165.1 cm 27.5 kg/m2 09451.7 4 g 0 18 /min 100 % 100 % 71 /min 98.6 [degF] 99 mm[Hg] 63 mm[Hg] 122 mm[Hg] 78 mm[Hg] ESTEBAN CHRIS [facility] 3 19:49:33 Social History Question Answer Notes LastModified by Organizat ion Details LastModified Time Tobacco Smoking Status Never Smoker ESTEBAN bello PA - [facility] 05/31/2022 10:45:58 What Is Your Level Of Alcohol Consumption? None Information not available 05/31/2022 Do You Use Any Illicit Or Recreational Drugs? No [email or web address] Information not available 05/31/2022 Have You Recently Traveled Abroad? Yes [place] 04/23/22-05/24/22 [email or web address] Information not available 05/31/2022 Do You Or Have You Ever Used Any Other Forms Of Tobacco Or Nicotine? No Information not available 05/31/2022 Sex: Unknown Functional Status None recorded. Mental Status None recorded. Family History Relationship Description Onset Age of this Age Resolved Age Notes LastModified by Organization Details LastModified Time Father No current problems or disability [email or web address] Not available 06/17 19:24:39 Mother No current problems or disability [email or web address] Not available 06/17 19:24:39 Medical History No medical history recorded. Gynecological History Statement/Question Response Date of LMP 08/14/2022 Is there any chance of ? No Obstetrics History GPAL:G 0 P 0 0 0 0 Immunizations Vaccine Type Date Status Note Provider Nam e and Address Organization Details Recorded Time Tdap 01/09/2017 completed SALONI Baez - [facility] 09/14/2022 10:32:15 Past Encounters Encounter ID Performer Location Encounter Start Date Encounter Closed Date Diagnosis/Indication Diagnosis SNOMED-CT Code Diagnosis ICD10 Code Diagnosis Note [id number] [address] [place] [address] 06/18/2019 10:40:39 06/18/2019 11:39:27 [id number] [address] [place] [address] 09/12/2020 16:26:23 09/12/2020 18:14:11 [id number] [address] [place] [address] 04/28/2019 10:54:58 04/28/2019 12:20:41 [id number] [address] [place] [address] 08/19/2018 14:58:21 08/19/2018 15:12:21 [id number] [address] [place] [address] 01/02/2020 15:47:49 01/02/2020 17:04:11 [id number] [address] [place] [address] 07/05/2019 10:18:49 07/05/2019 10:52:51 [id number] [address] [place] [address] 07/28/2018 15:14:41 07/28/2018 15:52:42 [id number] [address] [place] [address] 08/16/2019 11:11:15 08/16/2019 11:49:41 [id number] [address] [place] [address] 03/08/2019 14:14:27 03/08/2019 14:53:22 [id number] [address] [place] [address] 03/11/2021 08:56:51 03/11/2021 11:32:58 [id number] Chris Mena NP [address] [place] [address] 05/31/2022 09:53:59 05/31/2022 11:36:00 Acute left otitis media 443186386 H66.92 [id number] Marium Salguero MD [address] [place] [address] 06/17/2022 17:55:34 06/17/2022 20:25:18 Pain in right lower limb 806883124 M79.604 Otitis ext lesley of bilateral ears 7868563985 334441 H60.93 [id number] Chris Mena NP [address] [place] [address] 09/14/2022 09:52:11 09/14/2022 10:57:33 Acute sinusitis 00674693 J01.90 Health Concerns Section Related Observation LastModified by Organization Detai ls LastModified Time None Recorded Concern Status LastModified by Organization Details LastModified Time None Recorded Advance Directives Directive None Recorded Payers Encounter Date Sequence Insurance Name Policy Number Policy Kwon Covered Member ID Kwon Member ID Guarantor Name 09/12/2020 1 [facility] ([place] Nihaya Kadhum [id number] Nihaya Kadhum 09/12/2020 2 [place] [facility] Nihaya Kadhum [id number] Nihaya Kadhum 03/11/2021 1 [facility] (MEDICAID HMO) [place] Nihaya Kadhum [id number] Nihaya Kadhum 03/11/2021 2 [place] [facility] Nihaya Kadhum [id number] Nihaya Kadhum 05/31/2022 1 [facility] (MEDICAID HMO) [place] Nihaya Kadhum [id number] Nihaya Kadhum 06/17/2022 1 [facility] (MEDICAID HMO) [facility] Nihaya Kadhum [id number] Nihaya Kadhum 09/14/2022 1 [facility] (MEDICAID HMO) [place] Nihaya Kadhum [id number] Nihaya Kadhum Notes Date Note Type Note Provider Name and Address Organization Details Recorded Time 3 text/html CongestionReported bypatient.Notes:left ear pain, nasal congestion with post nasal drip x 3 days. denies any fever or fever with chills. no SOB or respiratory distress. Chris Mena NP [address] [facility] [place], [address], [place] - [facility] 05/31/2022 11:33:33 3 text/html Ear problemReported bypatient.source of patient informationInformation obtained from patient; Patient arrived at Urgent Care ambulatory Location:bilateral Quality:pain;itching Severity:mild Duration:1 weeks Context:no sick contacts; no recent swimming/water in ear; no recent air travel Modifying Factors:does not hurt to lie on, or pull on ear; does not hurt to chew Associated Symptoms:no feverLeg, LowerReported bypatient.source of patient informationInformation obtained from patient; Patient arrived at Urgent Care ambulatory Location:right; medial Quality:aching; constant; worsening Severity:moderate Duration:1 days Timing:acute Context:s/p RLE vein stripping about one week ago. Alleviating Factors:elevation Aggravating Factors:walking; Palpation. Associated Symptoms:no weakness; no numbness; no tingling; no redness; no warmth; no ecchymosis; no drainage; no fever; no chills;swelling Previous InjuryNo prior injury to affected body part Previous Treatmentnone Prior Imaging:noneNotes:47 year old female presenting for evaluation of bilateral ear discomfort with itchiness for one week and acute onset medial right lower leg pain for one day. The patient was seen here 05/31/22 for a left otitis media that was treated with doxycycline, prednisone and a decongestant with resolution of her symptoms. She also reports that she had a vein stripping to her RLE about one week ago. Her RLE has some swelling noted medially and it is tender to the touch. No fever, chills, nasal congestion, sore throat, ear drainage, cough, chest pain, shortness of breath, GI symptoms or generalized body aches. No skin redness, bleeding, drainage. No numbness or weakness of her leg. She did not notify her surgeon of her leg symptoms. Marium Salguero MD [address] [place], [address], [place] - [facility] 06/18/2022 11:39:07 3 text/html CongestionReported bypatient.Notes:nasal congestion with post nasal drip x 3 days. denies nay fever or fever with chills. no SOB or respiratory distress.Ear Pain Brief HPIReported bypatient.Location:pain radiates to neck; bilateral Onset/Timing:intermittent pain; gradual onset Duration:occurs daily; sensation/episode variable length Quality:aching pain;sharp pain Severity:getting worse; current pain 5/10 Context:recent ear infection Alleviating factors:ototopical antibiotics: ; nasal steroid spray Aggravating factors:sinus infections; allergies; irrigation of ear Associated Symptoms:Cough;nasal congestion;nasal discharge Chris Mena NP [address] [place], [address], [place] - [facility] 09/14/2022 10:56:11 OBGyn Episode No OBEpisode recorded.
--- OUTSIDE RECORDS SUMMARY | 2024-06-15 14:51 | XMS_ITS | Clinical Summary ---
Author Organization [employer] Address [address] [place] [address] [address] [place] [address] Care Team Providers Care Chief Power Dispatcher Name Role Phone Unavailable Primary Care Provider Unavailabl e Allergies Active Allergy Reactions Criticality Noted Date Comments Penicillin G 04/10/2023 Medications levothyroxine (Tirosint) 25 MCG capsule Take 1 capsule by mouth at bed time. Active LORazepam (Ativan) 0.5 MG tablet Take by mouth. Active Social History Tobacco Use Types Packs/Day Years Used Date Smoking Tobacco: Never Assessed Comments Unknown Sex and Gender Information Value Date Recorded Sex Assigned at Female 02/12/2022 10:35 AM EDT Legal Sex Female 10:35 AM EDT Gender Identity Female 02/12/2022 10:35 AM EDT Sexual Orientation Straight 02/12/2022 10 :35 AM EDT Plan of Treatment Health Maintenance Due Date Last Done Comments CT Colonography 1974 Colonoscopy 1974 Colorectal Cancer Screening 1974 Dental Oral Exam 1974 Dental Prophylaxis 1974 Dental X-Ray: Bitewings 1974 Dental X-Ray: Full Mouth 1974 Depression Screening 1974 FIT DNA/Cologuard 1974 FIT 1974 FOBT 1974 HIV Screening 1974 SDOH Screening 1974 Sigmoidoscopy 1974 Alcohol/Substance Use Screening 1986 Tobacco Screening 1986 Family Planning (PISQ) 1989 Hepatitis C Screening 1992 Hepatitis B Vaccines (1 of 3 - 19+ 3-dose series) 1993 Pap Smear 1995 Cervical Cancer Screening 2004 HPV/Cotest 2004 Mammogram 2014 COVID-19 Vaccine (1 - 2023-2 5 season) 2023 Influenza Vaccine (#1) 2023 Pneumococcal Vaccine: 50+ Years (1 of 1 - PCV) 2024 Zoster Vaccines (1 of 2) 2024 DTaP/Tdap/Td Vaccines (3 - T d or Tdap) 01/09/2027 01/09/2017, 08/24/2011 RSV Patients and Patients Aged 60 years or older (1 - 1-dose 75+ series) 2049 HIB Vaccines Aged Out No longer eligi ble based on patient's age to complete this topic HPV Vaccines Aged Out No longer eligi ble based on patient's age to complete this topic Hepatitis A Vaccines Aged Out No long er eligible based on patient's age to complete this topic IPV Vaccines Aged Out No longer eligi ble based on patient's age to complete this topic Meningococcal Vaccine Aged Out No joey parisa eligible based on patient's age to complete this topic Pneumococcal Vaccine: Pediatrics (0 to 5 Years) and At-Risk Patients (6 to 49) Years) Aged Out No longer eligible b ased on patient's age to complete this topic RSV under 20 months Aged Out No longe r eligible based on patient's age to complete this topic Rotavirus Vaccines Aged Out No longer eligible based on patient's age to complete this topic Insurance [facility] STANDARD DENTAL-[facility] MEDICAID STAND ADULT
== END 2024-06-15 13:33 | disposition home or self-care (01) ==
PROVIDERS: PCP Internal Medicine; Visit Provider Internal Medicine
DX: M53.3 Sacrococcygeal disorders, not elsewhere classified (principal); G89.29 Other chronic pain; G57.01 Lesion of sciatic nerve, right lower limb
CPT/HCPCS: 99204

== ENCOUNTER → 2024-06-15 12:44 | Outpatient (BNVA) | payer OTHER, SELFPAY | PROVIDERS: PCP Internal Medicine; Visit Provider Internal Medicine | DX: M53.3 Sacrococcygeal disorders, not elsewhere classified (principal); G57.01 Lesion of sciatic nerve, right lower limb; G89.29 Other chronic pain | CPT/HCPCS: 99202 ==

== ENCOUNTER 2024-09-04 12:40 | Outpatient (AMB) | payer OTHER, SELFPAY ==
--- OUTSIDE RECORDS SUMMARY | 2024-09-04 12:43 | XMS_ITS | Data Portability ---
Author Organization [facility], [address] Address [address] [place] [address] Assessment No assessment recorded. Plan of Treatment Reminders Order Date Submit Date Provider Last Modified By Organization Details Last Modified Time Details Appointments None recorded. Lab None recorded. Referral emergency medicine referral 2022 023 [email or web address] 26 [facility] [address] [place], [address], 3 13:20:05 Procedures None recorded. Surgeries None recorded. Imaging None recorded. Medication Orders prednisone 20 mg tablet 2022 023 [facility] [address] [place] [address], [address], 3 10:55:47 Allergy Relief (fluticason e) 50 mcg/actuati on nasal spray,suspe nsion 2022 023 [facility], [address] [place] [address], [address], 3 10:55:48 fexofenadin e-pseudoeph edrine ER 180 mg-240 mg tablet,ext. release 24 hr 2022 023 [facility], [address] [place] [address], [address], 3 11:12:06 ofloxacin 0.3 % ear drops 2022 023 [email or web address] 5 [facility], [address] [place] [address], [address], 3 20:23:03 doxycycline hyclate 100 mg tablet 2022 023 [facility] [address], [address] [place] [address], [address], 3 11:33:10 prednisone 20 mg tablet 2022 023 [facility] [address], [address] [place] [address], [address], 3 11:33:12 fexofenadin e-pseudoeph edrine ER 180 mg-240 mg tablet,ext. release 24 hr 2022 023 [facility] [address], [address] [place] [address], [address], 3 11:33:11 Patient TargetsNo targets recorded. Patient Instructions Encounter Date Encounter Id Patient Instructions Last Modified By Organization Details Last Modified Time 05/31/2022 [id number] An ear infection may start with a [...] taking a prescription pain medicine, take an uluu-xah-rczpldu medicine, such as acetaminophen (Tylenol), ibuprofen (Advil, [...] of antibiotics. Not available 05/31/2022 11:32:02 06/17/2022 [id number] swimmer's ear: care instructions [email or web address] Not available 06/17/2022 20:23:06 You have been advised to go now to the Emergency Department for evaluation of your leg pain to check for a blood clot. [facility] ER has been advised of your impending arrival. Use the ear drops as prescribed. Follow-up with your doctor if no improvement in your ear symptoms in a few days. See printed instructions. [email or web address] Not available 06/17/2022 20:22:51 09/14/2022 [id number] Sinusitis is an infection of the lining [...] care for yourself at home? Take an dtme-tsr-unuzncf pain medicine. Avoid Ibuprofen, Aleve and Aspirin if . If the doctor prescribed antibiotics, take them as directed. Do not stop taking them just because you feel better. You need to take the full course of antibiotics. Be careful when taking vpat-qhc-dvchdvu cold or influenza (flu) medicines and Tylenol [...] nose drops at a grocery store or [employer]. Or you can make your own at [...] deeper into the ear canal. Remain still, nuey-nuc-amld-down for about 15 minutes. 3. Keep the [...] about six inches from the ear. 4. Agxp-rti-erbzdxm pain medications can relieve discomfort associated with external otitis. Acetaminophen (Tylenol), ibuprofen, or naproxen can be taken, depending on individual preference. 5. Return to the [facility] in about one week. The provider can [...] and Address Organization Details Recorded Time Hypothyroidism 31842479 Active 2022 ESTEBAN bello, [place] - [facility] 3 10:43:40 Low blood pressure 11900765 Active 2022 ESTEBAN bello, [place] - [facility] 3 10:45:35 Anxiety 57760868 Active 2022 [facility], [facility] - [facility] [...] Name and Address Organization Details Recorded Time 904181 Product containin g penicilli n (product) medicatio n other Not available Not available 05/31/2022 01920 8001 SNOMED famil y histo ry SALONI [...] ) 50 mcg/actuatio n nasal spray,suspen neisha Amalia 1 spray every day by intranasal route [...] Updated DateTime 3 165.1 cm 27.5 kg/m2 04642.7 4 g 99 % 99 % 72 /min 18 /min 98 [degF] 105 mm[Hg] 71 mm[Hg] BABITA REYES PA [employer] [facility] 3 10:35:00 Date Recorded Body height Body mass index (BMI) Body weight Respiratory rate Oxygen saturation Oxygen saturation in Arterial blood by Pulse oximetry Heart rate Body temperature Systolic blood pressure Diastolic blood pressure Provider Name and Address Organization Details Last Updated DateTime 3 165.1 cm 27.5 kg/m2 20269.7 4 g 20 /min 99 % 99 % 74 /min 98.5 [degF] 105 mm[Hg] 70 mm[Hg] ESTEBAN CHRIS [facility] 3 10:49:11 Date Recorded Body height Body mass index (BMI) Body weight Respiratory rate Oxygen saturation Oxygen saturation in Arterial blood by Pulse oximetry Heart rate Body temperature Systolic blood pressure Diastolic blood pressure Systolic blood pressure Diastolic blood pressure Provider Name and Address Organization Details Last Updated DateTime 3 165.1 cm 27.5 kg/m2 93268.7 4 g 18 /min 100 % 100 % 71 /min 98.6 [degF] 99 mm[Hg] 63 mm[Hg] 122 mm[Hg] 78 mm[Hg] ESTEBAN CHRIS [employer] [facility] 3 19:49:33 Social History Question Answer Notes LastModified by Organizat ion Details LastModified Time Tobacco Smoking Status Never Smoker ESTEBAN bello [place] - [facility] 05/31/2022 10:45:58 Have You Recently Traveled Abroad? Yes [place] 04/23/22-05/24 [email or web address] Information not available 05/31/2022 Sex: Unknown Functional Status Question Answer Note LastModified by Organizat ion Details LastModified Time Do you use any illicit or recreational drugs? No [email or web address] Information not available 05/31/2022 Do you or have you ever used any other forms of tobacco or nicotine? No [email or web address] Information not available 05/31/2022 What is your level of alcohol consumption? None [email or web address] Information not available 05/31/2022 Mental Status None recorded. Family History Relationship Description Onset Age of this Age Resolved Age Notes LastModified by Organization Details LastModified Time Father No current problems or disability [email or web address] Not available 06/17 19:24:39 Mother No current problems or disability [email or web address] Not available 06/17 19:24:39 Medical History No [...] SNOMED-CT Code Diagnosis ICD10 Code Diagnosis Note [id number] [address] [place] [address] 06/18/2019 10:40:39 06/18/2019 11:39:27 [id number] [address] [place] [address] 09/12/2020 16:26:23 09/12/2020 18:14:11 [id number] [address] [place] [address] 04/28/2019 10:54:58 04/28/2019 12:20:41 [id number] [address] [place] [address] 08/19/2018 14:58:21 08/19/2018 15:12:21 [id number] [address] [place] [address] 01/02/2020 15:47:49 01/02/2020 17:04:11 [id number] [address] [place] [address] 07/05/2019 10:18:49 07/05/2019 10:52:51 [id number] [address] [place] [address] 07/28/2018 15:14:41 07/28/2018 15:52:42 [id number] [address] [place] [address] 08/16/2019 11:11:15 08/16/2019 11:49:41 [id number] [address] [place] [address] 03/08/2019 14:14:27 03/08/2019 14:53:22 [id number] [address] [place] [address] 03/11/2021 08:56:51 03/11/2021 11:32:58 [id number] Chris Mena NP [address] [place] [address] 05/31/2022 09:53:59 05/31/2022 11:36:00 Acute left otitis media [id number] H66.92 [id number] Marium Salguero MD [address] [place] [address] 06/17/2022 17:55:34 06/17/2022 20:25:18 Pain in right lower limb 916410804 M79.604 Otitis ext lesley of bilateral ears [id number] 798500 H60.93 [id number] Chris Mena NP [address] [facility] [address] [place] [address] 09/14/2022 09:52:11 09/14/2022 10:57:33 Acute sinusitis 26428610 J01.90 Health Concerns Section Related Observation LastModified by Organization Detai ls LastModified Time None Recorded Concern Status LastModified by Organization Details LastModified Time None Recorded Advance Directives Directive None Recorded Payers Insurance Date Sequence Insurance Name Policy Number Policy Kwon Covered Member ID Kwon Member ID Guarantor Name 09/14/2022 1 [facility] - HEALTH NET PLAN (MEDICAID HMO) [facility] Mikefrancisco Camrynleonor [id number] Michelle Camrynloenor 09/14/2022 2 [place] [facility] Mikefrancisco Camrynannelieseum [id number] Mikefrancisco Clarke Notes Date Note Type Note Provider Name and Address Organization Details Recorded Time 3 text/html CongestionReported bypatient.Notes:left ear pain, nasal congestion with post nasal drip x 3 days. denies any fever or fever with chills. no SOB or respiratory distress. Chris Mena NP [address] [facility], [address], [place] - [facility] 05/31/2022 11:33:33 3 [...] her leg symptoms. Marium Salguero MD [address] [place], [address], [employer] 06/18/2022 11:39:07 3 text/html CongestionReported bypatient.Notes:nasal congestion [...] Symptoms:Cough;nasal congestion;nasal discharge Chris Mena NP [address] [facility] [place], [address], [employer] 09/14/2022 10:56:11 OBGyn Episode No OBEpisode recorded.
--- NOTE | 2024-09-04 12:45 | MHC.PC.OV ---
Vital Signs 09/04/24 12:46 Height 5 ft 4 in Weight 163 lb 2 oz BMI 28.0 BP 110/66 Blood Pressure Location Lt brachial Position Sitting Pulse 78 Pulse Source Pulse Oximeter Temp 97.1 F Temp Source Temporal Artery Scan Pulse Oximetry (%) 97 Oxygen Delivery Method Room Air Intake Visit Reasons: Annual Exam Allergies Penicillins [PENICILLINS] Allergy (Unknown, Verified 09/04/24 13:08) RASH Medication List - Last Reconciled 09/04/24 by Chandu Ruvalcaba MD baclofen 10 mg PO TID PRN 30 days cholecalciferol (vitamin D3) 50 mcg PO DAILY 90 days cyanocobalamin (vitamin B-12) mcg PO DAILY dicyclomine 20 mg PO QID PRN ferrous sulfate (Feosol) 325 mg PO DAILY 30 days fluoxetine 20 mg PO DAILY 90 days fluticasone propionate 50 mcg/actuation 2 sprays intranasal DAILY PRN 30 days gabapentin 300 mg PO TID 30 days ibuprofen 600 mg PO Q6H PRN levothyroxine 25 mcg PO QAM 90 days lidocaine 5% 1 appl topical .four time a day PRN loratadine 10 mg PO DAILY PRN 90 days lorazepam 1 mg PO BEDTIME PRN 30 days mecobalamin (vitamin B12) 1,000 mcg PO DAILY 90 days meloxicam 15 mg PO DAILY methocarbamol 750 mg PO Q6H PRN midodrine 5 mg PO TID 30 days mirtazapine 30 mg PO BEDTIME 90 days nitroglycerin 0.4%(w/w) 1 inch SD BID 2 weeks pantoprazole 40 mg PO BID 90 days simethicone (Gas-X Extra Strength) 125 mg PO DAILY PRN tramadol 50 mg PO DAILY PRN 30 days Tobacco use date assessed: 09/04/24 Dental Screening Dental Screen Date: 09/04/24 Did you have a dental visit in the last 12 months?: Yes Did you have a dental problem in the last 6 months where you did not have access to dental care?: No Was dental information given to patient?: Patient has dentist HPI Annual Exam HPI Details Patient comes in today for her annual physical examination States that she continues to experience frequent increased pain over her lower back She has been seeing pain management here at [facility] for her low back pain and has an upcoming appointment with them next month on 09/21/2024 She has been referred to and is now being seen at [facility] for her low back pain; is currently scheduled to begin a trial of physical therapy over at [facility], which she will start in the next 1 to 2 weeks She also recently traveled to [place] (was there for about 14 days) and went to see a holistic medicine practitioner there, who prescribed her several medications including medications called Alfaxib, Flexicamin Plus, Nortibion and Novastat, some of which are the equivalent of Simon-2 inhibitors here as well as compounded prescriptions that include Pregabalin, Nortriptyline and Mecobalamin and other supplements Patient brought these in to see if it is okay for her to take these She was also reportedly advised that she has a low ferritin as well as a low zinc level and told that she was anemic She also had an MRI of lumbar spine done [place] on [place]18/20[place] - MRI report indicated (+) multilevel lumbar DDD with findings of bilateral foraminal narrowing but no evidence of any significant nerve compression Patient currently denies any headaches or dizziness Denies any chest pains, no increased SOB No nausea/vomiting, no abdominal pain No change in bowel habits noted She denies any acute urinary symptoms Adds that her previous breast surgery scars under her breasts have been very itchy lately and she would like to get something to help with the itching She recalls being advised in [place] that she can potentially have the scars under her breasts, which appear to have some keloid formation, surgicall excised and she is wondering if she should have that done here instead Patient states that she is up-to-date with her annual mammogram and yearly gynecology exam and pap smear as these were both done at [facility] sometime within the past 6 months She has declined going for a screening colonoscopy in the past but did have Cologuard testing done back on 06/27/2022 that came back negative She currently still has her menstrual periods so she is not yet due for osteoporosis screening [facility] Medical History (Updated 09/07/24 @ 18:55 by Chandu Ruvalcaba MD) Diastasis of rectus abdominis Fatigue Localized swelling of left foot Left foot pain Intestinal parasitism, unspecified Palpitations Colonoscopy refused Overweight (BMI 25.0-29.9) Depression Anxiety Chronic right sacroiliac joint pain Lumbar degenerative disc disease Orthostatic hypotension Allergic rhinitis Fibromyalgia Acquired hypothyroidism Vitamin D deficiency Varicose veins of bilateral lower extremities with pain Coccydynia Surgical History H/O breast augmentation History of appendectomy History of arthroplasty of right knee History of tonsillectomy History of bladder suspension procedure History of delivery Family History Father No problems noted. Mother Myocardial infarction CVD (cardiovascular disease) Social History Housing: House Alcohol intake: never Patient Tobacco Use Status: Never used Tobacco e-Cigarette/Vaping Use: Never Used Second Hand Smoke Exposure: No service: No Current occupational status: disabled Current occupation: Unemployed Cognitive needs: No Hearing needs: No Vision needs: Yes Questionnaire PHQ-9 Over the last 2 weeks, how often have you been bothered by any of the following problems? 1. Little interest or pleasure in doing things: not at all 2. Feeling down, depressed, or hopeless: not at all 3. Trouble falling or staying asleep, or sleeping too much: more than half the days 4. Feeling tired or having little energy: more than half the days 5. Poor appetite or overeating: not at all 6. Feeling bad about yourself - or that you are a failure or have let yourself or your family down: several days 7. Trouble concentrating on things, such as reading the newspaper or watching television: not at all 8. Moving or speaking so slowly that other people could have noticed. Or the opposite - being so fidgety or restless that you have been moving around a lot more than usual: not at all 9. Thoughts that you would be better off or of hurting yourself in some way: not at all Total score: 5 Depression Screening Interpretation: Positive Depression Screening Follow-up: Existing condition and In treatment Depression Screening Done: Yes 74266 - PHQ-9 Billing: Yes Source: Developed by Drs. Burt Martines, Lili Peguero, Mike Khan and colleagues, with an educational claudine from [employer]. Thrive Questionnaire Date Thrive assessed: 09/04/24 I am a: Patient What is your living situation today?: I have a steady place to live Within the past 12 months, did the food you bought not last and you didn't have the money to get more?: Never true Within the past 12 months, did you worry whether your food would run out before you got money to buy more?: Never true Do you have trouble paying for medicines?: No Do you have trouble getting transportation to medical appointments?: No Do you have trouble paying your heating and electricity bill?: Yes Do you have trouble taking care of your child, family member or friend?: No Do you have trouble with day-to-day activities such as bathing, preparing meals, shopping, managing finances, etc.?: No Are you currently unemployed and looking for a job?: No Are you interested in more education?: No Please select the resources that you would like help with: None Currently or been in a relationship where the following occur: No concerns reported THRIVE Score: 1 AUDIT C Alcohol Use Questionnaire (AUDIT-C) 1. How often do you have a drink containing alcohol?: Never 3. How often do you have six or more drinks on one occasion?: Never Total Score: 0 Score Reviewed/Action Taken: Yes HERLINDA-7 AMB Questionnaire HERLINDA-7 Date HERLINDA - 7 assessed: 09/04/24 Feeling nervous, anxious, or on edge: 2 = More than half the days Not being able to stop or control worryin = More than half the days Worrying too much about different things: 2 = More than half the days Trouble relaxin = More than half the days Being so restless that it is hard to sit still: 2 = More than half the days Becoming easily annoyed or irritable: 0 = Not at all Feeling afraid as if something awful might happen: 2 = More than half the days Total HERLINDA-7 score (0-4 normal; 5-9 mild; 10-14 moderate; 15-21 severe): 12 Source: Developed by Drs. Burt Martines, Lili Peguero, Mike Khan and colleagues, with an educational claudine from [employer]. HERLINDA-7 Assessment Billing HERLINDA-7 Assessment Tool: HERLINDA-7 Assessment 46305 Review of Systems Const Denies chills, Reports fatigue, Denies fever(s) and Denies headache(s) Eyes Denies blurry vision, Denies change in vision, Denies irritation and Denies itchy eyes ENT Denies dysphagia, Denies dizziness, Denies otalgia, Denies headache(s), Reports neck pain, Denies odynophagia and Denies sore throat Card Denies chest pain, Denies irregular heart rhythm, Reports palpitations (occasional ) and Denies dyspnea Resp Denies chest congestion, Denies cough, Denies dyspnea and Denies wheezing GI Details: increased pain over her perianal area Denies abdominal pain, Denies constipation, Denies dysphagia, Denies heartburn, Denies diarrhea, Denies nausea, Denies odynophagia and Denies vomiting Denies difficulty voiding, Denies nocturia, Denies dysuria and Denies urinary urgency Musc Reports back pain (over the lower back - chronic), Denies arthralgias and Reports neck pain Skin/Breast Details: recurrent itching over the scars under both breasts - (+) keloid formation on the scars but no rash noted Denies rash Neuro Denies dizziness and Denies headache(s) Psych Denies anxiety and Denies depression Endo Reports fatigue and Reports palpitations (occasional ) Neal/Lymph Denies easy bruising Aller/Immun Denies itchy eyes and Denies wheezing Physical exam (Primary Care) Vital Signs: Last Vital Signs Temp 97.1 F 09/04/24 12:46 Pulse 78 09/04/24 12:46 BP 110/66 09/04/24 12:46 Pulse Ox 97 09/04/24 12:46 Oxygen Delivery Method Room Air 09/04/24 12:46 BMI result Body Mass Index 28.0 Tobacco/Smoking Status: Tobacco use Status Tobacco use date assessed 09/04/24 09/04/24 12:51 Patient Tobacco Use Status Never used Tobacco 09/04/24 12:51 e-Cigarette/Vaping Use Never Used 09/04/24 12:51 PHQ-9: PHQ-9 Score PHQ-9: Total score 5 09/04/24 13:11 Depression Screening Interpretation: Positive Depression Screening Follow-up: Existing condition and In treatment Thrive Assessment: Date of Thrive Assessment Date Thrive assessed 09/04/24 09/04/24 12:51 Currently or been in a relationship where the following occur: No concerns reported Const General: no acute distress, alert and awake Orientation/consciousness: patient oriented x3 HENMT Head: Yes normocephalic and Yes atraumatic Ears: external ears normal, TM's normal bilaterally and EAC's normal General nose exam: No nasal discharge present Face and sinus: Yes normal facial exam and Yes sinuses nontender Teeth and gingiva: dentition normal Throat: Yes posterior oropharynx normal and Yes tonsils normal (no TP congestion) Eyes Eyelids: Yes eyelids normal Conjunctivae: conjunctivae normal Pupils: Equal, round and reactive pupils present EOM: EOMs intact bilaterally Neck Neck: Yes no lymphadenopathy and Yes supple Thyroid: Thyroid normal Chest Other: (+) keloid over the surgical scars under both breasts Resp Auscultation: clear to auscultation bilaterally, no rales and no wheezes Cardio Rate: regular rate Rhythm: regular rhythm Heart sounds: no murmurs GI Palpation (GI): Soft to palpation, nontender and No hepatosplenomegaly present Auscultation: normal bowel sounds General: Yes no CVA tenderness Back/Spine/Pelvis Back: no CVA tenderness Cervical Spine: Cervical spine tenderness Thoracic/Lumbar Spine: lumbar spinal tenderness Skin Lesions: no lesions Rashes: no rashes Neuro General: patient oriented x3, moves all extremities, no focal motor deficits and CN's II-XI intact bilaterally Cranial nerves: Yes Equal, round and reactive pupils present Cognition (Neuro): normal cognition Gait exam (Neuro): Normal gait present Extrem General: Yes no clubbing, cyanosis or edema Coding Level of Care Code Est Pt Prev Care 40-64y(93234) Diagnoses Annual physical exam Z00.00 Acquired hypothyroidism E03.9 Anemia, unspecified type D64.9 Anemia type: unspecified type Fibromyalgia M79.7 Orthostatic hypotension I95.1 Varicose veins of bilateral lower extremities with pain I83.813 Palpitations R00.2 Vitamin D deficiency E55.9 Allergic rhinitis, unspecified seasonality, unspecified trigger J30.9 Allergic rhinitis trigger: unspecified Allergic rhinitis seasonality: unspecified Degeneration of intervertebral disc of lumbar region with discogenic back pain M51.360 Disc-related pain type: discogenic back pain only Chronic right sacroiliac joint pain M53.3; G89.29 Scar irritation L90.5 Anxiety F41.9 Episode of recurrent major depressive disorder, unspecified depression episode severity F33.9 Depression Type: major depressive disorder Major depression recurrence: recurrent Active/Remission status: currently active Major depression episode severity: unspecified Overweight (BMI 25.0-29.9) E66.3 Additional Codes HERLINDA-7 Assessment Billing - HERLINDA-7 Assessment Tool: HERLINDA-7 Assessment 55062 ([id number]) PHQ-9 - 67989 - PHQ-9 Billing: Yes ([id number]) Assessment & Plan Assessment & Plan (1) Annual physical exam: Code(s): Z00.00 - Encounter for general adult medical examination without abnormal findings Category: Medical Plan: Check labs She is currently up-to-date with her annual mammogram and yearly gynecology exam and pap smear as these were both done at [facility] sometime within the past 6 months She has declined going for a screening colonoscopy in the past but did have Cologuard testing done back on 06/27/2022 that came back negative She currently still has her menstrual periods so she is not yet due for osteoporosis screening (2) Acquired hypothyroidism: Code(s): E03.9 - Hypothyroidism, unspecified Category: Medical Plan: Continue Levothyroxine 25 mcg QD Will recheck her TFTs for follow up (3) Anemia: Code(s): D64.9 - Anemia, unspecified Category: Medical Qualifiers: Anemia type: unspecified type Qualified Code(s): D64.9 - Anemia, unspecified Plan: Her anemia has improved with oral Ferrous Sulfate 325 mg QD in the past and her H/H was normal when she had her labs done back in January 2024 Will recheck her CBC for follow up (4) Fibromyalgia: Code(s): M79.7 - Fibromyalgia Category: Medical Plan: Patient is again encouraged on regular exercise and physical activity to help manage her fibromyalgia symptoms She is mostly sedentary and has orthostatic hypotension, which makes it difficult to motivate her to increase her physical activity Have advised her to try gradually increasing her daily activity level as tolerated Because of her physical symptoms, she continues to require assistance with ADLs that involve increased exertion and 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 but she is somewhat independent with some routine ADLs including those that involve self hygiene and toileting Continue Baclofen 10 mg TID PRN and Gabapentin 300 mg TID - symptoms appear better controlled since her dose was raised to 300 mg 3 times a day last year Patient apparently went to see a holistic medicine specialist during her recent trip to [facility] last month and she brought in several medications/supplements that were prescribed to her back then and she is wondering if these are okay for her to take or if she should even be taking them Her medications brought in today include Alfaxib, Flexicamin Plus, Nortibion and Novastat, some of which are the equivalent of Simon-2 inhibitors here as well as compounded prescriptions that include Pregabalin, Nortriptyline and Mecobalamin and other supplements She was also reportedly advised that she has a low ferritin as well as a low zinc level and told that she was anemic She also had an MRI of lumbar spine done in [place] on 07/18/2024 - MRI report indicated (+) multilevel lumbar DDD with findings of bilateral foraminal narrowing but no evidence of any significant nerve compression I have advised patient that all of the medication she brought in today are mostly compounded medications of supplements and vitamin and one included a combination of pregabalin and nortriptyline and there was another one that is similar to a Simon 2 inhibitor I have advised patient that I would recommend against taking them, especially since they are not regulated here and even if they do help, she will not be able to get them refilled here as they do not exist here in the [place] (5) Orthostatic hypotension: Code(s): I95.1 - Orthostatic hypotension Category: Medical Plan: Continue Midodrine 5 mg TID (6) Varicose veins of bilateral lower extremities with pain: Code(s): I83.813 - Varicose veins of bilateral lower extremities with pain Category: Medical Plan: S/P EVLT and sclerotherapy with Dr. Imani Peter, with some improvement of symptoms Follow up with vascular surgery as scheduled (7) Palpitations: Code(s): R00.2 - Palpitations Category: Medical Plan: Have advised patient that these again are most likely related to her anxiety Echocardiogram done in November 2017 came out completely normal; Holter monitor done in September 2018 also came back normal with normal sinus rhythm, no significant arrhythmia noted and patient's symptom diary showed no associations of her symptoms with arrhythmia Discussed that if she feels that these are again occurring more frequently, we can refer her back to cardiology for reassessment - patient states that she will call for referral if her symptoms increase or get worse (8) Vitamin D deficiency: Code(s): E55.9 - Vitamin D deficiency, unspecified Category: Medical Plan: Continue Vitamin D3 2000 units QD (9) Allergic rhinitis: Code(s): J30.9 - Allergic rhinitis, unspecified Category: Medical Qualifiers: Allergic rhinitis trigger: unspecified Allergic rhinitis seasonality: unspecified Qualified Code(s): J30.9 - Allergic rhinitis, unspecified Plan: Continue Loratadine 10 mg QD PRN and Fluticasone 50 mcg nasal spray QD PRN (10) Lumbar degenerative disc disease: Code(s): M51.36 - Other intervertebral disc degeneration, lumbar region Category: Medical Qualifiers: Disc-related pain type: discogenic back pain only Qualified Code(s): M51.360 - Other intervertebral disc degeneration, lumbar region with discogenic back pain only Plan: Reinforced activity and weight lifting restrictions Lumbar spine MRI done in January 2020 revealed degenerative changes and facet arthritis with an L4-L5 disc bulge with small lateral recess stenosis She was evaluated by Neurosurgery back then and was referred for physical therapy and to pain management - advised that her pain appears to be due more from the SI joint(s) and that she had no surgical indication then She was most recently following up with [facility] and has another appointment scheduled for 09/21/2024 but she is also now seeing [facility] and is scheduled to start physical therapy over there sometime in the next 1 to 2 weeks (11) Chronic right sacroiliac joint pain: Code(s): M53.3 - Sacrococcygeal disorders, not elsewhere classified; G89.29 - Other chronic pain Category: Medical Plan: Patient states that her low back pain and right sacroiliac pain have improved significantly with physical therapy and injection treatments from pain management Continue Naproxen 500 mg BID PRN and Tramadol 50 mg PRN Follow-up with [facility] Pain Management as scheduled (12) Scar irritation: Code(s): L90.5 - Scar conditions and fibrosis of skin Category: Medical Plan: Patient has prominent keloids on the scars under her breasts and advised that her recurrent itching on her scar is likely related to these Will start her on a trial of Clobetasol 0.05% cream to apply to the scar under her breasts BID for 2 weeks If her symptoms do not improve with the Rx, will need to consider referring her to dermatology With regards as to whether she should have her keloids surgically excised, have advised patient that this is an option but there is also the possibility that if she does have excision done her keloids may come back once her wound starts healing and scarring and there is also slight possibility that the keloids may be worse than before Have advised patient to consider this and if she still wishes to see surgery, will then make out a referral for her (13) Anxiety: Code(s): F41.9 - Anxiety disorder, unspecified Category: Medical Plan: Continue Lorazepam 1 mg Q HS PRN (14) Depression: Code(s): F32.9 - Major depressive disorder, single episode, unspecified Category: Medical Qualifiers: Depression Type: major depressive disorder Major depression recurrence: recurrent Active/Remission status: currently active Major depression episode severity: unspecified Qualified Code(s): F33.9 - Major depressive disorder, recurrent, unspecified Plan: Continue Fluoxetine 20 mg QD and Mirtazapine 30 mg Q HS Follow-up with Psychiatry as scheduled (15) Overweight (BMI 25.0-29.9): Code(s): E66.3 - Overweight Category: Medical Plan: Reinforced diet; exercise and weight loss are not practical due to patient's multiple physical issues at this time Plan Follow up in 4 months Orders: Orders Comprehensive [place]. Panel Fast 09/04/24 E78.00 - Pure hypercholesterolemia, unspecified, Z00.00 - Encounter for general adult medical examination without abnormal findings Lipid Panel 09/04/24 E78.00 - Pure hypercholesterolemia, unspecified, Z00.00 - Encounter for general adult medical examination without abnormal findings TSH reflex Free T4 09/04/24 E78.00 - Pure hypercholesterolemia, unspecified, Z00.00 - Encounter for general adult medical examination without abnormal findings Ferritin 09/04/24 E83.119 - Hemochromatosis, unspecified, Z00.00 - Encounter for general adult medical examination without abnormal findings Vitamin B12 and Folate 09/04/24 E53.8 - Deficiency of other specified B group vitamins, Z00.00 - Encounter for general adult medical examination without abnormal findings C Reactive Protein 09/04/24 M53.3 - Sacrococcygeal disorders, not elsewhere classified, Z00.00 - Encounter for general adult medical examination without abnormal findings Erythrocyte Sedimentation Rate 09/04/24 M79.7 - Fibromyalgia, Z00.00 - Encounter for general adult medical examination without abnormal findings Complete Blood Count Auto Diff 09/04/24 D64.9 - Anemia, unspecified, Z00.00 - Encounter for general adult medical examination without abnormal findings UA CC w/rflx Micro + Cult 09/04/24 R30.0 - Dysuria, Z00.00 - Encounter for general adult medical examination without abnormal findings Vitamin D 25-OH Total 09/04/24 E55.9 - Vitamin D deficiency, unspecified, Z00.00 - Encounter for general adult medical examination without abnormal findings Magnesium 09/04/24 E83.42 - Hypomagnesemia, Z00.00 - Encounter for general adult medical examination without abnormal findings Hemoglobin A1c 09/04/24 E11.9 - Type 2 diabetes mellitus without complications, Z00.00 - Encounter for general adult medical examination without abnormal findings Medications: New clobetasol 0.05% 1 appl topical BID 2 weeks 59 mL 0RF
[2024-09-04 12:46] VITALS: BP 110/66; PULSE 78; TEMP 36.2; O2SAT 97; BMI 28.0
== END 2024-09-04 13:38 | disposition home or self-care (01) ==
LOC: HO.HMCH 12:41
PROVIDERS: PCP Internal Medicine; Visit Provider Internal Medicine
DX: Z00.00 Encounter for general adult medical examination without abnormal findings (principal); E03.9 Hypothyroidism, unspecified; D64.9 Anemia, unspecified; M79.7 Fibromyalgia; I95.1 Orthostatic hypotension; I83.813 Varicose veins of bilateral lower extremities with pain; R00.2 Palpitations; E55.9 Vitamin D deficiency, unspecified; J30.9 Allergic rhinitis, unspecified; M51.360 Other intervertebral disc degeneration, lumbar region with discogenic back pain only; M53.3 Sacrococcygeal disorders, not elsewhere classified; G89.29 Other chronic pain; L90.5 Scar conditions and fibrosis of skin; F41.9 Anxiety disorder, unspecified; F33.9 Major depressive disorder, recurrent, unspecified; E66.3 Overweight

== ENCOUNTER → 2024-09-04 12:40 | Outpatient (BNVA) | payer OTHER, SELFPAY | PROVIDERS: PCP Internal Medicine; Visit Provider Internal Medicine | DX: Z00.00 Encounter for general adult medical examination without abnormal findings (principal); E03.9 Hypothyroidism, unspecified; D64.9 Anemia, unspecified; M79.7 Fibromyalgia; I95.1 Orthostatic hypotension; I83.813 Varicose veins of bilateral lower extremities with pain; R00.2 Palpitations; E55.9 Vitamin D deficiency, unspecified; J30.9 Allergic rhinitis, unspecified; M51.360 Other intervertebral disc degeneration, lumbar region with discogenic back pain only; M53.3 Sacrococcygeal disorders, not elsewhere classified; G89.29 Other chronic pain; L90.5 Scar conditions and fibrosis of skin; F41.9 Anxiety disorder, unspecified; F33.9 Major depressive disorder, recurrent, unspecified; E66.3 Overweight; Z68.28 Body mass index [BMI] 28.0-28.9, adult; Z79.899 Other long term (current) drug therapy; Z13.30 Encounter for screening examination for mental health and behavioral disorders, unspecified | CPT/HCPCS: 96127; 99396 ==

== ENCOUNTER 2024-09-15 08:41 | Outpatient (REF) | payer OTHER, SELFPAY ==
[2024-09-15 09:00] LABS: MANUAL DIFF FLAG NO
--- OUTSIDE RECORDS SUMMARY | 2024-09-15 09:08 | XMS_ITS | Data Portability ---
Author Organization [facility]ON[facility], [address] Address [address] [place] [address] Assessment No assessment recorded. Plan of Treatment Reminders Order Date Submit Date Provider Last Modified By Organization Details Last Modified Time Details Appointments None recorded. Lab None recorded. Referral emergency medicine referral 2022 023 [email or web address] 26 [facility] [address] [place], [address], 3 13:20:05 Procedures None recorded. Surgeries None recorded. Imaging None recorded. Medication Orders prednisone 20 mg tablet 2022 023 [facility] [address] [place] [address], [address], 3 10:55:47 Allergy Relief (fluticason e) 50 mcg/actuati on nasal spray,suspe nsion 2022 023 [facility], [address] [place] [address], [address], 3 10:55:48 fexofenadin e-pseudoeph edrine ER 180 mg-240 mg tablet,ext. release 24 hr 2022 023 [facility], [address] [place] [address], [address], 3 11:12:06 ofloxacin 0.3 % ear drops 2022 023 [email or web address] 5 [facility], [address] [place] [address], [address], 3 20:23:03 doxycycline hyclate 100 mg tablet 2022 023 [facility] [address], [address] [place] [address], [address], 3 11:33:10 prednisone 20 mg tablet 2022 023 [facility] [address], [address] [place] [address], [address], 3 11:33:12 fexofenadin e-pseudoeph edrine ER 180 mg-240 mg tablet,ext. release 24 hr 2022 023 [facility] [address], [address] [place] [address], [address], 3 11:33:11 Patient TargetsNo targets recorded. Patient Instructions Encounter Date Encounter Id Patient Instructions Last Modified By Organization Details Last Modified Time 05/31/2022 [id number] An ear infection may start with a [...] taking a prescription pain medicine, take an mboj-fst-gbxhxmz medicine, such as acetaminophen (Tylenol), ibuprofen (Advil, [...] of antibiotics. Not available 05/31/2022 11:32:02 06/17/2022 [id number] swimmer's ear: care instructions [email or web address] Not available 06/17/2022 20:23:06 You have been advised to go now to the Emergency Department for evaluation of your leg pain to check for a blood clot. [facility] has been advised of your impending arrival. Use the ear drops as prescribed. Follow-up with your doctor if no improvement in your ear symptoms in a few days. See printed instructions. [email or web address] Not available 06/17/2022 20:22:51 09/14/2022 [id number] Sinusitis is an infection of the lining [...] care for yourself at home? Take an diqu-auz-lwsnooi pain medicine. Avoid Ibuprofen, Aleve and Aspirin if . If the doctor prescribed antibiotics, take them as directed. Do not stop taking them just because you feel better. You need to take the full course of antibiotics. Be careful when taking pkac-mqs-rfchwjb cold or influenza (flu) medicines and Tylenol [...] nose drops at a grocery store or [place]. Or you can make your own at [...] deeper into the ear canal. Remain still, dgjv-ekl-gctn-down for about 15 minutes. 3. Keep the [...] about six inches from the ear. 4. Flgm-ovu-zzzhewv pain medications can relieve discomfort associated with external otitis. Acetaminophen (Tylenol), ibuprofen, or naproxen can be taken, depending on individual preference. 5. Return to the [facility] in about one week. The [...] and Address Organization Details Recorded Time Hypothyroidism 93301503 Active 2022 ESTEBAN [place]ello, [place] - [facility] 3 10:43:40 Low blood pressure 32470032 Active 2022 ESTEBAN [place]ello, [place] - [facility] 3 10:45:35 Anxiety 42233732 Active 2022 [facility] [place] [facility] [...] Name and Address Organization Details Recorded Time 761936 Product containin g penicilli n (product) medicatio n other Not available Not available 05/31/2022 [id number] SNOMED famil y histo ry SALONI [...] ) 50 mcg/actuatio n nasal spray,suspen neisha [place] 1 spray every day by intranasal route [...] Updated DateTime 3 165.1 cm 27.5 kg/m2 22878.7 4 g 20 /min 99 % 99 % 74 /min 98.5 [degF] 105 mm[Hg] 70 mm[Hg] ESTEBAN CHRIS [facility] 3 10:49:11 Date Recorded Body height Body mass index (BMI) Body weight Respiratory rate Oxygen saturation Oxygen saturation in Arterial blood by Pulse oximetry Heart rate Body temperature Systolic blood pressure Diastolic blood pressure Systolic blood pressure Diastolic blood pressure Provider Name and Address Organization Details Last Updated DateTime 3 165.1 cm 27.5 kg/m2 57772.7 4 g 18 /min 100 % 100 % 71 /min 98.6 [degF] 99 mm[Hg] 63 mm[Hg] 122 mm[Hg] 78 mm[Hg] ESTEBAN GUALLPA - [facility] 3 19:49:33 Date Recorded Body height Body mass index (BMI) Body weight Oxygen saturation Oxygen saturation in Arterial blood by Pulse oximetry Heart rate Respiratory rate Body temperature Systolic blood pressure Diastolic blood pressure Provider Name and Address Organization Details Last Updated DateTime 3 165.1 cm 27.5 kg/m2 06934.7 4 g 99 % 99 % 72 /min 18 /min 98 [degF] 105 mm[Hg] 71 mm[Hg] BABITA GUALLPA [facility] 3 10:35:00 Social History Question Answer Notes LastModified by Organizat ion Details LastModified Time Tobacco Smoking Status Never Smoker ESTEBAN bello [place] [facility] 05/31/2022 10:45:58 Have You Recently Traveled Abroad? Yes [place] 04/23/22-05/24 [email or web address] Information not available 05/31/2022 Sex: Unknown Functional Status Question Answer Note LastModified by Organizat ion Details LastModified Time Do you use any illicit or recreational drugs? No [email or web address] Information not available 05/31/2022 Do you or have you ever used any other forms of tobacco or nicotine? No [email or web address] Information not available 05/31/2022 What is your level of alcohol consumption? None Information not available 05/31/2022 Mental Status None recorded. Family History Relationship Description Onset Age of this Age Resolved Age Notes LastModified by Organization Details LastModified Time Father No current problems or disability [email or web address] Not available 06/17 19:24:39 Mother No current problems or disability Not available 06/17 19:24:39 Medical History No [...] SNOMED-CT Code Diagnosis ICD10 Code Diagnosis Note [id number] [address] [place] [address] 06/18/2019 10:40:39 06/18/2019 11:39:27 [id number] [address] [place] [address] 09/12/2020 16:26:23 09/12/2020 18:14:11 [id number] [address] [place] [address] 04/28/2019 10:54:58 04/28/2019 12:20:41 [id number] [address] [place] [address] 08/19/2018 14:58:21 08/19/2018 15:12:21 [id number] [address] [place] [address] 01/02/2020 15:47:49 01/02/2020 17:04:11 [id number] [address] [place] [address] 07/05/2019 10:18:49 07/05/2019 10:52:51 [id number] [address] [place] [address] 07/28/2018 15:14:41 07/28/2018 15:52:42 [id number] [address] [place] [address] 08/16/2019 11:11:15 08/16/2019 11:49:41 [id number] [address] [place] [address] 03/08/2019 14:14:27 03/08/2019 14:53:22 [id number] [address] [place] [address] 03/11/2021 08:56:51 03/11/2021 11:32:58 [id number] Chris Mena NP [address] [place] [address] 05/31/2022 09:53:59 05/31/2022 11:36:00 Acute left otitis media 838741917 H66.92 [id number] Marium Salguero MD [address] [place] [address] 06/17/2022 17:55:34 06/17/2022 20:25:18 Pain in right lower limb 672709595 M79.604 Otitis ext lesley of bilateral ears [id number] 680486 H60.93 [id number] Chris Mena NP [address] [facility] [address] [place] [address] 09/14/2022 09:52:11 09/14/2022 10:57:33 Acute sinusitis 49505464 J01.90 Health Concerns Section Related Observation LastModified by Organization Detai ls LastModified Time None Recorded Concern Status LastModified by Organization Details LastModified Time None Recorded Advance Directives Directive None Recorded Payers Insurance Date Sequence Insurance Name Policy Number Policy Kwon Covered Member ID Kwon Member ID Guarantor Name 09/14/2022 1 [facility] (MEDICAID HMO) [facility] Mikefrancisco Camrynleonor [id number] Michelle Camrynleonor 09/14/2022 2 [place] [facility] Mikefrancisco Camrynannelieseum [id number] Mikefrancisco Clarke Notes Date Note Type Note Provider Name and Address Organization Details Recorded Time 3 text/html CongestionReported bypatient.Notes:left ear pain, nasal congestion with post nasal drip x 3 days. denies any fever or fever with chills. no SOB or respiratory distress. Chris Mena NP [address] [facility] [place], [address], [place] - [facility] 05/31/2022 11:33:33 3 [...] Marium Salguero MD [address] [place], [address], [employer] 06/18/2022 11:39:07 3 text/html CongestionReported bypatient.Notes:nasal congestion [...] Symptoms:Cough;nasal congestion;nasal discharge Chris Mena NP [address] [facility] [place], [address], [email or web address] 09/14/2022 10:56:11 OBGyn Episode No OBEpisode recorded.
[2024-09-15 09:48] LABS: Basophils Percent Auto 0.6 % (0-2); Eosinophils Absolute Auto 0.2 X10*3/uL (0.0-0.4); Eosinophils Percent Auto 2.6 % (0-4); Hematocrit 38.5 % (37.0-47.0); Hemoglobin 12.7 g/dl (12.0-16.0); Imm Gran Abs Auto 0.02 X10*3/uL (0.00-0.03); Imm Gran Pct Auto 0.3 % (0.0-0.4); Lymphocytes Absolute Auto 2.2 X10*3/uL (1.2-4.9); Lymphocytes Percent Auto 35.7 % (20-40); Mean Corpuscular Hemoglobin 30.3 pg (27.0-33.0); Mean Corpuscular Volume 91.9 fL (80.0-98.0); Mean Platelet Volume 11.7 fL (9.4-12.3); Monocytes Absolute Auto 0.4 X10*3/uL (0.1-1.2); Monocytes Percent Auto 5.7 % (2-11); Neutrophils Absolute Auto 3.4 x10*3/uL (2.0-8.3); Neutrophils Percent Auto 55.1 % (45-73); Platelet Count 218 X10*3/uL (160-400); Red Blood Count 4.19 X10*6/uL (4.20-5.50); Red Cell Distribution Width 13.4 % (11.0-16.0); White Blood Count 6.2 X10*3/uL (4.8-10.8)
[2024-09-15 09:59] LABS: Estimated Average Glucose 105 mg/dL; Hemoglobin A1c % 5.3 % (<6.0); Total Hemoglobin (HGBA1C) 3377.2656 umol/L
[2024-09-15 10:32] LABS: Erythrocyte Sedimentation Rate 26 MM/HR (0-20)
[2024-09-15 10:48] LABS: Alanine Aminotransferase 21 U/L (0-31); Albumin Level 4.4 g/dL (3.5-5.0); Alkaline Phosphatase 77 U/L (39-117); Anion Gap 11 (12-20); Aspartate Amino Transferase 23 U/L (5-31); Bilirubin Total 0.5 mg/dL (0.0-1.0); Blood Urea Nitrogen 14 mg/dL (9-16); C Reactive Protein 0.39 mg/dL (< or = 0.50); Calcium 9.7 mg/dL (8.4-10.2); Carbon Dioxide 30 mmol/L (22-29); Chloride 106 mmol/L (96-108); Cholesterol 187 mg/dL (<200); Estimated Glomerular Filt Rate > 60; Glucose Fasting 92 mg/dL (60-99); HDL Cholesterol 67 mg/dL (>40); LDL Cholesterol Calculated 109 mg/dL (<100); Magnesium 1.8 mg/dL (1.6-2.6); Potassium 3.8 mmol/L (3.3-5.1); Sodium 143 mmol/L (135-145); Triglycerides 55 mg/dL (<150)
[2024-09-15 10:53] LABS: Appearance Urine Clear; Color Urine Yellow; Glucose Urine UA Negative (Negative); Leukocyte Esterase Urine Negative (Negative); Nitrite Urine Negative (Negative); Specific Gravity - Urine 1.015 (1.005-1.025); Urine Blood Negative (Negative); Urine Ketones Negative (Negative); Urine Protein Negative (Neg-Trace)
[2024-09-15 11:08] LABS: Folate 9.7 ng/mL (> or = 4.0); Vitamin B12 804 pg/mL (200-900)
[2024-09-15 11:09] LABS: Ferritin 37 ng/mL (10-250); Free T4 (Free Thyroxine) 1.06 ng/dL (0.71-1.85); TSH reflex Free T4 4.71 uIU/mL (0.32-4.0); Thyroid Stimulating Hormone 4.71 uIU/mL (0.32-4.0); Vitamin D 25-OH Total 58.1 ng/mL (>30)
== END 2024-09-15 08:42 | disposition home or self-care (01) ==
LOC: HO.LAB 08:41
PROVIDERS: PCP Internal Medicine; Visit Provider Internal Medicine
DX: Z00.00 Encounter for general adult medical examination without abnormal findings (principal); D64.9 Anemia, unspecified; M79.7 Fibromyalgia; E83.119 Hemochromatosis, unspecified; E53.8 Deficiency of other specified B group vitamins; M53.3 Sacrococcygeal disorders, not elsewhere classified; E03.9 Hypothyroidism, unspecified; R30.0 Dysuria; E83.42 Hypomagnesemia; E11.9 Type 2 diabetes mellitus without complications; E78.00 Pure hypercholesterolemia, unspecified
CPT/HCPCS: 36415; 80053; 80061; 81003; 82306; 82607; 82728; 82746; 83036; 83735; 84439; 84443; 85025; 85652; 86140

== ENCOUNTER 2025-01-06 13:15 | Outpatient (AMB) | payer OTHER, SELFPAY ==
[2025-01-06 13:20] VITALS: BP 122/78; PULSE 73; O2SAT 98; BMI 28.5
--- NOTE | 2025-01-06 13:20 | A.OFFPC_ITS ---
Vital Signs 01/06/25 13:20 Height 5 ft 4 in Weight 166 lb 2 oz BMI 28.5 BP 122/78 Blood Pressure Location Lt brachial Position Sitting Pulse 73 Pulse Source Pulse Oximeter Pulse Oximetry (%) 98 Oxygen Delivery Method Room Air Intake Visit Reasons: 4 month f/u Mechanical Oxidizer Required: No Accompanied by: Self / Same As Patient Allergies Penicillins (PENICILLINS) Allergy (Unknown, Verified 01/06/25 13:43) RASH Medication List - Last Reconciled 01/06/25 by Chandu Ruvalcaba MD baclofen 10 mg PO TID PRN 30 days cholecalciferol (vitamin D3) 50 mcg PO DAILY 90 days clobetasol 0.05% 1 appl topical BID 2 weeks cyanocobalamin (vitamin B-12) mcg PO DAILY dicyclomine 20 mg PO QID PRN ferrous sulfate (Feosol) 325 mg PO DAILY 30 days fluoxetine 20 mg PO DAILY 90 days fluticasone propionate 50 mcg/actuation 2 sprays intranasal DAILY PRN 30 days gabapentin 300 mg PO TID 30 days ibuprofen 600 mg PO Q6H PRN levothyroxine 25 mcg PO QAM 90 days lidocaine 5% 1 appl topical .four time a day PRN loratadine 10 mg PO DAILY PRN 90 days lorazepam 1 mg PO BEDTIME PRN 30 days mecobalamin (vitamin B12) 1,000 mcg PO DAILY 90 days meloxicam 15 mg PO DAILY methocarbamol 750 mg PO Q6H PRN midodrine 5 mg PO TID 30 days mirtazapine 30 mg PO BEDTIME 90 days nitroglycerin 0.4%(w/w) 1 inch PA BID 2 weeks pantoprazole 40 mg PO BID 90 days simethicone (Gas-X Extra Strength) 125 mg PO DAILY PRN tramadol 50 mg PO DAILY PRN 30 days Tobacco use date assessed: 01/06/25 Dental Screening Dental Screen Date: 01/06/25 Did you have a dental visit in the last 12 months?: Yes Did you have a dental problem in the last 6 months where you did not have access to dental care?: No Was dental information given to patient?: Patient has dentist HPI 4 month f/u HPI Details Patient comes in today for her follow-up visit States that she has been having a hard time sleeping through the night for a few weeks now States that she has no trouble going to sleep (takes OTC Melatonin 5 mg at bedtime) but would often wake up after about 2 hours for no particular reason and that she would then have hard time falling back to sleep Notes that she feels as if her brain would not yet down Relates that she has been experiencing increased anxiety frequently lately and does not feel that her Fluoxetine is helping her as well as it used to States that she sometimes also experiences some fluttering-like sensation in her chest She denies any exertional chest pains or increased shortness of breath She denies any headaches or dizziness No nausea/vomiting, no abdominal pain No change in bowel habits noted She would like to go over the results of her labs done back in September 2024 [facility] Medical History (Updated 01/10/25 @ 22:47 by Chandu Ruvalcaba MD) Insomnia Diastasis of rectus abdominis Fatigue Localized swelling of left foot Left foot pain Intestinal parasitism, unspecified Palpitations Colonoscopy refused Overweight (BMI 25.0-29.9) Depression Anxiety Chronic right sacroiliac joint pain Lumbar degenerative disc disease Orthostatic hypotension Allergic rhinitis Fibromyalgia Acquired hypothyroidism Vitamin D deficiency Varicose veins of bilateral lower extremities with pain Coccydynia Surgical History H/O breast augmentation History of appendectomy History of arthroplasty of right knee History of tonsillectomy History of bladder suspension procedure History of delivery Family History Father No problems noted. Mother Myocardial infarction CVD (cardiovascular disease) Social History Housing: House Alcohol intake: never Patient Tobacco Use Status: Never used Tobacco e-Cigarette/Vaping Use: Never Used Second Hand Smoke Exposure: No service: No Current occupational status: disabled Current occupation: Unemployed Cognitive needs: No Hearing needs: No Vision needs: Yes Questionnaire PHQ-9 Over the last 2 weeks, how often have you been bothered by any of the following problems? 1. Little interest or pleasure in doing things: not at all 2. Feeling down, depressed, or hopeless: not at all 3. Trouble falling or staying asleep, or sleeping too much: more than half the days 4. Feeling tired or having little energy: more than half the days 5. Poor appetite or overeating: not at all 6. Feeling bad about yourself - or that you are a failure or have let yourself or your family down: several days 7. Trouble concentrating on things, such as reading the newspaper or watching television: not at all 8. Moving or speaking so slowly that other people could have noticed. Or the opposite - being so fidgety or restless that you have been moving around a lot more than usual: not at all 9. Thoughts that you would be better off or of hurting yourself in some way: not at all Total score: 5 Depression Screening Interpretation: Positive Depression Screening Follow-up: Existing condition and In treatment Depression Screening Done: Yes 09413 - PHQ-9 Billing: Yes Source: Developed by Drs. Burt Martines, Lili Peguero, Mike Khan and colleagues, with an educational claudine from [employer]. Thrive Questionnaire Date Thrive assessed: 01/06/25 I am a: Patient What is your living situation today?: I have a steady place to live Within the past 12 months, did the food you bought not last and you didn't have the money to get more?: Never true Within the past 12 months, did you worry whether your food would run out before you got money to buy more?: Never true Do you have trouble paying for medicines?: No Do you have trouble getting transportation to medical appointments?: No Do you have trouble paying your heating and electricity bill?: Yes Do you have trouble taking care of your child, family member or friend?: No Do you have trouble with day-to-day activities such as bathing, preparing meals, shopping, managing finances, etc.?: No Are you currently unemployed and looking for a job?: Yes Are you interested in more education?: No Please select the resources that you would like help with: None Currently or been in a relationship where the following occur: No concerns reported THRIVE Score: 1 AUDIT C Alcohol Use Questionnaire (AUDIT-C) 1. How often do you have a drink containing alcohol?: Never 3. How often do you have six or more drinks on one occasion?: Never Total Score: 0 Score Reviewed/Action Taken: Yes HERLINDA-7 AMB Questionnaire HERLINDA-7 Date HERLINDA - 7 assessed: 09/04/24 Source: Developed by Drs. Burt Martines, Lili Peguero, Mike Khan and colleagues, with an educational claudine from [employer]. Review of Systems Const Denies chills, Reports difficulty sleeping (often wakes up after 2 hours of seep and not able to fall asleep again), Reports fatigue, Denies fever(s) and Denies headache(s) ENT Denies dysphagia, Denies dizziness, Denies otalgia, Denies headache(s), Reports neck pain, Denies odynophagia and Denies sore throat Card Denies chest pain, Denies irregular heart rhythm, Reports palpitations (occasional - feels more like a fluttering sensation in her chest ) and Denies dyspnea Resp Denies chest congestion, Denies cough and Denies dyspnea GI Details: increased pain over her perianal area Denies abdominal pain, Denies constipation, Denies dysphagia, Denies heartburn, Denies diarrhea, Denies nausea, Denies odynophagia and Denies vomiting Denies difficulty voiding, Denies nocturia, Denies dysuria and Denies urinary urgency Musc Reports back pain (over the lower back - chronic), Denies arthralgias and Reports neck pain Skin/Breast Denies rash Neuro Denies dizziness and Denies headache(s) Psych Reports anxiety (increasing ) and Denies depression Endo Reports fatigue and Reports palpitations (occasional - feels more like a fluttering sensation in her chest ) Neal/Lymph Denies easy bruising Physical exam (Primary Care) Vital Signs: Last Vital Signs Pulse 73 01/06/25 13:20 BP 122/78 01/06/25 13:20 Pulse Ox 98 01/06/25 13:20 Oxygen Delivery Method Room Air 01/06/25 13:20 BMI result Body Mass Index 28.5 Tobacco/Smoking Status: Tobacco use Status Tobacco use date assessed 01/06/25 01/06/25 13:23 Patient Tobacco Use Status Never used Tobacco 01/06/25 13:23 e-Cigarette/Vaping Use Never Used 01/06/25 13:23 PHQ-9: PHQ-9 Score PHQ-9: Total score 5 01/07/25 06:03 Depression Screening Interpretation: Positive Depression Screening Follow-up: Existing condition and In treatment Thrive Assessment: Date of Thrive Assessment Date Thrive assessed 01/06/25 01/07/25 06:03 Currently or been in a relationship where the following occur: No concerns reported Const General: no acute distress and alert HENMT Ears: TM's normal bilaterally and EAC's normal Throat: Yes posterior oropharynx normal and Yes tonsils normal (no TP congestion) Neck Neck: No lymphadenopathy Thyroid: Thyroid normal Resp Auscultation: clear to auscultation bilaterally, no rales and no wheezes Cardio Rate: regular rate Rhythm: regular rhythm Heart sounds: Murmur heart sound present systolic soft GI Palpation (GI): Soft to palpation and nontender Auscultation: normal bowel sounds General: Yes no CVA tenderness Back/Spine/Pelvis Back: no CVA tenderness Cervical Spine: Cervical spine tenderness Thoracic/Lumbar Spine: lumbar spinal tenderness Skin Rashes: no rashes Extrem General: Yes no clubbing, cyanosis or edema Results Reviewed Results Reviewed: Laboratory Tests 09/15/24 09/15/24 08:57 08:58 WBC 6.2 Hgb 12.7 Hct 38.5 Plt Count 218 ESR 26 H Sodium 143 Potassium 3.8 Creatinine 0.84 Estimated GFR > 60 Fasting Glucose 92 Hemoglobin A1c % 5.3 Calcium 9.7 Ferritin 37 AST 23 ALT 21 Triglycerides 55 Cholesterol 187 LDL Cholesterol, Calc 109 H HDL Cholesterol 67 Vitamin B12 804 25-OH Vitamin D Total 58.1 TSH 4.71 H Free T4 1.06 Ur Specific [place] 1.015 Urine Protein Negative Urine Glucose (UA) Negative Urine Blood Negative Urine Nitrite Negative Ur Leukocyte Esterase Negative Coding Level of Care Code Est Pt Level 4 (29316) Diagnoses Acquired hypothyroidism E03.9 Anemia, unspecified type D64.9 Anemia type: unspecified type Fibromyalgia M79.7 Orthostatic hypotension I95.1 Varicose veins of bilateral lower extremities with pain I83.813 Palpitations R00.2 Cardiac murmur R01.1 Vitamin D deficiency E55.9 Allergic rhinitis, unspecified seasonality, unspecified trigger J30.9 Allergic rhinitis seasonality: unspecified Allergic rhinitis trigger: unspecified Degeneration of intervertebral disc of lumbar region with discogenic back pain M51.360 Disc-related pain type: discogenic back pain only Chronic right sacroiliac joint pain M53.3; G89.29 Insomnia, unspecified type G47.00 Insomnia type: unspecified Anxiety F41.9 Episode of recurrent major depressive disorder, unspecified depression episode severity F33.9 Active/Remission status: currently active Depression Type: major depressive disorder Major depression episode severity: unspecified Major depression recurrence: recurrent Overweight (BMI 25.0-29.9) E66.3 Additional Codes PHQ-9 - 40978 - PHQ-9 Billing: Yes ([id number]) Assessment & Plan Assessment & Plan (1) Acquired hypothyroidism: Code(s): E03.9 - Hypothyroidism, unspecified Category: Medical Plan: Her TSH was slightly elevated but free T4 was normal on her labs done a few months ago Patient is clinically euthyroid Continue Levothyroxine 25 mcg QD Will recheck her TFTs in 4 months for follow up (2) Anemia: Code(s): D64.9 - Anemia, unspecified Category: Medical Qualifiers: Anemia type: unspecified type Qualified Code(s): D64.9 - Anemia, unspecified Plan: Her anemia has improved with oral Ferrous Sulfate 325 mg QD in the past and her H/H remained normal when she had her labs done back in September 2024 Will recheck her CBC in 4 months for follow up (3) Fibromyalgia: Code(s): M79.7 - Fibromyalgia Category: Medical Plan: Patient is again encouraged on regular exercise and physical activity to help manage her fibromyalgia symptoms She is mostly sedentary and has orthostatic hypotension, which makes it difficult to motivate her to increase her physical activity Have advised her to try gradually increasing her daily activity level as tolerated Because of her physical symptoms, she continues to require assistance with ADLs that involve increased exertion and 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 but she is somewhat independent with some routine ADLs, including those that involve self hygiene and toileting Continue Baclofen 10 mg TID PRN and Gabapentin 300 mg TID - symptoms appear better controlled since her dose was raised to 300 mg 3 times a day last year She also had an MRI of lumbar spine done in [place] on 07/18/2024 - MRI report indicated (+) multilevel lumbar DDD with findings of bilateral foraminal narrowing but no evidence of any significant nerve compression (4) Orthostatic hypotension: Code(s): I95.1 - Orthostatic hypotension Category: Medical Plan: Continue Midodrine 5 mg TID (5) Varicose veins of bilateral lower extremities with pain: Code(s): I83.813 - Varicose veins of bilateral lower extremities with pain Category: Medical Plan: S/P EVLT and sclerotherapy with Dr. Imani Peter, with some improvement of symptoms Follow up with vascular surgery as scheduled (6) Palpitations: Code(s): R00.2 - Palpitations Category: Medical Plan: Have advised patient that these again are most likely related to her anxiety Echocardiogram done in November 2017 came out completely normal; Holter monitor done in September 2018 also came back normal with normal sinus rhythm, no significant arrhythmia noted and patient's symptom diary showed no associations of her symptoms with arrhythmia Discussed that if she feels that these are again occurring more frequently, we can refer her back to cardiology for reassessment - patient states that she will call for referral if her symptoms increase or get worse (7) Cardiac murmur: Code(s): R01.1 - Cardiac murmur, unspecified Category: Medical Plan: Patient is advised that she seems to have a soft murmur heard on auscultation of her heart today but it may be just a flow murmur Will send her for repeat echocardiogram for further evaluation (8) Vitamin D deficiency: Code(s): E55.9 - Vitamin D deficiency, unspecified Category: Medical Plan: Continue Vitamin D3 2000 units QD (9) Allergic rhinitis: Code(s): J30.9 - Allergic rhinitis, unspecified Category: Medical Qualifiers: Allergic rhinitis seasonality: unspecified Allergic rhinitis trigger: unspecified Qualified Code(s): J30.9 - Allergic rhinitis, unspecified Plan: Continue Loratadine 10 mg QD PRN and Fluticasone 50 mcg nasal spray QD PRN (10) Lumbar degenerative disc disease: Code(s): M51.36 - Other intervertebral disc degeneration, lumbar region Category: Medical Qualifiers: Disc-related pain type: discogenic back pain only Qualified Code(s): M51.360 - Other intervertebral disc degeneration, lumbar region with discogenic back pain only Plan: Reinforced activity and weight lifting restrictions Lumbar spine MRI done in January 2020 revealed degenerative changes and facet arthritis with an L4-L5 disc bulge with small lateral recess stenosis She was evaluated by Neurosurgery back then and was referred for physical therapy and to pain management - advised that her pain appears to be due more from the SI joint(s) and that she had no surgical indication then She was most recently following up with [facility] and is also now seeing [facility] for her low back pain (11) Chronic right sacroiliac joint pain: Code(s): M53.3 - Sacrococcygeal disorders, not elsewhere classified; G89.29 - Other chronic pain Category: Medical Plan: Patient states that her low back pain and right sacroiliac pain have improved s ignificantly with physical therapy and injection treatments from pain management Continue Naproxen 500 mg BID PRN and Tramadol 50 mg PRN Follow-up with [facility] as scheduled (12) Insomnia: Code(s): G47.00 - Insomnia, unspecified Category: Medical Qualifiers: Insomnia type: unspecified Qualified Code(s): G47.00 - Insomnia, unspecified Plan: Sleep hygiene reinforced Will have her increase her Melatonin from 5 mg to 10 mg Q HS PRN (13) Anxiety: Code(s): F41.9 - Anxiety disorder, unspecified Category: Medical Plan: Continue Lorazepam 1 mg Q HS PRN (14) Depression: Code(s): F32.9 - Major depressive disorder, single episode, unspecified Category: Medical Qualifiers: Active/Remission status: currently active Depression Type: major depressive disorder Major depression episode severity: unspecified Major depression recurrence: recurrent Qualified Code(s): F33.9 - Major depressive disorder, recurrent, unspecified Plan: Continue Mirtazapine 30 mg Q HS; will increase her Fluoxetine today from 20 mg to 40 mg QD Follow-up with Psychiatry as scheduled (15) Overweight (BMI 25.0-29.9): Code(s): E66.3 - Overweight Category: Medical Plan: Reinforced diet; exercise and weight loss are not practical due to patient's multiple physical issues at this time Plan Follow up in 4 months Orders: Orders Comprehensive [place]. Panel Fast 4 Months E78.00 - Pure hypercholesterolemia, unspecified Lipid Panel 4 Months E78.00 - Pure hypercholesterolemia, unspecified TSH reflex Free T4 4 Months E78.00 - Pure hypercholesterolemia, unspecified UA CC w/rflx Micro + Cult 4 Months R30.0 - Dysuria Vitamin D 25-OH Total 4 Months E55.9 - Vitamin D deficiency, unspecified CA echo transthoracic complete 01/06/25 R01.1 - Cardiac murmur, unspecified Complete Blood Count Auto Diff 4 Months D64.9 - Anemia, unspecified Vitamin B12 and Folate 4 Months E53.8 - Deficiency of other specified B group vitamins Medications: New melatonin 10 mg PO BEDTIME PRN 90 caps 1RF sleep 90 days Changed From fluoxetine 20 mg PO DAILY 90 days 90 caps 1RF To fluoxetine 40 mg PO DAILY 90 caps 1RF 90 days
--- OUTSIDE RECORDS SUMMARY | 2025-01-06 15:39 | XMS_ITS | Clinical Summary ---
Author Organization [employer] Address [address] [place] [address] Care Team Providers Care Cattle Dipper Name Role Phone Unavailable Primary Care Provider [...] Screening 1974 SDOH Screening 1974 Sigmoidoscopy 1974 Disability Screening 1974 Alcohol/Substance Use Screening 1986 Tobacco Screening 1986 Family Planning (PISQ) 1989 Hepatitis C Screening 1992 Hepatitis B Vaccines (1 of 3 - 19+ 3-dose series) 1993 Pap Smear 1995 Cervical Cancer Screening 2004 HPV/Cotest 2004 Mammogram 2014 Pneumococcal Vaccine: 50+ Years (1 of 1 - PCV) 2024 Zoster Vaccines (1 of 2) 2024 COVID-19 Vaccine (1 - 2023-2 5 season) 2024 Influenza Vaccine (#1) 2024 DTaP/Tdap/Td Vaccines (3 - T d [...] patient's age to complete this topic Meningococcal B Vaccine Aged Out No l onger eligible based on patient's age to complete this topic Meningococcal Vaccine Aged Out No joey parisa eligible based on patient's age to complete this topic RSV under 20 months Aged Out No longe r eligible based on patient's age to complete this topic Rotavirus Vaccines Aged Out No longer eligible based on patient's age to complete this topic Insurance [facility] STANDARD DENTAL-[facility] MEDICAID STAND ADULT
== END 2025-01-06 13:57 | disposition home or self-care (01) ==
LOC: HO.HMCH 13:16
PROVIDERS: PCP Internal Medicine; Visit Provider Internal Medicine
DX: E03.9 Hypothyroidism, unspecified (principal); D64.9 Anemia, unspecified; M79.7 Fibromyalgia; I95.1 Orthostatic hypotension; I83.813 Varicose veins of bilateral lower extremities with pain; R00.2 Palpitations; R01.1 Cardiac murmur, unspecified; E55.9 Vitamin D deficiency, unspecified; J30.9 Allergic rhinitis, unspecified; M51.360 Other intervertebral disc degeneration, lumbar region with discogenic back pain only; M53.3 Sacrococcygeal disorders, not elsewhere classified; G89.29 Other chronic pain; G47.00 Insomnia, unspecified; F41.9 Anxiety disorder, unspecified; F33.9 Major depressive disorder, recurrent, unspecified; E66.3 Overweight

== ENCOUNTER → 2025-01-06 13:15 | Outpatient (BNVA) | payer OTHER, SELFPAY | PROVIDERS: PCP Internal Medicine; Visit Provider Internal Medicine | DX: E03.9 Hypothyroidism, unspecified (principal); D64.9 Anemia, unspecified; M79.7 Fibromyalgia; I95.1 Orthostatic hypotension; I83.813 Varicose veins of bilateral lower extremities with pain; R00.2 Palpitations; R01.1 Cardiac murmur, unspecified; E55.9 Vitamin D deficiency, unspecified; J30.9 Allergic rhinitis, unspecified; M51.360 Other intervertebral disc degeneration, lumbar region with discogenic back pain only; M53.3 Sacrococcygeal disorders, not elsewhere classified; G89.29 Other chronic pain; G47.00 Insomnia, unspecified; F41.9 Anxiety disorder, unspecified; F33.9 Major depressive disorder, recurrent, unspecified; E66.3 Overweight; Z68.28 Body mass index [BMI] 28.0-28.9, adult; Z79.891 Long term (current) use of opiate analgesic; Z79.899 Other long term (current) drug therapy; Z13.31 Encounter for screening for depression | CPT/HCPCS: 96127; 99212 ==

== ENCOUNTER → 2025-01-19 12:15 | Outpatient (REF) | payer OTHER, SELFPAY ==
--- NOTE | 2025-01-19 12:18 | CA_ITS ---
Transthoracic Echocardiogram Patient (Last, First, Middle): Michelle Clarke J Gender: F Date of : 1975 Age: 49 Procedure Date: 01/19/2025 Procedure Type: Transthoracic Echocardiogram Location: OP Height: 165.1 cm Weight: 75.01 kg BSA: 1.82 m2 Heart Rate: bpm BP: 118 / 64 mmHg Lab Manager: TO Referring MD: Chandu Ruvalcaba MD Sound Truck Operator: Wing Mckeon MD Symptoms: R01.1 - Cardiac murmur, unspecified Study Quality: Adequate ECG Rhythm: Sinus Conclusions: - Normal study Findings Left Ventricle Normal left ventricular size, thickness, and systolic function. The visually estimated ejection fraction is between 60-65%. Diastolic function is normal for age. Right Ventricle Normal right ventricular cavity size and systolic function. Atria Both atria are normal in size. There is no evidence of interatrial shunt. Aortic Valve Normal aortic valve structure and function. There is no aortic valve stenosis. There is no aortic valve regurgitation. Mitral Valve Normal mitral valve structure and function. There is trace mitral valve regurgitation. There is no mitral valve stenosis. Pulmonic Valve The pulmonic valve is likely normal. Tricuspid Valve Normal tricuspid valve structure. Tricuspid regurgitation envelope is inadequate for calculation of right ventricular systolic pressure. Normal right atrial pressure. Great Vessels All visible segments of the aorta are normal in size. The pulmonary artery was not well visualized. Venous The inferior vena cava is normal in size and collapses greater than 50% with inspiration. Pericardium/Pleural There is no evidence of pericardial effusion. Measurements 2D Linear Measurements IVSd: 0.67 0.6-0.9/0.6-1.0 cm LVIDd: 4.53 3.9-5.3/4.2-5.9 cm LVIDd Index: 2.49 2.4-3.2/2.2-3.1 cm/m2 LVIDs: 2.84 2.0-3.6 cm LVPWd: 0.68 0.7-1.1 cm LA Diam: 3.00 2.7-3.8/3.0-4.0 cm LAIDs Index: 1.65 1.5-2.3 cm/m2 LV Mass: 114.86 67-162/88-224 g LV Mass Index: 63.11 43-95/49-115 g/m2 LVOT Diam: 2.10 3.0+(-)1.3 cm 2D Systolic Function EF 4C: 60.00 >55% EF 2C: 60.80 >55% EF BiP: 59.50 >55% Aortic Valve AoV Pk Panda: 1.46 AoV Mn Panda: 1.04 AoV VTI: 0.31 AoV Pk Grad: 9.00 Aov Mn Grad: 5.00 KELLEN Cont.VTI: 2.87 LVOT LVOT Pk Panda: 1.31 LVOT Mn Panda: 0.84 LVOT VTI: 0.25 LVOT Pk Grad: 7.00 LVOT Mn Grad: 3.00 LVOT Diam: 2.10 LVOT Area: 3.46 Right Ventricle TAPSE (mm): 21.70 TVS' Panda: 14.70 Tricuspid Valve RA Press: 3.00 Great Vessels Aorta Sinus of Valsalva: 2.79 2.0-3.[address] [place]: 2.16 1.7-3.4 cm Ao Asc: 2.80 2.1-3.4 cm Updated in Other Vendor System with Status of Final Wing Mckeon MD electronically signed on 01/19/2025 3:51:13 PM with status of Final
--- OUTSIDE RECORDS SUMMARY | 2025-01-19 15:12 | XMS_ITS | Clinical Summary ---
Author Organization [employer] Address [address] [place] [address] Care Team Providers Care Library Assistant Name Role Phone Unavailable Primary Care Provider [...] patient's age to complete this topic Insurance [facility] DENT[facility] MEDICAID STAND ADULT
== END ==
LOC: HO.CARD 12:15
PROVIDERS: PCP Internal Medicine; Visit Provider Internal Medicine
DX: R01.1 Cardiac murmur, unspecified (principal)
CPT/HCPCS: 93306

== ENCOUNTER → 2025-01-19 12:18 | Outpatient (BNV) | payer OTHER, SELFPAY | PROVIDERS: PCP Internal Medicine; Visit Provider Internal Medicine Cardiovascular Disease | DX: R01.1 Cardiac murmur, unspecified (principal) | CPT/HCPCS: 93306 ==